=== PATIENT | male | born 1940 | race Caucasian/White ===

== ENCOUNTER 2020-05-03 07:58 | Inpatient (IN) | payer MEDICARE, OTHER ==
[2020-05-03] VITALS (17 sets, daily range): BP systolic 93–161; BP diastolic 53–94
[~2020-05-03] VITALS: Ht 182.5 cm; Wt 146.2 kg
[2020-05-03] MEDS ORDERED: NS IV 500 ML 500 ML IV SCH ×2 (08:10→08:15)
[2020-05-03] MEDS ORDERED: LOPERAMIDE 2 MG (IMODIUM) TABLET PO PRN (08:15)
[2020-05-03] MEDS ORDERED: ALPRAZolam 0.25 MG (XANAX) TAB PO PRN (08:15)
[2020-05-03] MEDS ORDERED: BISACODYL 10 MG SUPP (DULCOLAX) PR PRN (08:15)
[2020-05-03] MEDS ORDERED: ONDANSETRON 4 MG/2 ML (SDV) Z0FRAN IVP PRN (08:15)
[2020-05-03] MEDS ORDERED: ONDANSETRON 4 MG (ZOFRAN) ORAL DISSOLVE TAB PO PRN (08:15)
[2020-05-03] MEDS ORDERED: DOCUSATE SODIUM 100 MG (COLACE) CAP PO PRN (08:15)
[2020-05-03] MEDS ORDERED: CALCIUM CARBONATE 500 MG (TUMS) TAB.CHEW PO PRN (08:15)
[2020-05-03] MEDS ORDERED: FLEET ENEMA ADULT 1 EA BTL PR PRN (08:15)
[2020-05-03] MEDS ORDERED: diphenhydrAMINE 50 MG/ML INJ (BENADRYL) IVP PRN (08:15)
[2020-05-03] MEDS ORDERED: MELATONIN 3 MG TABLET PO PRN (08:15)
[2020-05-03] MEDS ORDERED: LACTULOSE SYRUP 10GM/15ML (ENULOSE) 30ML UDC PO PRN (08:15)
--- NOTE | 2020-05-03 08:26 | Progress Note ---
Progress Note SUBJECTIVE: Patientreturns in follow-up and is asymptomatic cardiac jade he has no chest discomfort of any type of sort. He has no PND or orthopnea. He has no syncope or presyncope and no pedal edema. He has no palpitations. He has knownprobable sleep apnea but refuses any CPAP treatment and refuses to have a sleep study done. Note that he is preop for laminectomy as he has had debilitating back pain lately limiting his ambulation. He has no dyspnea per se. PHX: see earlier records. Active /PHXproblems in part include: Patient Active Problem List l Diagnosis Code CAD (coronary artery disease) I25.10 S/P PTCA (percutaneous transluminal coronary angioplasty)/stent 2007 Z98.61 S/P appendectomy Z90.49 S/P surgical amputation of fingers -traumatic post acident with rolled glass crosscutter years ago right and left hands Z89.029 Gout M10.9 Sleep apnea-probable G47.30 CRF (chronic renal failure)mild N18.9 Hyperlipemia E78.5 HTN (hypertension) I10 Carpal tunnel syndrome on right G56.01 Cervical radiculopathy M54.12 Cervical spondylosis M47.812 Follow up Z09 Stable angina I20.8 Severe obesity (BMI 35.0-39.9) with comorbidity E66.01 Ulnar neuropathy of right upper extremity G56.21 Back pain M54.9 Pre-op evaluation Z01.818 Prior surgeries include EMG with nerve conduction as well as stents to hold nerves and placed in his neck or arm discomfort issues he is also had right foot surgery, appendectomy fingertip and 3 middle finger amputations remotely in 2009 he had PTCA of the RCA with stenting. Social history: non smoker at this stage of his life with no alcohol abuse and no illegal drug use--quit smoking [id number] after several pack years Family History--see family history section here in Epic and is negative for [place] or cardiovascular diseaseexcept for his father and a brother in their middle- age and older years. Review of Systems: Constitutional: negative for fevers, chills, sweats, anorexia, weight loss Musculoskeletal: negative for hot, swollen joints Eyes: negative for visual loss, diplopia, eye pain Ears, nose, throat: negative for hearing loss, tinnitus, sinus pain, sore throat Endocrine: negative for polyuria, polydipsia, thyroid disease Respiratory: negative for productive cough, wheezing, hemoptysis Cardiovascular:See subjective section above Gastrointestinal: negative for nausea, vomiting, diarrhea, melena, hematochezi a, hematemesis, abdominal pain Genitourinary: negative for dysuria, hematuria, frequency Hematologic:negative for anemia, easy bruisability, bleeding, lymphadenopathy Neurological: negative for unilateral motor or sensory loss, dementia Behavioral/Psych: negative for depression, anxiety Laboratory: BMP: Lab Results Component Value Date/Time SODIUM 142 02/19/2019 08:55 AM POTASSIUM 4.3 02/19/2019 08:55 AM CHLORIDE 106 02/19/2019 08:55 AM CO2 22 02/19/2019 08:55 AM BUN 21 02/19/2019 08:55 AM CREATININE 1.43 (H) 02/19/2019 08:55 AM CALCIUM 8.9 02/19/2019 08:55 AM Lipids: @[LASTLIPIDS@ CBC: Lab Results Component Value Date/Time WBC 7.9 02/19/2019 08:55 AM RBC 4.14 (L) 02/19/2019 08:55 AM w HEMOGLOBIN 12.1 (L) 02/19/2019 08:55 AM HEMATOCRIT 37.9 (L) 02/19/2019 08:55 AM PLATELETS 242 02/19/2019 08:55 AM For allergies/intolerances see the appropriate tabs here in EPIChe has no known drug allergies OBJECTIVE:BP 130/60 | Pulse 63 | Resp 20 | Ht 6' 1" (1.854 m) | Wt (!) 149.7 kg (330 lb) | SpO2 98% | BMI 43.54 kg/m Heappears well, in no apparent distress. Alert and oriented times three, pleasant and cooperative. Heent: AT/NC with pharynx, teeth and gums grossly normal. Neck:no significant JVD with carotids normal in upstroke and volume . No c arotid bruits Heart: S1 and S2 normal, no murmurs, clicks, gallops or rubs. Regular rate and rhythm. Lungs: Chest is clear; no wheezes or rales, No edema or JVD. Abdomen:Bowel sounds present, soft, non-tender. Extremities:No edema, pulses palpable. Skin: no rashes, no xanthomas, no xanthelasmas Neurological exam: Grossly normal. Moves all 4's well Encounter Medications Outpatient Encounter Medications as of 02/20/2020 Medication Sig Dispense Refill docusate sodium (COLACE) 100 mg capsule Take 1 Capsule (100 mg) by mouth 2 times daily. 30 Capsule 0 cyclobenzaprine (FLEXERIL) 10 mg tablet Take 1 Tablet (10 mg) by mouth 3 times daily as needed for Spasm. 15 Tablet 0 HYDROcodone-acetaminophen (NORCO) 5-325 mg tablet Take 1 Tablet by mouth every 8 hours as needed for Pain, Moderate. Max Daily Amount: 3 Tablets 12 Tablet 0 lisinopriL (PRINIVIL) 40 mg tablet TAKE 1 TABLET BY MOUTH DAILY 90 Tablet 3 metoprolol succinate (TOPROL XL) 50 mg Extended Release 24 hour tablet TAKE ONE-HALF TABLET BY MOUTH EVERY DAY 45 Tablet 3 atorvastatin (LIPITOR) 80 mg tablet TAKE 1 TABLET BY MOUTH DAILY LATE IN THE DAY. 90 Tablet 3 levothyroxine 50 mcg tablet Take 1 Tablet (50 mcg) by mouth daily site director. 90 Tablet 3 amLODIPine (NORVASC) 5 mg tablet Take 1 Tablet (5 mg) by mouth daily And may take one extra tab daily prn for systolic above 140. 120 Tablet 2 aspirin (BIANCA) 325 mg tablet Take 325 mg by mouth daily. NITROSTAT 0.4 mg Tablet, Sublingual PLACE 1 TABLET UNDER TONGUE EVERY 5 MINUTES NEEDED FOR CHEST PAIN. 25 Tablet 1 Sgeyt-6-XSG-EPA-Fish Oil 1,200 (144-216) mg Oral Cap Take 1 Tab by mouth daily. No facility-administered encounter medications on file as of 02/20/2020. Patient Active Problem List Diagnosis Code CAD (coronary artery disease) I25.10 S/P PTCA (percutaneous transluminal coronary angioplasty)/stent 2007 Z98.61 S/P appendectomy Z90.49 S/P surgical amputation of fingers -traumatic post acident with rolled glass crosscutter years ago right and left hands Z89.029 Gout M10.9 Sleep apnea-probable G47.30 CRF (chronic renal failure)mild N18.9 Hyperlipemia E78.5 HTN (hypertension) I10 Carpal tunnel syndrome on right G56.01 Cervical radiculopathy M54.12 Cervical spondylosis M47.812 Follow up Z09 Stable angina I20.8 Severe obesity (BMI 35.0-39.9) with comorbidity E66.01 Ulnar neuropathy of right upper extremity G56.21 Back pain M54.9 Pre-op evaluation Z01.818 ASSESSMENT/PLAN See encounter list above The current medical regimen is effective. He is hemodynamically stable and free of bedside evidence of CHF. Additionally, he has nothing to suggest any angina and his blood pressure is well controlled.He has been limited by low back pain I been asked to clear him for his upcoming laminectomy. Given his lack of cardiac symptoms there is no call for preop stress test. I will arrange a preop ECG today for screening purposes saw my nurse explained to have him get arranged. And otherwise clear for his upcoming laminectomy with usual surgical precautions. Otherwise his gentleman who has probable sleep apnea still refuses to have sleep study and refused to have CPAP. I have encouraged him to try to remain active especially post surgery hopefully build become more active and lose some weight which should help with his sleep apnea. Continue present medications. Addendum: He has not had any lab work in system since 2018 and has anything to eat yet today so I we will arrange screening labs today including a CBC, CMP, free T4, TSH and a fasting lipid panel. Thank you very much for letting me participate in this patient's care. See orders for plans and follow up ART SERRATO DO May 03, 2020 08:26
--- NOTE | 2020-05-03 08:41 | Progress Note ---
Progress Note My consult on 05/01/20: Tushar Joshi a 79 y.o.maleadmitted for Lumbar stenosis with neurogenic claudication. I was asked to consult for ARF with oliguria Patient seen at 1130am PCP: Meaghan Garcia, Dr. 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 Pt was made aware of my role in his care Physical exam stable, lungs CTAB Vitals rudy stable Pain is well controlled He has a lot of diarrhea two weeks before surgery He is now having significant problems with creatinine of 2.8 and hyperkalemia I have given him a dose of Kayexalate and increased fluids He does have a history of orthostasis and low BP at home He did receive a unit of blood during surgery, but is having minimal output I will go ahead and give him another 500 CC bolus an maintain normal Saline of 125 Lungs remain clear, but I will check an I-STAT BNP if creatinine has increased he needs to go to nephrology and transfer to higher level of care My note from 05/02: Chief Complaint-Weakness with hypotension and ARF HPI-Tushar Joshi a 79 y.o.maleis seen in f/u. Patient seen at 0830am. 05/02/20: I called and checked on him a couple of times last night and this morning Creatinine down to 2.6 Potassium is good Good urinary output of 1300 CCs in his catheter Post-op ileus is managed with clear liquid diet Will discontinue catheter today Will cancel transfer to [facility] for acute renal failure Talked to the daughter and recommended a nephrology follow-up regardless because baseline creatinine is 1.6 Pt had been very dehydrated due to two weeks of diarrhea before he came in and thus volume depletion and acute renal failure Physical exam stable, lungs CTAB Vitals are stable Pt has no further concerns I did update Dr. De La Cruz on the plan ART SERRATO DO May 03, 2020 08:41
[2020-05-03 12:04] LABS: ABG BASE EXCESS -4.6 MMOL/L (-2.5-2.5); ABG OXYGEN SATURATION 97 % (94-100); ABG PCO2 37 MMHG (35-45); ABG PH 7.35 (7.37-7.43); ABG PO2 91 MMHG (79-93); ABG TCO2 21.2 MMOL/L (21.0-31.0)
[2020-05-03 12:05] LABS: ALLENS TEST YES-POS; INSPIRED O2 2; PATIENT TEMP 36.8; VENTILATOR NO
[2020-05-03] MEDS ORDERED: FLU QUAD HIGH DOSE 240 MCG/0.7 ML 2020-21 (FLUZONE) IM ONE (12:15)
[2020-05-03] MEDS: NS IV 1000 ML 1,000 ML IV SCH (12:18)
[2020-05-03 12:20] LABS: BASOPHILS % (AUTO) 0 % (0-10); EOSINOPHILS # (AUTO) 0.1 10^3/uL (0.0-0.3); EOSINOPHILS % (AUTO) 1 % (0-10); HEMATOCRIT 24 % (40-54); HEMOGLOBIN 7.8 G/DL (13.3-17.7); LYMPHOCYTES # (AUTO) 1.3 X 10^3 (1.0-4.0); LYMPHOCYTES % (AUTO) 10 % (12-44); MEAN CORPUSCULAR HEMOGLOBIN 30 PG (25-34); MEAN CORPUSCULAR HGB CONC 33 G/DL (32-36); MEAN CORPUSCULAR VOLUME 91 FL (80-99); MEAN PLATELET VOLUME 11.1 FL (7.4-10.4); MONOCYTES # (AUTO) 0.9 X 10^3 (0.0-1.0); MONOCYTES % (AUTO) 7 % (0-12); NEUTROPHILS # (AUTO) 10.4 X 10^3 (1.8-7.8); NEUTROPHILS % (AUTO) 82 % (42-75); PLATELET COUNT 201 10^3/uL (130-400); WHITE BLOOD COUNT 12.7 10^3/uL (4.3-11.0)
--- NOTE | 2020-05-03 12:20 | Consultation-Cardiology ---
HPI-Cardiology Cardiology Consultation Date of Consultation 05/03/20 Date of Admission Time Seen by Provider: 12:17 Indication: anasarca HPI 79 years old gentleman with history of coronary artery disease, chronic kidney disease, underwent extensive back surgery. He was noted to have worsening peripheral edema. Denied any chest pain. No palpitation, Home Medications & Allergies Allergies: Coded Allergies: No Known Drug Allergies (Unverified , 05/03/20) Home Medication List Reviewed: Yes CMK-Vfrljv-Dhtcir Hx Patient Social History Marital Status: Employed/Student: retired Alcohol Use: Denies Use Recreational Drug Use: No Smoking Status: Former Smoker Recent Foreign Travel: No Recent Infectious Disease Expo: No Recent Hopitalizations: Yes (Laminectomy) Physical Abuse Screen: No Sexual Abuse: No Immunizations Up To Date Date of Pneumonia Vaccine: May 03, 2019 Past Medical History Discussed below Review of Systems-General Review of Systems Constitutional: see HPI, malaise EENTM: see HPI, no symptoms reported Respiratory: see HPI; No cough; dyspnea on exertion; No hemoptysis, No orthopnea, No phlegm, No short of breath, No stridor, No wheezing; other (snoring at night) Cardiovascular: see HPI; No chest pain; edema; No Hx of Intervention, No palpitations, No syncope, No vascular heart diseas, No other Gastrointestinal: see HPI, other (abdominal distention) Genitourinary: no symptoms reported, see HPI Musculoskeletal: no symptoms reported, see HPI Skin: no symptoms reported, see HPI Psychiatric/Neurological: No Symptoms Reported, See HPI Reviewed Test Results Reviewed Test Results Lab Laboratory Tests Test 05/03/20 11:55 05/03/20 12:00 Range/Units Blood Gas Puncture Site R RADIAL Blood Gas Patient Temperature 36.8 Arterial Blood pH 7.35 L 7.37-7.43 Arterial Blood Partial Pressure CO2 37 35-45 MMHG Arterial Blood Partial Pressure O2 91 79-93 MMHG Arterial Blood HCO3 20 L 23-27 MMOL/L Arterial Blood Total CO2 21.2 21.0-31.0 MMOL/L Arterial Blood Oxygen Saturation 97 94-100 % Arterial Blood Base Excess -4.6 L -2.5-2.5 MMOL/L Wisam Test YES-POS Blood Gas Ventilator Setting NO Blood Gas Inspired Oxygen 2 Physical Exam Physical Exam Vital Signs Vital Signs - First Documented 05/03/20 05/03/2020 11:15 13:25 15:01 Temp 37.0 Pulse 96 Resp 20 B/P (MAP) 106/53 (70) Pulse Ox 97 O2 Delivery Room Air O2 Flow Rate 2.00 FiO2 28 Capillary Refill : Height, Weight, BMI Height: '" Weight: lbs. oz. kg; 43.23 BMI Method: General Appearance: No Apparent Distress, WD/WN Eyes: Bilateral Eye Normal Inspection, Bilateral Eye PERRL, Bilateral Eye EOMI HEENT: PERRL/EOMI, TMs Normal, Normal ENT Inspection, Pharynx Normal, Moist Mucous Membranes Neck: Full Range of Motion, Normal Inspection, Non Tender, Supple, Carotid Br uit Respiratory: Chest Non Tender, Normal Breath Sounds, No Accessory Muscle Use, No Respiratory Distress Cardiovascular: Regular Rate, Rhythm, No Gallop, No JVD, No Murmur, Normal Peripheral Pulses Gastrointestinal: Normal Bowel Sounds, No Organomegaly, No Pulsatile Mass, Non Tender, Soft Back: Normal Inspection, No CVA Tenderness, No Vertebral Tenderness Extremity: Normal Capillary Refill, Normal Inspection, Normal Range of Motion, Non Tender, No Calf Tenderness, Other (peripheral edema) Neurologic/Psychiatric: Alert, Oriented x3, No Motor/Sensory Deficits, Normal Mood/Affect Skin: Normal Color, Warm/Dry Lymphatic: No Adenopathy A/P-Cardiology Admission Diagnosis Anasarca Type II OR Coronary artery disease Acute renal failure Assessment/Plan Anasarca, acute renal failure, starting diuretics and monitor fluid status and renal function Coronary artery disease, history of coronary stents in the past, mild elevation in troponin, Type II OR secondary to hypotension and anemia, conservative management and continue to monitor Hypotension, BP is better continue to monitor Anemia, post surgery, continue to monitor, management per medical service Acute on chronic renal insuf. continue to monitor Status post Lumbar surgery, continue to monitor High risk for sleep apnea, consider sleep study as an outpatient Clinical Quality Measures DVT/VTE Risk/Contraindication: Risk Factor Score Per Nursin RFS Level Per Nursing on Admit: 4+=Very High Contraindications-Pharm: Other *list below* Other: spine surgery increased risk for hematoma BEN TRONCOSO MD May 03, 2020 12:20
[2020-05-03 12:29] LABS: ALBUMIN 2.7 GM/DL (3.2-4.5); POTASSIUM 4.6 MMOL/L (3.6-5.0)
[2020-05-03 12:30] LABS: CALCIUM 7.5 MG/DL (8.5-10.1)
[2020-05-03 12:31] LABS: TOTAL PROTEIN 5.2 GM/DL (6.4-8.2)
[2020-05-03 12:32] LABS: INR 1.3 (0.8-1.4); PROTHROMBIN TIME PATIENT 16.2 SEC (12.2-14.7)
[2020-05-03 12:33] LABS: BILIRUBIN,TOTAL 0.7 MG/DL (0.1-1.0)
--- NOTE | 2020-05-03 12:34 | History & Physical ---
History of Present Illness HPI/Chief Complaint CC: Edema with hypotension and ARF on CRI HPI: This is a 79yoWM who I moved from [place] due to worsening edema with inc reased creatinine and hypotension since lumbar spine surgery completed by Dr De La Cruz. BM+ and urinary catheter is in place. Son at bedside. Updated Dr Cat. My consult on 05/01/20: Tushar Joshi a 79 y.o.maleadmitted for Lumbar stenosis with neurogenic claudication. I was asked to consult for ARF with oliguria Patient seen at 1130am PCP: Meaghan Garcia, Dr. 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 Pt was made aware of my role in his care Physical exam stable, lungs CTAB Vitals rudy stable Pain is well controlled He has a lot of diarrhea two weeks before surgery He is now having significant problems with creatinine of 2.8 and hyperkalemia I have given him a dose of Kayexalate and increased fluids He does have a history of orthostasis and low BP at home He did receive a unit of blood during surgery, but is having minimal output I will go ahead and give him another 500 CC bolus an maintain normal Saline of 125 Lungs remain clear, but I will check an I-STAT BNP if creatinine has increased he needs to go to nephrology and transfer to higher level of care My note from 05/02: Chief Complaint-Weakness with hypotension and ARF HPI-Tushar Joshi a 79 y.o.maleis seen in f/u. Patient seen at 0830am. 05/02/20: I called and checked on him a couple of times last night and this morning Creatinine down to 2.6 Potassium is good Good urinary output of 1300 CCs in his catheter Post-op ileus is managed with clear liquid diet Will discontinue catheter today Will cancel transfer to [facility] for acute renal failure Talked to the daughter and recommended a nephrology follow-up regardless because baseline creatinine is 1.6 Pt had been very dehydrated due to two weeks of diarrhea before he came in and thus volume depletion and acute renal failure Physical exam stable, lungs CTAB Vitals are stable Pt has no further concerns I did update Dr. De La Cruz on the plan Source: patient, family, RN/MD, old records Exam Limitations: no limitations Date Seen 05/03/20 Time Seen by a Provider: 12:15 Attending Physician Kristi Serrato DO PCP Referring Physician Date of Admission May 03, 2020 at 08:25 Home Medications & Allergies Home Medications Reviewed patient Home Medication Reconciliation performed by pharmacy medication reconciliations forklift technician and/or nursing. Patients Allergies have been reviewed. Allergies Allergies Coded Allergies No Known Drug Allergies (Unverified05/03/20) Past Pvohnce-Fbtqaf-Lkiaii Hx Past Med/Social Hx: Reviewed Nursing Past Med/Soc Hx, Reviewed and Corrections made Patient Social History Marrital Status: Employed/Student: retired Alcohol Use: Denies Use Recreational Drug Use: No Smoking Status: Former Smoker Former Smoker, Quit: May 03, 1965 Physical Abuse Screen: No Sexual Abuse: No Recent Foreign Travel: No Contact w/other who traveled: No Recent Hopitalizations: Yes (Laminectomy) Recent Infectious Disease Expo: No Immunizations Up To Date Pediatric: No Date of Pneumonia Vaccine: May 03, 2019 Seasonal Allergies Seasonal Allergies: No Past Medical History Surgeries: Orthopedic Respiratory: COPD, Sleep Apnea Currently Using CPAP: No Currently Using BIPAP: No Cardiac: Chronic Edema/Swelling, High Cholesterol, Hypertension Neurological: Neuropathy Genitourinary: Renal Failure Musculoskeletal: Amputee, Arthritis History of Blood Disorders: No Adverse Reaction to Blood Chatterjee: Yes Review of Systems Constitutional: see HPI Respiratory: dyspnea on exertion Cardiovascular: edema Musculoskeletal: back pain Physical Exam Physical Exam Vital Signs Vital Signs - First Documented 05/03/20 05/03/20 05/03/20 11:15 13:25 15:01 Temp 37.0 Pulse 96 Resp 20 B/P (MAP) 106/53 (70) Pulse Ox 97 O2 Delivery Room Air O2 Flow Rate 2.00 FiO2 28 Capillary Refill : Height, Weight, BMI Height: '" Weight: lbs. oz. kg; 43.23 BMI Method: General Appearance: No Apparent Distress, WD/WN, Chronically ill, Obese Eyes: Bilateral Eye Normal Inspection, Bilateral Eye PERRL, Bilateral Eye EOMI HEENT: PERRL/EOMI, Normal ENT Inspection, Pharynx Normal, Moist Mucous Membranes Neck: Full Range of Motion, Normal Inspection, Non Tender, Supple, Carotid Bruit Respiratory: Chest Non Tender, Normal Breath Sounds, No Accessory Muscle Use, No Respiratory Distress, Decreased Breath Sounds Cardiovascular: Regular Rate, Rhythm, No Gallop, No JVD, No Murmur, Normal Peripheral Pulses Gastrointestinal: Normal Bowel Sounds, No Organomegaly, No Pulsatile Mass, Non Tender, Soft Back: Normal Inspection, No CVA Tenderness, Decreased Range of Motion, Muscle Spasm, Vertebral Tenderness Extremity: Normal Capillary Refill, Normal Inspection, Normal Range of Motion, Non Tender, No Calf Tenderness, Pedal Edema, Other (peripheral edema) Neurologic/Psychiatric: Alert, Oriented x3, No Motor/Sensory Deficits, Normal Mood/Affect, asset protection lead II-XII Norm as Tested Skin: Normal Color, Warm/Dry Lymphatic: No Adenopathy Results Results/Procedures Labs Laboratory Tests 05/03/20 12:00 Patient resulted labs reviewed. Assessment/Plan Admission Diagnosis Assessment: Hypotension Anasarca ARF on CRI Anemia post op acute blood loss requiring transfusion OMERO non-compliant with treatment HTN HLP CAD Plan: ICU Dr Cat Transfuse O2 IVF Admission Status: Inpatient Order (span 2 midnights) Reason for Inpatient Admission: hypotension with ARF and anemia and edema Diagnosis/Problems Diagnosis/Problems (1) Anasarca (2) Renal failure (ARF), acute on chronic (3) Anemia (4) Transfusion of blood during current hospitalization (5) Hypotension Clinical Quality Measures DVT/VTE Risk/Contraindication: Risk Factor Score Per Nursin RFS Level Per Nursing on Admit: 4+=Very High Contraindications-Pharm: Other *list below* Other: spine surgery increased risk for hematoma KRITSI SERRATO DO May 03, 2020 12:34
[2020-05-03 12:35] LABS: CREATININE SERUM 2.98 MG/DL (0.60-1.30)
[2020-05-03 12:58] LABS: TSH (THYROID ANALYZER) 1.06 UIU/ML (0.35-4.94)
[2020-05-03] MEDS: SENNA W/DOCUSATE (SENOKOT S) TABLET PO SCH ×2 (13:11→20:39)
[2020-05-03] MEDS: ACETAMINOPHEN 500 MG TAB (TYLENOL) PO PRN ×2 (13:32→20:39)
--- NOTE | 2020-05-03 13:41 | Diagnostic Imaging Report ---
INDICATION: Dyspnea. TIME OF EXAM: 01:13 p.m. COMPARISON: No prior studies are available for comparison. FINDINGS: The heart size is normal. The pulmonary vascularity is unremarkable. The lungs are clear. No infiltrate, effusion or pneumothorax is detected. IMPRESSION: No acute cardiopulmonary process is detected. Dictated by: Dictated on workstation # [id number]
[2020-05-03] MEDS ORDERED: RT-ALBUTEROL/IPRATROPIUM 3 ML (DUONEB) VIAL INH PRN (15:15)
[2020-05-03 15:52] LABS: BILIRUBIN,URINE NEGATIVE (NEGATIVE); CLARITY,URINE CLEAR; COLOR,URINE YELLOW; GLUCOSE, URINE (UA) NEGATIVE (NEGATIVE); KETONES,URINE NEGATIVE (NEGATIVE); LEUKOCYTE ESTERASE ,URINE NEGATIVE (NEGATIVE); NITRITE,URINE NEGATIVE (NEGATIVE); PH,URINE 5.5 (5-9); PROTEIN,URINE 1+ (NEGATIVE)
[2020-05-03 15:59] LABS: BACTERIA,URINE TRACE /HPF
[2020-05-03 16:00] LABS: SQUAMOUS EPITHELIAL CELL,UR RARE /HPF
--- NOTE | 2020-05-03 17:39 | NUR ---
1300 DR TRONCOSO NOTIFIED OF PT'S TROPONIN LEVEL, ORDERS TO RECHECK IN 6 HOURS RECEIVED.
[2020-05-04] VITALS (14 sets, daily range): BP systolic 114–173; BP diastolic 58–88
[2020-05-04] MEDS: NS IV 1000 ML 1,000 ML IV SCH (00:55)
[2020-05-04 03:17] LABS: BASOPHILS % (AUTO) 0 % (0-10); EOSINOPHILS # (AUTO) 0.2 10^3/uL (0.0-0.3); EOSINOPHILS % (AUTO) 2 % (0-10); HEMATOCRIT 26 % (40-54); HEMOGLOBIN 8.5 G/DL (13.3-17.7); LYMPHOCYTES # (AUTO) 0.9 X 10^3 (1.0-4.0); LYMPHOCYTES % (AUTO) 10 % (12-44); MEAN CORPUSCULAR HEMOGLOBIN 29 PG (25-34); MEAN CORPUSCULAR HGB CONC 33 G/DL (32-36); MEAN CORPUSCULAR VOLUME 90 FL (80-99); MEAN PLATELET VOLUME 11.2 FL (7.4-10.4); MONOCYTES # (AUTO) 0.6 X 10^3 (0.0-1.0); MONOCYTES % (AUTO) 7 % (0-12); NEUTROPHILS # (AUTO) 6.9 X 10^3 (1.8-7.8); NEUTROPHILS % (AUTO) 80 % (42-75); PLATELET COUNT 196 10^3/uL (130-400); WHITE BLOOD COUNT 8.6 10^3/uL (4.3-11.0)
[2020-05-04 03:44] LABS: ALBUMIN 2.5 GM/DL (3.2-4.5)
[2020-05-04 03:45] LABS: POTASSIUM 4.3 MMOL/L (3.6-5.0)
[2020-05-04 03:46] LABS: CALCIUM 7.4 MG/DL (8.5-10.1)
[2020-05-04 03:47] LABS: TOTAL PROTEIN 4.8 GM/DL (6.4-8.2)
[2020-05-04 03:49] LABS: BILIRUBIN,TOTAL 0.6 MG/DL (0.1-1.0)
[2020-05-04 03:51] LABS: CREATININE SERUM 2.41 MG/DL (0.60-1.30)
--- NOTE | 2020-05-04 06:57 | Progress Note ---
Subjective Date Seen by a Provider: May 04, 2020 Time Seen by a Provider: 11:00 Subjective/Events-last exam Patient doing extremely well Moving to 4th floor No hypoxia noted Weaned off O2 Creatinine improved at 2.4 PT OT ordered now Hgb 8.5 after 1 unit of blood No hypotension noted now Lungs are clear Ileus resolved Catheter remains in place Review of Systems General: Fatigue, Malaise Pulmonary: Dyspnea, Cough Musculoskeletal: back pain Neurological: Weakness Focused Exam Lactate Level 05/03/20 12:00: Lactic Acid Level 0.79 Objective Exam Last Set of Vital Signs Vital Signs Date Time Temp Pulse Resp B/P (MAP) Pulse Ox O2 Delivery O2 Flow Rate FiO2 05/04/20 06:00 98 21 140/75 (96) 96 Nasal Cannula 2.00 05/04/20 04:38 37.8 05/03/20 15:01 28 Capillary Refill : I&O Intake and Output 05/04/20 00:00 Intake Total 745 ml Output Total 1550 ml Balance -805 ml Intake Oral 745 ml Output Urine Total 1550 ml Daily Weight Change No General: Alert, Oriented X3, Cooperative, No Acute Distress Lungs: Clear to Auscultation, Normal Air Movement Heart: Regular Rate, Normal S1, Normal S2, No Murmurs Neuro: Normal Speech, Other (weak in lower extremities from back surgery) Psych/Mental Status: Mental Status NL, Mood NL Results Lab Laboratory Tests 05/03/20 11:55: Blood Gas Puncture Site R RADIAL, Blood Gas Patient Temperature 36.8, Arterial Blood pH 7.35L, Arterial Blood Partial Pressure CO2 37, Arterial Blood Partial Pressure O2 91, Arterial Blood HCO3 20L, Arterial Blood Total CO2 21.2, Arterial Blood Oxygen Saturation 97, Arterial Blood Base Excess -4.6L, [place] Test YES- POS, Blood Gas Ventilator Setting NO, Blood Gas Inspired Oxygen 2 05/03/20 12:00: White Blood Count 12.7H, Red Blood Count 2.64L, Hemoglobin 7.8L, Hematocrit 24L, Mean Corpuscular Volume 91, Mean Corpuscular Hemoglobin 30, Mean Corpuscular Hemoglobin Concent 33, Red Cell Distribution Width 15.1H, Platelet Count 201, Mean Platelet Volume 11.1H, Neutrophils (%) (Auto) 82H, Lymphocytes (%) (Auto) 10L, Monocytes (%) (Auto) 7, Eosinophils (%) (Auto) 1, Basophils (%) (Auto) 0, Neutrophils # (Auto) 10.4H, Lymphocytes # (Auto) 1.3, Monocytes # (Auto) 0.9, Eosinophils # (Auto) 0.1, Basophils # (Auto) 0.0, Prothrombin Time 16.2H, INR Comment 1.3, Activated Partial Thromboplast Time 37H, Sodium Level 132L, Potassium Level 4.6, Chloride Level 105, Carbon Dioxide Level 18L, Anion Gap 9, Blood Urea Nitrogen 40H, Creatinine 2.98H, Estimat Glomerular Filtration Rate 20 , BUN/Creatinine Ratio 13, Glucose Level 100, Lactic Acid Level 0.79, Calcium Level 7.5L, Corrected Calcium 8.5, Total Bilirubin 0.7, Aspartate Amino Transf (AST/SGOT) 56H, Alanine Aminotransferase (ALT/SGPT) 9, Alkaline Phosphatase 60, Troponin I 0.125H, B-Type Natriuretic Peptide 43.7, Total Protein 5.2L, Albumin 2.7L, Procalcitonin 0.85H, TSH [place] Testing 1.06 05/03/20 15:47: Urine Color YELLOW, Urine Clarity CLEAR, Urine pH 5.5, Urine Specific [place] <=1.005, Urine Protein 1+H, Urine Glucose (UA) NEGATIVE, Urine Ketones NEGATIVE, Urine Nitrite NEGATIVE, Urine Bilirubin NEGATIVE, Urine Urobilinogen 0.2, Urine Leukocyte Esterase NEGATIVE, Urine RBC (Auto) 3+H, Urine RBC 2-5H, Urine WBC NONE, Urine Squamous Epithelial Cells RARE, Urine Crystals NONE, Urine Bacteria TRACE, Urine Casts NONE, Urine Mucus NEGATIVE, Urine Culture Indicated NO 05/03/20 18:27: Troponin I 0.109H 05/04/20 02:49: White Blood Count 8.6, Red Blood Count 2.90L, Hemoglobin 8.5L, Hematocrit 26L, Mean Corpuscular Volume 90, Mean Corpuscular Hemoglobin 29, Mean Corpuscular Hemoglobin Concent 33, Red Cell Distribution Width 15.5H, Platelet Count 196, Mean Platelet Volume 11.2H, Neutrophils (%) (Auto) 80H, Lymphocytes (%) (Auto) 10L, Monocytes (%) (Auto) 7, Eosinophils (%) (Auto) 2, Basophils (%) (Auto) 0, Neutrophils # (Auto) 6.9, Lymphocytes # (Auto) 0.9L, Monocytes # (Auto) 0.6, Eosinophils # (Auto) 0.2, Basophils # (Auto) 0.0, Sodium Level 134L, Potassium Level 4.3, Chloride Level 108H, Carbon Dioxide Level 18L, Anion Gap 8, Blood Urea Nitrogen 38H, Creatinine 2.41H, Estimat Glomerular Filtration Rate 26, BUN/Creatinine Ratio 16, Glucose Level 88, Calcium Level 7.4L, Corrected Calcium 8.6, Total Bilirubin 0.6, Aspartate Amino Transf (AST/SGOT) 60H, Alanine Aminotransferase (ALT/SGPT) 10, Alkaline Phosphatase 54, Total Protein 4.8L, Albumin 2.5L Assessment/Plan Assessment/Plan Assess & Plan/Chief Complaint Assessment: Hypotension- now resolved after gentle IVF and transfusion of 1 unit of blood 05/03/20 Anasarca improved ARF on CRI- improved creatinine Anemia post op acute blood loss requiring transfusion yesterday OMERO non-compliant with treatment HTN HLP CAD s/p ileus now resolved Plan: ICU moving to 4th floor Dr Cat appreciated Transfused yesterday O2 IVF gentle Advance diet Diagnosis/Problems Diagnosis/Problems (1) Anasarca (2) Renal failure (ARF), acute on chronic (3) Anemia (4) Transfusion of blood during current hospitalization (5) Hypotension Clinical Quality Measures DVT/VTE Risk/Contraindication: Risk Factor Score Per Nursin RFS Level Per Nursing on Admit: 4+=Very High Contraindications-Pharm: Other *list below* Other: spine surgery increased risk for hematoma ART SERRATO DO May 04, 2020 06:57
[2020-05-04] MEDS: SENNA W/DOCUSATE (SENOKOT S) TABLET PO SCH ×2 (07:24→21:35)
[2020-05-04] MEDS: ACETAMINOPHEN 500 MG TAB (TYLENOL) PO PRN (07:50)
[2020-05-04] MEDS ORDERED: TRIAMCINOLONE 0.1% CR (KENALOG) 15 GM TUBE TOP PRN (11:15)
--- NOTE | 2020-05-04 11:46 | Cardiology Progress Note ---
Subjective Date Seen by Provider: May 04, 2020 Time Seen by Provider: 11:45 Subjective/Events-last exam Patient is laying down in bed, feeling better today. No new complaint Review of Systems General: No Chills, No Night Sweats, No Fatigue, No Malaise, No Appetite, No Other HEENT: No Head Aches, No Visual Changes, No Eye Pain, No Ear Pain, No Dysphasia, No Sinus Congestion, No Post Nasal Drip, No Sore Throat, No Other Pulmonary: No Dyspnea, No Cough, No Pleuritic Chest Pain, No Other Cardiovascular: Edema; No: Chest Pain, Palpitations, Orthopnea, Paroxysmal Noc. Dyspnea, Lt Headedness, Other Focused Exam Lactate Level 05/03/20 12:00: Lactic Acid Level 0.79 Objective-Cardiology Exam Last Set of Vital Signs Vital Signs 05/03/20 05/04/20 05/04/20 05/04/20 05/04/20 15:01 09:00 11:00 11:06 11:19 Temp 37.1 Pulse 92 Resp 14 B/P (MAP) 140/75 (96) Pulse Ox 93 O2 Delivery Room Air O2 Flow Rate 2.00 FiO2 28 Capillary Refill : I&O Intake and Output 05/04/20 00:00 Intake Total 745 ml Output Total 1550 ml Balance -805 ml Intake Oral 745 ml Output Urine Total 1550 ml Daily Weight Change No General: Alert, Oriented X3, Cooperative HEENT: Atraumatic, PERRLA Neck: Supple, No JVD, No Thyromegaly Lungs: Clear to Auscultation, Normal Air Movement Heart: Regular Rate, Normal S1, Normal S2, No Murmurs Abdomen: Normal Bowel Sounds, Soft, No Tenderness, No Hepatosplenomegaly, No Masses Extremities: No Clubbing, No Cyanosis, No Edema, Normal Pulses, No Tenderness/Swelling Skin: No Rashes, No Breakdown, No Significant Lesion Neuro: Normal Speech, Normal Tone, Sensation Intact Psych/Mental Status: Mental Status NL, Mood NL Results Lab Laboratory Tests 05/03/20 12:00 05/04/20 02:49 A/P-Cardiology Admission Diagnosis Anasarca Type II LA Coronary artery disease Acute renal failure Assessment/Plan Fluid overload, acute on chronic renal failure, improving slowly. Continue to m onitor Coronary artery disease, history of coronary stents in the past, mild elevation in troponin, Type II LA secondary to hypotension and anemia, conservative management and continue to monitor Hypotension, BP is better continue to monitor Anemia, post surgery, continue to monitor, management per medical service Acute on chronic renal insuf. continue to monitor Status post Lumbar surgery, continue to monitor High risk for sleep apnea, consider sleep study as an outpatient Clinical Quality Measures DVT/VTE Risk/Contraindication: Risk Factor Score Per Nursin RFS Level Per Nursing on Admit: 4+=Very High Contraindications-Pharm: Other *list below* Other: spine surgery increased risk for hematoma BEN TRONCOSO MD May 04, 2020 11:46 am
[2020-05-04] MEDS: diphenhydrAMINE 2% 30 GM CR (ALLERGY CREAM) TOP PRN (13:02)
--- NOTE | 2020-05-04 13:30 | NUR ---
THIS NURSE CALLED REPORT TO OLIV[facility] MARMOLEJO ON FOURTH FLOOR. PT TAKEN DOWN TO FOURTH FLOOR VIA BED WITH BELONGINGS. PCT AT BEDSIDE.
--- NOTE | 2020-05-04 13:30 | NUR ---
This RN assumed patient care at this time. patient alert and orientated laying in bed at this time. dressing on back and side are C/D/I. verbalizes no additional needs at this time .
[2020-05-04] MEDS: ACETAMINOPHEN 325 MG TABLET PO PRN (17:47)
[2020-05-05] VITALS (7 sets, daily range): BP systolic 144–157; BP diastolic 71–81
[2020-05-05] MEDS: HYDROcodone/APAP 5 MG/325 MG (LORTAB) TAB PO PRN ×2 (00:10→09:05)
[2020-05-05 05:08] LABS: BASOPHILS % (AUTO) 0 % (0-10); EOSINOPHILS # (AUTO) 0.2 10^3/uL (0.0-0.3); EOSINOPHILS % (AUTO) 3 % (0-10); HEMATOCRIT 27 % (40-54); HEMOGLOBIN 8.5 G/DL (13.3-17.7); LYMPHOCYTES # (AUTO) 0.9 X 10^3 (1.0-4.0); LYMPHOCYTES % (AUTO) 13 % (12-44); MEAN CORPUSCULAR HEMOGLOBIN 29 PG (25-34); MEAN CORPUSCULAR HGB CONC 31 G/DL (32-36); MEAN CORPUSCULAR VOLUME 91 FL (80-99); MEAN PLATELET VOLUME 10.2 FL (7.4-10.4); MONOCYTES # (AUTO) 0.8 X 10^3 (0.0-1.0); MONOCYTES % (AUTO) 11 % (0-12); NEUTROPHILS % (AUTO) 73 % (42-75); PLATELET COUNT 206 10^3/uL (130-400); WHITE BLOOD COUNT 6.8 10^3/uL (4.3-11.0)
[2020-05-05 05:18] LABS: ALBUMIN 2.5 GM/DL (3.2-4.5); POTASSIUM 4.3 MMOL/L (3.6-5.0)
[2020-05-05 05:19] LABS: CALCIUM 7.6 MG/DL (8.5-10.1)
[2020-05-05 05:21] LABS: TOTAL PROTEIN 4.8 GM/DL (6.4-8.2)
[2020-05-05 05:22] LABS: BILIRUBIN,TOTAL 0.5 MG/DL (0.1-1.0)
[2020-05-05 05:24] LABS: CREATININE SERUM 1.67 MG/DL (0.60-1.30)
[2020-05-05] MEDS: NS IV 1000 ML 1,000 ML IV SCH (05:24)
--- NOTE | 2020-05-05 09:37 | Cardiology Progress Note ---
Subjective Date Seen by Provider: May 05, 2020 Time Seen by Provider: 09:33 Subjective/Events-last exam Patient is laying down in bed, feeling better, swelling is better. Reporting improvement Review of Systems General: No Chills, No Night Sweats, No Fatigue, No Malaise, No Appetite, No O ther HEENT: No Head Aches, No Visual Changes, No Eye Pain, No Ear Pain, No Dys phasia, No Sinus Congestion, No Post Nasal Drip, No Sore Throat, No Other Pulmonary: No Dyspnea, No Cough, No Pleuritic Chest Pain, No Other Cardiovascular: Edema; No: Chest Pain, Palpitations, Orthopnea, Paroxysmal Noc. Dyspnea, Lt Headedness, Other Focused Exam Lactate Level 05/03/20 12:00: Lactic Acid Level 0.79 Objective-Cardiology Exam Last Set of Vital Signs Vital Signs 05/03/20 05/04/20 05/05/20 05/05/20 15:01 11:00 04:04 07:16 Temp 36.8 Pulse 80 Resp 20 B/P (MAP) 155/77 (103) Pulse Ox 94 O2 Delivery Room Air O2 Flow Rate 2.00 FiO2 28 Capillary Refill : I&O Intake and Output 05/05/20 00:00 Intake Total 1940 ml Output Total 3100 ml Balance -1160 ml Intake Oral 1940 ml Output Urine Total 3100 ml # Bowel Movements 2 General: Alert, Oriented X3, Cooperative, No Acute Distress HEENT: Atraumatic, PERRLA Neck: Supple, No JVD, No Thyromegaly Lungs: Clear to Auscultation, Normal Air Movement Heart: Regular Rate, Normal S1, Normal S2, No Murmurs Abdomen: Normal Bowel Sounds, Soft, No Tenderness, No Hepatosplenomegaly, No Masses Extremities: No Clubbing, No Cyanosis, No Edema, Normal Pulses, No Tenderness/Swelling Skin: No Rashes, No Breakdown, No Significant Lesion Neuro: Normal Speech, Other (weak in lower extremities from back surgery) Psych/Mental Status: Mental Status NL, Mood NL Results Lab Laboratory Tests 05/05/20 04:23 A/P-Cardiology Admission Diagnosis Anasarca Type II RI Coronary artery disease Acute renal failure Assessment/Plan Peripheral edema, improving. Continue on diuretics and monitor Coronary artery disease, history of coronary stents in the past, mild elevation in troponin, Type II RI secondary to hypotension and anemia, conservative management and continue to monitor Status post hypotension, blood pressure is elevated at this time. I will start him on lisinopril 10 mg daily and evaluate tolerance and response Anemia, post surgery, continue to monitor, management per medical service Acute on chronic renal insuf, improving slowly. Continue to monitor Status post Lumbar surgery, continue to monitor High risk for sleep apnea, consider sleep study as an outpatient Clinical Quality Measures DVT/VTE Risk/Contraindication: Risk Factor Score Per Nursin RFS Level Per Nursing on Admit: 4+=Very High Contraindications-Pharm: Other *list below* Other: spine surgery increased risk for hematoma BEN TRONCOSO MD May 05, 2020 09:37
[2020-05-05] MEDS: SENNA W/DOCUSATE (SENOKOT S) TABLET PO SCH ×2 (10:17→21:14)
--- NOTE | 2020-05-05 10:19 | Progress Note ---
ANTOINET[employer]IELDS MED STUDENT 05/05/20 1019: Subjective Date Seen by a Provider: May 05, 2020 Time Seen by a Provider: 09:50 Subjective/Events-last exam * Patient alert/ awake in bed * No distress while eating breakfast * Moderate distress (pain) with movement * Pleasant to speak with * Requests to go home Review of Systems General: No Chills, No Night Sweats, No Fatigue, No Malaise, No Appetite, No Other HEENT: No Head Aches, No Visual Changes, No Eye Pain, No Ear Pain, No Dysphasia, No Sinus Congestion, No Post Nasal Drip, No Sore Throat, No Other Pulmonary: No Dyspnea, No Cough, No Pleuritic Chest Pain, No Other Cardiovascular: No: Chest Pain, Palpitations, Orthopnea, Paroxysmal Noc. Dyspnea, Edema, Lt Headedness, Other Gastrointestinal: No: Nausea, Vomiting, Abdominal Pain, Diarrhea, Constipation, Melena, Hematochezia, Other Genitourinary: No Dysuria, No Frequency, No Incontinence, No Hematuria, No Retention, No Other Musculoskeletal: back pain Neurological: No: Weakness, Numbness, Incoordination, Change in speech, Confusion, Seizures, Other Focused Exam Lactate Level 05/03/20 12:00: Lactic Acid Level 0.79 Objective Exam Last Set of Vital Signs Vital Signs Date Time Temp Pulse Resp B/P (MAP) Pulse Ox O2 Delivery O2 Flow Rate FiO2 05/05/20 07:16 Room Air 05/05/20 04:04 36.8 80 20 155/77 (103) 94 05/04/20 11:00 2.00 05/03/20 15:01 28 Capillary Refill : I&O Intake and Output 05/05/20 00:00 Intake Total 1940 ml Output Total 3100 ml Balance -1160 ml Intake Oral 1940 ml Output Urine Total 3100 ml # Bowel Movements 2 General: Alert, Cooperative, Moderate Distress (With movement) Lungs: Clear to Auscultation Heart: Regular Rate, Normal S1, Normal S2, No Murmurs Skin: Other (Erythematous rash spanning abdomen/ back) Psych/Mental Status: Mental Status NL, Mood NL Results Lab Laboratory Tests 05/05/20 04:23: White Blood Count 6.8, Red Blood Count 2.97L, Hemoglobin 8.5L, Hematocrit 27L, Mean Corpuscular Volume 91, Mean Corpuscular Hemoglobin 29, Mean Corpuscular Hemoglobin Concent 31L, Red Cell Distribution Width 15.4H, Platelet Count 206, Mean Platelet Volume 10.2, Neutrophils (%) (Auto) 73, Lymphocytes (%) (Auto) 13, Monocytes (%) (Auto) 11, Eosinophils (%) (Auto) 3, Basophils (%) (Auto) 0, Neutrophils # (Auto) 5.0, Lymphocytes # (Auto) 0.9L, Monocytes # (Auto) 0.8, Eosinophils # (Auto) 0.2, Basophils # (Auto) 0.0, Sodium Level 137, Potassium Level 4.3, Chloride Level 110H, Carbon Dioxide Level 19L, Anion Gap 8, Blood Urea Nitrogen 29H, Creatinine 1.67H, Estimat Glomerular Filtration Rate 40, BUN/Creatinine Ratio 17, Glucose Level 91, Calcium Level 7.6L, Corrected Calcium 8.8, Total Bilirubin 0.5, Aspartate Amino Transf (AST/SGOT) 40H, Alanine Aminotransferase (ALT/SGPT) 11, Alkaline Phosphatase 53, Total Protein 4.8L, Albumin 2.5L Microbiology 05/03/20 Blood Culture - Preliminary, Resulted No growth 05/03/20 MRSA Screen - Final, Complete MRSA not isolated Assessment/Plan Assessment/Plan Assess & Plan/Chief Complaint ASSESSMENT: * Anasarca * Post-op laminectomy * Acute on chronic renal failure * Limited mobility * Anemia * Hypotension * Type II GA * Rash PLAN: * PT consult * Ambulation * Maintain creatinine and potassium levels * Pain management * Monitor blood pressure Clinical Quality Measures DVT/VTE Risk/Contraindication: Risk Factor Score Per Nursin RFS Level Per Nursing on Admit: 4+=Very High Contraindications-Pharm: Other *list below* Other: spine surgery increased risk for hematoma KRISTI SERRATO DO 05/06/20 0513: Subjective Subjective/Events-last exam Pt doing a lot better Creatinine is now 1.67 now is baseline PT and OT is working with him Needs rehab Will DC catheter once urinary output is stable Bowels are moving Overall doing much better Assessment/Plan Assessment/Plan Assess & Plan/Chief Complaint IRF Monitor creatinine Supervisory-Addendum Brief Verification & Attestation Participated in pt care: history, MDM, physical Personally performed: exam, history, MDM, supervision of care Care discussed with: Medical Student Procedures: n/a Results interpretation: Verified all documentation Verification and Attestation of Medical Student E/M Service A medical student performed and documented this service in my presence. I reviewed and verified all information documented by the medical student and made modifications to such information, when appropriate. I personally performed the physical exam and medical decision making. Kristi Serrato, May 06, 2020,05:12 [employer] MED STUDENT May 05, 2020 10:19 KRISTI SERRATO DO May 06, 2020 05:13
[2020-05-05] MEDS: IRON SUCROSE 200 MG/10 ML (VENOFER) VIAL IV SCH (10:42)
[2020-05-05] MEDS: lisINopril 10 MG (PRINIVIL) TABLET PO SCH (10:42)
--- NOTE | 2020-05-05 10:50 | Physical Therapy Evaluation ---
PT Evaluation-General Medical Diagnosis Admission Date May 03, 2020 at 08:25 Medical Diagnosis: Anasarca/ARF Onset Date: May 03, 2020 Therapy Diagnosis Therapy Diagnosis: generalized weakness/debility Precautions Precautions/Isolations: Fall Prevention, Standard Precautions Referral Physician: Eduardo Reason for Referral: Evaluation/Treatment Medical History Pertinent Medical History: CAD, COPD, HTN, Neuropathy, Renal Insufficiency Current History Transfer from OSH secondary to worsening edema, elevated creatinine and hypotension from lumbar surgery. Reviewed History: Yes Social History Home: Single Level Current Living Status: Other Family Entry Into Home: Ramp Prior Prior Level of Function SCALE: Activities may be completed with or without assistive devices. 4-Ppssfdrqra-wswuspv completes the activity by him/herself with no assistance from a helper. 5-Set-up or Clean-up Assistance-helper sets up or cleans up; patient completes activity. Lee assists only prior to or following the activity. 4-Supervision or Touching Assistance-helper provides verbal cues and/or touching/steadying and/or contact guard assistance as patient completes activity. Assistance may be provided throughout the activity or intermittently. 3-Partial/Moderate Assistance-helper does LESS THAN HALF the effort. Lee lifts, holds or supports trunk or limbs, but provides less than half the effort. 2-Substantial/Maximal Assistance-helper does MORE THAN HALF the effort. Lee lifts or holds trunk or limbs and provides more than half the effort. 7-Gcezgugku-uxcrfr does ALL the effort. Patient does none of the effort to complete the activity. Or, the assistance of 2 or more helpers is required for the patient to complete the activity. If activity was not attempted, code reason: 7-Patient Refused. 9-Not Applicable-not attempted and the patient did not perform the activity bef ore the current illness, exacerbation or injury. 10-Not Attempted due to Environmental Limitations-(lack of equipment, weather r estraints, etc.). 88-Not Attempted due to Medical Conditions or Safety Concerns. Bed Mobility: 5 Transfers (B,C,W/C): 5 Gait: 5 Stairs: 9 Indoor Mobility (Ambulation): Independent Prior Devices Use: Walker PT Evaluation-Current Subjective Patient c/o 10/10 left LE pain with medication issued prior to PT. Family present. Pain Numeric Pain Scale: 10-Worst Possible Pain Location: Left Location Body Site: Thigh Pain Description: Sharp Objective Patient Orientation: Normal For Age Attachments: Penny Catheter ROM/Strength ROM Lower Extremities bilateral LE WFL with noted edema Strength Lower Extremities 3+/5 grossly bilateral LE Integumentary/Posture Integumentary total body edema Bowel Incontinence: No Bladder Incontinence: Penny Cath Posture slight trunk flexed posture in stand due to LBP Neuromuscular (Tone, Coordination, Reflexes) grossly intacdt Sensory Vision: Wears Glasses Hearing: Functional Sensation Right Lower Extremit: Impaired Sensation Left Lower Extremity: Impaired Transfers Roll Left to Right (QC): 1 Lying to Sitting/Side of Bed(Q: 1 Sit to Stand (QC): 2 Chair/Ool-zp-Anutl Xfer(QC): 2 Toilet Transfer (QC): 2 Gait Mode of Locomotion: Walk Anticipated Mode of Locomotion: Walk Walk 10 feet (QC): 4 Walk 50 ft with 2 Turns(QC): 88 Walk 150 ft (QC): 88 Distance: 15' x 2 Gait Assistive Device: FWW Comments/Gait Description functional gait sequence Balance Sitting Static: Normal Sitting Dynamic: Normal Standing Static: Fair Standing Dynamic: Fair Treatment Patient had difficulty with sit to stand transfers performing x 8 sets to FWW with inability to maintain standing due to uncontrolled pain. Patient was then able to ambulate to toilet for BM requiring assistance to cleanse. Family present during session. Assessment/Needs 79 y.o. male, will benefit from skilled PT to address functional strength and mobility to improve current LOF to safely return to home with family at maximum LOF. From a PT standpoint, patient is currently not safe or physically able to safely dismiss to home due to uncontrolled LBP with left LE radiating pain and inability to care for self. Rehab Potential: Fair PT Short Term Goals Short Term Goals Time Frame: May 16, 2020 Roll Left & Right: 3 Sit to lyin Lying to sitting on side of be: 3 Sit to stand: 3 Chair/xuq-he-lxqbm transfer: 3 Toilet transfer: 3 Walk 10 feet: 3 Walk 50 feet with two turns: 3 PT Instructional Technologist Goals Instructional Technologist Goals PT Group Home Goals Time Frame: May 24, 2020 Roll Left & Right (QC): 5 Sit to Lying (QC): 5 Lying-Sitting on Side/Bed(QC): 5 Sit to Stand (QC): 5 Chair/Tnl-mo-Pagjd Xfer(QC): 5 Toilet Transfer (QC): 5 Does the Patient Walk: Yes Walk 10 feet (QC): 5 Walk 50ft with 2 Turns (QC): 5 Walk 150 ft (QC): 5 PT Plan Problem List Problem List: Activity Tolerance, Functional Strength, Balance, Gait, Transfer, Bed Mobility Treatment/Plan Treatment Plan: Continue Plan of Care Treatment Plan: Bed Mobility, Education, Functional Activity [place], Functional Strength, Gait, Safety, Therapeutic Exercise, Transfers Treatment Duration: May 24, 2020 Frequency: 11 times per week Estimated Hrs Per Day: .5 hour per day Patient and/or Family Agrees t: Yes Discharge Recommendations Therapy Discharge Recommendati: Other, See Comments (ARU) Time/GCodes Time In: 900 Time Out: 946 Total Billed Treatment Time: 46 [facility] min OLIVIA SOAS PT May 05, 2020 10:50
--- NOTE | 2020-05-05 11:51 | Occupational Therapy Eval ---
OT Evaluation-General/PLF Medical Diagnosis Admission Date May 03, 2020 at 08:25 Medical Diagnosis: Anasarca/ARF Onset Date: May 03, 2020 Therapy Diagnosis Therapy Diagnosis: impaired ADLs/functional mobility Precautions Precautions/Isolations: Fall Prevention, Standard Precautions Comments back brace when up, back precautions. 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 Reviewed History: Yes Social History Home: Single Level Current Living Status: Children (son Isauro) Entry Into Home: Ramp ADL-Prior Level of Function SCALE: Activities may be completed with or without assistive devices. 5-Oukwthxcpd-hfqhhok completes the activity by him/herself with no assistance from a helper. 5-Set-up or Clean-up Assistance-helper sets up or cleans up; patient completes activity. [place] assists only prior to or following the activity. 4-Supervision or Touching Assistance-helper provides verbal cues and/or touching/steadying and/or contact guard assistance as patient completes activity. Assistance may be provided throughout the activity or intermittently. 3-Partial/Moderate Assistance-helper does LESS THAN HALF the effort. [place] lifts, holds or supports trunk or limbs, but provides less than half the effort. 2-Substantial/Maximal Assistance-helper does MORE THAN HALF the effort. [place] lifts or holds trunk or limbs and provides more than half the effort. 9-Aglnbeqrv-vxtkng does ALL the effort. Patient does none of the effort to complete the activity. Or, the assistance of 2 or more helpers is required for the patient to complete the activity. If activity was not attempted, code reason: 7-Patient Refused. 9-Not Applicable-not attempted and the patient did not perform the activity before the current illness, exacerbation or injury. 10-Not Attempted due to Environmental Limitations-(lack of equipment, weather restraints, etc.). 88-Not Attempted due to Medical Conditions or Safety Concerns. ADL PLOF Comments Pt reports being independent with bathing/dressing and functional mobility at PLOF, no AD/AE. Pt lives with his son who does most of the cooking and cleaning. Pt has a tub/shower, his son is in the process of making/obtaining a shower bench but pt does not have one at time of evaluation. Self Care: Needed Some Help Functional Cognition: Independent DME/Equipment: Tub/Shower OT Current Status Subjective Pt seated in recliner agreeable to OT Tx, son present. Pt did not verbalize pain rating during tx. Mental Status/Objective Patient Orientation: Person, Place, Time, Situation Attachments: Penny Catheter Current Glasses/Contacts: Yes Hand Dominance: Right Upper Extremity ROM WFL BUEs, pt able to touch back of head with hands. Upper Extremity Coordination decreased due to symptoms related to carpal tunnel BUEs. Upper Extremity Sensation pt reports tingling/numbness BUEs related to carpal tunnel Upper Extremity Strength 3+/5 MMT ADL-Treatment On/Off Footwear (QC): 1 (total assist donning/doffing gripper socks) Other Treatments Pt seated in recliner, agreeable to OT evaluation/tx. OT educated pt on purpose/benefits of OT, he verbalized understanding. Pt then provided information about PLOF and home set up, then participated in UE screen. Pt reports edema BLEs, OT educated pt on UE exercises in order to decrease UE swelling, pt demo'd understanding. OT educated pt about safety aspects in home, including benefits of shower bench vs shower chair, pt and son agree pt needs a shower bench and pt is in the process of obtaining/making a bench for pt to use. OT educated pt on OT POC while he is admitted to the hospital with focus on increasing independence and safety with ADLs/functional mobility, UE strengthening, and education on AE for lower body dressing, pt verbalized understanding. Post OT tx, pt seated in recliner, call light in reach and all needs met. Education OT Patient Education: Correct positioning, Energy conservation, Modified ADL techniques, Progress toward Goal/Update tx plan, Purpose of tx/functional activities, Rehab process, Safety issues Teaching Recipient: Patient Teaching Methods: Discussion Response to Teaching: Verbalize Understanding OT Armature Winder Repair Goals Armature Winder Repair Goals Time Frame: May 26, 2020 Eating (QC): 6 Oral Hygiene (QC): 6 Toileting Hygiene (QC): 6 Shower/Bathe Self (QC): 6 Upper Body Dressing (QC): 6 Lower Body Dressing (QC): 6 On/Off Footwear (QC): 6 1=Demonstrate adherence to instructed precautions during ADL tasks. 2=Patient will verbalize/demonstrate understanding of assistive devices/modifications for ADL. 3=Patient will improve strength/tolerance for activity to enable patient to perform ADL's. OT Education/Plan Problem List/Assessment Assessment: Decreased Activ Tolerance, Decreased UE Strength, Impaired Bed Mobility, Impaired Funct Balance, Impaired I ADL's, Impaired Self-Care Skills Pt would benefit from skilled OT in order to increase independence with ADLs and functional mobility, and to return to maximum LOF to safely return home with family. Discharge Recommendations Plan/Recommendations: Continue POC Therapy Discharge Recommendati: Other, See Comments (ARU) Treatment Plan/Plan of Care Patient would benefit from OT for education, treatment and training to promote independence in ADL's, mobility, safety and/or upper extremity function for ADL's. Plan of Care: ADL Retraining, Functional Mobility, UE Funct Exercise/Act Treatment Duration: May 26, 2020 Frequency: 5 times per week Estimated Hrs Per Day: .25 hour per day Rehab Potential: Fair Time/GCodes Start Time: 11:07 Stop Time: 11:24 Total Time Billed (hr/min): 17 Billed Treatment Time 1NABOR ADDISON OT May 05, 2020 11:51
[2020-05-05] MEDS ORDERED: FISH1CAP15 PO (11:59)
[2020-05-05] MEDS ORDERED: LISI40TA PO (11:59)
[2020-05-05] MEDS ORDERED: ATOR80TA76 PO (11:59)
[2020-05-05] MEDS ORDERED: NITR0.4T42 SL (11:59)
[2020-05-05] MEDS ORDERED: LEVO50TA6 PO (11:59)
[2020-05-05] MEDS ORDERED: METO50TA7 PO (11:59)
[2020-05-05] MEDS ORDERED: ASPI-808 PO (11:59)
--- NOTE | 2020-05-05 12:20 | NUR ---
SPOKE WITH THE PT (HAS HOME MEDS IN SUITCASE), WENT THRU THE EXT MED HISTORY AND [facility] TO COMPLETE THE MED REC ACCORDING TO THE PT HE TAKES LISINOPRIL 40MG PRN OXYCODONE 10MG IS SHOWING ON THE EXT MED HISTORY FILLED ON 05-03-2020 BUT WHEN I CALLED [facility] IT HAD NOT BEEN PICKED UP AND THEY HAD NOT FILLED/SOLD ANY PAIN MEDICATIONS TO HIM RECENTLY. FOR THIS REASON I DID NOT INCLUDE THIS ON THE MED REC OTC MEDS: FISH OIL ASPIRIN 325MG Addendum: 05/08/20 at 1159 by MIKE PAULSON pillowcase folder 04-25-2020 THE FOLLOWING MEDICATIONS WERE FILLED FOR 30 DAY SUPPLY: ATORVASTATIN LEVOTHYROXINE LISINOPRIL METOPROLOL
--- NOTE | 2020-05-05 14:27 | Physical Therapy Daily Note ---
PT Daily Note-Current Subjective Patient is in recliner and agrees to PT. Son present. Pain Numeric Pain Scale: 8 Location: Left Location Body Site: Thigh Mental Status Patient Orientation: Normal For Age Attachments: Penny Catheter Transfers SCALE: Activities may be completed with or without assistive devices. 5-Vfmaypggsm-hpwlidt completes the activity by him/herself with no assistance from a helper. 5-Set-up or Clean-up Assistance-helper sets up or cleans up; patient completes activity. [place] assists only prior to or following the activity. 4-Supervision or Touching Assistance-helper provides verbal cues and/or touching/steadying and/or contact guard assistance as patient completes activity. Assistance may be provided throughout the activity or intermittently. 3-Partial/Moderate Assistance-helper does LESS THAN HALF the effort. [place] lifts, holds or supports trunk or limbs, but provides less than half the effort. 2-Substantial/Maximal Assistance-helper does MORE THAN HALF the effort. [place] lifts or holds trunk or limbs and provides more than half the effort. 2-Juikcuxgc-autits does ALL the effort. Patient does none of the effort to complete the activity. Or, the assistance of 2 or more helpers is required for the patient to complete the activity. If activity was not attempted, code reason: 7-Patient Refused. 9-Not Applicable-not attempted and the patient did not perform the activity before the current illness, exacerbation or injury. 10-Not Attempted due to Environmental Limitations-(lack of equipment, weather restraints, etc.). 88-Not Attempted due to Medical Conditions or Safety Concerns. Sit to Stand (QC): 2 (with lift chair elevated) Gait Training Does the Patient Walk?: Yes Distance: 75' Walk 10 feet (QC): 4 Walk 50 ft with 2 Turns(QC): 4 Gait Assistive Device: FWW slow, steady, antalgic Exercises Seated Therapy Exercises: Ankle pumps, Long arc quads Seated Reps: 12 Assessment Patient remained up in recliner. Instructed patient and family on performing sit to stand to FWW every hour during day. PT Short Term Goals Short Term Goals Time Frame: May 16, 2020 Roll Left & Right: 3 Sit to lyin Lying to sitting on side of be: 3 Sit to stand: 3 Chair/xul-id-uyerk transfer: 3 Toilet transfer: 3 Walk 10 feet: 3 Walk 50 feet with two turns: 3 PT Doping Supervisor Goals Usp Goals PT Doping Supervisor Goals Time Frame: May 24, 2020 Roll Left & Right (QC): 5 Sit to Lying (QC): 5 Lying-Sitting on Side/Bed(QC): 5 Sit to Stand (QC): 5 Chair/Yqv-ir-Msqtn Xfer(QC): 5 Toilet Transfer (QC): 5 Does the Patient Walk: Yes Walk 10 feet (QC): 5 Walk 50ft with 2 Turns (QC): 5 Walk 150 ft (QC): 5 PT Plan Treatment/Plan Treatment Plan: Continue Plan of Care Treatment Plan: Bed Mobility, Education, Functional Activity [place], Functional Strength, Gait, Safety, Therapeutic Exercise, Transfers Treatment Duration: May 24, 2020 Frequency: 11 times per week Estimated Hrs Per Day: .5 hour per day Patient and/or Family Agrees t: Yes Time/GCodes Time In: 1335 Time Out: 1350 Total Billed Treatment Time: 15 Total Billed Treatment 1 visit FA 15 min OLIVIA SOSA PT May 05, 2020 14:27
--- NOTE | 2020-05-05 16:00 | NUR ---
IRF Evaluation Determination: Accepted Patient does have [employer] MCR; therefore, prior authorization will need to be obtained, prior to admission. Prior authorization process initiated. Due to this particular insurance having a known history of frequently denying requests, will meet with patient to discuss 'Fast Appeal' process. Additionally, will discuss the likelihood of 'Rtvh-pe-Ayhx' needing to be completed, with Dr. Clark. Thank you for this referral.
[2020-05-06] VITALS: BP 144/66
[2020-05-06 04:00] VITALS: BP 160/72
[2020-05-06] MEDS: HYDROcodone/APAP 5 MG/325 MG (LORTAB) TAB PO PRN ×4 (05:44→18:45)
[2020-05-06 06:52] LABS: BASOPHILS % (AUTO) 0 % (0-10); EOSINOPHILS # (AUTO) 0.3 10^3/uL (0.0-0.3); EOSINOPHILS % (AUTO) 4 % (0-10); HEMATOCRIT 27 % (40-54); HEMOGLOBIN 8.7 G/DL (13.3-17.7); LYMPHOCYTES # (AUTO) 0.8 X 10^3 (1.0-4.0); LYMPHOCYTES % (AUTO) 13 % (12-44); MEAN CORPUSCULAR HEMOGLOBIN 29 PG (25-34); MEAN CORPUSCULAR HGB CONC 32 G/DL (32-36); MEAN CORPUSCULAR VOLUME 91 FL (80-99); MEAN PLATELET VOLUME 9.9 FL (7.4-10.4); MONOCYTES # (AUTO) 0.8 X 10^3 (0.0-1.0); MONOCYTES % (AUTO) 13 % (0-12); NEUTROPHILS # (AUTO) 4.2 X 10^3 (1.8-7.8); NEUTROPHILS % (AUTO) 70 % (42-75); PLATELET COUNT 223 10^3/uL (130-400)
[2020-05-06 07:06] LABS: ALBUMIN 2.5 GM/DL (3.2-4.5)
[2020-05-06 07:07] LABS: POTASSIUM 4.4 MMOL/L (3.6-5.0)
[2020-05-06 07:08] LABS: CALCIUM 7.8 MG/DL (8.5-10.1)
[2020-05-06 07:11] LABS: BILIRUBIN,TOTAL 0.5 MG/DL (0.1-1.0)
[2020-05-06 07:13] LABS: CREATININE SERUM 1.31 MG/DL (0.60-1.30)
[2020-05-06 08:15] VITALS: BP 157/67
[2020-05-06] MEDS: SENNA W/DOCUSATE (SENOKOT S) TABLET PO SCH ×2 (08:49→20:09)
[2020-05-06] MEDS: lisINopril 10 MG (PRINIVIL) TABLET PO SCH (08:49)
--- NOTE | 2020-05-06 09:03 | Cardiology Progress Note ---
Subjective Date Seen by Provider: May 06, 2020 Time Seen by Provider: 09:02 Subjective/Events-last exam Patient is laying down in bed, still complaining of back pain. No chest pain Review of Systems General: No Chills, No Night Sweats, No Fatigue, No Malaise, No Appetite, No Other HEENT: No Head Aches, No Visual Changes, No Eye Pain, No Ear Pain, No Dysphasia, No Sinus Congestion, No Post Nasal Drip, No Sore Throat, No Other Pulmonary: No Dyspnea, No Cough, No Pleuritic Chest Pain, No Other Cardiovascular: No: Chest Pain, Palpitations, Orthopnea, Paroxysmal Noc. Dyspnea, Edema, Lt Headedness, Other Focused Exam Lactate Level 05/03/20 12:00: Lactic Acid Level 0.79 Objective-Cardiology Exam Last Set of Vital Signs Vital Signs 05/04/20 05/06/20 05/06/20 11:00 04:00 08:56 Temp 36.6 Pulse 72 Resp 18 B/P (MAP) 160/72 (101) Pulse Ox 98 O2 Delivery Room Air O2 Flow Rate 2.00 Capillary Refill : I&O Intake and Output 05/06/20 00:00 Intake Total 3180 ml Output Total 2800 ml Balance 380 ml Intake Oral 2130 ml IV Total 1050 ml Output Urine Total 2800 ml # Bowel Movements 1 General: Alert, Cooperative, Moderate Distress (With movement) HEENT: Atraumatic, PERRLA Neck: Supple, No JVD, No Thyromegaly Lungs: Clear to Auscultation Heart: Regular Rate, Normal S1, Normal S2, No Murmurs Abdomen: Normal Bowel Sounds, Soft, No Tenderness, No Hepatosplenomegaly, No Masses Extremities: No Clubbing, No Cyanosis, No Edema, Normal Pulses, No Tenderness/Swelling Skin: No Rashes, No Significant Lesion, Other (Erythematous rash spanning abdomen/ back) Neuro: Normal Speech, Sensation Intact Psych/Mental Status: Mental Status NL, Mood NL Results Lab Laboratory Tests 05/06/20 06:47 A/P-Cardiology Admission Diagnosis Anasarca Type II WI Coronary artery disease Acute renal failure Assessment/Plan Peripheral edema, improving. Continue on diuretics and monitor Coronary artery disease, history of coronary stents in the past, mild elevation in troponin, Type II WI secondary to hypotension and anemia, conservative management and continue to monitor Hypertension, poorly controlled, I will increase lisinopril to 20 mg daily. Continue to monitor closely Anemia, post surgery, continue to monitor, management per medical service Acute on chronic renal insuf, improving slowly. Continue to monitor Status post Lumbar surgery, continue to monitor High risk for sleep apnea, consider sleep study as an outpatient Clinical Quality Measures DVT/VTE Risk/Contraindication: Risk Factor Score Per Nursin RFS Level Per Nursing on Admit: 4+=Very High Contraindications-Pharm: Other *list below* Other: spine surgery increased risk for hematoma BEN TRONCOSO MD May 06, 2020 09:03
[2020-05-06] MEDS ORDERED: lisINopril 20 MG (PRINIVIL) TABLET PO SCH (09:15)
[2020-05-06] MEDS ORDERED: lisINopril 10 MG (PRINIVIL) TABLET PO NR (09:48)
--- NOTE | 2020-05-06 10:04 | Progress Note ---
[employer] MED STUDENT 05/06/20 1004: Subjective Date Seen by a Provider: May 06, 2020 Time Seen by a Provider: 09:15 Subjective/Events-last exam * Patient awake/ alert in bed * No apparent distress * Finished with breakfast * In a pleasant mood Review of Systems General: No Chills, No Night Sweats, No Fatigue, No Malaise, No Appetite, No Other HEENT: No Head Aches, No Visual Changes, No Eye Pain, No Ear Pain, No Dysphasia, No Sinus Congestion, No Post Nasal Drip, No Sore Throat, No Other Pulmonary: No Dyspnea, No Cough, No Pleuritic Chest Pain, No Other Cardiovascular: No: Chest Pain, Palpitations, Orthopnea, Paroxysmal Noc. Dyspnea, Edema, Lt Headedness, Other Gastrointestinal: No: Nausea, Vomiting, Abdominal Pain, Diarrhea, Constipation, Melena, Hematochezia, Other Genitourinary: No Dysuria, No Frequency, No Incontinence, No Hematuria, No Retention, No Other Musculoskeletal: back pain Neurological: No: Weakness, Numbness, Incoordination, Change in speech, Confusion, Seizures, Other Focused Exam Lactate Level 05/03/20 12:00: Lactic Acid Level 0.79 Objective Exam Last Set of Vital Signs Vital Signs Date Time Temp Pulse Resp B/P (MAP) Pulse Ox O2 Delivery O2 Flow Rate FiO2 05/06/20 08:56 Room Air 05/06/20 08:15 35.7 81 20 157/67 (97) 96 05/05/20 15:24 21 05/04/20 11:00 2.00 Capillary Refill : I&O Intake and Output 05/06/20 00:00 Intake Total 3180 ml Output Total 2800 ml Balance 380 ml Intake Oral 2130 ml IV Total 1050 ml Output Urine Total 2800 ml # Bowel Movements 1 General: Alert, Oriented X3, Cooperative, No Acute Distress Lungs: Clear to Auscultation Heart: Regular Rate, Normal S1, Normal S2 Neuro: Normal Speech Results Lab Laboratory Tests 05/05/20 12:59: Lab Scanned Report Transfusion Reaction Form 05/06/20 06:47: White Blood Count 6.0, Red Blood Count 3.01L, Hemoglobin 8.7L, Hematocrit 27L, Mean Corpuscular Volume 91, Mean Corpuscular Hemoglobin 29, Mean Corpuscular Hemoglobin Concent 32, Red Cell Distribution Width 14.7H, Platelet Count 223, Mean Platelet Volume 9.9, Neutrophils (%) (Auto) 70, Lymphocytes (%) (Auto) 13, Monocytes (%) (Auto) 13H, Eosinophils (%) (Auto) 4, Basophils (%) (Auto) 0, Neutrophils # (Auto) 4.2, Lymphocytes # (Auto) 0.8L, Monocytes # (Auto) 0.8, Eosinophils # (Auto) 0.3, Basophils # (Auto) 0.0, Sodium Level 135, Potassium Level 4.4, Chloride Level 108H, Carbon Dioxide Level 20L, Anion Gap 7, Blood Urea Nitrogen 22H, Creatinine 1.31H, Estimat Glomerular Filtration Rate 53, BUN/Creatinine Ratio 17, Glucose Level 103, Calcium Level 7.8L, Corrected Calcium 9.0, Total Bilirubin 0.5, Aspartate Amino Transf (AST/SGOT) 28, Alanine Aminotransferase (ALT/SGPT) 11, Alkaline Phosphatase 55, Total Protein 5.0L, Albumin 2.5L Microbiology 05/03/20 Blood Culture - Preliminary, Resulted No growth 05/03/20 MRSA Screen - Final, Complete MRSA not isolated Assessment/Plan Assessment/Plan Assess & Plan/Chief Complaint ASSESSMENT: * Anasarca * Post-op laminectomy * Acute on chronic renal failure * Limited mobility * Anemia * Hypotension * Type II HI * Rash PLAN: * Physical therapy * Ambulation * Maintain creatinine and potassium levels * Pain management * Monitor blood pressure Clinical Quality Measures DVT/VTE Risk/Contraindication: Risk Factor Score Per Nursin RFS Level Per Nursing on Admit: 4+=Very High Contraindications-Pharm: Other *list below* Other: spine surgery increased risk for hematoma KRISTI SERRATO DO 05/07/20 0521: Subjective Subjective/Events-last exam Pt doing very well Will discontinue catheter today Inpatient rehab submitted to insurance Bowels moved very well Eating and drinking well Pt dramatically improved Creatinine 1.4 Has a nephrology and urology appointment in four weeks per son at the bedside Checked meds and labs Review of Systems Musculoskeletal: back pain Assessment/Plan Assessment/Plan Assess & Plan/Chief Complaint Monitor creat IRF Supervisory-Addendum Brief Verification & Attestation Participated in pt care: history, MDM, physical Personally performed: exam, history, MDM, supervision of care Care discussed with: Medical Student Procedures: n/a Results interpretation: Verified all documentation Verification and Attestation of Medical Student E/M Service A medical student performed and documented this service in my presence. I revie wed and verified all information documented by the medical student and made modifications to such information, when appropriate. I personally performed the physical exam and medical decision making. Kristi Serrato, May 07, 2020,05:20 [employer] MED STUDENT May 06, 2020 10:04 KRISTI SERRATO DO May 07, 2020 05:21
--- NOTE | 2020-05-06 11:13 | Physical Therapy Daily Note ---
PT Daily Note-Current Subjective Patient is in bed and agrees to PT. Family present. Pain Numeric Pain Scale: 8 Location: Left Location Body Site: Hip Pain Description: Pressure Mental Status Patient Orientation: Normal For Age Attachments: Penny Catheter Transfers SCALE: Activities may be completed with or without assistive devices. 8-Glmsxzzrpp-rcmyeer completes the activity by him/herself with no assistance from a helper. 5-Set-up or Clean-up Assistance-helper sets up or cleans up; patient completes activity. [place] assists only prior to or following the activity. 4-Supervision or Touching Assistance-helper provides verbal cues and/or touching/steadying and/or contact guard assistance as patient completes activity. Assistance may be provided throughout the activity or intermittently. 3-Partial/Moderate Assistance-helper does LESS THAN HALF the effort. [place] lifts, holds or supports trunk or limbs, but provides less than half the effort. 2-Substantial/Maximal Assistance-helper does MORE THAN HALF the effort. [place] lifts or holds trunk or limbs and provides more than half the effort. 6-Tlowifudp-uruacw does ALL the effort. Patient does none of the effort to complete the activity. Or, the assistance of 2 or more helpers is required for the patient to complete the activity. If activity was not attempted, code reason: 7-Patient Refused. 9-Not Applicable-not attempted and the patient did not perform the activity before the current illness, exacerbation or injury. 10-Not Attempted due to Environmental Limitations-(lack of equipment, weather restraints, etc.). 88-Not Attempted due to Medical Conditions or Safety Concerns. Roll Left & Right (QC): 2 Lying to Sitting/Side of Bed(Q: 2 Sit to Stand (QC): 2 Chair/Nrg-gj-Iendt Xfer(QC): 3 sit to stand x 3 sets lift chair to FWW max assist Gait Training Does the Patient Walk?: Yes Distance: 125' Walk 10 feet (QC): 3 Walk 50 ft with 2 Turns(QC): 3 Gait Assistive Device: FWW trunk flexed posture with use of bilateral UE's to remain upright Exercises Seated Therapy Exercises: Ankle pumps, Long arc quads Seated Reps: 12 Standing: Sit to Stand (3 sets) Assessment Patient tolerates minimal activity due to uncontrolled patient with activity. Patient does have pain control at rest. PT will consult with RN and physician on pain control with activity. PT Short Term Goals Short Term Goals Time Frame: May 16, 2020 Roll Left & Right: 3 Sit to lyin Lying to sitting on side of be: 3 Sit to stand: 3 Chair/coz-sp-aygyf transfer: 3 Toilet transfer: 3 Walk 10 feet: 3 Walk 50 feet with two turns: 3 PT Director Quality Systems Goals [place] Goals PT Director Quality Systems Goals Time Frame: May 24, 2020 Roll Left & Right (QC): 5 Sit to Lying (QC): 5 Lying-Sitting on Side/Bed(QC): 5 Sit to Stand (QC): 5 Chair/Nlw-hz-Ztjgj Xfer(QC): 5 Toilet Transfer (QC): 5 Does the Patient Walk: Yes Walk 10 feet (QC): 5 Walk 50ft with 2 Turns (QC): 5 Walk 150 ft (QC): 5 PT Plan Treatment/Plan Treatment Plan: Continue Plan of Care Treatment Plan: Bed Mobility, Education, Functional Activity [place], Functional Strength, Gait, Safety, Therapeutic Exercise, Transfers Treatment Duration: May 24, 2020 Frequency: 11 times per week Estimated Hrs Per Day: .5 hour per day Patient and/or Family Agrees t: Yes Time/GCodes Time In: 934 Time Out: 958 Total Billed Treatment Time: 24 Total Billed Treatment 1 visit GT 14 min EX 10 min OLIVIA SOSA PT May 06, 2020 11:13
--- NOTE | 2020-05-06 13:56 | Occupational Ther Daily Note ---
OT Current Status-Daily Note Subjective Pt seated in recliner, family member present. Pt agreeable to OT evaluation at this time. He reports some pain during tx but does not rate. Mental Status/Objective Patient Orientation: Person, Place, Time, Situation ADL-Treatment Therapy Code Descriptions/Definitions Functional [place] Measure: 0=Not Assessed/NA 4=Minimal Assistance 1=Total Assistance 5=Supervision or Setup 2=Maximal Assistance 6=Modified [place] 3=Moderate Assistance 7=Complete IndependenceSCALE: Activities may be completed with or without assistive devices. 3-Yrxfqegpzs-ldgkwvt completes the activity by him/herself with no assistance from a helper. 5-Set-up or Clean-up Assistance-helper sets up or cleans up; patient completes activity. [place] assists only prior to or following the activity. 4-Supervision or Touching Assistance-helper provides verbal cues and/or touching/steadying and/or contact guard assistance as patient completes act ivity. Assistance may be provided throughout the activity or intermittently. 3-Partial/Moderate Assistance-helper does LESS THAN HALF the effort. [place] lifts, holds or supports trunk or limbs, but provides less than half the effort. 2-Substantial/Maximal Assistance-helper does MORE THAN HALF the effort. [place] lifts or holds trunk or limbs and provides more than half the effort. 3-Uvjahqsvp-ddnock does ALL the effort. Patient does none of the effort to complete the activity. Or, the assistance of 2 or more helpers is required for the patient to complete the activity. If activity was not attempted, code reason: 7-Patient Refused. 9-Not Applicable-not attempted and the patient did not perform the activity before the current illness, exacerbation or injury. 10-Not Attempted due to Environmental Limitations-(lack of equipment, weather restraints, etc.). 88-Not Attempted due to Medical Conditions or Safety Concerns. On/Off Footwear: 3 (Mod A doffing/donning socks using AE.) Other Treatment Pt seated in recliner. OT provided pt with moderate resistance red hot metal charger sponge, educating pt to compete hot metal charger squeezes and pinches BUE throughout the day. Pt verbalized and demo'd understanding, performing x10 squeezes BUEs. OT then educated pt on using a heel breaster and sock aide to don/doff socks. Pt able to doff socks using heel breaster with mod A (pt had difficulty hooking sock with heel breaster to push sock off). Pt then handed sock aide, he was able to place sock onto sock aide with increased time and min verbal cues. Pt required assistance with guiding sock aide to toes, pt then able to pull sock onto foot with slight assistance. Pt reports some pain with task but does not rate. Post OT tx, pt seated in recliner, call light in reach and all needs met. Education OT Patient Education: Correct positioning, Modified ADL techniques, Progress toward Goal/Update tx plan, Purpose of tx/functional activities, Use of adapted equipment Teaching Recipient: Patient Teaching Methods: Demonstration, Discussion Response to Teaching: Verbalize Understanding, Return Demonstration OT Snf Goals Snf Goals Time Frame: May 26, 2020 Eating (QC): 6 Oral Hygiene (QC): 6 Toileting Hygiene (QC): 6 Shower/Bathe Self (QC): 6 Upper Body Dressing (QC): 6 Lower Body Dressing (QC): 6 On/Off Footwear (QC): 6 1=Demonstrate adherence to instructed precautions during ADL tasks. 2=Patient will verbalize/demonstrate understanding of assistive devices/modifications for ADL. 3=Patient will improve strength/tolerance for activity to enable patient to perform ADL's. OT Education/Plan Problem List/Assessment Assessment: Decreased Activ Tolerance, Decreased UE Strength, Impaired Funct Balance, Impaired I ADL's, Impaired Self-Care Skills Pt would benefit from skilled OT in order to increase independence with ADLs and functional mobility, and to return to maximum LOF to safely return home with family. Discharge Recommendations Plan/Recommendations: Continue POC Treatment Plan/Plan of Care Patient would benefit from OT for education, treatment and training to promote independence in ADL's, mobility, safety and/or upper extremity function for ADL's. Plan of Care: ADL Retraining, Functional Mobility, UE Funct Exercise/Act Treatment Duration: May 26, 2020 Frequency: 5 times per week Estimated Hrs Per Day: .25 hour per day Rehab Potential: Fair Time/GCodes Start Time: 10:10 Stop Time: 10:27 Total Time Billed (hr/min): 17 Billed Treatment Time 1, ADL JANETTE PEREZ OT May 06, 2020 13:56
--- NOTE | 2020-05-06 14:03 | Physical Therapy Daily Note ---
PT Daily Note-Current Subjective Patient agrees to PT. Patient reports his pain has improved with pain medication. Pain Numeric Pain Scale: 5-Moderate Pain Location: Lower Location Body Site: Back Pain Description: Acute Mental Status Patient Orientation: Normal For Age Transfers SCALE: Activities may be completed with or without assistive devices. 7-Fnhznkpdwn-adjsiac completes the activity by him/herself with no assistance from a helper. 5-Set-up or Clean-up Assistance-helper sets up or cleans up; patient completes activity. [place] assists only prior to or following the activity. 4-Supervision or Touching Assistance-helper provides verbal cues and/or touc ariel/steadying and/or contact guard assistance as patient completes activity. Assistance may be provided throughout the activity or intermittently. 3-Partial/Moderate Assistance-helper does LESS THAN HALF the effort. [place] lifts, holds or supports trunk or limbs, but provides less than half the effort. 2-Substantial/Maximal Assistance-helper does MORE THAN HALF the effort. [place] lifts or holds trunk or limbs and provides more than half the effort. 7-Lrfxdafjh-vdiaag does ALL the effort. Patient does none of the effort to complete the activity. Or, the assistance of 2 or more helpers is required for the patient to complete the activity. If activity was not attempted, code reason: 7-Patient Refused. 9-Not Applicable-not attempted and the patient did not perform the activity before the current illness, exacerbation or injury. 10-Not Attempted due to Environmental Limitations-(lack of equipment, weather restraints, etc.). 88-Not Attempted due to Medical Conditions or Safety Concerns. Roll Left & Right (QC): 2 Sit to Lying (QC): 2 Sit to Stand (QC): 3 Chair/Oud-gy-Dpxub Xfer(QC): 3 Toilet Transfer (QC): 3 Gait Training Does the Patient Walk?: Yes Distance: 175' Walk 10 feet (QC): 3 Walk 50 ft with 2 Turns(QC): 3 Walk 150 ft (QC): 3 Gait Assistive Device: FWW improved gait sequence with noted trunk flexed posture due to pain and weakness Exercises Supine Ex: Ankle pumps, Quad Set, Heel Slides Supine Reps: 10 (in recliner with bilateral LE elevated) Seated Therapy Exercises: Ankle pumps, Long arc quads Seated Reps: 10 Assessment Patient improving slowly with treatment plan. Pain control has improved mobility. Continue with POC. PT Short Term Goals Short Term Goals Time Frame: May 16, 2020 Roll Left & Right: 3 Sit to lyin Lying to sitting on side of be: 3 Sit to stand: 3 Chair/pxc-vl-ymvax transfer: 3 Toilet transfer: 3 Walk 10 feet: 3 Walk 50 feet with two turns: 3 PT Software Maintenance Engineer Goals Fpc Goals PT Software Maintenance Engineer Goals Time Frame: May 24, 2020 Roll Left & Right (QC): 5 Sit to Lying (QC): 5 Lying-Sitting on Side/Bed(QC): 5 Sit to Stand (QC): 5 Chair/Mmx-oi-Glhuj Xfer(QC): 5 Toilet Transfer (QC): 5 Does the Patient Walk: Yes Walk 10 feet (QC): 5 Walk 50ft with 2 Turns (QC): 5 Walk 150 ft (QC): 5 PT Plan Treatment/Plan Treatment Plan: Continue Plan of Care Treatment Plan: Bed Mobility, Education, Functional Activity [place], Functional Strength, Gait, Safety, Therapeutic Exercise, Transfers Treatment Duration: May 24, 2020 Frequency: 11 times per week Estimated Hrs Per Day: .5 hour per day Patient and/or Family Agrees t: Yes Time/GCodes Time In: 1311 Time Out: 1343 Total Billed Treatment Time: 32 Total Billed Treatment 1 visit EX 13 min GT 19 min OLIVIA SOSA PT May 06, 2020 14:03
[2020-05-06 15:30] VITALS: BP 141/65
[2020-05-06] MEDS: diphenhydrAMINE 2% 30 GM CR (ALLERGY CREAM) TOP PRN (20:09)
[2020-05-06 23:03] VITALS: BP 129/71
[2020-05-07] MEDS: HYDROcodone/APAP 5 MG/325 MG (LORTAB) TAB PO PRN ×3 (00:04→07:58)
[2020-05-07] MEDS: diphenhydrAMINE 25 MG TAB (BENADRYL) PO PRN ×3 (03:48→13:32)
[2020-05-07] MEDS: diphenhydrAMINE 2% 30 GM CR (ALLERGY CREAM) TOP PRN ×3 (03:48→20:43)
[2020-05-07 05:35] LABS: BASOPHILS % (AUTO) 0 % (0-10); EOSINOPHILS # (AUTO) 0.3 10^3/uL (0.0-0.3); EOSINOPHILS % (AUTO) 4 % (0-10); HEMATOCRIT 28 % (40-54); HEMOGLOBIN 8.8 G/DL (13.3-17.7); LYMPHOCYTES # (AUTO) 0.9 X 10^3 (1.0-4.0); LYMPHOCYTES % (AUTO) 13 % (12-44); MEAN CORPUSCULAR HEMOGLOBIN 29 PG (25-34); MEAN CORPUSCULAR HGB CONC 32 G/DL (32-36); MEAN CORPUSCULAR VOLUME 91 FL (80-99); MEAN PLATELET VOLUME 9.8 FL (7.4-10.4); MONOCYTES # (AUTO) 0.8 X 10^3 (0.0-1.0); MONOCYTES % (AUTO) 11 % (0-12); NEUTROPHILS # (AUTO) 5.2 X 10^3 (1.8-7.8); NEUTROPHILS % (AUTO) 72 % (42-75); PLATELET COUNT 274 10^3/uL (130-400); WHITE BLOOD COUNT 7.2 10^3/uL (4.3-11.0)
[2020-05-07 06:09] LABS: ALBUMIN 2.7 GM/DL (3.2-4.5); POTASSIUM 4.2 MMOL/L (3.6-5.0)
[2020-05-07 06:10] LABS: CALCIUM 7.9 MG/DL (8.5-10.1)
[2020-05-07 06:12] LABS: TOTAL PROTEIN 5.2 GM/DL (6.4-8.2)
[2020-05-07 06:13] LABS: BILIRUBIN,TOTAL 0.5 MG/DL (0.1-1.0)
[2020-05-07 06:15] LABS: CREATININE SERUM 1.21 MG/DL (0.60-1.30)
[2020-05-07] MEDS: lisINopril 20 MG (PRINIVIL) TABLET PO SCH (07:58)
[2020-05-07] MEDS: IRON SUCROSE 200 MG/10 ML (VENOFER) VIAL IV SCH (07:58)
[2020-05-07] MEDS: SENNA W/DOCUSATE (SENOKOT S) TABLET PO SCH ×2 (08:10→20:34)
[2020-05-07 08:15] VITALS: BP 148/76
--- NOTE | 2020-05-07 10:43 | Cardiology Progress Note ---
Subjective Date Seen by Provider: May 07, 2020 Time Seen by Provider: 10:43 Subjective/Events-last exam Patient is laying down in bed, feeling better. No new complaint Review of Systems General: No Chills, No Night Sweats; Fatigue; No Malaise, No Appetite, No Other HEENT: No Head Aches, No Visual Changes, No Eye Pain, No Ear Pain, No Dysphasia, No Sinus Congestion, No Post Nasal Drip, No Sore Throat, No Other Pulmonary: No Dyspnea, No Cough, No Pleuritic Chest Pain, No Other Cardiovascular: Edema; No: Chest Pain, Palpitations, Orthopnea, Paroxysmal Noc. Dyspnea, Lt Headedness, Other Objective-Cardiology Exam Last Set of Vital Signs Vital Signs 05/04/20 05/06/20 05/07/20 11:00 23:03 04:02 Temp 36.8 Pulse 85 Resp 18 B/P (MAP) 129/71 (90) Pulse Ox 95 O2 Delivery Room Air O2 Flow Rate 2.00 Capillary Refill : Less Than 3 Seconds I&O Intake and Output 05/06/20 23:59 Intake Total 1480 ml Output Total 1875 ml Balance -395 ml Intake Oral 1480 ml Output Urine Total 1875 ml General: Alert, Oriented X3, Cooperative, No Acute Distress HEENT: Atraumatic, PERRLA Neck: Supple, No JVD, No Thyromegaly Lungs: Clear to Auscultation Heart: Regular Rate, Normal S1, Normal S2 Abdomen: Normal Bowel Sounds, Soft, No Tenderness, No Hepatosplenomegaly, No Masses Extremities: No Clubbing, No Cyanosis, No Edema, Normal Pulses, No Tenderness/Swelling Skin: No Rashes, No Significant Lesion, Other (Erythematous rash spanning abdomen/ back) Neuro: Normal Speech Psych/Mental Status: Mental Status NL, Mood NL Results Lab Laboratory Tests 05/07/20 05:04 A/P-Cardiology Admission Diagnosis Anasarca Type II IL Coronary artery disease Acute renal failure Assessment/Plan Peripheral edema, improving. Continue on diuretics and monitor Coronary artery disease, history of coronary stents in the past, mild elevation in troponin, Type II IL secondary to hypotension and anemia, conservative management and continue to monitor Hypertension, poorly controlled, I will increase lisinopril to 20 mg daily. Continue to monitor closely Anemia, post surgery, continue to monitor, management per medical service Acute on chronic renal insuf, improving slowly. Continue to monitor Status post Lumbar surgery, continue to monitor High risk for sleep apnea, consider sleep study as an outpatient Clinical Quality Measures DVT/VTE Risk/Contraindication: Risk Factor Score Per Nursin RFS Level Per Nursing on Admit: 4+=Very High Contraindications-Pharm: Other *list below* Other: spine surgery increased risk for hematoma BEN TRONCOSO MD May 07, 2020 10:43 am
[2020-05-07] MEDS ORDERED: methylPREDNISolone 40 MG/ML (Solu-MEDROL) VIAL IV NR (10:45)
--- NOTE | 2020-05-07 11:15 | Physical Therapy Daily Note ---
PT Daily Note-Current Subjective Agreeable to PT. Reports he has a rash that is bothering him. Nursing and physician aware. Pain Numeric Pain Scale: 7 Location: Left Location Body Site: Generalized (leg) Pain Description: Ache, Dull Comment: FLACC scale; painful in standing. Mental Status Patient Orientation: Person, Place, Time, Situation Lumbar support in place Transfers SCALE: Activities may be completed with or without assistive devices. 9-Tqbnkomomk-cqyuyyx completes the activity by him/herself with no assistance from a helper. 5-Set-up or Clean-up Assistance-helper sets up or cleans up; patient completes activity. [place] assists only prior to or following the activity. 4-Supervision or Touching Assistance-helper provides verbal cues and/or touching/steadying and/or contact guard assistance as patient completes activity. Assistance may be provided throughout the activity or intermittently. 3-Partial/Moderate Assistance-helper does LESS THAN HALF the effort. [place] lifts, holds or supports trunk or limbs, but provides less than half the effort. 2-Substantial/Maximal Assistance-helper does MORE THAN HALF the effort. [place] lifts or holds trunk or limbs and provides more than half the effort. 9-Qjwwflvci-wnwqen does ALL the effort. Patient does none of the effort to complete the activity. Or, the assistance of 2 or more helpers is required for the patient to complete the activity. If activity was not attempted, code reason: 7-Patient Refused. 9-Not Applicable-not attempted and the patient did not perform the activity before the current illness, exacerbation or injury. 10-Not Attempted due to Environmental Limitations-(lack of equipment, weather restraints, etc.). 88-Not Attempted due to Medical Conditions or Safety Concerns. Roll Left & Right (QC): 3 Lying to Sitting/Side of Bed(Q: 3 (min to CGA with cues for sequencing and tech nique with log roll.) Sit to Stand (QC): 3 (min to CGA to stand with skilled cues for hand placement and sequencing. ) Pt stood x 4 reps with FWW with bed elevated. Transferred bed to chair with FWW with CGA and cues for safety. Unsteady and shaky as he transferred. Painful left LE limits transfer. Treatments Pt performed AP, and seated hip flexion in sitting x 15 reps. Assessment Painful this date specifically in left LE with upright standing/mobility. Unable to safely tolerate gait this visit, but did transfer to the chair. PT Short Term Goals Short Term Goals Time Frame: May 16, 2020 Roll Left & Right: 3 Sit to lyin Lying to sitting on side of be: 3 Sit to stand: 3 Chair/dxy-uq-nygjn transfer: 3 Toilet transfer: 3 Walk 10 feet: 3 Walk 50 feet with two turns: 3 PT Snf Goals Teradata Architect Goals PT Teradata Architect Goals Time Frame: May 24, 2020 Roll Left & Right (QC): 5 Sit to Lying (QC): 5 Lying-Sitting on Side/Bed(QC): 5 Sit to Stand (QC): 5 Chair/Ajb-vz-Fqqze Xfer(QC): 5 Toilet Transfer (QC): 5 Does the Patient Walk: Yes Walk 10 feet (QC): 5 Walk 50ft with 2 Turns (QC): 5 Walk 150 ft (QC): 5 PT Plan Problem List Problem List: Activity Tolerance, Functional Strength, Safety, Balance, Gait, Transfer, Bed Mobility Treatment/Plan Treatment Plan: Continue Plan of Care Treatment Plan: Bed Mobility, Education, Functional Activity [place], Functional Strength, Gait, Safety, Therapeutic Exercise, Transfers Treatment Duration: May 24, 2020 Frequency: 11 times per week Estimated Hrs Per Day: .5 hour per day Patient and/or Family Agrees t: Yes Safety Risks/Education Patient Education: Safety Issues Teaching Recipient: Patient Teaching Methods: Discussion Response to Teaching: Reinforcement Needed Time/GCodes Time In: 1035 Time Out: 1103 Total Billed Treatment Time: 28 Total Billed Treatment visit FA 28 MARGUERITE PAULINO PT May 07, 2020 11:15
--- NOTE | 2020-05-07 11:57 | Progress Note ---
ANTOINETTE SHIELDS MED STUDENT 05/07/20 1157: Subjective Date Seen by a Provider: May 07, 2020 Time Seen by a Provider: 10:00 Subjective/Events-last exam * Patient is awake/ alert in bed * No apparent distress * Expresses some distress regarding right leg rash * Overall doing well Review of Systems General: No Chills, No Night Sweats, No Fatigue, No Malaise, No Appetite, No Other HEENT: No Head Aches, No Visual Changes, No Eye Pain, No Ear Pain, No Dysphasia, No Sinus Congestion, No Post Nasal Drip, No Sore Throat, No Other Pulmonary: No Dyspnea, No Cough, No Pleuritic Chest Pain, No Other Cardiovascular: No: Chest Pain, Palpitations, Orthopnea, Paroxysmal Noc. Dyspnea, Edema, Lt Headedness, Other Gastrointestinal: No: Nausea, Vomiting, Abdominal Pain, Diarrhea, Constipation, Melena, Hematochezia, Other Genitourinary: No Dysuria, No Frequency, No Incontinence, No Hematuria, No Retention, No Other Musculoskeletal: back pain; No: other, neck pain, shoulder pain, arm pain, hand pain, leg pain, foot pain Neurological: No: Weakness, Numbness, Incoordination, Change in speech, Confusion, Seizures, Other Skin: erythematous rash extending from abdomen/ back to right leg Objective Exam Last Set of Vital Signs Vital Signs Date Time Temp Pulse Resp B/P (MAP) Pulse Ox O2 Delivery O2 Flow Rate FiO2 05/07/20 04:02 36.8 85 18 95 Room Air 05/06/20 23:03 129/71 (90) 05/05/20 15:24 21 05/04/20 11:00 2.00 Capillary Refill : Less Than 3 Seconds I&O Intake and Output 05/07/20 00:00 Intake Total 1480 ml Output Total 1875 ml Balance -395 ml Intake Oral 1480 ml Output Urine Total 1875 ml General: Alert, Oriented X3, Cooperative Neck: No JVD Lungs: Clear to Auscultation, Normal Air Movement Heart: Regular Rate, Normal S1, Normal S2, No Murmurs Extremities: No Clubbing, No Cyanosis Skin: No Breakdown, No Significant Lesion, Other (Rash extending from abdomen/ back to right leg) Neuro: Normal Speech Psych/Mental Status: Mental Status NL, Mood NL Results Lab Laboratory Tests 05/07/20 05:04: White Blood Count 7.2, Red Blood Count 3.04L, Hemoglobin 8.8L, Hematocrit 28L, Mean Corpuscular Volume 91, Mean Corpuscular Hemoglobin 29, Mean Corpuscular Hemoglobin Concent 32, Red Cell Distribution Width 14.8H, Platelet Count 274, Mean Platelet Volume 9.8, Neutrophils (%) (Auto) 72, Lymphocytes (%) (Auto) 13, Monocytes (%) (Auto) 11, Eosinophils (%) (Auto) 4, Basophils (%) (Auto) 0, Neutrophils # (Auto) 5.2, Lymphocytes # (Auto) 0.9L, Monocytes # (Auto) 0.8, Eosinophils # (Auto) 0.3, Basophils # (Auto) 0.0, Sodium Level 135, Potassium Level 4.2, Chloride Level 106, Carbon Dioxide Level 21, Anion Gap 8, Blood Urea Nitrogen 21H, Creatinine 1.21, Estimat Glomerular Filtration Rate 58, BUN/Creatinine Ratio 17, Glucose Level 101, Calcium Level 7.9L, Corrected Calcium 8.9, Total Bilirubin 0.5, Aspartate Amino Transf (AST/SGOT) 27, Alanine Aminotransferase (ALT/SGPT) 14, Alkaline Phosphatase 64, Total Protein 5.2L, Albumin 2.7L Microbiology 05/03/20 Blood Culture - Preliminary, Resulted No growth 05/03/20 MRSA Screen - Final, Complete MRSA not isolated Assessment/Plan Assessment/Plan Assess & Plan/Chief Complaint ASSESSMENT: * Anasarca * Post-op laminectomy * Acute on chronic renal failure * Limited mobility * Anemia * Hypotension * Type II [place] * Rash PLAN: * Physical therapy * Ambulation * DC hydrocodone due to rash * Maintain creatinine and potassium levels * Pain management * Monitor blood pressure Clinical Quality Measures DVT/VTE Risk/Contraindication: Risk Factor Score Per Nursin RFS Level Per Nursing on Admit: 4+=Very High Contraindications-Pharm: Other *list below* Other: spine surgery increased risk for hematoma KRISTI SERRATO DO 05/08/20 0458: Subjective Subjective/Events-last exam Pt dramatically improved Rash seems to be affiliated with Hydrocodone Will give Solumedrol 80mg IV x1, stop the Hydrocodone and try Ultram and Tylenol Creatinine 1.2 Hgb 8.8 Awaiting rehab approval Review of Systems Musculoskeletal: back pain Assessment/Plan Assessment/Plan Assess & Plan/Chief Complaint IRF tomorrow? Rash management Supervisory-Addendum Brief Verification & Attestation Participated in pt care: history, MDM, physical Personally performed: exam, history, MDM, supervision of care Care discussed with: Medical Student Procedures: n/a Results interpretation: Verified all documentation Verification and Attestation of Medical Student E/M Service A medical student performed and documented this service in my presence. I reviewed and verified all information documented by the medical student and made modifications to such information, when appropriate. I personally performed the physical exam and medical decision making. Kristi Serrato, May 08, 2020,04:56 ANTOINETTE SHIELDS MED STUDENT May 07, 2020 11:57 KRISTI SERRATO DO May 08, 2020 04:58
--- NOTE | 2020-05-07 12:01 | Occupational Ther Daily Note ---
OT Current Status-Daily Note Subjective Pt seated in recliner, agreeable to OT tx. ADL-Treatment Therapy Code Descriptions/Definitions Functional [place] Measure: 0=Not Assessed/NA 4=Minimal Assistance 1=Total Assistance 5=Supervision or Setup 2=Maximal Assistance 6=Modified [place] 3=Moderate Assistance 7=Complete IndependenceSCALE: Activities may be completed with or without assistive devices. 2-Jygjasxfws-levpkkc completes the activity by him/herself with no assistance from a helper. 5-Set-up or Clean-up Assistance-helper sets up or cleans up; patient completes activity. [place] assists only prior to or following the activity. 4-Supervision or Touching Assistance-helper provides verbal cues and/or touching/steadying and/or contact guard assistance as patient completes activity. Assistance may be provided throughout the activity or intermittently. 3-Partial/Moderate Assistance-helper does LESS THAN HALF the effort. [place] lifts, holds or supports trunk or limbs, but provides less than half the effort. 2-Substantial/Maximal Assistance-helper does MORE THAN HALF the effort. [place] lifts or holds trunk or limbs and provides more than half the effort. 5-Fwfgkgwyt-eaxplw does ALL the effort. Patient does none of the effort to complete the activity. Or, the assistance of 2 or more helpers is required for the patient to complete the activity. If activity was not attempted, code reason: 7-Patient Refused. 9-Not Applicable-not attempted and the patient did not perform the activity before the current illness, exacerbation or injury. 10-Not Attempted due to Environmental Limitations-(lack of equipment, weather restraints, etc.). 88-Not Attempted due to Medical Conditions or Safety Concerns. On/Off Footwear: 4 (SBA, min verbal cues to use resin painter for doffing socks, pt able to don socks using sock aide with increased time without cues.) Other Treatment Pt seated in recliner post PT tx. Pt agreeable to OT tx at this time. Pt completed footwear using AE pt was educated on in susan session. Pt able to complete task with min verbal cues and increased time. Pt verbalized and demo'd understanding of task. Post OT Tx, pt seated in recliner, call light in reach and all needs met. Education OT Patient Education: Correct positioning, Energy conservation, Modified ADL techniques, Progress toward Goal/Update tx plan, Purpose of tx/functional activities, Safety issues, Use of adapted equipment Teaching Recipient: Patient Teaching Methods: Discussion Response to Teaching: Verbalize Understanding OT Engraver Seals Goals Senior Care Goals Time Frame: May 26, 2020 Eating (QC): 6 Oral Hygiene (QC): 6 Toileting Hygiene (QC): 6 Shower/Bathe Self (QC): 6 Upper Body Dressing (QC): 6 Lower Body Dressing (QC): 6 On/Off Footwear (QC): 6 1=Demonstrate adherence to instructed precautions during ADL tasks. 2=Patient will verbalize/demonstrate understanding of assistive devices/modifications for ADL. 3=Patient will improve strength/tolerance for activity to enable patient to perform ADL's. OT Education/Plan Problem List/Assessment Assessment: Decreased Activ Tolerance, Decreased UE Strength, Impaired I ADL's, Impaired Self-Care Skills Pt would benefit from skilled OT in order to increase independence with ADLs and functional mobility, and to return to maximum LOF to safely return home with family. Discharge Recommendations Plan/Recommendations: Continue POC Treatment Plan/Plan of Care Patient would benefit from OT for education, treatment and training to promote independence in ADL's, mobility, safety and/or upper extremity function for ADL's. Plan of Care: ADL Retraining, Functional Mobility, UE Funct Exercise/Act Treatment Duration: May 26, 2020 Frequency: 5 times per week Estimated Hrs Per Day: .25 hour per day Rehab Potential: Fair Time/GCodes Start Time: 11:04 Stop Time: 11:20 Total Time Billed (hr/min): 16 Billed Treatment Time 1, ADL JANETTE PEREZ OT May 07, 2020 12:01
[2020-05-07] MEDS: ACETAMINOPHEN 325 MG TABLET PO PRN ×2 (13:31→18:24)
[2020-05-07 15:39] VITALS: BP 156/125
--- NOTE | 2020-05-07 16:05 | Physical Therapy Daily Note ---
PT Daily Note-Current Subjective Pt sitting in recliner with son present upon arrival. Pt reports wanting to walk if capable. Pain Numeric Pain Scale: 9 Location: Lower Location Body Site: Back Pain Description: Sharp Mental Status Patient Orientation: Person, Place, Situation Attachments: Other-See Comments (Lumbar back brace) Transfers SCALE: Activities may be completed with or without assistive devices. 6-Tvnpqrfsug-[id number] completes the activity by him/herself with no assistance from a helper. 5-Set-up or Clean-up Assistance-helper sets up or cleans up; patient completes activity. [place] assists only prior to or following the activity. 4-Supervision or Touching Assistance-helper provides verbal cues and/or touching/steadying and/or contact guard assistance as patient completes activity. Assistance may be provided throughout the activity or intermittently. 3-Partial/Moderate Assistance-helper does LESS THAN HALF the effort. [place] lifts, holds or supports trunk or limbs, but provides less than half the effort. 2-Substantial/Maximal Assistance-helper does MORE THAN HALF the effort. [place] lifts or holds trunk or limbs and provides more than half the effort. 4-Dqigtdxra-sxgpco does ALL the effort. Patient does none of the effort to complete the activity. Or, the assistance of 2 or more helpers is required for the patient to complete the activity. If activity was not attempted, code reason: 7-Patient Refused. 9-Not Applicable-not attempted and the patient did not perform the activity before the current illness, exacerbation or injury. 10-Not Attempted due to Environmental Limitations-(lack of equipment, weather restraints, etc.). 88-Not Attempted due to Medical Conditions or Safety Concerns. Sit to Stand (QC): 2 Weight Bearing Full Weight Bearing Full Weight Bearing Treatments TF from recliner to standing at Max x2, reports pain so pt declines wanting to walk. TF from recliner to EOB, sit to stand x3 to adjust to refrain from sitting at EOB. PT assists lift B LE into bed as well as repositioning to comfort, all needs met, call light in hand. Assessment Current Status: Fair Progress Pt reports increased pain with movement. PT Short Term Goals Short Term Goals Time Frame: May 16, 2020 Roll Left & Right: 3 Sit to lyin Lying to sitting on side of be: 3 Sit to stand: 3 Chair/ctg-cb-hnkog transfer: 3 Toilet transfer: 3 Walk 10 feet: 3 Walk 50 feet with two turns: 3 PT Correction Goals Director Rehabilitation Program Goals PT Director Rehabilitation Program Goals Time Frame: May 24, 2020 Roll Left & Right (QC): 5 Sit to Lying (QC): 5 Lying-Sitting on Side/Bed(QC): 5 Sit to Stand (QC): 5 Chair/Uim-vz-Jdonq Xfer(QC): 5 Toilet Transfer (QC): 5 Car Transfer (QC): 5 Does the Patient Walk: Yes Walk 10 feet (QC): 5 Walk 50ft with 2 Turns (QC): 5 Walk 150 ft (QC): 5 Walking 10ft on Uneven Surface: 5 1 Step (curb) (QC): 5 4 Steps (QC): 5 12 Steps (QC): 5 Picking up an Object (QC): 5 Wheel 50 feet with 2 turns (QC: 5 Wheel 150 feet: 5 PT Plan Problem List Problem List: Activity Tolerance, Functional Strength, Safety, Balance, Gait, Transfer, Bed Mobility Treatment/Plan Treatment Plan: Continue Plan of Care Treatment Plan: Bed Mobility, Education, Functional Activity [place], Functional Strength, Gait, Safety, Therapeutic Exercise, Transfers Treatment Duration: May 24, 2020 Frequency: 11 times per week Estimated Hrs Per Day: .5 hour per day Patient and/or Family Agrees t: Yes Safety Risks/Education Patient Education: Transfer Techniques, Correct Positioning, Safety Issues Teaching Recipient: Patient, Family Teaching Methods: Discussion Response to Teaching: Verbalize Understanding Time/GCodes Time In: 1455 Time Out: 1520 Total Billed Treatment Time: 25 Total Billed Treatment 1, FA x2 (25m) SALLY SCHAFER PTA May 07, 2020 16:05
[2020-05-08 00:04] VITALS: BP 158/70
[2020-05-08] MEDS: diphenhydrAMINE 25 MG TAB (BENADRYL) PO PRN (03:30)
[2020-05-08 05:22] LABS: BASOPHILS % (AUTO) 0 % (0-10); EOSINOPHILS # (AUTO) 0.2 10^3/uL (0.0-0.3); EOSINOPHILS % (AUTO) 1 % (0-10); HEMATOCRIT 29 % (40-54); HEMOGLOBIN 9.3 G/DL (13.3-17.7); LYMPHOCYTES % (AUTO) 6 % (12-44); MEAN CORPUSCULAR HEMOGLOBIN 29 PG (25-34); MEAN CORPUSCULAR HGB CONC 32 G/DL (32-36); MEAN CORPUSCULAR VOLUME 90 FL (80-99); MEAN PLATELET VOLUME 9.5 FL (7.4-10.4); MONOCYTES % (AUTO) 6 % (0-12); NEUTROPHILS # (AUTO) 13.3 X 10^3 (1.8-7.8); NEUTROPHILS % (AUTO) 86 % (42-75); PLATELET COUNT 334 10^3/uL (130-400); WHITE BLOOD COUNT 15.5 10^3/uL (4.3-11.0)
[2020-05-08 05:54] LABS: LYMPHOCYTES % (MANUAL) 4 %; MONOCYTES % (MANUAL) 5 %; NEUTROPHILS % (MANUAL) 90 %
[2020-05-08 05:55] LABS: EOSINOPHILS % (MANUAL) 1 %; RBC MORPH NORMAL
[2020-05-08 05:57] LABS: ALBUMIN 2.7 GM/DL (3.2-4.5); BILIRUBIN,TOTAL 0.4 MG/DL (0.1-1.0); CALCIUM 8.1 MG/DL (8.5-10.1); CREATININE SERUM 1.21 MG/DL (0.60-1.30); TOTAL PROTEIN 5.2 GM/DL (6.4-8.2)
--- NOTE | 2020-05-08 06:09 | NUR ---
[address] Clark that patients white blood cell count increased from 7.2 to 15.5. No new orders at this time.
[2020-05-08 08:00] VITALS: BP 157/77
[2020-05-08] MEDS: lisINopril 20 MG (PRINIVIL) TABLET PO SCH (08:07)
[2020-05-08] MEDS: SENNA W/DOCUSATE (SENOKOT S) TABLET PO SCH (08:07)
--- NOTE | 2020-05-08 08:37 | Cardiology Progress Note ---
Subjective Date Seen by Provider: May 08, 2020 Time Seen by Provider: 08:36 Subjective/Events-last exam Patient is laying down in bed, had skin rash. Swelling is better Review of Systems General: No Chills, No Night Sweats, No Fatigue, No Malaise, No Appetite, No Other HEENT: No Head Aches, No Visual Changes, No Eye Pain, No Ear Pain, No Dysphasia, No Sinus Congestion, No Post Nasal Drip, No Sore Throat, No Other Pulmonary: No Dyspnea, No Cough, No Pleuritic Chest Pain, No Other Cardiovascular: No: Chest Pain, Palpitations, Orthopnea, Paroxysmal Noc. Dyspnea, Edema, Lt Headedness, Other Objective-Cardiology Exam Last Set of Vital Signs Vital Signs 05/04/20 05/08/20 11:00 08:00 Temp 36.1 Pulse 75 Resp 16 B/P (MAP) 157/77 (103) Pulse Ox 96 O2 Delivery Room Air O2 Flow Rate 2.00 Capillary Refill : Less Than 3 Seconds I&O Intake and Output 05/07/20 23:59 Intake Total 900 ml Output Total 1850 ml Balance -950 ml Intake Oral 900 ml Output Urine Total 1850 ml # Voids 1 General: Alert, Oriented X3, Cooperative HEENT: Atraumatic, PERRLA Neck: No JVD Lungs: Clear to Auscultation, Normal Air Movement Heart: Regular Rate, Normal S1, Normal S2, No Murmurs Abdomen: Normal Bowel Sounds, Soft, No Tenderness, No Hepatosplenomegaly, No Masses Extremities: No Clubbing, No Cyanosis Skin: No Significant Lesion, Other (Rash extending from abdomen/ back to right leg) Neuro: Normal Speech Psych/Mental Status: Mental Status NL, Mood NL Results Lab Laboratory Tests 05/08/20 05:10 A/P-Cardiology Admission Diagnosis Anasarca Type II WA Coronary artery disease Acute renal failure Assessment/Plan Peripheral edema, improving. Continue on diuretics and monitor Allergic reaction to medication, skin rash. Improving slowly. Coronary artery disease, history of coronary stents in the past, mild elevation in troponin, Type II WA secondary to hypotension and anemia, conservative management and continue to monitor Hypertension, lisinopril was increased to 20 mg daily, continue to monitor Anemia, post surgery, continue to monitor, management per medical service Acute on chronic renal insuf, improving slowly. Continue to monitor Status post Lumbar surgery, continue to monitor High risk for sleep apnea, consider sleep study as an outpatient Clinical Quality Measures DVT/VTE Risk/Contraindication: Risk Factor Score Per Nursin RFS Level Per Nursing on Admit: 4+=Very High Contraindications-Pharm: Other *list below* Other: spine surgery increased risk for hematoma BEN TRONCOSO MD May 08, 2020 08:37
--- NOTE | 2020-05-08 09:49 | Progress Note ---
[employer] MED STUDENT 05/08/20 0949: Progress Note Hospital Course 05/03 * Patient admitted to [facility] following post-op laminectomy and acute on chronic renal failure. Acute renal failure exacerbated by prior 2 weeks of diarrhea leading to volume depletion. Patient also has a hx of orthostasis which is also exacerbated via volume depletion. Patient received one unit of blood during surgery, but maintained minimal output post surgery. Patient was provided 500 cc bolus leading to improved urinary output at 1300 cc via catheter. Creatinine levels were decreasing from 2.8 (pre-admittance) to 2.6. Pre-admittance hyperkalemia was also improving. Cardiology (Dr. Cat) was consulted and started diuretics plus monitoring of active problem list. 05/04 * Creatinine continuing to improve now at 2.4. Patient was provided 1 unit of blood transfusion. Hgb then improved to 8.5 following transfusion. Patient c/o fatigue, dyspnea, back pain, and weakness. Cardiology continues diuretics due to fluid overload and concludes Type II SC secondary to hypotension/ anemia following mild elevation in troponins. 05/05 * Creatinine levels are now at patient baseline of 1.67. Patient c/o moderate back pain with movement and a pruritic, erythematous rash spanning abdomen and back. Evaluated by PT/ OT and PT started. Transthoracic echocardiogram conclusion indicates normal left ventricular size and wall thickness with estimated EF of 65-70%. Pulmonary artery systolic pressure of 40-45 mmHg. Cardiology notes improvement of peripheral edema as well as post hypotension HTN. Lisinopril of 10 mg daily added and continuation of diuretics. 05/06 * Creatinine continuing to improve at 1.31. OT started. Patient c/o mild back pain and now left leg pain with movement but is improving. Cardiology notes poorly controlled HTN and increases lisinopril dosage to 20 mg daily with continued diuretics. 05/07 * Creatinine continuing to improve at 1.21. Patient c/o continued mild back pain and rash spreading to right leg, suspected to be due to hydrocodone sensitivity. Hydrocodone discontinued for ultram and tylenol. 05/08 * Creatinine stable at 1.21. Hgb slowly increasing from 8.5 at admission to 9.3. Hct also slowly increasing from 26 at admission to 29. WBC count increased, as expected, from 7.2 to 15.5 due to solumedrol administration. Patient c/o improved back pain and less pruritic rash. Patient discharged to in-patient rehabilitation under Dr. Wright care. KRISTI SERRATO DO 05/09/20 0528: Supervisory-Addendum Brief Verification & Attestation Participated in pt care: history, MDM, physical Personally performed: exam, history, MDM, supervision of care Care discussed with: Medical Student Procedures: n/a Results interpretation: Verified all documentation Verification and Attestation of Medical Student E/M Service A medical student performed and documented this service in my presence. I reviewed and verified all information documented by the medical student and made modifications to such information, when appropriate. I personally performed the physical exam and medical decision making. Kristi Serrato, May 09, 2020,05:28 [employer] MED STUDENT May 08, 2020 09:49 KRISTI SERRATO DO May 09, 2020 05:28
--- NOTE | 2020-05-08 10:12 | Discharge Summary ---
Diagnosis/Chief Complaint Date of Admission May 03, 2020 at 08:25 Date of Discharge Discharge Date: May 08, 2020 Discharge Diagnosis ASSESSMENT: * Anasarca * Post-op laminectomy * Acute on chronic renal failure * Limited mobility * Anemia * Hypotension * Type II NM * Rash PLAN: * Physical therapy * Ambulation * DC hydrocodone due to rash * Maintain creatinine and potassium levels * Pain management * Monitor blood pressure Discharge Summary Discharge Physical Examination Allergies: Coded Allergies: hydrocodone (Unverified Allergy, Unknown, 05/08/20) PATIENT WITH HIVES, PRESUMPTIVE HYDROCODONE Vitals & I&Os Vital Signs Date Time Temp Pulse Resp B/P (MAP) Pulse Ox O2 Delivery O2 Flow Rate FiO2 05/08/20 10:22 36.1 75 16 157/77 96 Room Air 2.00 05/05/20 15:24 21 General Appearance: Alert, Oriented X3, Cooperative Respiratory: Clear to Auscultation Cardiovascular: Regular Rate Neuro: Normal Speech, Strength at 5/5 X4 Ext Psych/Mental Status: Mental Status NL Hospital Course Was the Problem List Reviewed?: Yes Brief course following transfer to [facility] from [place] due to hypotension anemia and ARF with oliguria and clinical volume overload. Patient was sent to ICU and given 1 unit of blood along with gentle IVF and Cardiology consultation. Creatinine decreased rapidly and hypotension resolved. Anasarca resolved and héctor hanson was moved to floor. PT OT consulted. Labs remained stable. Rash noted and assumed to be from Hydrocodone so that was stopped and steroid started with Benadryl. Patient had normal bowel function return and overall was able to move to IRF after approved from insurance. Labs (last 24 hrs) Laboratory Tests 05/03/20 08:25: Lab Scanned Report Referred Lab Report 05/03/20 11:55: Blood Gas Puncture Site R RADIAL, Blood Gas Patient Temperature 36.8, Arterial Blood pH 7.35L, Arterial Blood Partial Pressure CO2 37, Arterial Blood Partial Pressure O2 91, Arterial Blood HCO3 20L, Arterial Blood Total CO2 21.2, Arterial Blood Oxygen Saturation 97, Arterial Blood Base Excess -4.6L, Wisam Test YES- POS, Blood Gas Ventilator Setting NO, Blood Gas Inspired Oxygen 2 05/03/20 12:00: White Blood Count 12.7H, Red Blood Count 2.64L, Hemoglobin 7.8L, Hematocrit 24L, Mean Corpuscular Volume 91, Mean Corpuscular Hemoglobin 30, Mean Corpuscular Hemoglobin Concent 33, Red Cell Distribution Width 15.1H, Platelet Count 201, Mean Platelet Volume 11.1H, Neutrophils (%) (Auto) 82H, Lymphocytes (%) (Auto) 10L, Monocytes (%) (Auto) 7, Eosinophils (%) (Auto) 1, Basophils (%) (Auto) 0, Neutrophils # (Auto) 10.4H, Lymphocytes # (Auto) 1.3, Monocytes # (Auto) 0.9, Eosinophils # (Auto) 0.1, Basophils # (Auto) 0.0, Prothrombin Time 16.2H, INR Comment 1.3, Activated Partial Thromboplast Time 37H, Sodium Level 132L, Potassium Level 4.6, Chloride Level 105, Carbon Dioxide Level 18L, Anion Gap 9, Blood Urea Nitrogen 40H, Creatinine 2.98H, Estimat Glomerular Filtration Rate 20, BUN/Creatinine Ratio 13, Glucose Level 100, Lactic Acid Level 0.79, Calcium Level 7.5L, Corrected Calcium 8.5, Iron Level 13L, Total Bilirubin 0.7, Aspartate Amino Transf (AST/SGOT) 56H, Alanine Aminotransferase (ALT/SGPT) 9, Alkaline Phosphatase 60, Troponin I 0.125H, B-Type Natriuretic Peptide 43.7, Total Protein 5.2L, Albumin 2.7L, Procalcitonin 0.85H, TSH [place] Testing 1.06 05/03/20 15:47: Urine Color YELLOW, Urine Clarity CLEAR, Urine pH 5.5, Urine Specific [place] <=1.005, Urine Protein 1+H, Urine Glucose (UA) NEGATIVE, Urine Ketones NEGATIVE, Urine Nitrite NEGATIVE, Urine Bilirubin NEGATIVE, Urine Urobilinogen 0.2, Urine Leukocyte Esterase NEGATIVE, Urine RBC (Auto) 3+H, Urine RBC 2-5H, Urine WBC NONE, Urine Squamous Epithelial Cells RARE, Urine Crystals NONE, Urine Bacteria TRACE, Urine Casts NONE, Urine Mucus NEGATIVE, Urine Culture Indicated NO 05/03/20 18:27: Troponin I 0.109H 05/04/20 02:49: White Blood Count 8.6, Red Blood Count 2.90L, Hemoglobin 8.5L, Hematocrit 26L, Mean Corpuscular Volume 90, Mean Corpuscular Hemoglobin 29, Mean Corpuscular Hemoglobin Concent 33, Red Cell Distribution Width 15.5H, Platelet Count 196, Mean Platelet Volume 11.2H, Neutrophils (%) (Auto) 80H, Lymphocytes (%) (Auto) 10L, Monocytes (%) (Auto) 7, Eosinophils (%) (Auto) 2, Basophils (%) (Auto) 0, Neutrophils # (Auto) 6.9, Lymphocytes # (Auto) 0.9L, Monocytes # (Auto) 0.6, Eosinophils # (Auto) 0.2, Basophils # (Auto) 0.0, Sodium Level 134L, Potassium Level 4.3, Chloride Level 108H, Carbon Dioxide Level 18L, Anion Gap 8, Blood Urea Nitrogen 38H, Creatinine 2.41H, Estimat Glomerular Filtration Rate 26, BUN/Creatinine Ratio 16, Glucose Level 88, Calcium Level 7.4L, Corrected Calcium 8.6, Total Bilirubin 0.6, Aspartate Amino Transf (AST/SGOT) 60H, Alanine Aminotransferase (ALT/SGPT) 10, Alkaline Phosphatase 54, Total Protein 4.8L, Albumin 2.5L 05/05/20 04:23: White Blood Count 6.8, Red Blood Count 2.97L, Hemoglobin 8.5L, Hematocrit 27L, Mean Corpuscular Volume 91, Mean Corpuscular Hemoglobin 29, Mean Corpuscular Hemoglobin Concent 31L, Red Cell Distribution Width 15.4H, Platelet Count 206, Mean Platelet Volume 10.2, Neutrophils (%) (Auto) 73, Lymphocytes (%) (Auto) 13, Monocytes (%) (Auto) 11, Eosinophils (%) (Auto) 3, Basophils (%) (Auto) 0, Neutrophils # (Auto) 5.0, Lymphocytes # (Auto) 0.9L, Monocytes # (Auto) 0.8, Eosinophils # (Auto) 0.2, Basophils # (Auto) 0.0, Sodium Level 137, Potassium Level 4.3, Chloride Level 110H, Carbon Dioxide Level 19L, Anion Gap 8, Blood Urea Nitrogen 29H, Creatinine 1.67H, Estimat Glomerular Filtration Rate 40, BUN/Creatinine Ratio 17, Glucose Level 91, Calcium Level 7.6L, Corrected Calcium 8.8, Total Bilirubin 0.5, Aspartate Amino Transf (AST/SGOT) 40H, Alanine Aminotransferase (ALT/SGPT) 11, Alkaline Phosphatase 53, Total Protein 4.8L, Albumin 2.5L 05/05/20 12:59: Lab Scanned Report Transfusion Reaction Form 05/06/20 06:47: White Blood Count 6.0, Red Blood Count 3.01L, Hemoglobin 8.7L, Hematocrit 27L, Mean Corpuscular Volume 91, Mean Corpuscular Hemoglobin 29, Mean Corpuscular Hemoglobin Concent 32, Red Cell Distribution Width 14.7H, Platelet Count 223, Mean Platelet Volume 9.9, Neutrophils (%) (Auto) 70, Lymphocytes (%) (Auto) 13, Monocytes (%) (Auto) 13H, Eosinophils (%) (Auto) 4, Basophils (%) (Auto) 0, Neutrophils # (Auto) 4.2, Lymphocytes # (Auto) 0.8L, Monocytes # (Auto) 0.8, Eo sinophils # (Auto) 0.3, Basophils # (Auto) 0.0, Sodium Level 135, Potassium Level 4.4, Chloride Level 108H, Carbon Dioxide Level 20L, Anion Gap 7, Blood Urea Nitrogen 22H, Creatinine 1.31H, Estimat Glomerular Filtration Rate 53, BUN/Creatinine Ratio 17, Glucose Level 103, Calcium Level 7.8L, Corrected Calcium 9.0, Total Bilirubin 0.5, Aspartate Amino Transf (AST/SGOT) 28, Alanine Aminotransferase (ALT/SGPT) 11, Alkaline Phosphatase 55, Total Protein 5.0L, Albumin 2.5L 05/07/20 05:04: White Blood Count 7.2, Red Blood Count 3.04L, Hemoglobin 8.8L, Hematocrit 28L, Mean Corpuscular Volume 91, Mean Corpuscular Hemoglobin 29, Mean Corpuscular Hemoglobin Concent 32, Red Cell Distribution Width 14.8H, Platelet Count 274, Mean Platelet Volume 9.8, Neutrophils (%) (Auto) 72, Lymphocytes (%) (Auto) 13, Monocytes (%) (Auto) 11, Eosinophils (%) (Auto) 4, Basophils (%) (Auto) 0, Neutrophils # (Auto) 5.2, Lymphocytes # (Auto) 0.9L, Monocytes # (Auto) 0.8, Eosinophils # (Auto) 0.3, Basophils # (Auto) 0.0, Sodium Level 135, Potassium Level 4.2, Chloride Level 106, Carbon Dioxide Level 21, Anion Gap 8, Blood Urea Nitrogen 21H, Creatinine 1.21, Estimat Glomerular Filtration Rate 58, BUN/Creatinine Ratio 17, Glucose Level 101, Calcium Level 7.9L, Corrected Calcium 8.9, Total Bilirubin 0.5, Aspartate Amino Transf (AST/SGOT) 27, Alanine Aminotransferase (ALT/SGPT) 14, Alkaline Phosphatase 64, Total Protein 5.2L, Albumin 2.7L 05/08/20 05:10: White Blood Count 15.5H, Red Blood Count 3.20L, Hemoglobin 9.3L, Hematocrit 29L, Mean Corpuscular Volume 90, Mean Corpuscular Hemoglobin 29, Mean Corpuscular Hemoglobin Concent 32, Red Cell Distribution Width 14.4, Platelet Count 334, Mean Platelet Volume 9.5, Neutrophils (%) (Auto) 86H, Lymphocytes (%) (Auto) 6L, Monocytes (%) (Auto) 6, Eosinophils (%) (Auto) 1, Basophils (%) (Auto) 0, Neutrophils # (Auto) 13.3H, Lymphocytes # (Auto) 1.0, Monocytes # (Auto) 1.0, Eosinophils # (Auto) 0.2, Basophils # (Auto) 0.0, Sodium Level 134L, Potassium Level 5.0, Chloride Level 105, Carbon Dioxide Level 20L, Anion Gap 9, Blood Urea Nitrogen 22H, Creatinine 1.21, Estimat Glomerular Filtration Rate 58, BUN/Creatinine Ratio 18, Glucose Level 108H, Calcium Level 8.1L, Corrected Calcium 9.1, Total Bilirubin 0.4, Aspartate Amino Transf (AST/SGOT) 23, Alanine Aminotransferase (ALT/SGPT) 15, Alkaline Phosphatase 70, Total Protein 5.2L, Albumin 2.7L, Neutrophils % (Manual) 90, Lymphocytes % (Manual) 4, Monocytes % (Manual) 5, Eosinophils % (Manual) 1, Blood Morphology Comment NORMAL Microbiology 05/03/20 Blood Culture - Final, Complete No growth 05/03/20 MRSA Screen - Final, Complete MRSA not isolated Pending Labs Microbiology Date/Time Source Procedure Growth Status 05/03/20 12:05 Peripheral Lt Hand Blood Culture - Final No growth Complete 05/03/20 12:00 Peripheral Lt Ac Blood Culture - Final No growth Complete 05/03/20 11:40 Nasal MRSA Screen - Final MRSA not isolated Complete Laboratory Tests 05/03/20 08:25: Lab Scanned Report Referred Lab Report 05/03/20 11:55: Blood Gas Puncture Site R RADIAL, Blood Gas Patient Temperature 36.8, Arterial Blood pH 7.35, Arterial Blood Partial Pressure CO2 37, Arterial Blood Partial Pressure O2 91, Arterial Blood HCO3 20, Arterial Blood Total CO2 21.2, Arterial Blood Oxygen Saturation 97, Arterial Blood Base Excess -4.6, Wisam Test YES-POS, Blood Gas Ventilator Setting NO, Blood Gas Inspired Oxygen 2 05/03/20 12:00: White Blood Count 12.7, Red Blood Count 2.64, Hemoglobin 7.8, Hematocrit 24, Mean Corpuscular Volume 91, Mean Corpuscular Hemoglobin 30, Mean Corpuscular Hemoglobin Concent 33, Red Cell Distribution Width 15.1, Platelet Count 201, Mean Platelet Volume 11.1, Neutrophils (%) (Auto) 82, Lymphocytes (%) (Auto) 10, Monocytes (%) (Auto) 7, Eosinophils (%) (Auto) 1, Basophils (%) (Auto) 0, Neutrophils # (Auto) 10.4, Lymphocytes # (Auto) 1.3, Monocytes # (Auto) 0.9, Eosinophils # (Auto) 0.1, Basophils # (Auto) 0.0, Prothrombin Time 16.2, INR Comment 1.3, Activated Partial Thromboplast Time 37, Sodium Level 132, Potassium Level 4.6, Chloride Level 105, Carbon Dioxide Level 18, Anion Gap 9, Blood Urea Nitrogen 40, Creatinine 2.98, Estimat Glomerular Filtration Rate 20, BUN/Creatinine Ratio 13, Glucose Level 100, Lactic Acid Level 0.79, Calcium Level 7.5, Corrected Calcium 8.5, Iron Level 13, Total Bilirubin 0.7, Aspartate Amino Transf (AST/SGOT) 56, Alanine Aminotransferase (ALT/SGPT) 9, Alkaline Phosphatase 60, Troponin I 0.125, B-Type Natriuretic Peptide 43.7, Total Protein 5.2, Albumin 2.7, Procalcitonin 0.85, TSH [place] Testing 1.06 05/03/20 15:47: Urine Color YELLOW, Urine Clarity CLEAR, Urine pH 5.5, Urine Specific [place] <=1.005, Urine Protein 1+, Urine Glucose (UA) NEGATIVE, Urine Ketones NEGATIVE, Urine Nitrite NEGATIVE, Urine Bilirubin NEGATIVE, Urine Urobilinogen 0.2, Urine Leukocyte Esterase NEGATIVE, Urine RBC (Auto) 3+, Urine RBC 2-5, Urine WBC NONE, Urine Squamous Epithelial Cells RARE, Urine Crystals NONE, Urine Bacteria TRACE, Urine Casts NONE, Urine Mucus NEGATIVE, Urine Culture Indicated NO 05/03/20 18:27: Troponin I 0.109 05/04/20 02:49: White Blood Count 8.6, Red Blood Count 2.90, Hemoglobin 8.5, Hematocrit 26, Mean Corpuscular Volume 90, Mean Corpuscular Hemoglobin 29, Mean Corpuscular Hemoglobin Concent 33, Red Cell Distribution Width 15.5, Platelet Count 196, Mean Platelet Volume 11.2, Neutrophils (%) (Auto) 80, Lymphocytes (%) (Auto) 10, Monocytes (%) (Auto) 7, Eosinophils (%) (Auto) 2, Basophils (%) (Auto) 0, Neutrophils # (Auto) 6.9, Lymphocytes # (Auto) 0.9, Monocytes # (Auto) 0.6, Eosinophils # (Auto) 0.2, Basophils # (Auto) 0.0, Sodium Level 134, Potassium Level 4.3, Chloride Level 108, Carbon Dioxide Level 18, Anion Gap 8, Blood Urea Nitrogen 38, Creatinine 2.41, Estimat Glomerular Filtration Rate 26, BUN/Creatinine Ratio 16, Glucose Level 88, Calcium Level 7.4, Corrected Calcium 8.6, Total Bilirubin 0.6, Aspartate Amino Transf (AST/SGOT) 60, Alanine Aminotransferase (ALT/SGPT) 10, Alkaline Phosphatase 54, Total Protein 4.8, Albumin 2.5 05/05/20 04:23: White Blood Count 6.8, Red Blood Count 2.97, Hemoglobin 8.5, Hematocrit 27, Mean Corpuscular Volume 91, Mean Corpuscular Hemoglobin 29, Mean Corpuscular Hemoglo bin Concent 31, Red Cell Distribution Width 15.4, Platelet Count 206, Mean Platelet Volume 10.2, Neutrophils (%) (Auto) 73, Lymphocytes (%) (Auto) 13, Monocytes (%) (Auto) 11, Eosinophils (%) (Auto) 3, Basophils (%) (Auto) 0, Neutrophils # (Auto) 5.0, Lymphocytes # (Auto) 0.9, Monocytes # (Auto) 0.8, Eosinophils # (Auto) 0.2, Basophils # (Auto) 0.0, Sodium Level 137, Potassium Level 4.3, Chloride Level 110, Carbon Dioxide Level 19, Anion Gap 8, Blood Urea Nitrogen 29, Creatinine 1.67, Estimat Glomerular Filtration Rate 40, BUN/Creatinine Ratio 17, Glucose Level 91, Calcium Level 7.6, Corrected Calcium 8.8, Total Bilirubin 0.5, Aspartate Amino Transf (AST/SGOT) 40, Alanine Aminotransferase (ALT/SGPT) 11, Alkaline Phosphatase 53, Total Protein 4.8, Albumin 2.5 05/05/20 12:59: Lab Scanned Report Transfusion Reaction Form 05/06/20 06:47: White Blood Count 6.0, Red Blood Count 3.01, Hemoglobin 8.7, Hematocrit 27, Mean Corpuscular Volume 91, Mean Corpuscular Hemoglobin 29, Mean Corpuscular Hemoglobin Concent 32, Red Cell Distribution Width 14.7, Platelet Count 223, Mean Platelet Volume 9.9, Neutrophils (%) (Auto) 70, Lymphocytes (%) (Auto) 13, Monocytes (%) (Auto) 13, Eosinophils (%) (Auto) 4, Basophils (%) (Auto) 0, Neutrophils # (Auto) 4.2, Lymphocytes # (Auto) 0.8, Monocytes # (Auto) 0.8, Eosinophils # (Auto) 0.3, Basophils # (Auto) 0.0, Sodium Level 135, Potassium Level 4.4, Chloride Level 108, Carbon Dioxide Level 20, Anion Gap 7, Blood Urea Nitrogen 22, Creatinine 1.31, Estimat Glomerular Filtration Rate 53, BUN/Creatinine Ratio 17, Glucose Level 103, Calcium Level 7.8, Corrected Calcium 9.0, Total Bilirubin 0.5, Aspartate Amino Transf (AST/SGOT) 28, Alanine Aminotransferase (ALT/SGPT) 11, Alkaline Phosphatase 55, Total Protein 5.0, Albumin 2.5 05/07/20 05:04: White Blood Count 7.2, Red Blood Count 3.04, Hemoglobin 8.8, Hematocrit 28, Mean Corpuscular Volume 91, Mean Corpuscular Hemoglobin 29, Mean Corpuscular Hemoglobin Concent 32, Red Cell Distribution Width 14.8, Platelet Count 274, Mean Platelet Volume 9.8, Neutrophils (%) (Auto) 72, Lymphocytes (%) (Auto) 13, Monocytes (%) (Auto) 11, Eosinophils (%) (Auto) 4, Basophils (%) (Auto) 0, Neutrophils # (Auto) 5.2, Lymphocytes # (Auto) 0.9, Monocytes # (Auto) 0.8, Eosinophils # (Auto) 0.3, Basophils # (Auto) 0.0, Sodium Level 135, Potassium Level 4.2, Chloride Level 106, Carbon Dioxide Level 21, Anion Gap 8, Blood Urea Nitrogen 21, Creatinine 1.21, Estimat Glomerular Filtration Rate 58, BUN/Creatinine Ratio 17, Glucose Level 101, Calcium Level 7.9, Corrected Calcium 8.9, Total Bilirubin 0.5, Aspartate Amino Transf (AST/SGOT) 27, Alanine Aminotransferase (ALT/SGPT) 14, Alkaline Phosphatase 64, Total Protein 5.2, Albumin 2.7 05/08/20 05:10: White Blood Count 15.5, Red Blood Count 3.20, Hemoglobin 9.3, Hematocrit 29, Mean Corpuscular Volume 90, Mean Corpuscular Hemoglobin 29, Mean Corpuscular Hemoglobin Concent 32, Red Cell Distribution Width 14.4, Platelet Count 334, Mean Platelet Volume 9.5, Neutrophils (%) (Auto) 86, Lymphocytes (%) (Auto) 6, Monocytes (%) (Auto) 6, Eosinophils (%) (Auto) 1, Basophils (%) (Auto) 0, Neutrophils # (Auto) 13.3, Lymphocytes # (Auto) 1.0, Monocytes # (Auto) 1.0, Eosinophils # (Auto) 0.2, Basophils # (Auto) 0.0, Sodium Level 134, Potassium Level 5.0, Chloride Level 105, Carbon Dioxide Level 20, Anion Gap 9, Blood Urea Nitrogen 22, Creatinine 1.21, Estimat Glomerular Filtration Rate 58, BUN/Creatinine Ratio 18, Glucose Level 108, Calcium Level 8.1, Corrected Calcium 9.1, Total Bilirubin 0.4, Aspartate Amino Transf (AST/SGOT) 23, Alanine Aminotransferase (ALT/SGPT) 15, Alkaline Phosphatase 70, Total Protein 5.2, Albumin 2.7, Neutrophils % (Manual) 90, Lymphocytes % (Manual) 4, Monocytes % (Manual) 5, Eosinophils % (Manual) 1, Blood Morphology Comment NORMAL Discharge Home Medications: Active Scripts Active Reported Aspirin 325 Mg Tablet 325 Mg PO DAILY Fish Oil 1,200 mg Fish Oil (Fish Oil/Dha/Epa) 1 Each Capsule 1 Each PO DAILY Nitroglycerin 0.4 Mg Tab.subl 0.4 Mg SL UD PRN Atorvastatin Calcium 80 Mg Tablet 80 Mg PO HS Metoprolol Succinate 50 Mg Tab.er.24h 25 Mg PO DAILY TAKES OF A 50MG TAB Levothyroxine Sodium 50 Mcg Tablet 50 Mcg PO DAILY Lisinopril 40 Mg Tablet 40 Mg PO DAILY PRN Instructions to patient/family Please see electronic discharge instructions given to patient. Diagnosis/Problems Diagnosis/Problems (1) Anasarca (2) Renal failure (ARF), acute on chronic (3) Anemia (4) Transfusion of blood during current hospitalization (5) Hypotension Clinical Quality Measures DVT/VTE Risk/Contraindication: Risk Factor Score Per Nursin RFS Level Per Nursing on Admit: 4+=Very High Contraindications-Pharm: Other *list below* Other: spine surgery increased risk for hematoma ART SERRATO DO May 08, 2020 10:12
[2020-05-08 10:22] VITALS: BP 157/77
--- NOTE | 2020-05-08 10:34 | NUR ---
REPORT CALLED TO [facility], THERAPISTS AT BEDSIDE NOW TRANSFERRING PT.
== END 2020-05-08 10:30 | DRG 682 ==
LOC: ICU 08:25 → 4TH 05-04 13:30
PROVIDERS: ADMIT Internal Medicine; ATTEND Internal Medicine
DX: N17.9 Acute kidney failure, unspecified (principal); I21.A1 Myocardial infarction type 2; D62 Acute posthemorrhagic anemia; K91.89 Other postprocedural complications and disorders of digestive system; K56.7 Ileus, unspecified; Z68.41 Body mass index [BMI] 40.0-44.9, adult; I95.81 Postprocedural hypotension; E86.0 Dehydration; R60.1 Generalized edema; I12.9 Hypertensive chronic kidney disease with stage 1 through stage 4 chronic kidney disease, or unspecified chronic kidney disease; N18.9 Chronic kidney disease, unspecified; I25.118 Atherosclerotic heart disease of native coronary artery with other forms of angina pectoris; L27.0 Generalized skin eruption due to drugs and medicaments taken internally; T40.2X5A Adverse effect of other opioids, initial encounter; E78.00 Pure hypercholesterolemia, unspecified; E78.5 Hyperlipidemia, unspecified; G47.33 Obstructive sleep apnea (adult) (pediatric); E66.01 Morbid (severe) obesity due to excess calories; M19.91 Primary osteoarthritis, unspecified site; M10.9 Gout, unspecified; G56.21 Lesion of ulnar nerve, right upper limb; Z95.5 Presence of coronary angioplasty implant and graft; Z91.19 Patient's noncompliance with other medical treatment and regimen; Z87.891 Personal history of nicotine dependence; Z89.021 Acquired absence of right finger(s); Z89.022 Acquired absence of left finger(s)
CPT/HCPCS: 36415; 71045; 80053; 81000; 82805; 83540; 83605; 83880; 84145; 84443; 84484; 85007; 85025; 85027; 85610; 85730; 86850; 86900; 86901; 86920; 87040; 87081; 93306; 94664; 94760

== ENCOUNTER 2020-05-08 08:32 | Inpatient (IN) | payer MEDICARE ==
[~2020-05-08] VITALS: Ht 185.5 cm; Wt 129.3 kg
[~2020-05-08 08:32] MED LIST: ASPI-808 PO; ATOR80TA76 PO; FISH1CAP15 PO; LEVO50TA6 PO; LISI40TA PO; METO50TA7 PO; NITR0.4T42 SL
[2020-05-08] MEDS ORDERED: LOPERAMIDE 2 MG (IMODIUM) TABLET PO PRN ×2 (10:15→12:15)
[2020-05-08] MEDS ORDERED: LACTULOSE SYRUP 10GM/15ML (ENULOSE) 30ML UDC PO PRN ×2 (10:15→12:15)
[2020-05-08] MEDS ORDERED: guaiFENesin/CODEINE (ROBITUSSIN AC) 10ML UDC PO PRN (10:15)
[2020-05-08] MEDS ORDERED: ONDANSETRON 4 MG (ZOFRAN) ORAL DISSOLVE TAB PO PRN ×2 (10:15→12:15)
[2020-05-08] MEDS ORDERED: diphenhydrAMINE 25 MG TAB (BENADRYL) PO PRN (10:15)
[2020-05-08] MEDS ORDERED: DOCUSATE SODIUM 100 MG (COLACE) CAP PO PRN ×2 (10:15→12:15)
[2020-05-08] MEDS ORDERED: MELATONIN 3 MG TABLET PO PRN ×2 (10:15→12:15)
[2020-05-08] MEDS ORDERED: FLEET ENEMA ADULT 1 EA BTL PR PRN ×2 (10:15→12:15)
[2020-05-08] MEDS ORDERED: CALCIUM CARBONATE 500 MG (TUMS) TAB.CHEW PO PRN ×2 (10:15→12:15)
[2020-05-08] MEDS ORDERED: ALPRAZolam 0.25 MG (XANAX) TAB PO PRN (10:15)
[2020-05-08] MEDS ORDERED: BISACODYL 10 MG SUPP (DULCOLAX) PR PRN ×2 (10:15→12:15)
--- NOTE | 2020-05-08 11:42 | Occupational Therapy Eval ---
OT Evaluation-General/PLF Medical Diagnosis Admission Date May 08, 2020 at 10:30 Medical Diagnosis: edema, hypotension, and acute renal failure after laminectomy Onset Date: Apr 30, 2020 Therapy Diagnosis Therapy Diagnosis: Weakness, decreased ADL skills Precautions Safety Interventions: None Comments Spinal precautions, brace on when out of bed Weight Bear Status Weight Bearing Restriction: Weight Bearing/Tolerated Referral Physician: Dr. Clark Referral Reason: Activity Tolerance, Self Care, Evaluation/Treatment, Strengthening/ROM Medical History Pertinent Medical History: Arthritis, CAD, COPD, HTN, Neuropathy, Renal Insufficiency Additional Medical History High cholesterol Current History Pt transferred from [place] due to increased edema and hypotension due to ARF following laminectomy to address lumbar stenosis with neurogenic claudication. Reviewed History: Yes Social History Home: Single Level Current Living Status: Children Entry Into Home: Ramp ADL-Prior Level of Function SCALE: Activities may be completed with or without assistive devices. 9-Nlccyhicgu-blhrbln completes the activity by him/herself with no assistance from a helper. 5-Set-up or Clean-up Assistance-helper sets up or cleans up; patient completes activity. [place] assists only prior to or following the activity. 4-Supervision or Touching Assistance-helper provides verbal cues and/or touching/steadying and/or contact guard assistance as patient completes activity. Assistance may be provided throughout the activity or intermittently. 3-Partial/Moderate Assistance-helper does LESS THAN HALF the effort. [place] lifts, holds or supports trunk or limbs, but provides less than half the effort. 2-Substantial/Maximal Assistance-helper does MORE THAN HALF the effort. [place] lifts or holds trunk or limbs and provides more than half the effort. 2-Bfduxacrn-mdvtne does ALL the effort. Patient does none of the effort to complete the activity. Or, the assistance of 2 or more helpers is required for the patient to complete the activity. If activity was not attempted, code reason: 7-Patient Refused. 9-Not Applicable-not attempted and the patient did not perform the activity before the current illness, exacerbation or injury. 10-Not Attempted due to Environmental Limitations-(lack of equipment, weather restraints, etc.). 88-Not Attempted due to Medical Conditions or Safety Concerns. ADL PLOF Comments Pt reported that he was independent with ADLs and functional mobility prior to hospitalization. He reported that he did not use any equipment to facilitate ADLs or functional mobility. Pt lives with his son who completes the cooking and cleaning in the house. Self Care: Independent Functional Cognition: Independent DME/Equipment: Bath Bench, Tub/Shower DME/Equipment Comments Pt. also has walker. Occupation: retired for [address] from [address] Self: Yes OT Current Status Subjective Pt in bed with son in room when therapy entered. He reported that he was having some pain in back, but did not rate. Pt stated that he has had pain medication recently. He was agreeable to transfer to rehab and evaluation. Mental Status/Objective Patient Orientation: Person, Place, Time, Situation Attachments: IV Current Glasses/Contacts: Yes Hearing Aids: No Dentures/Partials: No Upper Extremity ROM WFL in BUE at shoulder and elbow Upper Extremity Sensation Pt reported no issues with sensation Upper Extremity Strength WFL ADL-Treatment Eating (QC): 6 (Per pt report) Oral Hygiene (QC): 5 (Per pt report) Shower/Bathe Self (QC): 3 (Mod assist) Upper Body Dressing (QC): 4 Lower Body Dressing (QC): 2 (Underwear) On/Off Footwear (QC): 1 Toileting Hygiene (QC): 7 Pt. seen in two treatment sessions. Co-treat with PT at first session due to the need of two skilled therapists for fatigue and mobility issues. PT focused on mobility and transfers, while OT facilitated ADL skills, and BUE strength. Pt transferred supine to sit with max A and VC to log roll. Pt attempted to bring foot up to knee to don socks but was unable to due to pain. He stood from EOB with walker and max assist x2. Pt took a few side steps to transfer to w/c with assist x2. He was transferred to ARU and introduced to the floor and unit expectations. Pt verbalized understanding and agreed with treatment plan. He transferred supine in bed with max A. Vitals were taken. Pt transferred supine to six with max assist. Once seated EOB, pt attempted to stand and walk twice but reported that he was having a lot of pain in his L leg. OT educated pt on pursed lip breathing techniques. Pt stood with max A and ambulated with walker and max A (see PT note for details). He reported that he was tired and in pain. Pt returned to room and was seated in reclining chair. He required VC to position for comfort. All needs met. At second session, pt. spongebathed up in chair. Nursing assessed rash, (all over body), and pain. Pt. given pain meds, stated that he was hurting in lower back, but does not state pain level. Pt. issued LH sponge. Pt. back in reclining chair after session. All needs met. Education OT Patient Education: Correct positioning, Energy conservation, Modified ADL techniques, Progress toward Goal/Update tx plan, Purpose of tx/functional activities, Reviewed precautions, Rehab process, Safety issues, Transfer techniques Teaching Recipient: Patient, Family Teaching Methods: Demonstration, Discussion Response to Teaching: Verbalize Understanding, Return Demonstration OT Short Term Goals Short Term Goals Time Frame: May 15, 2020 Eatin Oral hygiene: 5 Toileting hygiene: 3 Shower/bathe self: 3 Upper body dressin Lower body dressin Putting on/taking off footwear: 3 OT Hardware Developer Goals [facility] Goals Time Frame: May 22, 2020 Eating (QC): 6 Oral Hygiene (QC): 6 Toileting Hygiene (QC): 6 Shower/Bathe Self (QC): 6 (Using AE) Upper Body Dressing (QC): 6 Lower Body Dressing (QC): 6 (Using AE) On/Off Footwear (QC): 6 (Using AE) Additional Goals: 1-Demonstrate ADL Tasks, 2-Verbalize Understanding, 3- ImproveStrength/[place] 1=Demonstrate adherence to instructed precautions during ADL tasks. 2=Patient will verbalize/demonstrate understanding of assistive devices/modifications for ADL. 3=Patient will improve strength/tolerance for activity to enable patient to perform ADL's. OT Education/Plan Problem List/Assessment Assessment: Decreased Activ Tolerance, Dependent Transfers, Impaired Bed Mobility, Impaired Funct Balance, Impaired I ADL's, Impaired Self-Care Skills Discharge Recommendations Plan/Recommendations: Continue POC Therapy Discharge Recommendati: Home & Family, Post Acute OT Equpiment Recommendations-D/C: Hip Kit Treatment Plan/Plan of Care Treatment,Training & Education: Yes Patient would benefit from OT for education, treatment and training to promote independence in ADL's, mobility, safety and/or upper extremity function for A DL's. Plan of Care: ADL Retraining, Functional Mobility, UE Funct Exercise/Act Treatment Duration: May 22, 2020 Frequency: At least 5 of 7 days/Wk (IRF) Estimated Hrs Per Day: 1.5 hours per day Agreement: Yes Rehab Potential: Good Time/GCodes Start Time: 10:30 Stop Time: 13:25 Total Time Billed (hr/min): 90 Billed Treatment Time 8141-6606 PT eval, no charge [id number] 1, EVH [id number] FA x 45minutes (co-treatment with PT. Please see above note for designated roles.) [id number] 1, ADL x 35minutes. OT only ISHA AGUILAR OT May 08, 2020 11:42
--- NOTE | 2020-05-08 11:51 | Physical Therapy Evaluation ---
PT Evaluation-General Medical Diagnosis Admission Date May 08, 2020 at 10:30 Medical Diagnosis: anasarca; post lumbar surgery Onset Date: May 08, 2020 Therapy Diagnosis Therapy Diagnosis: weakness; abn gait Precautions Precautions/Isolations: Standard Precautions Back brace on when up Referral Physician: Eduardo Reason for Referral: Evaluation/Treatment Medical History Pertinent Medical History: CAD, COPD, HTN, Neuropathy, Renal Insufficiency Additional Medical History Post lumbar surgery with laminectomy 04/30/2020. Current History Admitted to acute care hospital from [address] in [place] with worsening edema and hypotension with ARF and CRI. Pt transferred from acute to ARU for continued skilled therapy services. Reviewed History: Yes Social History Home: Single Level Current Living Status: Other Family (son lives with him) Entry Into Home: Stairs With Railing PT Steps Into Home: 1 Prior Prior Level of Function SCALE: Activities may be completed with or without assistive devices. 1-Amkzhlhyqq-hnyhujk completes the activity by him/herself with no assistance from a helper. 5-Set-up or Clean-up Assistance-helper sets up or cleans up; patient completes activity. [place] assists only prior to or following the activity. 4-Supervision or Touching Assistance-helper provides verbal cues and/or touching/steadying and/or contact guard assistance as patient completes activity. Assistance may be provided throughout the activity or intermittently. 3-Partial/Moderate Assistance-helper does LESS THAN HALF the effort. [place] lifts, holds or supports trunk or limbs, but provides less than half the effort. 2-Substantial/Maximal Assistance-helper does MORE THAN HALF the effort. [place] lifts or holds trunk or limbs and provides more than half the effort. 0-Rjfdzzsuf-mbjvuz does ALL the effort. Patient does none of the effort to complete the activity. Or, the assistance of 2 or more helpers is required for the patient to complete the activity. If activity was not attempted, code reason: 7-Patient Refused. 9-Not Applicable-not attempted and the patient did not perform the activity before the current illness, exacerbation or injury. 10-Not Attempted due to Environmental Limitations-(lack of equipment, weather restraints, etc.). 88-Not Attempted due to Medical Conditions or Safety Concerns. Bed Mobility: 6 Transfers (B,C,W/C): 6 Gait: 6 Indoor Mobility (Ambulation): Independent Stairs: Independent Pt was a community ambulator and still drives; he has had increasing symptoms since spring 2019 so has had a recent decline in mobility as he was awaiting surgery. PT Evaluation-Current Subjective Pt reports significant left LE radicular symptoms which impair WB. He is agreeable to PT and wants to return home as soon as he can. Son present throughout treatment. Pain Numeric Pain Scale: 8 Location: Left (leg/radicular in description) Pain Description: Ache, Dull Comment: reports he feels like his leg is "falling asleep" Pt/Family Goals Home with son. Objective Patient Orientation: Person, Place, Time, Situation ROM/Strength ROM Lower Extremities WFL Strength Lower Extremities B LE strength is grossly 4-/5 Integumentary/Posture Integumentary Pt has a rash throughout his body. Refer to nursing notes for full assessment. Bowel Incontinence: No Bladder Incontinence: No Posture Rounded shoulders and forward head; forward flexed at hips in gait with difficulty with full extension. Neuromuscular (Tone, Coordination, Reflexes) intact Sensory Vision: Wears Glasses Hearing: Functional Sensation Right Lower Extremit: Intact Sensation Left Lower Extremity: Impaired (radicular symptoms noted. ) Transfers Roll Left to Right (QC): 2 Sit to Lying (QC): 2 Lying to Sitting/Side of Bed(Q: 2 Sit to Stand (QC): 3 (min assist with skilled cues for hand placement and sequencing. ) Chair/Fpu-cs-[place] Xfer(QC): 3 (min assist with FWW with cues for task segmentation) Toilet Transfer (QC): 3 Car Transfer (QC): 88 (painful and unsafe to attempt this visit. ) Pt requires heavy cues for log roll technique and mod assist with bed mobility with HOB elevated. Gait Does the Patient Walk?: Yes Mode of Locomotion: Walk Anticipated Mode of Locomotion: Walk Walk 10 feet (QC): 3 Walk 50 ft with 2 Turns(QC): 3 Walk 150 ft (QC): 3 Walking 10ft/uneven surface-QC: 3 Distance: 150 ft x 2 Gait Assistive Device: FWW Comments/Gait Description Min assist with gait for safety Wheelchair Training Does the Pt Use a Wheelchair?: No Wheel 50 ft with 2 turns (QC): 9 Wheel 150 ft (QC): 9 Stairs 1 Step (curb) (QC): 3 (min assist for balance and safety.) 4 Steps (QC): 88 (unsafe. ) 12 Steps (QC): 88 Unsafe to attempt more than 1 step due to pain and weakness; fall risk noted. Balance Sitting Static: Normal Sitting Dynamic: Normal Standing Static: Fair Standing Dynamic: Fair Picking up an Object (QC): 88 (back precautions limit) Treatment Co treat with OT; need for skill of 2 clinicians due to complexity of his movement patterns, difficulty with movement and need for assist with cueing, sequencing, task initiation, use of UE and LE, balance maintenance, core control and safety. Pt performed bed mobility transisitions, sat EOB with work on trunk control and sit to stand transfers. Assessment/Needs Post lumbar surgery with significantly impaired strength and balance in upright posture, limited activity tolerance, pain in left LE; all of which render much difficulty and need for assist with bed mobility ,transfers and gait. He will benefit from skilled therapy services to address mobility and functional activity tolerance to allow him to return home as before. Rehab Potential: Good PT Short Term Goals Short Term Goals Time Frame: May 22, 2020 Roll Left & Right: 4 Sit to lyin Lying to sitting on side of be: 4 Sit to stand: 4 Walk 150 feet: 4 PT Harness Puller Goals [facility] Goals PT Harness Puller Goals Time Frame: Jun 05, 2020 Roll Left & Right (QC): 6 Sit to Lying (QC): 6 Lying-Sitting on Side/Bed(QC): 6 Sit to Stand (QC): 6 Chair/Xnr-qh-Zwlta Xfer(QC): 6 Toilet Transfer (QC): 6 Car Transfer (QC): 5 Does the Patient Walk: Yes Walk 10 feet (QC): 6 Walk 50ft with 2 Turns (QC): 6 Walk 150 ft (QC): 6 Walking 10ft on Uneven Surface: 6 1 Step (curb) (QC): 5 4 Steps (QC): 5 12 Steps (QC): 9 Picking up an Object (QC): 88 (back precautions prohibit) Does the Pt use WC or Scooter?: No Wheel 50 feet with 2 turns (QC: 9 Wheel 150 feet: 9 PT Plan Problem List Problem List: Activity Tolerance, Functional Strength, Safety, Balance, Gait, Transfer, Bed Mobility Treatment/Plan Treatment Plan: Continue Plan of Care Treatment Plan: Bed Mobility, Education, Functional Activity [place], Functional Strength, Group Therapy, Gait, Safety, Therapeutic Exercise, Transfers Treatment Duration: Jun 05, 2020 Frequency: At least 5 of 7 days/Wk (IRF) Estimated Hrs Per Day: 1.5 hours per day Patient and/or Family Agrees t: Yes Safety Risks/Education Patient Education: Transfer Techniques, Safety Issues Teaching Recipient: Patient, Family Teaching Methods: Discussion Response to Teaching: Reinforcement Needed Discharge Recommendations Therapy Discharge Recommendati: Post Acute PT Time/GCodes Time In: 1030 Time Out: 1135 (OT eval 1040-1050co treat 8701-8184 (45 min)) Total Billed Treatment Time: 55 Total Billed Treatment visit EVM 10 FA 30 GT 15 MARGUERITE PAULINO PT May 08, 2020 11:51
--- NOTE | 2020-05-08 12:10 | PM&R Post Admission Assessment ---
PM&R HP Date of Visit: May 08, 2020 Time of Visit: 12:00 History of Present Illness CC: Debility from lumbar stenosis surgery with complications HPI: This is a 79yoWM clinic patient of [facility] Dr Gallegos who presents to IRF after insurance approved him from 4th floor after he had been transferred to higher level of care from [place] after a complex lumbar spine surgery. He had experienced volume overload with hypotension and ARF with oliguria. Patient ultimately stabilized while in ICU after gentle IVF and transfusion of 1 unit of blood and Cardiology consultation. Patient had been transferred to 4th floor receiving PT and OT and found to be in need of structu red PT and OT in order to return home to live independently. Rash has been a complication so Hydrocodone and Venofer have both been held and patient was given another dose of steroid injection today and it seems to be helping but it has spread. Labs remain stable. BM+. Past Huqnxdh-Tksmki-Icgahw Hx Past Med/Social Hx: Reviewed Nursing Past Med/Soc Hx, Reviewed and Corrections made Patient Social History Marrital Status: single Employed/Student: retired Alcohol Use: Denies Use Smoking Status: Former Smoker Former Smoker, Quit: May 03, 1965 Recent Hopitalizations: Yes (Laminectomy) Immunizations Up To Date Pediatric: No Date of Pneumonia Vaccine: May 03, 2019 Seasonal Allergies Seasonal Allergies: No Past Medical History Surgeries: Orthopedic Respiratory: COPD, Sleep Apnea Currently Using CPAP: No Currently Using BIPAP: No Cardiac: Chronic Edema/Swelling, High Cholesterol, Hypertension Neurological: Neuropathy Genitourinary: Renal Failure Musculoskeletal: Amputee, Arthritis, Chronic Back Pain History of Blood Disorders: No Adverse Reaction to Blood Chatterjee: Yes Prior Level of Function Bed Mobility: 6 Transfers: 6 Gait: 6 Indoor Mobility (Ambulation): Independent Stairs: Independent Self Care: Needed Some Help Functional Cognition: Independent Occupation: retired for [address] Self: Yes Current Level of Fuctioning Roll Left to Right: 2 Sit to Lyin Lying to Sitting/Side of Bed: 2 Sit to Stand: 3 (min assist with skilled cues for hand placement and s equencing. ) Chair/Muu-rx-Cijpk Xfer: 3 (min assist with FWW with cues for task segmentation) Car Transfer: 88 (painful and unsafe to attempt this visit. ) Does the Patient Walk: Yes Mode of Locomotion: Walk Anticipated Mode of Locomotion: Walk Walk 10 feet: 3 Walk 50 ft with 2 Turns: 3 Walk 150 ft: 3 Walking 10ft on uneven surface: 3 Gait Assistive Device: FWW Eatin (Per pt report) Oral Hygiene: 5 (Per pt report) PM&R Allergy/Meds/Data Review Allergies Coded Allergies: hydrocodone (Unverified Allergy, Unknown, 05/08/20) PATIENT WITH HIVES, PRESUMPTIVE HYDROCODONE Home Medications Scheduled Aspirin (Aspirin), 325 MG PO DAILY, (Reported) Atorvastatin Calcium (Atorvastatin Calcium), 80 MG PO HS, (Reported) Fish Oil/Dha/Epa (Fish Oil 1,200 mg Fish Oil), 1 EACH PO DAILY, (Reported) Levothyroxine Sodium (Levothyroxine Sodium), 50 MCG PO DAILY, (Reported) Metoprolol Succinate (Metoprolol Succinate), 25 MG PO DAILY, (Reported) Scheduled PRN Lisinopril (Lisinopril), 40 MG PO DAILY PRN for BLOOD PRESSURE, (Reported) Nitroglycerin (Nitroglycerin), 0.4 MG SL UD PRN for CHEST PAIN (ANGINA), (Reported) Current Medications Current Medications Reviewed Review of Systems Constitutional: see HPI, malaise, weakness EENTM: no symptoms reported Respiratory: no symptoms reported Cardiovascular: edema Gastrointestinal: no symptoms reported Genitourinary: no symptoms reported Musculoskeletal: back pain Skin: see HPI, rash Psychiatric/Neurological: No Symptoms Reported All Other Systems Reviewed Negative Unless Noted: Yes Physical Exam Physical Exam Vital Signs Capillary Refill : Height, Weight, BMI Height: '" Weight: lbs. oz. kg; 43.23 BMI Method: General Appearance: No Apparent Distress, WD/WN, Chronically ill, Obese Eyes: Bilateral Eye Normal Inspection, Bilateral Eye PERRL HEENT: PERRL/EOMI, Normal ENT Inspection, Pharynx Normal Neck: Full Range of Motion, Normal Inspection, Non Tender, Supple, Carotid Bruit Respiratory: Chest Non Tender, Lungs Clear, Normal Breath Sounds, No Accessory Muscle Use, No Respiratory Distress Cardiovascular: Regular Rate, Rhythm, No Gallop, No JVD, No Murmur, Normal Peripheral Pulses Gastrointestinal: Normal Bowel Sounds, No Organomegaly, No Pulsatile Mass, Non Tender, Soft Back: Normal Inspection, No CVA Tenderness, No Vertebral Tenderness Extremity: Normal Capillary Refill, Normal Inspection, Normal Range of Motion, Non Tender, No Calf Tenderness, Pedal Edema Neurologic/Psychiatric: Alert, Oriented x3, No Motor/Sensory Deficits, Normal Mood/Affect, associate editor II-XII Norm as Tested, Abnormal Gait, Motor Weakness (g eneralized weakness 4/5 lower extremities) Skin: Normal Color, Warm/Dry, Rash (macular rash torso and legs) Lymphatic: No Adenopathy PM&R Medical Assessment & Plan REHAB/MEDICAL ASSESSMENT AND PLAN: REHAB IMPAIRMENT GROUP: Lumbar stenosis ETIOLOGIC DIAGNOSIS: Lumbar stenosis The comorbidities that impact the patients function and/or functional outcome by: complex edema, propensity for hypotension, anemia requiring transfusion, rash REHAB PLAN: The patient is being admitted to our comprehensive inpatient rehabilitation facility and can tolerate the intensity of service consisting of at least: 180 minutes of therapy a day, 5 out of 7 days a week Rehab treatment will consist of: PT OT will focus on energy conservation and help prevent falls along with the use of assistive devices in order to return home The patient/family has a good understanding of our discharge process and will benefit from an interdisciplinary inpatient rehabilitation program. The patient has potential to make improvement and is in need of at least two of the following multidisciplinary therapies including but not limited to physical, occupational, speech, and prosthetics and orthotics. Additionally the patient will need services from respiratory, nutritional services, wound care, psychology, etc. (Customize this to each patient). Given the patients complex condition and risk of further medical complications, rehabilitation services cannot be safely or effectively provided at a lower level of care such as a usp facility. BARRIERS TO DISCHARGE: Severe deficit of mobility due to back pain ESTIMATED LOS: 10 days DISPOSITION: Home RELEVANT CHANGES SINCE PREADMISSION SCREENING: I have compared the patients medical and functional status at the time of the preadmission screening and there are: no changes PROGNOSIS: Good REHABILITATION GOALS: 1. PT OT will focus on energy conservation and help prevent falls along with the use of assistive devices in order to return home All the above goals were reviewed with the patient and he/she is in agreement. By signing this document, I acknowledge that I have personally performed a full physical examination on this patient within 24 hours of admission to this inpatient rehabilitation facility and have determined the patient to be able to tolerate the above course of treatment at an intensive level for a reasonable period of time. I will be completing a detailed individualized Plan of Care for this patient by day #4 of the patients stay based upon the Preadmission Screen, the Post-Admission Evaluation, and the therapy evaluations. Admission Dx/Comorbidities: (1) OMERO (obstructive sleep apnea) ICD Codes: G47.33 - Obstructive sleep apnea (adult) (pediatric) (2) Allergic drug rash ICD Codes: L27.0 - Generalized skin eruption due to drugs and medicaments taken internally (3) Lumbar radiculopathy ICD Codes: M54.16 - Radiculopathy, lumbar region (4) Renal failure (ARF), acute on chronic ICD Codes: N17.9 - Acute kidney failure, unspecified; N18.9 - Chronic kidney disease, unspecified (5) Transfusion of blood during current hospitalization (6) Hypotension ICD Codes: I95.9 - Hypotension, unspecified (7) Anemia ICD Codes: D64.9 - Anemia, unspecified (8) Anasarca ICD Codes: R60.1 - Generalized edema Assessment/Plan Assessment and Plan Assess & Plan/Chief Complaint Assessment: Severe debility from lumbar stenosis surgery Anasarca Severe anemia post op requiring transfusion HTN HLP OMERO non-compliant with CPAP ARF Plan: IRF protocol Rash management O2 monitoring Pain control ART SERRATO DO May 08, 2020 12:10
[2020-05-08] MEDS ORDERED: diphenhydrAMINE 50 MG/ML INJ (BENADRYL) IVP PRN (12:15)
[2020-05-08] MEDS ORDERED: ACETAMINOPHEN 500 MG TAB (TYLENOL) PO PRN (12:15)
[2020-05-08] MEDS ORDERED: TRIAMCINOLONE 0.1% CR (KENALOG) 15 GM TUBE TOP PRN (12:15)
[2020-05-08] MEDS ORDERED: ONDANSETRON 4 MG/2 ML (SDV) Z0FRAN IVP PRN (12:15)
[2020-05-08] MEDS ORDERED: ACETAMINOPHEN 325 MG TABLET PO PRN (12:15)
[2020-05-08] MEDS ORDERED: RT-ALBUTEROL/IPRATROPIUM 3 ML (DUONEB) VIAL INH PRN (12:15)
[2020-05-08] MEDS ORDERED: methylPREDNISolone 40 MG/ML (Solu-MEDROL) VIAL IV NR (12:15)
--- NOTE | 2020-05-08 14:37 | Physical Therapy Daily Note ---
PT Daily Note-Current Subjective Reports his left leg is aching and hurting. Reports his left foot feels like it is falling asleep. Reports he is unable to attempt ambulation due to severe pain Pain Numeric Pain Scale: 10-Worst Possible Pain Location: Left (leg) Pain Description: Ache (/asleep), Dull Mental Status Patient Orientation: Person, Place, Time, Situation Transfers SCALE: Activities may be completed with or without assistive devices. 2-Ckknfikcor-ltjmktg completes the activity by him/herself with no assistance from a helper. 5-Set-up or Clean-up Assistance-helper sets up or cleans up; patient completes activity. [place] assists only prior to or following the activity. 4-Supervision or Touching Assistance-helper provides verbal cues and/or touching/steadying and/or contact guard assistance as patient completes activity. Assistance may be provided throughout the activity or intermittently. 3-Partial/Moderate Assistance-helper does LESS THAN HALF the effort. [place] lifts, holds or supports trunk or limbs, but provides less than half the effort. 2-Substantial/Maximal Assistance-helper does MORE THAN HALF the effort. [place] lifts or holds trunk or limbs and provides more than half the effort. 1-Rairmbtyv-hkpqes does ALL the effort. Patient does none of the effort to complete the activity. Or, the assistance of 2 or more helpers is required for the patient to complete the activity. If activity was not attempted, code reason: 7-Patient Refused. 9-Not Applicable-not attempted and the patient did not perform the activity before the current illness, exacerbation or injury. 10-Not Attempted due to Environmental Limitations-(lack of equipment, weather restraints, etc.). 88-Not Attempted due to Medical Conditions or Safety Concerns. Exercises Supine Ex: Quad Set, Glut sets Seated Therapy Exercises: Ankle pumps, Long arc quads, Hip flexion, Kicking activity, Hamstring Curls, Hip abd/add Seated Reps: 15 Treatments LE strengthening exercises to promote functional mobility; Sit to stand x 2 with FWW with min assist with skilled cues for sequencing and technique also using the lift recliner to provide assist. Back support on throughout treatment session. Assessment Limited by left leg pain. Dr. Clark and DR. De La Cruz aware and are following up. Pt in chair post treatment with needs met. PT Short Term Goals Short Term Goals Time Frame: May 22, 2020 Roll Left & Right: 4 Sit to lyin Lying to sitting on side of be: 4 Sit to stand: 4 Walk 150 feet: 4 PT Vocational Counselor Goals Vocational Counselor Goals PT Correction Goals Time Frame: Jun 05, 2020 Roll Left & Right (QC): 6 Sit to Lying (QC): 6 Lying-Sitting on Side/Bed(QC): 6 Sit to Stand (QC): 6 Chair/Cfr-tg-Qiqdo Xfer(QC): 6 Toilet Transfer (QC): 6 Car Transfer (QC): 5 Does the Patient Walk: Yes Walk 10 feet (QC): 6 Walk 50ft with 2 Turns (QC): 6 Walk 150 ft (QC): 6 Walking 10ft on Uneven Surface: 6 1 Step (curb) (QC): 5 4 Steps (QC): 5 12 Steps (QC): 9 Picking up an Object (QC): 88 (back precautions prohibit) Does the Pt use WC or Scooter?: No Wheel 50 feet with 2 turns (QC: 9 Wheel 150 feet: 9 PT Plan Problem List Problem List: Activity Tolerance, Functional Strength, Safety, Balance, Gait, Transfer, Bed Mobility Treatment/Plan Treatment Plan: Continue Plan of Care Treatment Plan: Bed Mobility, Education, Functional Activity [place], Functional Strength, Group Therapy, Gait, Safety, Therapeutic Exercise, Transfers Treatment Duration: Jun 05, 2020 Frequency: At least 5 of 7 days/Wk (IRF) Estimated Hrs Per Day: 1.5 hours per day Patient and/or Family Agrees t: Yes Safety Risks/Education Patient Education: Safety Issues Teaching Recipient: Patient Teaching Methods: Discussion Response to Teaching: Reinforcement Needed Time/GCodes Time In: 1335 Time Out: 1400 Total Billed Treatment Time: 25 Total Billed Treatment visit FA 10 EX 15 MARGUERITE PAULINO PT May 08, 2020 14:36
--- NOTE | 2020-05-08 14:39 | Diagnostic Imaging Report ---
PROCEDURE: CT lumbar spine without contrast. TECHNIQUE: Multiple contiguous axial images were obtained through the lumbar spine without the use of intravenous contrast. Sagittal and coronal reformations were then performed. Auto Exposure Controls were utilized during the CT exam to meet ALARA standards for radiation dose reduction. INDICATION: Hip pain and back pain. COMPARISON: No prior studies are available for comparison. FINDINGS: There is mild left convexity lumbar scoliotic curvature. There is normal lordotic curvature. Extensive spinal surgery is noted. There are postop changes of posterior instrumented fusion with vertical stabilization rods and pedicle screws transfixing the L2 through L5 levels. There has been decompression laminectomy at these levels as well. Hardware appears to be intact without fracture or loosening. Hardware does create large amount of artifact and compromises the study. The vertebral body heights are maintained. No acute bony abnormality is detected. Intervertebral body devices at L2-L3, L3-L4, and L4-L5 levels are noted. There is significant degenerative disc disease at L5-S1 with complete loss of the disc space as well as marginal osteophyte formation. IMPRESSION: Posterior instrumented fusion and decompression laminectomy at L2 through L5. No definite complicating features are detected. Dictated by: Dictated on workstation # [id number]
[2020-05-08] MEDS: diphenhydrAMINE 25 MG TAB (BENADRYL) PO PRN (15:15)
--- NOTE | 2020-05-08 16:16 | ST Cognitive Linguistic Eval ---
Speech Evaluation-General Medical Diagnosis anasarca; post lumbar surgery Onset Date: May 08, 2020 Therapy Diagnosis Therapy Diagnosis: Cognitive-communication Referral Referring Physician: Dr. Clark Medical History Pertinent Medical History: Arthritis, CAD, COPD, HTN, Neuropathy, Renal Insufficiency Reviewed History: Yes Social History Current Living Status: Other Family (son lives with him) Speech PLF-Current Status Prior Level of Function Patient lives home with his son where he is independent with most of his daily needs. Subjective Patient was pleasant and cooperative with the cognitive assessment. Language Eval: Auditory Comprehends Simple Yes/No Ques: Functional Indent/Objects Multiple [place]: Functional Ident/Pics in Multiple [place]: Functional Follows 1-Step Commands: Functional Follows Complex Directions: Functional Follows General Conversations: Functional Language Eval: Verbal Language Completes Spontaneous Greeting: Functional Produces Auto, Serial Info: Functional Imitates Simple Words/Phrases: Functional Word Finding: Functional Requests Basic Needs: Functional States Basic Personal Info: Functional Expresses Complex Ideas: Functional Objective Cognitive Domain Attention: WNL Memory: WNL Problem Solving: Functional Executive Functions: WNL Visuospatial Skills: WNL Composite Severity Rating: WNL Clock Drawing Severity Rating: WNL Objective Formal/Standardized Tests [facility] Status ([facility]) Results 28/30, within normal range of function Oral Motor/Speech Production Within Normal Limits Impression Patient is a pleasant 79 y/o man who was admitted to the ARU s/p spinal surgery. Patient was given the SLUMS at bedside with a score of 28/30 obtained. Patient does not require further ST services at this time. Speech Patient Assess Expression of Ideas/Wants: Expression (4) Understanding Verbal Content: Understands (4) Brief Interview-Mental Status: Yes Repetition of Three Words: Three (3) Temporal Orientation: Year: Correct (3) Temporal Orientation: Month: Accurate within 5 days(2) Temporal Orientation: Day: Correct (1) Recall : Wear to say "Sock": Yes, no cue required (2) Recall : Color: Yes, no cue required (2) Recall : Bed: Yes,after cueing (1) Memory/Recall Ability: Current season, That he or she is in a hsp/hsp unit Speech-Plan Patient/Family Goals Patient/Family Goals: Patient plans on returning to his home with his son for support. Treatment Plan Speech Therapy Treatment Plan: Discontinue ST Treatment Duration: May 08, 2020 Frequency: 1 time per week Estimated Hrs Per Day: .25 hour per day Rehab Potential: Good Barriers to Learning: None identified Pt/Family Agrees to Plan: Yes Safety Risks/Education Teaching Recipient: Patient Teaching Methods: Discussion Response to Teaching: Verbalize Understanding Education Topics Provided: Safety within his room Time Speech Therapy Time In: 15:45 Speech Therapy Time Out: 16:00 Total Billed Time: 15 Billed Treatment Time 1, LILLIAMNDMADIHA Daugherty May 08, 2020 16:16
[2020-05-08 16:39] VITALS: BP 130/74
[2020-05-08] MEDS: ENOXAPARIN 40 MG/0.4 ML (LOVENOX) SYR SC SCH (17:03)
[2020-05-08] MEDS: DOCUSATE SODIUM 100 MG (COLACE) CAP PO SCH (20:05)
[2020-05-08] MEDS: polyethylene glycoL POWDER 17 GM (MIRALAX) PACK PO SCH (20:05)
[2020-05-08] MEDS: SENNA W/DOCUSATE (SENOKOT S) TABLET PO SCH (20:06)
[2020-05-08] MEDS ORDERED: SENNA W/DOCUSATE (SENOKOT S) TABLET PO SCH (21:00)
--- NOTE | 2020-05-08 21:40 | NUR ---
KISHOR KEMP admitted to room 223-1, with an admitting diagnosis of LUMBAR STENOSIS POST OP LAMENECTOMY , on 05/08/20 from [facility] , accompanied by SABAS.KISHOR KEMP introduced to surroundings, call light, bed controls, phone, TV, temperature control, lights, meal times, smoking policy, visitor policy, side rail policy, bathrooms and showers. Patient Rights given to patient in the handbook.KISHOR KEMP verbalizes understanding that [facility] is not responsible for the loss or damage to any personal effects or valuables that are kept in the patients posession during their hospitalization. The following Patient Care Plans were discussed with the PATIENT: Discharge Planning, IMPARIED MOBILITY,ALTERED COMFORT, and SELF CARE DEFICIT. KISHOR KEMP verbalizes understanding of Interdisciplinary Patient Education. Patient and/or family were informed about the Rapid Response Team and its purpose. Patient received Patient Rights Booklet, which includes Privacy Act Statement and Data Collection Information Summary.
[2020-05-09] MEDS: ALPRAZolam 0.25 MG (XANAX) TAB PO PRN (00:57)
[2020-05-09] MEDS: ENOXAPARIN 40 MG/0.4 ML (LOVENOX) SYR SC SCH ×2 (05:36→17:18)
[2020-05-09 06:27] LABS: BASOPHILS % (AUTO) 0 % (0-10); EOSINOPHILS # (AUTO) 0.4 10^3/uL (0.0-0.3); EOSINOPHILS % (AUTO) 2 % (0-10); HEMATOCRIT 29 % (40-54); HEMOGLOBIN 9.4 G/DL (13.3-17.7); LYMPHOCYTES # (AUTO) 1.4 X 10^3 (1.0-4.0); LYMPHOCYTES % (AUTO) 7 % (12-44); MEAN CORPUSCULAR HEMOGLOBIN 29 PG (25-34); MEAN CORPUSCULAR HGB CONC 32 G/DL (32-36); MEAN CORPUSCULAR VOLUME 90 FL (80-99); MEAN PLATELET VOLUME 9.5 FL (7.4-10.4); MONOCYTES # (AUTO) 1.2 X 10^3 (0.0-1.0); MONOCYTES % (AUTO) 6 % (0-12); NEUTROPHILS # (AUTO) 16.6 X 10^3 (1.8-7.8); NEUTROPHILS % (AUTO) 85 % (42-75); PLATELET COUNT 378 10^3/uL (130-400); WHITE BLOOD COUNT 19.7 10^3/uL (4.3-11.0)
[2020-05-09 06:31] LABS: ALBUMIN 2.8 GM/DL (3.2-4.5)
[2020-05-09 06:33] LABS: CALCIUM 8.1 MG/DL (8.5-10.1)
[2020-05-09 06:34] LABS: TOTAL PROTEIN 5.1 GM/DL (6.4-8.2)
[2020-05-09 06:35] LABS: BILIRUBIN,TOTAL 0.4 MG/DL (0.1-1.0)
[2020-05-09 06:37] LABS: CREATININE SERUM 1.32 MG/DL (0.60-1.30)
[2020-05-09] MEDS: diphenhydrAMINE 25 MG TAB (BENADRYL) PO PRN ×2 (06:55→19:47)
[2020-05-09] MEDS: NS IV 1000 ML 1,000 ML IV SCH ×2 (07:56→22:55)
[2020-05-09 08:00] VITALS: BP 104/52
[2020-05-09] MEDS: lisINopril 20 MG (PRINIVIL) TABLET PO SCH (09:21)
[2020-05-09] MEDS: SENNA W/DOCUSATE (SENOKOT S) TABLET PO SCH ×2 (09:21→19:42)
[2020-05-09] MEDS: DOCUSATE SODIUM 100 MG (COLACE) CAP PO SCH ×2 (09:22→19:42)
[2020-05-09] MEDS: polyethylene glycoL POWDER 17 GM (MIRALAX) PACK PO SCH ×2 (09:22→19:42)
--- NOTE | 2020-05-09 09:30 | PM&R Progress Note ---
Subjective HPI/CC On Admission Date Seen by Provider: May 09, 2020 Time Seen by Provider: 09:30 Subjective/Events-last exam Patient doing well Rash improved finally. Started IVF gently due to Benadryl dehydrating him and he appeared a bit volume depleted Large stool today No pain except back and legs Slept good last night Checked meds and labs Conferred with RN Reviewed therapy notes Review of Systems Musculoskeletal: back pain, leg pain rash Focused Exam Lactate Level 05/09/20 11:10: Lactic Acid Level 3.15*H 05/09/20 13:19: Lactic Acid Level 1.88 Objective Exam Vital Signs Vital Signs Date Time Temp Pulse Resp B/P (MAP) Pulse Ox O2 Delivery O2 Flow Rate FiO2 05/10/20 05:07 36.4 68 20 137/63 (87) 96 Room Air Capillary Refill : Less Than 3 SecondsGreater Than 3 Seconds General Appearance: No Apparent Distress, WD/WN, Chronically ill, Obese HEENT: PERRL/EOMI, Normal ENT Inspection, Pharynx Normal Neck: Full Range of Motion, Normal Inspection, Non Tender, Supple, Carotid Bruit Respiratory: Chest Non Tender, Lungs Clear, Normal Breath Sounds, No Accessory Muscle Use, No Respiratory Distress Cardiovascular: Regular Rate, Rhythm, No Gallop, No JVD, No Murmur, Normal Peripheral Pulses Gastrointestinal: Normal Bowel Sounds, No Organomegaly, No Pulsatile Mass, Non Tender, Soft Back: Normal Inspection, No CVA Tenderness, No Vertebral Tenderness Extremity: Normal Capillary Refill, Normal Inspection, Normal Range of Motion, Non Tender, No Calf Tenderness, Pedal Edema Neurologic/Psychiatric: Alert, Oriented x3, No Motor/Sensory Deficits, Normal Mood/Affect, belt puncher II-XII Norm as Tested, Abnormal Gait, Motor Weakness (generalized weakness 4/5 lower extremities) Skin: Normal Color, Warm/Dry, Rash (macular rash torso and legs) Lymphatic: No Adenopathy Results/Procedures Lab Patient resulted labs reviewed. FIM Transfers Therapy Code Descriptions/Definitions Functional [place] Measure: 0=Not Assessed/NA 4=Minimal Assistance 1=Total Assistance 5=Supervision or Setup 2=Maximal Assistance 6=Modified [place] 3=Moderate Assistance 7=Complete IndependenceSCALE: Activities may be completed with or without assistive devices. 7-Xjpwwlhunc-zjcfsbw completes the activity by him/herself with no assistance from a helper. 5-Set-up or Clean-up Assistance-helper sets up or cleans up; patient completes activity. [place] assists only prior to or following the activity. 4-Supervision or Touching Assistance-helper provides verbal cues and/or touching/steadying and/or contact guard assistance as patient completes activity. Assistance may be provided throughout the activity or intermittently. 3-Partial/Moderate Assistance-helper does LESS THAN HALF the effort. [place]ts lifts, holds or supports trunk or limbs, but provides less than half the effort. 2-Substantial/Maximal Assistance-helper does MORE THAN HALF the effort. [place]ts lifts or holds trunk or limbs and provides more than half the effort. 1-Ypsyiwktj-xuavyu does ALL the effort. Patient does none of the effort to complete the activity. Or, the assistance of 2 or more helpers is required for the patient to complete the activity. If activity was not attempted, code reason: 7-Patient Refused. 9-Not Applicable-not attempted and the patient did not perform the activity before the current illness, exacerbation or injury. 10-Not Attempted due to Environmental Limitations-(lack of equipment, weather restraints, etc.). 88-Not Attempted due to Medical Conditions or Safety Concerns. Roll Left to Right (QC): 2 Sit to Lying (QC): 2 Sit to Stand (QC): 3 (min assist with skilled cues for hand placement and sequencing. ) Chair/Qla-qh-Tisrp Xfer(QC): 3 (min assist with FWW with cues for task segmentation) Car Transfer (QC): 88 (painful and unsafe to attempt this visit. ) Gait Training Does the Patient Walk?: Yes Walk 10 feet (QC): 3 Walk 50 ft with 2 Turns(QC): 3 Walk 150 ft (QC): 3 Walking 10ft/uneven surface-QC: 3 Gait Assistive Device: FWW Wheelchair Training Does the Pt Use a Wheelchair?: No Wheel 50 ft with 2 turns (QC): 9 Wheel 150 ft (QC): 9 Stair Training 1 Step (curb) (QC): 3 (min assist for balance and safety.) 4 Steps (QC): 88 (unsafe. ) 12 Steps (QC): 88 Balance Picking up an Object (QC): 88 (back precautions limit) ADL-Treatment Eating (QC): 6 (Per pt report) Oral Hygiene (QC): 5 (Per pt report) Shower/Bathe Self (QC): 3 (Mod assist) Upper Body Dressing (QC): 4 Lower Body Dressing (QC): 2 (Underwear) On/Off Footwear (QC): 1 Toileting Hygiene (QC): 7 Assessment/Plan Assessment and Plan Assess & Plan/Chief Complaint Assessment: Severe debility from lumbar stenosis surgery Anasarca Severe anemia post op requiring transfusion HTN HLP OMERO non-compliant with CPAP ARF Plan: IRF protocol Rash management O2 monitoring Pain control 05/09/20: IVF Monitor closely Rash improved (1) OMERO (obstructive sleep apnea) (2) Allergic drug rash (3) Lumbar radiculopathy (4) Renal failure (ARF), acute on chronic (5) Transfusion of blood during current hospitalization (6) Hypotension (7) Anemia (8) ART Carter DO May 09, 2020 09:30
--- NOTE | 2020-05-09 09:30 | Individualized Plan of Care ---
Individualized Plan of Care Rehab Nursing IPOC Order Admission Date May 08, 2020 at 10:30 Current Orders Orders Admission Order(Inpt,Obs,Sdc) (05/08/20 10:10) Vital Signs: Per Unit Policy ( 08,16,00 (05/08/20 10:10) Ivan Poole 09,21 (05/08/20 10:10) Sequential Compression Device Q4H (05/08/20 10:10) Training And Development Professional-Inpt Rehab Con (05/08/20 10:10) Rehab Nursing Orders-Ipoc (05/08/20 10:10) Physical Therapy Rehab Orders (05/08/20 10:10) Occupational Therapy Rehab Ord (05/08/20 10:10) Speech Therapy Rehab Orders (05/08/20 10:10) Intake & Output 06,14,22 (05/08/20 10:10) Precautions (Aru) (05/08/20 10:10) Weekly Weight WEEK (05/08/20 10:10) Rehab-Intensity Of Therapy (05/08/20 10:10) Initiate Admission Nursing Pro .admission (05/08/20 10:10) Alprazolam Tablet (Xanax Tablet) (05/08/20 10:15) Calcium Carbonate Chew Tablet (Antacid C (05/08/20 10:15) Diphenhydramine Tablet (Benadryl Tablet) (05/08/20 10:15) Docusate Sodium Capsule (Colace Capsule) (05/08/20 21:00) Docusate Sodium Capsule (Colace Capsule) (05/08/20 10:15) Bisacodyl Suppository (Dulcolax Supposit (05/08/20 10:15) Lactulose Oral Solution (Enulose Oral So (05/08/20 10:15) Na Phos/Na Biphos Enema (Fleet Enema Conrado (05/08/20 10:15) Guaifenesin/Codeine Syrup (Robitussin Ac (05/08/20 10:15) Loperamide Tablet (Imodium Tablet) (05/08/20 10:15) Enoxaparin Injection (Lovenox Injection) (05/08/20 15:20) Melatonin Tablet (Melatonin Tablet) (05/08/20 10:15) Polyethylene Glycol Powder Pkt (Miralax (05/08/20 21:00) Ondansetron Oral Dissolve Tab (Zofran (05/08/20 10:15) Senna S Tablet (Senokot S Tablet) (05/08/20 21:00) Initiate Admission Nursing Pro .admission (05/08/20 10:10) Code/Resuscitation (05/08/20 12:06) Incentive Spirometry (Nursing) Q2H (05/08/20 12:06) Ivan Hose (05/08/20 12:06) Vital Signs: Special (Order) (05/08/20 12:06) Weight Bearing As Tolerated (05/08/20 12:06) Heart Healthy (05/08/20 Lunch) Alprazolam Tablet (Xanax Tablet) (05/08/20 12:15) Acetaminophen Tablet (Tylenol Tablet) (05/08/20 12:15) Diphenhydramine Injection (Benadryl Inje (05/08/20 12:15) Bisacodyl Suppository (Dulcolax Supposit (05/08/20 12:15) Calcium Carbonate Chew Tablet (Antacid C (05/08/20 12:15) Docusate Sodium Capsule (Colace Capsule) (05/08/20 12:15) Lactulose Oral Solution (Enulose Oral So (05/08/20 12:15) Loperamide Tablet (Imodium Tablet) (05/08/20 12:15) Melatonin Tablet (Melatonin Tablet) (05/08/20 12:15) Na Phos/Na Biphos Enema (Fleet Enema Conrado (05/08/20 12:15) Ondansetron Injection (Zofran Injectio (05/08/20 12:15) Ondansetron Oral Dissolve Tab (Zofran (05/08/20 12:15) Senna S Tablet (Senokot S Tablet) (05/08/20 21:00) Triamcinolone 0.1% Cream 15 Gm (Kenalog (05/08/20 12:15) Acetaminophen Tablet/Caplet (Tylenol T (05/08/20 12:15) Diphenhydramine 2% Cream (Benadryl 2% Cr (05/08/20 12:15) Diphenhydramine Tablet (Benadryl Tablet) (05/08/20 12:15) Lisinopril Tablet (Zestril Tablet) (05/09/20 09:00) Tramadol Tablet (Ultram Tablet) (05/08/20 12:15) Consult Cardiology (05/08/20 12:06) Incentive Spirometry Initial (05/08/20 12:06) Incentive Spirometry (Nursing) Q2H (05/08/20 12:06) Methylprednisolone Sod Succ (Solu-Medrol (05/08/20 12:15) Ct Lumbar Spine Wo (05/08/20 12:53) Patient Visit (05/08/20 ) Pt Eval Moderate Complexity (05/08/20 ) Functional Activities, Ea 15 (05/08/20 ) Gait Training, Ea 15 Min (05/08/20 ) Patient Visit (05/08/20 ) Functional Activities, Ea 15 (05/08/20 ) Exercise Therap, Ea 15 Min (05/08/20 ) Mat Initiate Protocol (05/08/20 16:11) Patient Visit (05/08/20 ) Speech Sound Lang Comp (05/08/20 ) Cbc With Automated Diff (05/09/20 05:25) Comprehensive Metabolic Panel (05/09/20 05:25) Procalcitonin (Pct) (05/09/20 07:07) Lactic Acid Analyzer (05/09/20 07:07) Urinalysis (05/09/20 09:45) Ns Iv 1000 Ml (Sodium Chloride 0.9%) (05/09/20 07:30) Enoxaparin Injection (Lovenox Injection) (05/09/20 18:00) Patient Visit (05/09/20 ) Gait Training, Ea 15 Min (05/09/20 ) Exercise Therap, Ea 15 Min (05/09/20 ) Functional Activities, Ea 15 (05/09/20 ) Patient Visit (05/09/20 ) Cbc With Automated Diff (05/10/20 06:22) Comprehensive Metabolic Panel (05/10/20 06:22) Lactic Acid Analyzer (05/10/20 06:24) Rehab Nursing Orders: Ongoing Assess. of Cognitive Status, Ongoing Assess. of Function Status, Bladder Management, Bladder Scan, Bladder Training, Bowel Management, Bowel Training, Disease Management & Educaiton, DVT Prophylaxis, Fall Prevention, Fluid/Electrolyte/Nutrition Mgmt, Infection Prevention, Medication Management & Education, Management of Risks & Complications, Management of Skin Intergrity, Nutrition Management, Pain Management, Patient/Family Support, Safety Management Intensity of Therapy to be met Patient to be seen: Min.3h per day/5 of 7d PT IPOC Problem List: Activity Tolerance, Functional Strength, Safety, Balance, Gait, Transfer, Bed Mobility Treatment Plan: Continue Plan of Care Bed Mobility, Education, Functional Activity [place], Functional Strength, Group Therapy, Gait, Safety, Therapeutic Exercise, Transfers Treatment Duration: Jun 05, 2020 Frequency: At least 5 of 7 days/Wk (IRF) Estimated Hrs Per Day: 1.5 hours per day OT IPOC Problems: Decreased Activ Tolerance, Dependent Transfers, Impaired Bed Mobility, Impaired Funct Balance, Impaired I ADL's, Impaired Self-Care Skills OT Treatment, Training and Edu: Yes Plan of Care: ADL Retraining, Functional Mobility, UE Funct Exercise/Act Treatment Duration: May 22, 2020 Frequency: At least 5 of 7 days/Wk (IRF) Estimated Hrs Per Day: 1.[address] IPOC Speech Therapy Treatment Plan: Discontinue ST Treatment Duration: May 08, 2020 Frequency: 1 time per week Estimated Hrs Per Day: .25 hour per day Training And Development Professional/Case Mgmt Training And Development Professional/Case Managemen: Discharge Planning Dietitian/Pan Devulcanizer Helper Dietitian/Pan Devulcanizer Helper to monitor nutritional status and make changes and/or recommendations as needed and work with speech pathology on dietary upgrades as the occur. Physician IPOC Medical Issues being managed closely and that require the 24 hour availability of a physician: Recent ARF and hypotension with oliguria and now rash with elevated lactic acid from volume depletion will need close monitoring for decompensation Medical Issues: Bowel/Bladder Function, DVT Prophylaxis, Falls Precautions, Fluid/Electrolyte/Nutrition Balance, Infection Protection, Pain Management Brief Synthesis of Preadmission Screen, Post-Admission Evaluation, and Therapy Evaluations: PT OT will focus on regaining function and ambulatory skills in order to return home to live independently and perform own ADL/s and prevent falls. Medical Prognosis: Good Anticipated Length of Stay: 7 days ART SERRATO DO May 09, 2020 09:30
--- NOTE | 2020-05-09 10:00 | NUR ---
IV FLUIDS STARTED AT 70 CC/HR. UA OBTAINED. STATES RASH NOT BOTHERING HIM AT THIS TIME AND "NOT BRIGHT IT WAS". SON AT BEDSIDE. MELANIE WRAPS APPLIED TO SWOLLEN LEGS.
[2020-05-09 10:03] LABS: BILIRUBIN,URINE NEGATIVE (NEGATIVE); CLARITY,URINE CLEAR; COLOR,URINE YELLOW; GLUCOSE, URINE (UA) NEGATIVE (NEGATIVE); KETONES,URINE NEGATIVE (NEGATIVE); LEUKOCYTE ESTERASE ,URINE NEGATIVE (NEGATIVE); NITRITE,URINE NEGATIVE (NEGATIVE); PROTEIN,URINE NEGATIVE (NEGATIVE)
[2020-05-09 10:10] LABS: BACTERIA,URINE TRACE /HPF
[2020-05-09 10:11] LABS: URINE OTHER LG SPERM /HPF
--- NOTE | 2020-05-09 10:26 | Cardiology Progress Note ---
Subjective Date Seen by Provider: May 09, 2020 Time Seen by Provider: 10:24 Subjective/Events-last exam Patient is laying down in bed, no new complaint Review of Systems General: No Chills, No Night Sweats, No Fatigue, No Malaise, No Appetite, No Other HEENT: No Head Aches, No Visual Changes, No Eye Pain, No Ear Pain, No Dysphasia, No Sinus Congestion, No Post Nasal Drip, No Sore Throat, No Other Pulmonary: No Dyspnea, No Cough, No Pleuritic Chest Pain, No Other Cardiovascular: No: Chest Pain, Palpitations, Orthopnea, Paroxysmal Noc. Dyspnea, Edema, Lt Headedness, Other Objective-Cardiology Exam Last Set of Vital Signs Vital Signs 05/08/20 05/08/20 16:39 20:00 Temp 37.4 Pulse 72 Resp 16 B/P (MAP) 130/74 (92) Pulse Ox 92 O2 Delivery Room Air Capillary Refill : Less Than 3 SecondsGreater Than 3 Seconds I&O Intake and Output 05/08/20 23:59 Intake Total 1000 ml Balance 1000 ml Intake Oral 1000 ml # Voids 6 Daily Weight Change No General: Alert, Oriented X3, Cooperative HEENT: Atraumatic, PERRLA Neck: Supple, No JVD, No Thyromegaly Lungs: Clear to Auscultation, Normal Air Movement Heart: Regular Rate, Normal S1, Normal S2, No Murmurs Abdomen: Normal Bowel Sounds, Soft, No Tenderness, No Hepatosplenomegaly, No Masses Extremities: No Clubbing, No Cyanosis, No Edema, Normal Pulses, No T enderness/Swelling Skin: No Rashes, No Breakdown, No Significant Lesion Neuro: Normal Gait, Normal Speech, Strength at 5/5 X4 Ext, Normal Tone, Sensation Intact Psych/Mental Status: Mental Status NL, Mood NL Results Lab Laboratory Tests 05/09/20 06:14 A/P-Cardiology Assessment/Plan Peripheral edema, improving. Continue on diuretics and monitor Allergic reaction to medication, skin rash. Improving slowly. Coronary artery disease, history of coronary stents in the past, mild elevation in troponin, Type II [place] secondary to hypotension and anemia, conservative management and continue to monitor Hypertension, continue to monitor blood pressure Anemia, post surgery, continue to monitor, management per medical service Acute on chronic renal insuf, improving slowly. Continue to monitor Status post Lumbar surgery, continue to monitor High risk for sleep apnea, consider sleep study as an outpatient Clinical Quality Measures DVT/VTE Risk/Contraindication: Risk Factor Score Per Nursin RFS Level Per Nursing on Admit: 4+=Very High BEN TRONCOSO MD May 09, 2020 10:26 am
--- NOTE | 2020-05-09 10:59 | Physical Therapy Daily Note ---
PT Daily Note-Current Subjective Pt presents supine in bed. Pt agrees to PT. Pt reports rash on body. Reports no pain at rest. Appearance After PT tx patient is assisted to supine in bed. Pt has access to tray, call button, all needs have been met and son is present in room. Mental Status Patient Orientation: Person, Place, Time, Eyes Open, Situation Attachments: IV back brace Transfers SCALE: Activities may be completed with or without assistive devices. 8-Hsfyqvqlcu-lobxkxg completes the activity by him/herself with no assistance from a helper. 5-Set-up or Clean-up Assistance-helper sets up or cleans up; patient completes activity. [place] assists only prior to or following the activity. 4-Supervision or Touching Assistance-helper provides verbal cues and/or touching/steadying and/or contact guard assistance as patient completes activity. Assistance may be provided throughout the activity or intermittently. 3-Partial/Moderate Assistance-helper does LESS THAN HALF the effort. [place] lifts, holds or supports trunk or limbs, but provides less than half the effort. 2-Substantial/Maximal Assistance-helper does MORE THAN HALF the effort. [place] lifts or holds trunk or limbs and provides more than half the effort. 1-Hdjixawge-ovhfbq does ALL the effort. Patient does none of the effort to complete the activity. Or, the assistance of 2 or more helpers is required for the patient to complete the activity. If activity was not attempted, code reason: 7-Patient Refused. 9-Not Applicable-not attempted and the patient did not perform the activity before the current illness, exacerbation or injury. 10-Not Attempted due to Environmental Limitations-(lack of equipment, weather restraints, etc.). 88-Not Attempted due to Medical Conditions or Safety Concerns. Roll Left & Right (QC): 3 Sit to Lying (QC): 3 Lying to Sitting/Side of Bed(Q: 3 Sit to Stand (QC): 3 Chair/Mez-yg-Btpeg Xfer(QC): 3 Pt cued with instructions to log roll for sit<->lying. Gait Training Does the Patient Walk?: Yes Distance: 125' Walk 10 feet (QC): 4 Walk 50 ft with 2 Turns(QC): 4 Walk 150 ft (QC): 4 Gait Assistive Device: FWW Pt cue to stay inside walker with ambulation and not pushing in front; pt moves quick and impulsively once up and moving. Wheelchair Training Does the Pt Use a Wheelchair?: Yes Wheel 50 ft with 2 turns (QC): 4 Wheel 150 ft (QC): 4 Type of Wheelchair: Manual 120' Exercises Seated Therapy Exercises: Ankle pumps (HR/TR), Long arc quads Seated Reps: 10 Neuromuscular standing in parallel bars for balance activity, reaching and taking off/on clothes pins with one arm and support with the other 2 for a few minutes each time Treatments Seated and standing balance; gait training Assessment Current Status: Fair Progress Co-treat with OT due to patients limitations is strength, endurance, balance, mobility and transfers, the need to coordinate UE and LE during activity. Pt demonstrates improvement in transfers. Pt able to weight shift in seated position to reach both directions. PT Short Term Goals Short Term Goals Time Frame: May 22, 2020 Roll Left & Right: 4 Sit to lyin Lying to sitting on side of be: 4 Sit to stand: 4 Walk 150 feet: 4 PT Group Home Goals A/C Technician Goals PT Group Home Goals Time Frame: Jun 05, 2020 Roll Left & Right (QC): 6 Sit to Lying (QC): 6 Lying-Sitting on Side/Bed(QC): 6 Sit to Stand (QC): 6 Chair/Iwj-al-Nvvqo Xfer(QC): 6 Toilet Transfer (QC): 6 Car Transfer (QC): 5 Does the Patient Walk: Yes Walk 10 feet (QC): 6 Walk 50ft with 2 Turns (QC): 6 Walk 150 ft (QC): 6 Walking 10ft on Uneven Surface: 6 1 Step (curb) (QC): 5 4 Steps (QC): 5 12 Steps (QC): 9 Picking up an Object (QC): 88 (back precautions prohibit) Does the Pt use WC or Scooter?: No Wheel 50 feet with 2 turns (QC: 9 Wheel 150 feet: 9 PT Plan Problem List Problem List: Activity Tolerance, Functional Strength, Safety, Balance, Gait, Transfer, Bed Mobility, ROM Treatment/Plan Treatment Plan: Continue Plan of Care Treatment Plan: Bed Mobility, Education, Functional Activity [place], Functional Strength, Group Therapy, Gait, Safety, Therapeutic Exercise, Transfers Treatment Duration: Jun 05, 2020 Frequency: At least 5 of 7 days/Wk (IRF) Estimated Hrs Per Day: 1.5 hours per day Patient and/or Family Agrees t: Yes Safety Risks/Education Patient Education: Gait Training, Transfer Techniques, Reviewed Precautions, Correct Positioning, W/C Management, Safety Issues Teaching Recipient: Patient Teaching Methods: Demonstration, Discussion Response to Teaching: Reinforcement Needed Time/GCodes Time In: 1000 Time Out: 1100 Total Billed Treatment Time: 60 Total Billed Treatment 1 visit GT 10' FA 35 EX 15' co-treated for 60'. PT performed bed mobility and transfer training, ambulation, WC mobility, standing during balance activity, OT performed dressing, balance activity, UE positioning and safety during activity. MAEVE DOWNS PT May 09, 2020 10:58
--- NOTE | 2020-05-09 11:08 | Occupational Ther Daily Note ---
OT Current Status-Daily Note Subjective Pt laying in bed when therapy began. Pt agreed to therapy. No c/o pain reported. Mental Status/Objective Patient Orientation: Person, Place, Time, Situation ADL-Treatment Co-treat with PT ([id number]) 2 skilled clinicians required due to decrease in pt's LE/UE strength, transfers, bed mobility, pain and mobility. PT focusing bed mobility, transfers, and gait. While OT focuses on UE strengthening, functional transfers and mobility. Due to rash all over pts body, PHAM applied lotion to help decrease inflammation. Pt supine to EOB. Max A for thread B LE through pants. Pt then sit-stand from EOB to FWW with CGA, while PHAM hiked pants over hips. Pt then transferred to w/c. Check PT notes for score of transfers. Therapy Code Descriptions/Definitions Functional [place] Measure: 0=Not Assessed/NA 4=Minimal Assistance 1=Total Assistance 5=Supervision or Setup 2=Maximal Assistance 6=Modified [place] 3=Moderate Assistance 7=Complete IndependenceSCALE: Activities may be completed with or without assistive devices. 2-Vyqyozvqap-zkdujty completes the activity by him/herself with no assistance from a helper. 5-Set-up or Clean-up Assistance-helper sets up or cleans up; patient completes activity. [place] assists only prior to or following the activity. 4-Supervision or Touching Assistance-helper provides verbal cues and/or touching/steadying and/or contact guard assistance as patient completes activity. Assistance may be provided throughout the activity or intermittently. 3-Partial/Moderate Assistance-helper does LESS THAN HALF the effort. [place] lifts, holds or supports trunk or limbs, but provides less than half the effort. 2-Substantial/Maximal Assistance-helper does MORE THAN HALF the effort. [place] lifts or holds trunk or limbs and provides more than half the effort. 5-Puqohlmcq-plaoac does ALL the effort. Patient does none of the effort to complete the activity. Or, the assistance of 2 or more helpers is required for the patient to complete the activity. If activity was not attempted, code reason: 7-Patient Refused. 9-Not Applicable-not attempted and the patient did not perform the activity before the current illness, exacerbation or injury. 10-Not Attempted due to Environmental Limitations-(lack of equipment, weather restraints, etc.). 88-Not Attempted due to Medical Conditions or Safety Concerns. Other Treatment Pt wheeled to gym and transferred to EOM. Pt then completed B UE sitting balance task by grasping cone from PHAM and handing them to PT for strengthening UE for daily task. Pt then sit-stand from w/c to FWW and ambulated to parallel bars. Pt then completed standing balance task by pinching clothes pin off pole while standing in parallel for functional dynamic balance when completing ADLs. Pt was able to pinch/grasp black clothes pin (most resistive). Pt then ambulated back to room. Pt transferred to EOB. Completed B LE seated exercises. Transferred from EOB to supine. After therapy, pt laying in bed. Call light/phone in reach. All needs met. Son in room. OT Short Term Goals Short Term Goals Time Frame: May 15, 2020 Eatin Oral hygiene: 5 Toileting hygiene: 3 Shower/bathe self: 3 Upper body dressin Lower body dressin Putting on/taking off footwear: 3 OT Route Service Manager Goals Route Service Manager Goals Time Frame: May 22, 2020 Eating (QC): 6 Oral Hygiene (QC): 6 Toileting Hygiene (QC): 6 Shower/Bathe Self (QC): 6 (Using AE) Upper Body Dressing (QC): 6 Lower Body Dressing (QC): 6 (Using AE) On/Off Footwear (QC): 6 (Using AE) Additional Goals: 1-Demonstrate ADL Tasks, 2-Verbalize Understanding, 3- ImproveStrength/[place] 1=Demonstrate adherence to instructed precautions during ADL tasks. 2=Patient will verbalize/demonstrate understanding of assistive devices/modifications for ADL. 3=Patient will improve strength/tolerance for activity to enable patient to perform ADL's. OT Education/Plan Problem List/Assessment Assessment: Decreased Activ Tolerance, Decreased Safety Aware, Decreased UE Strength, Impaired Bed Mobility, Impaired Cognition, Impaired Coordination, Impaired Funct Balance, Impaired I ADL's, Impaired Self-Care Skills Discharge Recommendations Plan/Recommendations: Continue POC Treatment Plan/Plan of Care Patient would benefit from OT for education, treatment and training to promote independence in ADL's, mobility, safety and/or upper extremity function for ADL's. Plan of Care: ADL Retraining, Functional Mobility, UE Funct Exercise/Act Treatment Duration: May 22, 2020 Frequency: At least 5 of 7 days/Wk (IRF) Estimated Hrs Per Day: 1.5 hours per day Agreement: Yes Rehab Potential: Good Time/GCodes Start Time: 10:00 Stop Time: 11:00 Total Time Billed (hr/min): 60 Billed Treatment Time 1 visit-ADL 2 (30 min) EX 2 (30 min) MARGUERITE UREÑA May 09, 2020 11:08
--- NOTE | 2020-05-09 14:31 | NUR ---
"RD ASSESSMENT PMHx: COPD; hypercholesterolemia; HTN; renal failure; PT INTERACTION: Pt was awake and pleasant during nutrition assessment. Pt states current appetite is good. Note avg PO intake 83% x3meal, per chart review. Pt states following a regular diet at home, and has difficulty swallowing at times, d/t previous surgery on neck, per pt. Pt states no recent issues with nausea, vomiting, or constipation. Pt states recent issues with diarrhea, and that his last BM was 05/09. Note pt currently on bowel regimen of colace BID; senna BID; and miralax BID, per chart review. Pt states recent wt gain, attributing it to fluid buildup. Note unable to determine recent wt hx, per chart review. ABNORMAL NUTRITION-RELATED LAB VALUES LOW: Na 134; Ca 8.1; Pro 5.1; alb 2.8 HIGH: BUN 27; cr 1.32; AST 37 Est. kcal needs: 2125 kcal | 15 kcal/kg Est. Pro needs: 113 g Pro | 0.8 g Pro/kg PES STATEMENT: Given current PO intake and appetite, no nutrition diagnosis at this time (NO-1.1) INTERVENTION: Continue with current diet order of Heart Healthy diet. Will continue to follow and reassess as pt needs, intake, and status change. Octaviano Robins, MS, RD, LD"
--- NOTE | 2020-05-09 14:34 | Therapy Group Daily Note ---
Therapy Daily Group Note Patient Education Topic Exercises, Other List Below (transfer skills, bed mobility, ARU description) Exercises LE Seated Exercise, UE Exercise Session Ratio (pt:therapist): 4:1 Goal of Session: Education on ARU Expectations, UE/LE Strengthing, Safety with Transfers Goal Met for this Session: Yes Pt Benefit of Group: Contributions to Others, F/U Use of Strategies @Home, Increased Functional Safety, Increased Functional Strength, Improved Cognition, Recognition of Peers, Socialization Other/Notes Pt transported via w/c to OT/PT group in [facility] area. Group consisted of introductions (name, place living, best advice given), socialization, seated UE/LE exercises, educational topics of ARU description/bed mobility and transfers. Pt introduced self appropriately and actively listened to peers. Pt acknowledged understanding of educational topics by contributing to group discussions and given personal strategies. Pt held peer to peer conversations and was able to give positive affirmations about self and peers. After group, pt lying in bed with call light/phone in reach. All needs met in room. Start Time: 13:00 Stop Time: 14:15 Total Billed Treatment Time: 75 Total Billed Treatment 1-GRP MARGUERITE UREÑA May 09, 2020 14:34
--- NOTE | 2020-05-09 15:45 | NUR ---
CM/SS ADMISSION Patient was admitted to ARU 05/08/20 for lumbar stenosis, neurogenic claudication and post surgical complications. He experienced severe anemia requiring transfusion post op. Additional diagnoses include HTN, HLP, OMERO non-compliant with CPAP, ARF. Patient's son Isauro Roberts resides with him, moving here from [place] to do so. Patient plans to return home when discharged and describes doing so much better now, he is more optimistic. PCP: Dr. Lana Davila MD, [facility], [address] [place] [id number]. PH: [phone] [facility] INSURANCE: [employer] Medicare DME: Patient has a new-to-him lift chair. He is in need of a FWW and shower assistive seat to be determined by therapy team. BARRIERS TO DISCHARGE PLANNING: No blatant barriers noted. Patient's son resides with him and a daughter is in close proximity. Insurance appears adequate and anticipated AD's are reasonably accessible. Patient understood the purpose and process of the weekly patient care conference and that his first review would be Thursday, May 14, 2020. Addendum: 05/09/20 at 1555 by SIRENA ANDERSEN CONTACTS: Isauro Roberts, Son [address] [facility] [address] Joceline Hurtado, Daughter Amelia, [place] [phone] Patient has another daughter who is a parcel post truck driver and is not readily available.
[2020-05-09 16:00] VITALS: BP 120/57
[2020-05-10] MEDS: ALPRAZolam 0.25 MG (XANAX) TAB PO PRN (00:54)
[2020-05-10 05:07] VITALS: BP 137/63
[2020-05-10] MEDS: ENOXAPARIN 40 MG/0.4 ML (LOVENOX) SYR SC SCH ×2 (05:52→18:20)
[2020-05-10 07:21] LABS: BASOPHILS % (AUTO) 0 % (0-10); EOSINOPHILS # (AUTO) 0.9 10^3/uL (0.0-0.3); EOSINOPHILS % (AUTO) 6 % (0-10); HEMATOCRIT 33 % (40-54); HEMOGLOBIN 10.4 G/DL (13.3-17.7); LYMPHOCYTES # (AUTO) 1.7 X 10^3 (1.0-4.0); LYMPHOCYTES % (AUTO) 12 % (12-44); MEAN CORPUSCULAR HEMOGLOBIN 29 PG (25-34); MEAN CORPUSCULAR HGB CONC 31 G/DL (32-36); MEAN CORPUSCULAR VOLUME 92 FL (80-99); MEAN PLATELET VOLUME 9.5 FL (7.4-10.4); MONOCYTES # (AUTO) 0.8 X 10^3 (0.0-1.0); MONOCYTES % (AUTO) 6 % (0-12); NEUTROPHILS # (AUTO) 10.6 X 10^3 (1.8-7.8); NEUTROPHILS % (AUTO) 76 % (42-75); PLATELET COUNT 471 10^3/uL (130-400); WHITE BLOOD COUNT 14.1 10^3/uL (4.3-11.0)
[2020-05-10 07:29] LABS: POTASSIUM 4.7 MMOL/L (3.6-5.0)
[2020-05-10 07:32] LABS: TOTAL PROTEIN 5.4 GM/DL (6.4-8.2)
[2020-05-10 07:34] LABS: BILIRUBIN,TOTAL 0.5 MG/DL (0.1-1.0)
[2020-05-10 07:35] LABS: CREATININE SERUM 1.38 MG/DL (0.60-1.30)
[2020-05-10] MEDS: lisINopril 20 MG (PRINIVIL) TABLET PO SCH (08:58)
[2020-05-10] MEDS: diphenhydrAMINE 25 MG TAB (BENADRYL) PO PRN ×2 (08:58→20:43)
[2020-05-10] MEDS: SENNA W/DOCUSATE (SENOKOT S) TABLET PO SCH ×2 (09:00→20:04)
[2020-05-10] MEDS: polyethylene glycoL POWDER 17 GM (MIRALAX) PACK PO SCH ×2 (09:00→20:04)
[2020-05-10] MEDS: DOCUSATE SODIUM 100 MG (COLACE) CAP PO SCH ×2 (09:00→20:03)
--- NOTE | 2020-05-10 10:25 | Cardiology Progress Note ---
Subjective Date Seen by Provider: May 10, 2020 Time Seen by Provider: 10:24 Subjective/Events-last exam Patient is sitting comfortably in a recliner. No new complaint. No chest pain or shortness of breath. Review of Systems General: No Chills, No Night Sweats; Fatigue; No Malaise, No Appetite, No Other HEENT: No Head Aches, No Visual Changes, No Eye Pain, No Ear Pain, No Dysphasia, No Sinus Congestion, No Post Nasal Drip, No Sore Throat, No Other Pulmonary: No Dyspnea, No Cough, No Pleuritic Chest Pain, No Other Cardiovascular: No: Chest Pain, Palpitations, Orthopnea, Paroxysmal Noc. Dyspnea, Edema, Lt Headedness, Other Focused Exam Lactate Level 05/09/20 11:10: Lactic Acid Level 3.15*H 05/09/20 13:19: Lactic Acid Level 1.88 05/10/20 06:54: Lactic Acid Level 1.07 Lactic Acid Level Laboratory Tests Test 05/10/20 06:54 Lactic Acid Level 1.07 MMOL/L (0.50-2.00) Objective-Cardiology Exam Last Set of Vital Signs Vital Signs 05/10/20 05:07 Temp 36.4 Pulse 68 Resp 20 B/P (MAP) 137/63 (87) Pulse Ox 96 O2 Delivery Room Air Capillary Refill : Less Than 3 SecondsLess Than 3 Seconds I&O Intake and Output 05/10/20 00:00 Intake Total 2225 ml Output Total 1575 ml Balance 650 ml Intake Oral 1225 ml IV Total 1000 ml Output Urine Total 1575 ml # Voids 2 # Bowel Movements 3 General: Alert, Oriented X3, Cooperative HEENT: Atraumatic, PERRLA Neck: Supple, No JVD, No Thyromegaly Lungs: Clear to Auscultation, Normal Air Movement Heart: Regular Rate, Normal S1, Normal S2, No Murmurs Abdomen: Normal Bowel Sounds, Soft, No Tenderness, No Hepatosplenomegaly, No Masses Extremities: No Clubbing, No Cyanosis, No Edema, Normal Pulses, No Tenderness/Swelling Skin: No Rashes, No Breakdown, No Significant Lesion Neuro: Normal Gait, Normal Speech, Strength at 5/5 X4 Ext, Normal Tone, Sensation Intact Psych/Mental Status: Mental Status NL, Mood NL Results Lab Laboratory Tests 05/10/20 06:54 A/P-Cardiology Assessment/Plan Peripheral edema, improving. Continue on diuretics and monitor Allergic reaction to medication, skin rash. Improving slowly. Coronary artery disease, history of coronary stents in the past, mild elevation in troponin, Type II [place] secondary to hypotension and anemia, conservative management and continue to monitor Hypertension, continue to monitor blood pressure Anemia, post surgery, continue to monitor, management per medical service Acute on chronic renal insuf, improving slowly. Continue to monitor Status post Lumbar surgery, continue to monitor High risk for sleep apnea, consider sleep study as an outpatient Clinical Quality Measures DVT/VTE Risk/Contraindication: Risk Factor Score Per Nursin RFS Level Per Nursing on Admit: 4+=Very High BEN TRONCOSO MD May 10, 2020 10:25 am
--- NOTE | 2020-05-10 12:02 | Physical Therapy Daily Note ---
PT Daily Note-Current Subjective Pt sitting in recliner upon arrival. Pt asks to use BR as part of tx. Pain Numeric Pain Scale: 3 Location Body Site: Back Pain Description: Ache Mental Status Patient Orientation: Person, Place, Time, Situation Attachments: Other-See Comments (Lumbar back brace) Transfers SCALE: Activities may be completed with or without assistive devices. 9-Akfooxslev-bddxkcs completes the activity by him/herself with no assistance from a helper. 5-Set-up or Clean-up Assistance-helper sets up or cleans up; patient completes activity. [place] assists only prior to or following the activity. 4-Supervision or Touching Assistance-helper provides verbal cues and/or touching/steadying and/or contact guard assistance as patient completes activity. Assistance may be provided throughout the activity or intermittently. 3-Partial/Moderate Assistance-helper does LESS THAN HALF the effort. [place] lif ts, holds or supports trunk or limbs, but provides less than half the effort. 2-Substantial/Maximal Assistance-helper does MORE THAN HALF the effort. [place] lifts or holds trunk or limbs and provides more than half the effort. 9-Xqeqhidla-kwtcst does ALL the effort. Patient does none of the effort to complete the activity. Or, the assistance of 2 or more helpers is required for the patient to complete the activity. If activity was not attempted, code reason: 7-Patient Refused. 9-Not Applicable-not attempted and the patient did not perform the activity before the current illness, exacerbation or injury. 10-Not Attempted due to Environmental Limitations-(lack of equipment, weather restraints, etc.). 88-Not Attempted due to Medical Conditions or Safety Concerns. Sit to Stand (QC): 4 Pt transfers using Lift Chair raised to stand. Weight Bearing Full Weight Bearing Full Weight Bearing Gait Training Does the Patient Walk?: Yes Distance: 15' Walk 10 feet (QC): 4 Gait Persons Needed: 1 Gait Assistive Device: FWW Treatments TF to standing using Lift Chair, amb. to BR to toilet. Pt reports it could take a little while so LOOPER FIXER advised pull call light when finished, All needs met. Assessment Current Status: Fair Progress Pt needs chair raised to stand. Pt reports recently getting a Lift Chair at [facility]. PT Short Term Goals Short Term Goals Time Frame: May 22, 2020 Roll Left & Right: 4 Sit to lyin Lying to sitting on side of be: 4 Sit to stand: 4 Walk 150 feet: 4 PT Assisted Goals Assisted Goals PT Sports Photographer Goals Time Frame: Jun 05, 2020 Roll Left & Right (QC): 6 Sit to Lying (QC): 6 Lying-Sitting on Side/Bed(QC): 6 Sit to Stand (QC): 6 Chair/Eum-fs-Nrdsr Xfer(QC): 6 Toilet Transfer (QC): 6 Car Transfer (QC): 5 Does the Patient Walk: Yes Walk 10 feet (QC): 6 Walk 50ft with 2 Turns (QC): 6 Walk 150 ft (QC): 6 Walking 10ft on Uneven Surface: 6 1 Step (curb) (QC): 5 4 Steps (QC): 5 12 Steps (QC): 9 Picking up an Object (QC): 88 (back precautions prohibit) Does the Pt use WC or Scooter?: No Wheel 50 feet with 2 turns (QC: 9 Wheel 150 feet: 9 PT Plan Problem List Problem List: Activity Tolerance, Functional Strength, Transfer Treatment/Plan Treatment Plan: Continue Plan of Care Treatment Plan: Bed Mobility, Education, Functional Activity [place], Functional Strength, Group Therapy, Gait, Safety, Therapeutic Exercise, Transfers Treatment Duration: Jun 05, 2020 Frequency: At least 5 of 7 days/Wk (IRF) Estimated Hrs Per Day: 1.5 hours per day Patient and/or Family Agrees t: Yes Safety Risks/Education Patient Education: Transfer Techniques, Correct Positioning, Safety Issues Teaching Recipient: Patient Teaching Methods: Discussion Response to Teaching: Verbalize Understanding Time/GCodes Time In: 910 Time Out: 925 Total Billed Treatment Time: 15 Total Billed Treatment 1, NICK (15m) SALLY SCHAFER PTA May 10, 2020 12:02
--- NOTE | 2020-05-10 12:04 | PM&R Progress Note ---
Subjective HPI/CC On Admission Date Seen by Provider: May 10, 2020 Time Seen by Provider: 12:15 Subjective/Events-last exam 05/10/20: Creatinine improved and stable at 1.38 IVF DC today Rash much improved Pain controlled Participating well Patient doing well Rash improved finally. Started IVF gently due to Benadryl dehydrating him and he appeared a bit volume depleted Large stool today No pain except back and legs Slept good last night Checked meds and labs Conferred with RN Reviewed therapy notes Review of Systems Musculoskeletal: back pain rash Focused Exam Lactate Level 05/09/20 11:10: Lactic Acid Level 3.15*H 05/09/20 13:19: Lactic Acid Level 1.88 05/10/20 06:54: Lactic Acid Level 1.07 Objective Exam Vital Signs Vital Signs Date Time Temp Pulse Resp B/P (MAP) Pulse Ox O2 Delivery O2 Flow Rate FiO2 05/10/20 18:00 36.0 78 18 137/63 (87) 97 Room Air Capillary Refill : Less Than 3 SecondsLess Than 3 Seconds General Appearance: No Apparent Distress, WD/WN, Chronically ill, Obese HEENT: PERRL/EOMI, Normal ENT Inspection, Pharynx Normal Neck: Full Range of Motion, Normal Inspection, Non Tender, Supple, Carotid Bruit Respiratory: Chest Non Tender, Lungs Clear, Normal Breath Sounds, No Accessory Muscle Use, No Respiratory Distress Cardiovascular: Regular Rate, Rhythm, No Gallop, No JVD, No Murmur, Normal Peripheral Pulses Gastrointestinal: Normal Bowel Sounds, No Organomegaly, No Pulsatile Mass, Non Tender, Soft Back: Normal Inspection, No CVA Tenderness, No Vertebral Tenderness Extremity: Normal Capillary Refill, Normal Inspection, Normal Range of Motion, Non Tender, No Calf Tenderness, Pedal Edema Neurologic/Psychiatric: Alert, Oriented x3, No Motor/Sensory Deficits, Normal Mood/Affect, 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 FIM Transfers Therapy Code Descriptions/Definitions Functional [place] Measure: 0=Not Assessed/NA 4=Minimal Assistance 1=Total Assistance 5=Supervision or Setup 2=Maximal Assistance 6=Modified [place] 3=Moderate Assistance 7=Complete IndependenceSCALE: Activities may be completed with or without assistive devices. 2-Awbmfjdmnb-lyfmdwy completes the activity by him/herself with no assistance from a helper. 5-Set-up or Clean-up Assistance-helper sets up or cleans up; patient completes activity. [place] assists only prior to or following the activity. 4-Supervision or Touching Assistance-helper provides verbal cues and/or touching/steadying and/or contact guard assistance as patient completes activity. Assistance may be provided throughout the activity or intermittently. 3-Partial/Moderate Assistance-helper does LESS THAN HALF the effort. [place] lifts, holds or supports trunk or limbs, but provides less than half the effort. 2-Substantial/Maximal Assistance-helper does MORE THAN HALF the effort. [place] lifts or holds trunk or limbs and provides more than half the effort. 2-Hpgioexis-zeebrr does ALL the effort. Patient does none of the effort to complete the activity. Or, the assistance of 2 or more helpers is required for the patient to complete the activity. If activity was not attempted, code reason: 7-Patient Refused. 9-Not Applicable-not attempted and the patient did not perform the activity before the current illness, exacerbation or injury. 10-Not Attempted due to Environmental Limitations-(lack of equipment, weather restraints, etc.). 88-Not Attempted due to Medical Conditions or Safety Concerns. Roll Left to Right (QC): 3 Sit to Lying (QC): 3 Sit to Stand (QC): 3 Chair/Nhm-fh-Pfmsj Xfer(QC): 3 Car Transfer (QC): 88 (painful and unsafe to attempt this visit. ) Gait Training Does the Patient Walk?: Yes Distance: 125' Walk 10 feet (QC): 4 Walk 50 ft with 2 Turns(QC): 4 Walk 150 ft (QC): 4 Walking 10ft/uneven surface-QC: 3 Gait Assistive Device: FWW Wheelchair Training Does the Pt Use a Wheelchair?: Yes Wheel 50 ft with 2 turns (QC): 4 Wheel 150 ft (QC): 4 Type of Wheelchair: Manual Stair Training 1 Step (curb) (QC): 3 (min assist for balance and safety.) 4 Steps (QC): 88 (unsafe. ) 12 Steps (QC): 88 Balance Picking up an Object (QC): 88 (back precautions limit) ADL-Treatment Eating (QC): 6 (Per pt report) Oral Hygiene (QC): 5 (Per pt report) Shower/Bathe Self (QC): 3 (Mod assist) Upper Body Dressing (QC): 4 Lower Body Dressing (QC): 2 (Underwear) On/Off Footwear (QC): 1 Toileting Hygiene (QC): 7 Assessment/Plan Assessment and Plan Assess & Plan/Chief Complaint Assessment: Severe debility from lumbar stenosis surgery Anasarca Severe anemia post op requiring transfusion HTN HLP OMERO non-compliant with CPAP ARF Plan: IRF protocol Rash management O2 monitoring Pain control 05/09/20: IVF Monitor closely Rash improved 05/09/20: HLIVF Elevated lactic acid yesterday was from dehydration no signs of infection Elevated wbc is from steroid effect and no infection noted (1) OMERO (obstructive sleep apnea) (2) Allergic drug rash (3) Lumbar radiculopathy (4) Renal failure (ARF), acute on chronic (5) Transfusion of blood during current hospitalization (6) Hypotension (7) Anemia (8) ART Carter DO May 10, 2020 12:04
[2020-05-10 18:00] VITALS: BP 137/63
[2020-05-11] MEDS: ENOXAPARIN 40 MG/0.4 ML (LOVENOX) SYR SC SCH ×2 (05:14→18:01)
[2020-05-11 05:45] VITALS: BP 149/68
[2020-05-11] MEDS: diphenhydrAMINE 2% 30 GM CR (ALLERGY CREAM) TOP PRN ×2 (08:50→16:58)
[2020-05-11] MEDS: lisINopril 20 MG (PRINIVIL) TABLET PO SCH (08:51)
[2020-05-11] MEDS: diphenhydrAMINE 25 MG TAB (BENADRYL) PO PRN ×2 (08:51→20:55)
[2020-05-11] MEDS: SENNA W/DOCUSATE (SENOKOT S) TABLET PO SCH ×2 (09:00→19:47)
[2020-05-11] MEDS: polyethylene glycoL POWDER 17 GM (MIRALAX) PACK PO SCH ×2 (09:00→19:47)
[2020-05-11] MEDS: DOCUSATE SODIUM 100 MG (COLACE) CAP PO SCH ×2 (09:00→19:47)
--- NOTE | 2020-05-11 11:34 | Cardiology Progress Note ---
Subjective Date Seen by Provider: May 11, 2020 Time Seen by Provider: 11:33 Subjective/Events-last exam Patient is in bed, rash is improving, swelling is improving. No chest pain Review of Systems General: No Chills, No Night Sweats, No Fatigue, No Malaise, No Appetite, No Other HEENT: No Head Aches, No Visual Changes, No Eye Pain, No Ear Pain, No Dysphasia, No Sinus Congestion, No Post Nasal Drip, No Sore Throat, No Other Pulmonary: No Dyspnea, No Cough, No Pleuritic Chest Pain, No Other Cardiovascular: No: Chest Pain, Palpitations, Orthopnea, Paroxysmal Noc. Dyspnea, Edema, Lt Headedness, Other Focused Exam Lactate Level 05/09/20 11:10: Lactic Acid Level 3.15*H 05/09/20 13:19: Lactic Acid Level 1.88 05/10/20 06:54: Lactic Acid Level 1.07 Objective-Cardiology Exam Last Set of Vital Signs Vital Signs 05/11/20 05/11/20 05:45 09:00 Temp 36.8 Pulse 80 Resp 18 B/P (MAP) 149/68 (95) Pulse Ox 97 O2 Delivery Room Air Capillary Refill : Less Than 3 SecondsLess Than 3 Seconds I&O Intake and Output 05/11/20 00:00 Intake Total 2660 ml Output Total 2225 ml Balance 435 ml Intake Oral 1820 ml IV Total 840 ml Output Urine Total 2225 ml # Voids 4 # Bowel Movements 1 General: Alert, Oriented X3, Cooperative HEENT: Atraumatic, PERRLA Neck: Supple, No JVD, No Thyromegaly Lungs: Clear to Auscultation, Normal Air Movement Heart: Regular Rate, Normal S1, Normal S2, No Murmurs Abdomen: Normal Bowel Sounds, Soft, No Tenderness, No Hepatosplenomegaly, No Masses Extremities: No Clubbing, No Cyanosis, No Edema, Normal Pulses, No Tenderness/Swelling Skin: No Rashes, No Breakdown, No Significant Lesion Neuro: Normal Gait, Normal Speech, Strength at 5/5 X4 Ext, Normal Tone, Sensation Intact Psych/Mental Status: Mental Status NL, Mood NL A/P-Cardiology Admission Diagnosis Coronary artery disease Hypertension Anemia Assessment/Plan Peripheral edema, improving. Continue on diuretics and monitor Allergic reaction to medication, skin rash. Improving slowly. Coronary artery disease, history of coronary stents in the past, mild elevation in troponin, Type II VA secondary to hypotension and anemia, conservative management and continue to monitor Hypertension, continue to monitor blood pressure Anemia, post surgery, continue to monitor, management per medical service Acute on chronic renal insuf, improving slowly. Continue to monitor Status post Lumbar surgery, continue to monitor High risk for sleep apnea, consider sleep study as an outpatient Clinical Quality Measures DVT/VTE Risk/Contraindication: Risk Factor Score Per Nursin RFS Level Per Nursing on Admit: 4+=Very High BEN TRONCOSO MD May 11, 2020 11:34 am
--- NOTE | 2020-05-11 12:02 | PM&R Progress Note ---
Subjective HPI/CC On Admission Date Seen by Provider: May 11, 2020 Time Seen by Provider: 12:15 Subjective/Events-last exam 05/11/20: Patient doing well Soreness remains but improved leg pain and spasms. Rash is resolving Hydrocodone placed as allergy 05/10/20: Creatinine improved and stable at 1.38 IVF DC today Rash much improved Pain controlled Participating well Patient doing well Rash improved finally. Started IVF gently due to Benadryl dehydrating him and he appeared a bit volume depleted Large stool today No pain except back and legs Slept good last night Checked meds and labs Conferred with RN Reviewed therapy notes Review of Systems General: Fatigue, Malaise Musculoskeletal: back pain rash Focused Exam Lactate Level 05/09/20 11:10: Lactic Acid Level 3.15*H 05/09/20 13:19: Lactic Acid Level 1.88 05/10/20 06:54: Lactic Acid Level 1.07 Objective Exam Vital Signs Vital Signs Date Time Temp Pulse Resp B/P (MAP) Pulse Ox O2 Delivery O2 Flow Rate FiO2 05/11/20 09:00 Room Air 05/11/20 05:45 36.8 80 18 149/68 (95) 97 Capillary Refill : Less Than 3 SecondsLess Than 3 Seconds General Appearance: No Apparent Distress, WD/WN, Chronically ill, Obese HEENT: PERRL/EOMI, Normal ENT Inspection, Pharynx Normal Neck: Full Range of Motion, Normal Inspection, Non Tender, Supple, Carotid Bruit Respiratory: Chest Non Tender, Lungs Clear, Normal Breath Sounds, No Accessory Muscle Use, No Respiratory Distress Cardiovascular: Regular Rate, Rhythm, No Gallop, No JVD, No Murmur, Normal Peripheral Pulses Gastrointestinal: Normal Bowel Sounds, No Organomegaly, No Pulsatile Mass, Non Tender, Soft Back: Normal Inspection, No CVA Tenderness, No Vertebral Tenderness Extremity: Normal Capillary Refill, Normal Inspection, Normal Range of Motion, Non Tender, No Calf Tenderness, Pedal Edema Neurologic/Psychiatric: Alert, Oriented x3, No Motor/Sensory Deficits, Normal Mood/Affect, supervisor rose grading II-XII Norm as Tested, Abnormal Gait, Motor Weakness (generali zed weakness 4/5 lower extremities) Skin: Normal Color, Warm/Dry, Rash (macular rash torso and legs) Lymphatic: No Adenopathy Results/Procedures Lab Patient resulted labs reviewed. FIM Transfers Therapy Code Descriptions/Definitions Functional [place] Measure: 0=Not Assessed/NA 4=Minimal Assistance 1=Total Assistance 5=Supervision or Setup 2=Maximal Assistance 6=Modified [place] 3=Moderate Assistance 7=Complete IndependenceSCALE: Activities may be completed with or without assistive devices. 1-Ahwcnndlov-rsxytjv completes the activity by him/herself with no assistance from a helper. 5-Set-up or Clean-up Assistance-helper sets up or cleans up; patient completes activity. [place] assists only prior to or following the activity. 4-Supervision or Touching Assistance-helper provides verbal cues and/or touching/steadying and/or contact guard assistance as patient completes activity. Assistance may be provided throughout the activity or intermittently. 3-Partial/Moderate Assistance-helper does LESS THAN HALF the effort. [place] lifts, holds or supports trunk or limbs, but provides less than half the effort. 2-Substantial/Maximal Assistance-helper does MORE THAN HALF the effort. [place] lifts or holds trunk or limbs and provides more than half the effort. 8-Hmmevctze-qurvde does ALL the effort. Patient does none of the effort to complete the activity. Or, the assistance of 2 or more helpers is required for the patient to complete the activity. If activity was not attempted, code reason: 7-Patient Refused. 9-Not Applicable-not attempted and the patient did not perform the activity before the current illness, exacerbation or injury. 10-Not Attempted due to Environmental Limitations-(lack of equipment, weather restraints, etc.). 88-Not Attempted due to Medical Conditions or Safety Concerns. Roll Left to Right (QC): 3 Sit to Lying (QC): 3 Sit to Stand (QC): 4 Chair/Ldn-lw-Rdclf Xfer(QC): 3 Car Transfer (QC): 88 (painful and unsafe to attempt this visit. ) Gait Training Does the Patient Walk?: Yes Distance: 15' Walk 10 feet (QC): 4 Walk 50 ft with 2 Turns(QC): 4 Walk 150 ft (QC): 4 Walking 10ft/uneven surface-QC: 3 Gait Persons Needed: 1 Gait Assistive Device: FWW Wheelchair Training Does the Pt Use a Wheelchair?: Yes Wheel 50 ft with 2 turns (QC): 4 Wheel 150 ft (QC): 4 Type of Wheelchair: Manual Stair Training 1 Step (curb) (QC): 3 (min assist for balance and safety.) 4 Steps (QC): 88 (unsafe. ) 12 Steps (QC): 88 Balance Picking up an Object (QC): 88 (back precautions limit) ADL-Treatment Eating (QC): 6 (Per pt report) Oral Hygiene (QC): 5 (Per pt report) Shower/Bathe Self (QC): 3 (Mod assist) Upper Body Dressing (QC): 4 Lower Body Dressing (QC): 2 (Underwear) On/Off Footwear (QC): 1 Toileting Hygiene (QC): 7 Assessment/Plan Assessment and Plan Assess & Plan/Chief Complaint Assessment: Severe debility from lumbar stenosis surgery Anasarca Severe anemia post op requiring transfusion HTN HLP OMERO non-compliant with CPAP ARF Plan: IRF protocol Rash management O2 monitoring Pain control 05/09/20: IVF Monitor closely Rash improved 05/10/20: HLIVF Elevated lactic acid yesterday was from dehydration no signs of infection Elevated wbc is from steroid effect and no infection noted 05/11/20: Rash resolved Check labs in am Improved (1) OMERO (obstructive sleep apnea) (2) Allergic drug rash (3) Lumbar radiculopathy (4) Renal failure (ARF), acute on chronic (5) Transfusion of blood during current hospitalization (6) Hypotension (7) Anemia (8) ART Carter DO May 11, 2020 12:02
[2020-05-11 17:37] VITALS: BP 141/64
--- NOTE | 2020-05-12 05:24 | PM&R Progress Note ---
Subjective HPI/CC On Admission Date Seen by Provider: May 12, 2020 Time Seen by Provider: 10:00 Subjective/Events-last exam 05/12/20: Creatinine 1.38 Bowels are moving Overall doing very well Pain is controlled 05/11/20: Patient doing well Soreness remains but improved leg pain and spasms. Rash is resolving Hydrocodone placed as allergy 05/10/20: Creatinine improved and stable at 1.38 IVF DC today Rash much improved Pain controlled Participating well Patient doing well Rash improved finally. Started IVF gently due to Benadryl dehydrating him and he appeared a bit volume depleted Large stool today No pain except back and legs Slept good last night Checked meds and labs Conferred with RN Reviewed therapy notes Review of Systems General: Fatigue, Malaise Neurological: Weakness rash Focused Exam Lactate Level 05/10/20 06:54: Lactic Acid Level 1.07 Objective Exam Vital Signs Vital Signs Date Time Temp Pulse Resp B/P (MAP) Pulse Ox O2 Delivery O2 Flow Rate FiO2 05/12/20 20:40 Room Air 05/12/20 16:00 37.0 77 16 149/67 (94) 97 Capillary Refill : Less Than 3 SecondsLess Than 3 Seconds General Appearance: No Apparent Distress, WD/WN, Chronically ill, Obese HEENT: PERRL/EOMI, Normal ENT Inspection, Pharynx Normal Neck: Full Range of Motion, Normal Inspection, Non Tender, Supple, Carotid Bruit Respiratory: Chest Non Tender, Lungs Clear, Normal Breath Sounds, No Accessory Muscle Use, No Respiratory Distress Cardiovascular: Regular Rate, Rhythm, No Gallop, No JVD, No Murmur, Normal Peripheral Pulses Gastrointestinal: Normal Bowel Sounds, No Organomegaly, No Pulsatile Mass, Non Tender, Soft Back: Normal Inspection, No CVA Tenderness, No Vertebral Tenderness Extremity: Normal Capillary Refill, Normal Inspection, Normal Range of Motion, Non Tender, No Calf Tenderness, Pedal Edema Neurologic/Psychiatric: Alert, Oriented x3, No Motor/Sensory Deficits, Normal Mood/Affect, 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 FIM Transfers Therapy Code Descriptions/Definitions Functional [place] Measure: 0=Not Assessed/NA 4=Minimal Assistance 1=Total Assistance 5=Supervision or Setup 2=Maximal Assistance 6=Modified [place] 3=Moderate Assistance 7=Complete IndependenceSCALE: Activities may be completed with or without assistive devices. 3-Rgkhehjnlf-puaejae completes the activity by him/herself with no assistance from a helper. 5-Set-up or Clean-up Assistance-helper sets up or cleans up; patient completes activity. [place] assists only prior to or following the activity. 4-Supervision or Touching Assistance-helper provides verbal cues and/or touching/steadying and/or contact guard assistance as patient completes activity. Assistance may be provided throughout the activity or intermittently. 3-Partial/Moderate Assistance-helper does LESS THAN HALF the effort. [place] lifts, holds or supports trunk or limbs, but provides less than half the effort. 2-Substantial/Maximal Assistance-helper does MORE THAN HALF the effort. [place] lifts or holds trunk or limbs and provides more than half the effort. 5-Eiubmvzox-gaypnq does ALL the effort. Patient does none of the effort to complete the activity. Or, the assistance of 2 or more helpers is required for the patient to complete the activity. If activity was not attempted, code reason: 7-Patient Refused. 9-Not Applicable-not attempted and the patient did not perform the activity before the current illness, exacerbation or injury. 10-Not Attempted due to Environmental Limitations-(lack of equipment, weather restraints, etc.). 88-Not Attempted due to Medical Conditions or Safety Concerns. Roll Left to Right (QC): 3 Sit to Lying (QC): 3 Sit to Stand (QC): 4 Chair/Ywk-qf-Nuuzl Xfer(QC): 3 Car Transfer (QC): 88 (painful and unsafe to attempt this visit. ) Gait Training Does the Patient Walk?: Yes Distance: 15' Walk 10 feet (QC): 4 Walk 50 ft with 2 Turns(QC): 4 Walk 150 ft (QC): 4 Walking 10ft/uneven surface-QC: 3 Gait Persons Needed: 1 Gait Assistive Device: FWW Wheelchair Training Does the Pt Use a Wheelchair?: Yes Wheel 50 ft with 2 turns (QC): 4 Wheel 150 ft (QC): 4 Type of Wheelchair: Manual Stair Training 1 Step (curb) (QC): 3 (min assist for balance and safety.) 4 Steps (QC): 88 (unsafe. ) 12 Steps (QC): 88 Balance Picking up an Object (QC): 88 (back precautions limit) ADL-Treatment Eating (QC): 6 (Per pt report) Oral Hygiene (QC): 5 (Per pt report) Shower/Bathe Self (QC): 3 (Mod assist) Upper Body Dressing (QC): 4 Lower Body Dressing (QC): 2 (Underwear) On/Off Footwear (QC): 1 Toileting Hygiene (QC): 7 Assessment/Plan Assessment and Plan Assess & Plan/Chief Complaint Assessment: Severe debility from lumbar stenosis surgery Anasarca Severe anemia post op requiring transfusion HTN HLP OMERO non-compliant with CPAP ARF Plan: IRF protocol Rash management O2 monitoring Pain control 05/09/20: IVF Monitor closely Rash improved 05/10/20: HLIVF Elevated lactic acid yesterday was from dehydration no signs of infection Elevated wbc is from steroid effect and no infection noted 05/11/20: Rash resolved Check labs in am Improved 05/12/20: Continue aggressive therapy Monitor kidney function Bowels are moving well (1) OMERO (obstructive sleep apnea) (2) Allergic drug rash (3) Lumbar radiculopathy (4) Renal failure (ARF), acute on chronic (5) Transfusion of blood during current hospitalization (6) Hypotension (7) Anemia (8) ART Carter DO May 12, 2020 05:24
[2020-05-12] MEDS: ENOXAPARIN 40 MG/0.4 ML (LOVENOX) SYR SC SCH ×2 (05:32→18:56)
[2020-05-12 05:38] LABS: BASOPHILS # (AUTO) 0.1 10^3/uL (0.0-0.1); BASOPHILS % (AUTO) 1 % (0-10); EOSINOPHILS # (AUTO) 0.5 10^3/uL (0.0-0.3); EOSINOPHILS % (AUTO) 4 % (0-10); HEMATOCRIT 30 % (40-54); HEMOGLOBIN 9.5 G/DL (13.3-17.7); LYMPHOCYTES # (AUTO) 1.5 X 10^3 (1.0-4.0); LYMPHOCYTES % (AUTO) 14 % (12-44); MEAN CORPUSCULAR HEMOGLOBIN 29 PG (25-34); MEAN CORPUSCULAR HGB CONC 31 G/DL (32-36); MEAN CORPUSCULAR VOLUME 92 FL (80-99); MEAN PLATELET VOLUME 9.1 FL (7.4-10.4); MONOCYTES # (AUTO) 0.9 X 10^3 (0.0-1.0); MONOCYTES % (AUTO) 8 % (0-12); NEUTROPHILS # (AUTO) 8.1 X 10^3 (1.8-7.8); NEUTROPHILS % (AUTO) 73 % (42-75); PLATELET COUNT 439 10^3/uL (130-400)
[2020-05-12 06:03] LABS: ALBUMIN 2.8 GM/DL (3.2-4.5); POTASSIUM 4.7 MMOL/L (3.6-5.0)
[2020-05-12 06:04] LABS: CALCIUM 7.9 MG/DL (8.5-10.1)
[2020-05-12 06:05] LABS: TOTAL PROTEIN 5.1 GM/DL (6.4-8.2)
[2020-05-12 06:07] LABS: BILIRUBIN,TOTAL 0.4 MG/DL (0.1-1.0)
[2020-05-12 06:09] LABS: CREATININE SERUM 1.37 MG/DL (0.60-1.30)
[2020-05-12 06:34] VITALS: BP 158/67
[2020-05-12] MEDS: polyethylene glycoL POWDER 17 GM (MIRALAX) PACK PO SCH ×2 (09:32→20:37)
[2020-05-12] MEDS: SENNA W/DOCUSATE (SENOKOT S) TABLET PO SCH ×2 (09:33→20:38)
[2020-05-12] MEDS: DOCUSATE SODIUM 100 MG (COLACE) CAP PO SCH ×2 (09:34→20:38)
[2020-05-12] MEDS: lisINopril 20 MG (PRINIVIL) TABLET PO SCH (09:34)
--- NOTE | 2020-05-12 10:56 | Occupational Ther Daily Note ---
OT Current Status-Daily Note Subjective Pt laying in bed when therapy began. Pt stated he needed to use the restroom. No c/o pain reported. Mental Status/Objective Patient Orientation: Person, Place, Time, Situation ADL-Treatment Co-treat with PT ([id number]) 2 skilled clinicians required due to decrease in pt's LE/UE strength, transfers, pain, dynamic standing balance and gait. PT focusing on transfers, LE strengthening and gait. While OT focuses on UE strengthening, functional transfers and dynamic standing balance. Pt agreed to sponge bath. Pt supine to EOB with SBA. Pt still requires assist to don/doff back brace. Pt sit-stand from raised EOB to FWW with CGA. Pt then ambulated to bathroom using FWW with CGA. Transferred to toilet with CGA. Pt stated he thought needed to,but didn't have a BM. Pt then sit-stand from toilet, hiked briefs over hips with CGA. Pt ambulated back to bed with CGA using FWW. Pt doffed upper body dressing independently. After set up of materials required, pt completed sponge bath while seated at EOB. Pt was able to cleanse upper arms, chest, abdomen, and upper legs. Pt required long handled sponge to cleanse lower legs. Pt then sit-stand from raised EOB to FWW to doff brief and cleanse elyssa area and buttocks. Pt requested assist to cleanse buttocks. (check PT notes for transfers)After set up, pt able to don shirt. After set up, pt able to don B feet into briefs and pants using dressing stick. Pt then sit-stand from raised EOB to FWW and hiked briefs/pants over hips. After set up, pt able to don socks using sock aid. Pt then sit-stand from raised EOB to FWW and ambulated to sink and completed oral hygiene while standing. Pt fatigue and requested to sit in w/c for resting break. Pt sit-stand from w/c to FWW and ambulated to gym. Therapy Code Descriptions/Definitions Functional [place] Measure: 0=Not Assessed/NA 4=Minimal Assistance 1=Total Assistance 5=Supervision or Setup 2=Maximal Assistance 6=Modified [place] 3=Moderate Assistance 7=Complete IndependenceSCALE: Activities may be completed with or without assistive devices. 8-Hpkyflbtmk-lgiiszs completes the activity by him/herself with no assistance from a helper. 5-Set-up or Clean-up Assistance-helper sets up or cleans up; patient completes activity. [place] assists only prior to or following the activity. 4-Supervision or Touching Assistance-helper provides verbal cues and/or touching/steadying and/or contact guard assistance as patient completes activity. Assistance may be provided throughout the activity or intermittently. 3-Partial/Moderate Assistance-helper does LESS THAN HALF the effort. [place] lifts, holds or supports trunk or limbs, but provides less than half the effort. 2-Substantial/Maximal Assistance-helper does MORE THAN HALF the effort. [place] lifts or holds trunk or limbs and provides more than half the effort. 2-Onpwkixpk-czghhk does ALL the effort. Patient does none of the effort to complete the activity. Or, the assistance of 2 or more helpers is required for the patient to complete the activity. If activity was not attempted, code reason: 7-Patient Refused. 9-Not Applicable-not attempted and the patient did not perform the activity before the current illness, exacerbation or injury. 10-Not Attempted due to Environmental Limitations-(lack of equipment, weather restraints, etc.). 88-Not Attempted due to Medical Conditions or Safety Concerns. Bathing Location: L Arm, R Arm, L Upper Leg, R Upper Leg, L Lower Leg (incl uding foot), R Lower Leg (including foot), Chest, Abdomen, Perineal Area Shower/Bathe Self (QC): 3 Upper Body Dressing (QC): 5 Lower Body Dressing (QC): 5 On/Off Footwear: 5 Toileting Hygiene (QC): 4 Toilet Transfer (QC): 4 Other Treatment Once in gym, pt transferred to EOM. Pt completed 1 set x10 reps of 2 UE arm exercises using 3 pound dumbbell while standing using FWW for strengthening B UE for daily task and functional dynamic standing balance. Pt required skilled instruction and resting breaks to complete exercises. Pt then ambulated back to room. Transferred to EOB-supine with assist to bring LE up to bed. After therapy, pt laying in bed. Call light/phone in reach. All needs met. Education OT Patient Education: Exercise program Teaching Recipient: Patient Teaching Methods: Demonstration, Discussion Response to Teaching: Verbalize Understanding, Return Demonstration OT Short Term Goals Short Term Goals Time Frame: May 15, 2020 Eatin Oral hygiene: 5 Toileting hygiene: 3 Shower/bathe self: 3 Upper body dressin Lower body dressin Putting on/taking off footwear: 3 OT Machine Cell Tuber Goals Halfway Goals Time Frame: May 22, 2020 Eating (QC): 6 Oral Hygiene (QC): 6 Toileting Hygiene (QC): 6 Shower/Bathe Self (QC): 6 (Using AE) Upper Body Dressing (QC): 6 Lower Body Dressing (QC): 6 (Using AE) On/Off Footwear (QC): 6 (Using AE) Additional Goals: 1-Demonstrate ADL Tasks, 2-Verbalize Understanding, 3- ImproveStrength/[place] 1=Demonstrate adherence to instructed precautions during ADL tasks. 2=Patient will verbalize/demonstrate understanding of assistive devices/modifications for ADL. 3=Patient will improve strength/tolerance for activity to enable patient to perform ADL's. OT Education/Plan Problem List/Assessment Assessment: Decreased Activ Tolerance, Impaired Funct Balance, Impaired I ADL's, Impaired Self-Care Skills Discharge Recommendations Plan/Recommendations: Continue POC Treatment Plan/Plan of Care Patient would benefit from OT for education, treatment and training to promote independence in ADL's, mobility, safety and/or upper extremity function for ADL's. Plan of Care: ADL Retraining, Functional Mobility, UE Funct Exercise/Act Treatment Duration: May 22, 2020 Frequency: At least 5 of 7 days/Wk (IRF) Estimated Hrs Per Day: 1.5 hours per day Agreement: Yes Rehab Potential: Good Time/GCodes Start Time: 10:00 Stop Time: 11:00 Total Time Billed (hr/min): 60 Billed Treatment Time 1 visit- ADL 3 ( 45 mins) EX 1 (15 mins) Co-treat with PT: [id number]( 60 mins) MARGUERITE UREÑA May 12, 2020 10:56
--- NOTE | 2020-05-12 10:57 | Physical Therapy Daily Note ---
PT Daily Note-Current Subjective Pt present seated on toilet as OT has already begun treatment. Pt agrees to PT. Pt reports 2/10 pain in back with activity. Appearance Pt assisted to supine in bed where he has access to tray, call button, and all needs have been met. Mental Status Patient Orientation: Person, Place, Time, Eyes Open, Situation back brace Transfers SCALE: Activities may be completed with or without assistive devices. 4-Kiipdgwzay-xvknsci completes the activity by him/herself with no assistance from a helper. 5-Set-up or Clean-up Assistance-helper sets up or cleans up; patient completes activity. [place] assists only prior to or following the activity. 4-Supervision or Touching Assistance-helper provides verbal cues and/or touching/steadying and/or contact guard assistance as patient completes activity. Assistance may be provided throughout the activity or intermittently. 3-Partial/Moderate Assistance-helper does LESS THAN HALF the effort. [place] lifts, holds or supports trunk or limbs, but provides less than half the effort. 2-Substantial/Maximal Assistance-helper does MORE THAN HALF the effort. [place] lifts or holds trunk or limbs and provides more than half the effort. 3-Nbqlnsett-dujgjt does ALL the effort. Patient does none of the effort to complete the activity. Or, the assistance of 2 or more helpers is required for the patient to complete the activity. If activity was not attempted, code reason: 7-Patient Refused. 9-Not Applicable-not attempted and the patient did not perform the activity before the current illness, exacerbation or injury. 10-Not Attempted due to Environmental Limitations-(lack of equipment, weather restraints, etc.). 88-Not Attempted due to Medical Conditions or Safety Concerns. Sit to Lying (QC): 3 Sit to Stand (QC): 4 Weight Bearing Full Weight Bearing Full Weight Bearing Gait Training Does the Patient Walk?: Yes Distance: 100' x2 Walk 10 feet (QC): 4 Walk 50 ft with 2 Turns(QC): 4 Gait Assistive Device: FWW Pt ambulates with fwd trunk lean even when cued to stand straight Treatments UE exercises testing standing balance. PT performed standing and encouraged proper posture and positioning during standing OT UE activity x8 times Assessment Current Status: Fair Progress Co-treated with OT due to patients impaired mobility, standing balance, and ability to coordinated UE and LE. Pt is able to ambulate 100' without rest break but struggle to piano sounding board matcher single spot for more than 1 min without needed a seated rest. PT Short Term Goals Short Term Goals Time Frame: May 22, 2020 Roll Left & Right: 4 Sit to lyin Lying to sitting on side of be: 4 Sit to stand: 4 Walk 150 feet: 4 PT Salvager Goals Skilled Nursing Goals PT Salvager Goals Time Frame: Jun 05, 2020 Roll Left & Right (QC): 6 Sit to Lying (QC): 6 Lying-Sitting on Side/Bed(QC): 6 Sit to Stand (QC): 6 Chair/Wnc-po-Dlmsn Xfer(QC): 6 Toilet Transfer (QC): 6 Car Transfer (QC): 5 Does the Patient Walk: Yes Walk 10 feet (QC): 6 Walk 50ft with 2 Turns (QC): 6 Walk 150 ft (QC): 6 Walking 10ft on Uneven Surface: 6 1 Step (curb) (QC): 5 4 Steps (QC): 5 12 Steps (QC): 9 Picking up an Object (QC): 88 (back precautions prohibit) Does the Pt use WC or Scooter?: No Wheel 50 feet with 2 turns (QC: 9 Wheel 150 feet: 9 PT Plan Problem List Problem List: Activity Tolerance, Functional Strength, Safety, Balance, Gait, Transfer, Bed Mobility, ROM Treatment/Plan Treatment Plan: Continue Plan of Care Treatment Plan: Bed Mobility, Education, Functional Activity [place], Functional Strength, Group Therapy, Gait, Safety, Therapeutic Exercise, Transfers Treatment Duration: Jun 05, 2020 Frequency: At least 5 of 7 days/Wk (IRF) Estimated Hrs Per Day: 1.5 hours per day Patient and/or Family Agrees t: Yes Safety Risks/Education Patient Education: Gait Training, Transfer Techniques, Reviewed Precautions, Correct Positioning, Reviewed Don/Doff Brace, Safety Issues Teaching Recipient: Patient Teaching Methods: Demonstration, Discussion Response to Teaching: Reinforcement Needed Time/GCodes Time In: 1000 Time Out: 1100 Total Billed Treatment Time: 60 Total Billed Treatment 1 visit GT 20' FA 30' EX 10' co-treated with OT for 60' KATHLEENEKPELONMAEVE PT May 12, 2020 10:56
--- NOTE | 2020-05-12 14:18 | Occupational Ther Daily Note ---
OT Current Status-Daily Note Subjective Pt laying in bed when OT entered. Pt agreed to therapy. No c/o pain reported. Mental Status/Objective Patient Orientation: Person, Place, Time, Situation Attachments: IV ADL-Treatment Therapy Code Descriptions/Definitions Functional [place] Measure: 0=Not Assessed/NA 4=Minimal Assistance 1=Total Assistance 5=Supervision or Setup 2=Maximal Assistance 6=Modified [place] 3=Moderate Assistance 7=Complete IndependenceSCALE: Activities may be completed with or without assistive devices. 3-Kfcwtbojxp-xfgldhe completes the activity by him/herself with no assistance from a helper. 5-Set-up or Clean-up Assistance-helper sets up or cleans up; patient completes activity. [place] assists only prior to or following the activity. 4-Supervision or Touching Assistance-helper provides verbal cues and/or touching/steadying and/or contact guard assistance as patient completes activity. Assistance may be provided throughout the activity or intermittently. 3-Partial/Moderate Assistance-helper does LESS THAN HALF the effort. [place] lifts, holds or supports trunk or limbs, but provides less than half the effort. 2-Substantial/Maximal Assistance-helper does MORE THAN HALF the effort. [place] lifts or holds trunk or limbs and provides more than half the effort. 6-Vuehtxtob-hatjqa does ALL the effort. Patient does none of the effort to complete the activity. Or, the assistance of 2 or more helpers is required for the patient to complete the activity. If activity was not attempted, code reason: 7-Patient Refused. 9-Not Applicable-not attempted and the patient did not perform the activity before the current illness, exacerbation or injury. 10-Not Attempted due to Environmental Limitations-(lack of equipment, weather restraints, etc.). 88-Not Attempted due to Medical Conditions or Safety Concerns. Other Treatment Pt completed 2 sets x10 reps of 5 B UE red theraband exercises to strengthen B UE for functional daily task. Pt required skilled instruction and handout to be able to complete exercises. After 1st set, pt requested rest break due to fatigue. After therapy, pt laying in bed. Call light/phone in reach. All needs met. Education OT Patient Education: Exercise program Teaching Recipient: Patient Teaching Methods: Demonstration, Handout, Discussion Response to Teaching: Verbalize Understanding, Return Demonstration OT Short Term Goals Short Term Goals Time Frame: May 15, 2020 Eatin Oral hygiene: 5 Toileting hygiene: 3 Shower/bathe self: 3 Upper body dressin Lower body dressin Putting on/taking off footwear: 3 OT Fdc Goals Fdc Goals Time Frame: May 22, 2020 Eating (QC): 6 Oral Hygiene (QC): 6 Toileting Hygiene (QC): 6 Shower/Bathe Self (QC): 6 (Using AE) Upper Body Dressing (QC): 6 Lower Body Dressing (QC): 6 (Using AE) On/Off Footwear (QC): 6 (Using AE) Additional Goals: 1-Demonstrate ADL Tasks, 2-Verbalize Understanding, 3- ImproveStrength/[place] 1=Demonstrate adherence to instructed precautions during ADL tasks. 2=Patient will verbalize/demonstrate understanding of assistive de vices/modifications for ADL. 3=Patient will improve strength/tolerance for activity to enable patient to perform ADL's. OT Education/Plan Problem List/Assessment Assessment: Decreased Activ Tolerance, Decreased UE Strength, Impaired Funct Balance, Impaired I ADL's, Impaired Self-Care Skills Discharge Recommendations Plan/Recommendations: Continue POC Treatment Plan/Plan of Care Patient would benefit from OT for education, treatment and training to promote independence in ADL's, mobility, safety and/or upper extremity function for AD L's. Plan of Care: ADL Retraining, Functional Mobility, UE Funct Exercise/Act Treatment Duration: May 22, 2020 Frequency: At least 5 of 7 days/Wk (IRF) Estimated Hrs Per Day: 1.5 hours per day Agreement: Yes Rehab Potential: Good Time/GCodes Start Time: 13:00 Stop Time: 13:30 Total Time Billed (hr/min): 30 Billed Treatment Time 1 visit-EX 2 (30 mins) MARGUERITE UREÑA May 12, 2020 14:18
--- NOTE | 2020-05-12 14:31 | Physical Therapy Daily Note ---
PT Daily Note-Current Subjective Pt presents supine in bed. Pt agrees to PT. Pt reports no current pain, but soreness in L buttock. Appearance At conclusion of PT tx patient returns to supine in bed where he has access to tray, call button, and all needs have been met. Mental Status Patient Orientation: Person, Place, Time, Eyes Open, Situation Back brace Transfers SCALE: Activities may be completed with or without assistive devices. 2-Ztlfbysauy-imkvxhq completes the activity by him/herself with no assistance f rom a helper. 5-Set-up or Clean-up Assistance-helper sets up or cleans up; patient completes activity. [place] assists only prior to or following the activity. 4-Supervision or Touching Assistance-helper provides verbal cues and/or touching/steadying and/or contact guard assistance as patient completes activity. Assistance may be provided throughout the activity or intermittently. 3-Partial/Moderate Assistance-helper does LESS THAN HALF the effort. [place] lifts, holds or supports trunk or limbs, but provides less than half the effort. 2-Substantial/Maximal Assistance-helper does MORE THAN HALF the effort. [place] lifts or holds trunk or limbs and provides more than half the effort. 5-Ukuejbapc-xqsnzy does ALL the effort. Patient does none of the effort to complete the activity. Or, the assistance of 2 or more helpers is required for the patient to complete the activity. If activity was not attempted, code reason: 7-Patient Refused. 9-Not Applicable-not attempted and the patient did not perform the activity before the current illness, exacerbation or injury. 10-Not Attempted due to Environmental Limitations-(lack of equipment, weather restraints, etc.). 88-Not Attempted due to Medical Conditions or Safety Concerns. Sit to Lying (QC): 4 Lying to Sitting/Side of Bed(Q: 4 Sit to Stand (QC): 4 Weight Bearing Full Weight Bearing Full Weight Bearing Gait Training Does the Patient Walk?: Yes Distance: 100' x2 Walk 10 feet (QC): 4 Walk 50 ft with 2 Turns(QC): 4 Gait Assistive Device: FWW slow but steady ambulation, slumped posture Exercises NuStep Minutes: 13 NuStep Workload: 4 Treatments bed mobility and transfers, ambulation, functional strengthening Assessment Current Status: Good Progress, Fair Progress Pt has decreased the time it takes him to get up out of bed. Pt enjoyed using the nustep machine. PT Short Term Goals Short Term Goals Time Frame: May 22, 2020 Roll Left & Right: 4 Sit to lyin Lying to sitting on side of be: 4 Sit to stand: 4 Walk 150 feet: 4 PT Cloth Worker Goals [facility] Goals PT Cloth Worker Goals Time Frame: Jun 05, 2020 Roll Left & Right (QC): 6 Sit to Lying (QC): 6 Lying-Sitting on Side/Bed(QC): 6 Sit to Stand (QC): 6 Chair/Iaz-dj-Frlza Xfer(QC): 6 Toilet Transfer (QC): 6 Car Transfer (QC): 5 Does the Patient Walk: Yes Walk 10 feet (QC): 6 Walk 50ft with 2 Turns (QC): 6 Walk 150 ft (QC): 6 Walking 10ft on Uneven Surface: 6 1 Step (curb) (QC): 5 4 Steps (QC): 5 12 Steps (QC): 9 Picking up an Object (QC): 88 (back precautions prohibit) Does the Pt use WC or Scooter?: No Wheel 50 feet with 2 turns (QC: 9 Wheel 150 feet: 9 PT Plan Problem List Problem List: Activity Tolerance, Functional Strength, Safety, Balance, Gait, Transfer, Bed Mobility, ROM Treatment/Plan Treatment Plan: Continue Plan of Care Treatment Plan: Bed Mobility, Education, Functional Activity [place], Functional Strength, Group Therapy, Gait, Safety, Therapeutic Exercise, Transfers Treatment Duration: Jun 05, 2020 Frequency: At least 5 of 7 days/Wk (IRF) Estimated Hrs Per Day: 1.5 hours per day Patient and/or Family Agrees t: Yes Safety Risks/Education Patient Education: Gait Training, Transfer Techniques, Reviewed Precautions, Correct Positioning, Reviewed Don/Doff Brace, Safety Issues Teaching Recipient: Patient Teaching Methods: Demonstration, Discussion Response to Teaching: Reinforcement Needed Time/GCodes Time In: 1400 Time Out: 1430 Total Billed Treatment Time: 30 Total Billed Treatment 1 visit GT 17' EX 13' MAEVE DOWNS PT May 12, 2020 14:30
--- NOTE | 2020-05-12 15:39 | Physical Therapy Daily Note ---
PT Daily Note-Current Subjective Pt presents sitting upright in recliner. Pt agrees to PT. Pt reports 4/10 pain in R hip. Appearance At conclusion of PT tx patient is sitting upright in recliner with access to tray, call button, and all needs met. Mental Status Patient Orientation: Person, Place, Time, Eyes Open Attachments: Oxygen Transfers SCALE: Activities may be completed with or without assistive devices. 1-Ktakejhzig-bbzhgzy completes the activity by him/herself with no assistance from a helper. 5-Set-up or Clean-up Assistance-helper sets up or cleans up; patient completes activity. [place] assists only prior to or following the activity. 4-Supervision or Touching Assistance-helper provides verbal cues and/or touching/steadying and/or contact guard assistance as patient completes activity. Assistance may be provided throughout the activity or intermittently. 3-Partial/Moderate Assistance-helper does LESS THAN HALF the effort. [place] lifts, holds or supports trunk or limbs, but provides less than half the effort. 2-Substantial/Maximal Assistance-helper does MORE THAN HALF the effort. [place] lifts or holds trunk or limbs and provides more than half the effort. 6-Ogkniyome-ugjfyp does ALL the effort. Patient does none of the effort to complete the activity. Or, the assistance of 2 or more helpers is required for the patient to complete the activity. If activity was not attempted, code reason: 7-Patient Refused. 9-Not Applicable-not attempted and the patient did not perform the activity before the current illness, exacerbation or injury. 10-Not Attempted due to Environmental Limitations-(lack of equipment, weather restraints, etc.). 88-Not Attempted due to Medical Conditions or Safety Concerns. Sit to Stand (QC): 4 Weight Bearing Full Weight Bearing Full Weight Bearing Gait Training Does the Patient Walk?: Yes Distance: 150' x2 Walk 10 feet (QC): 4 Walk 50 ft with 2 Turns(QC): 4 Walk 150 ft (QC): 4 Gait Assistive Device: FWW Antalgic gait; pt reports bearing about 20% weight on RLE instead of 50% Exercises Seated Therapy Exercises: Ankle pumps, Hip flexion Seated Reps: 15 Treatments Gait training Assessment Current Status: Fair Progress Pt able to ambulate 150' without need for seated rest. PT Short Term Goals Short Term Goals Time Frame: May 22, 2020 Roll Left & Right: 4 Sit to lyin Lying to sitting on side of be: 4 Sit to stand: 4 Walk 150 feet: 4 PT Manager Utilization Management Goals [facility] Goals PT [facility] Goals Time Frame: Jun 05, 2020 Roll Left & Right (QC): 6 Sit to Lying (QC): 6 Lying-Sitting on Side/Bed(QC): 6 Sit to Stand (QC): 6 Chair/Hvm-sk-Kmhnr Xfer(QC): 6 Toilet Transfer (QC): 6 Car Transfer (QC): 5 Does the Patient Walk: Yes Walk 10 feet (QC): 6 Walk 50ft with 2 Turns (QC): 6 Walk 150 ft (QC): 6 Walking 10ft on Uneven Surface: 6 1 Step (curb) (QC): 5 4 Steps (QC): 5 12 Steps (QC): 9 Picking up an Object (QC): 88 (back precautions prohibit) Does the Pt use WC or Scooter?: No Wheel 50 feet with 2 turns (QC: 9 Wheel 150 feet: 9 PT Plan Problem List Problem List: Activity Tolerance, Functional Strength, Safety, Balance, Gait, Transfer, Bed Mobility, ROM Treatment/Plan Treatment Plan: Continue Plan of Care Treatment Plan: Bed Mobility, Education, Functional Activity [place], Functional Strength, Group Therapy, Gait, Safety, Therapeutic Exercise, Transfers Treatment Duration: Jun 05, 2020 Frequency: At least 5 of 7 days/Wk (IRF) Estimated Hrs Per Day: 1.5 hours per day Patient and/or Family Agrees t: Yes Safety Risks/Education Patient Education: Gait Training, Transfer Techniques Teaching Recipient: Patient Teaching Methods: Demonstration, Discussion Response to Teaching: Reinforcement Needed Time/GCodes Time In: 1500 Time Out: 1530 Total Billed Treatment Time: 30 Total Billed Treatment 1 visit GT 20' EX 10' MAEVE DOWNS PT May 12, 2020 15:38
[2020-05-12 16:00] VITALS: BP 149/67
--- NOTE | 2020-05-12 17:29 | Cardiology Progress Note ---
Cardiology SOAP Progress Note Subjective: No significant cardiac complaints. Objective: I&O/Vital Signs 05/13/20 05/13/20 05:46 09:00 Temp 36.8 Pulse 83 Resp 16 B/P (MAP) 158/70 (99) Pulse Ox 96 96 O2 Delivery Room Air Room Air 05/13/20 00:00 Intake Total 1840 ml Output Total 800 ml Balance 1040 ml Constitutional: AAO x 3 Respiratory: chest is bilaterally symmetric, lungs clear to auscultation Cardiovascular: regular rate-rhythm, S1 and S2 Gastrointestional: soft, audible bowel sounds Extremities: pedal edema Neurologic/Psychiatric: no motor/sensory deficits, alert, normal mood/affect, oriented x 3 Skin: normal color Results/Procedures: Labs A/P: Assessment/Dx: Coronary artery disease Hypertension Anemia Plan: Peripheral edema, improving. Continue on diuretics and monitor Allergic reaction to medication, skin rash. Improving slowly. 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 Continue to monitor Status post Lumbar surgery, continue to monitor High risk for sleep apnea, consider sleep study as an outpatient Thank you for your consultation. Please call me if you have any questions. Jaswant Childs MD, FACP, FACC, FSCAI, FHRS, CCDS Interventional Cardiology Cardiac Electrophysiology Vascular Medicine and Endovascular Interventions Focused Exam Lactate Level Pooja CHILDS MD May 12, 2020 17:29
[2020-05-13] MEDS: ENOXAPARIN 40 MG/0.4 ML (LOVENOX) SYR SC SCH ×2 (05:16→17:36)
[2020-05-13 05:46] VITALS: BP 158/70
[2020-05-13] MEDS: DOCUSATE SODIUM 100 MG (COLACE) CAP PO SCH ×2 (08:12→20:29)
[2020-05-13] MEDS: SENNA W/DOCUSATE (SENOKOT S) TABLET PO SCH ×2 (08:12→20:29)
[2020-05-13] MEDS: polyethylene glycoL POWDER 17 GM (MIRALAX) PACK PO SCH ×2 (08:12→20:29)
[2020-05-13] MEDS: lisINopril 20 MG (PRINIVIL) TABLET PO SCH (08:12)
--- NOTE | 2020-05-13 08:43 | PM&R Progress Note ---
Subjective HPI/CC On Admission Date Seen by Provider: May 13, 2020 Time Seen by Provider: 10:00 Subjective/Events-last exam 05/13/20: Pt doing very well No significant issues Walking around well No edema Breathing well 05/12/20: Creatinine 1.38 Bowels are moving Overall doing very well Pain is controlled 05/11/20: Patient doing well Soreness remains but improved leg pain and spasms. Rash is resolving Hydrocodone placed as allergy 05/10/20: Creatinine improved and stable at 1.38 IVF DC today Rash much improved Pain controlled Participating well Patient doing well Rash improved finally. Started IVF gently due to Benadryl dehydrating him and he appeared a bit volume depleted Large stool today No pain except back and legs Slept good last night Checked meds and labs Conferred with RN Reviewed therapy notes Review of Systems General: Fatigue, Malaise Neurological: Weakness rash Objective Exam Vital Signs Vital Signs Date Time Temp Pulse Resp B/P (MAP) Pulse Ox O2 Delivery O2 Flow Rate FiO2 05/13/20 16:12 37.0 85 16 140/63 (88) 94 Room Air Capillary Refill : Less Than 3 SecondsGreater Than 3 Seconds General Appearance: No Apparent Distress, WD/WN, Chronically ill, Obese HEENT: PERRL/EOMI, Normal ENT Inspection, Pharynx Normal Neck: Full Range of Motion, Normal Inspection, Non Tender, Supple, Carotid Bruit Respiratory: Chest Non Tender, Lungs Clear, Normal Breath Sounds, No Accessory Muscle Use, No Respiratory Distress Cardiovascular: Regular Rate, Rhythm, No Gallop, No JVD, No Murmur, Normal Peripheral Pulses Gastrointestinal: Normal Bowel Sounds, No Organomegaly, No Pulsatile Mass, Non Tender, Soft Back: Normal Inspection, No CVA Tenderness, No Vertebral Tenderness Extremity: Normal Capillary Refill, Normal Inspection, Normal Range of Motion, Non Tender, No Calf Tenderness, Pedal Edema Neurologic/Psychiatric: Alert, Oriented x3, No Motor/Sensory Deficits, Normal Mood/Affect, neonatal nurse practitioner II-XII Norm as Tested, Abnormal Gait, Motor Weakness (generalized weakness 4/5 lower extremities) Skin: Normal Color, Warm/Dry, Rash (macular rash torso and legs) Lymphatic: No Adenopathy Results/Procedures Lab Patient resulted labs reviewed. FIM Transfers Therapy Code Descriptions/Definitions Functional [place] Measure: 0=Not Assessed/NA 4=Minimal Assistance 1=Total Assistance 5=Supervision or Setup 2=Maximal Assistance 6=Modified [place] 3=Moderate Assistance 7=Complete IndependenceSCALE: Activities may be completed with or without assistive devices. 1-Butesqcztr-fewqkhg completes the activity by him/herself with no assistance from a helper. 5-Set-up or Clean-up Assistance-helper sets up or cleans up; patient completes activity. [place] assists only prior to or following the activity. 4-Supervision or Touching Assistance-helper provides verbal cues and/or touching/steadying and/or contact guard assistance as patient completes activity. Assistance may be provided throughout the activity or intermittently. 3-Partial/Moderate Assistance-helper does LESS THAN HALF the effort. [place] lifts, holds or supports trunk or limbs, but provides less than half the effort. 2-Substantial/Maximal Assistance-helper does MORE THAN HALF the effort. [place] lifts or holds trunk or limbs and provides more than half the effort. 8-Rdvbeenal-awtsdf does ALL the effort. Patient does none of the effort to com plete the activity. Or, the assistance of 2 or more helpers is required for the patient to complete the activity. If activity was not attempted, code reason: 7-Patient Refused. 9-Not Applicable-not attempted and the patient did not perform the activity before the current illness, exacerbation or injury. 10-Not Attempted due to Environmental Limitations-(lack of equipment, weather restraints, etc.). 88-Not Attempted due to Medical Conditions or Safety Concerns. Roll Left to Right (QC): 3 Sit to Lying (QC): 4 Sit to Stand (QC): 4 Chair/Ves-jc-Kijmt Xfer(QC): 3 Car Transfer (QC): 88 (painful and unsafe to attempt this visit. ) Gait Training Does the Patient Walk?: Yes Distance: 150' x2 Walk 10 feet (QC): 4 Walk 50 ft with 2 Turns(QC): 4 Walk 150 ft (QC): 4 Walking 10ft/uneven surface-QC: 3 Gait Persons Needed: 1 Gait Assistive Device: FWW Wheelchair Training Does the Pt Use a Wheelchair?: Yes Wheel 50 ft with 2 turns (QC): 4 Wheel 150 ft (QC): 4 Type of Wheelchair: Manual Stair Training 1 Step (curb) (QC): 3 (min assist for balance and safety.) 4 Steps (QC): 88 (unsafe. ) 12 Steps (QC): 88 Balance Picking up an Object (QC): 88 (back precautions limit) ADL-Treatment Eating (QC): 6 (Per pt report) Oral Hygiene (QC): 5 (Per pt report) Bathing Location: L Arm, R Arm, L Upper Leg, R Upper Leg, L Lower Leg (includ ing foot), R Lower Leg (including foot), Chest, Abdomen, Perineal Area Shower/Bathe Self (QC): 3 Upper Body Dressing (QC): 5 Lower Body Dressing (QC): 5 On/Off Footwear (QC): 5 Toileting Hygiene (QC): 4 Toilet Transfer (QC): 4 Assessment/Plan Assessment and Plan Assess & Plan/Chief Complaint Assessment: Severe debility from lumbar stenosis surgery Anasarca Severe anemia post op requiring transfusion HTN HLP OMERO non-compliant with CPAP ARF Plan: IRF protocol Rash management O2 monitoring Pain control 05/09/20: IVF Monitor closely Rash improved 05/10/20: HLIVF Elevated lactic acid yesterday was from dehydration no signs of infection Elevated wbc is from steroid effect and no infection noted 05/11/20: Rash resolved Check labs in am Improved 05/12/20: Continue aggressive therapy Monitor kidney function Bowels are moving well 05/13/20: Discharge plan soon Monitor creatinine (1) OMERO (obstructive sleep apnea) (2) Allergic drug rash (3) Lumbar radiculopathy (4) Renal failure (ARF), acute on chronic (5) Transfusion of blood during current hospitalization (6) Hypotension (7) Anemia (8) ART Carter DO May 13, 2020 08:43
--- NOTE | 2020-05-13 08:54 | Physical Therapy Daily Note ---
PT Daily Note-Current Subjective Pt presents supine in bed. Pt agrees to PT. Pt reports no pain. Appearance At conclusion of PT session patient returns to supine in bed where he has access to tray, call button, and all needs have been met. Mental Status Patient Orientation: Person, Place, Time, Eyes Open, Situation Back Brace Transfers SCALE: Activities may be completed with or without assistive devices. 8-Pfumwqjjnm-mztmpje completes the activity by him/herself with no assistance from a helper. 5-Set-up or Clean-up Assistance-helper sets up or cleans up; patient completes activity. [place] assists only prior to or following the activity. 4-Supervision or Touching Assistance-helper provides verbal cues and/or touching/steadying and/or contact guard assistance as patient completes activity. Assistance may be provided throughout the activity or intermittently. 3-Partial/Moderate Assistance-helper does LESS THAN HALF the effort. [place] lifts, holds or supports trunk or limbs, but provides less than half the effort. 2-Substantial/Maximal Assistance-helper does MORE THAN HALF the effort. [place] lifts or holds trunk or limbs and provides more than half the effort. 5-Ftuizbjrf-zzbliy does ALL the effort. Patient does none of the effort to complete the activity. Or, the assistance of 2 or more helpers is required for the patient to complete the activity. If activity was not attempted, code reason: 7-Patient Refused. 9-Not Applicable-not attempted and the patient did not perform the activity before the current illness, exacerbation or injury. 10-Not Attempted due to Environmental Limitations-(lack of equipment, weather restraints, etc.). 88-Not Attempted due to Medical Conditions or Safety Concerns. Sit to Lying (QC): 6 Lying to Sitting/Side of Bed(Q: 6 Sit to Stand (QC): 4 Weight Bearing Full Weight Bearing Full Weight Bearing Gait Training Does the Patient Walk?: Yes Distance: 100' x2 Walk 10 feet (QC): 4 Walk 50 ft with 2 Turns(QC): 4 Gait Assistive Device: FWW slow but steady, slumped posture Exercises Standin way Ex=Flex, Abd, Ext, Marching Standing Reps: 30 NuStep Minutes: 15 NuStep Workload: 4 Treatments LE strengthening Assessment Current Status: Good Progress Pt is no longer experiencing "sleeping" feeling in LLE with prolonged standing. Pt able to complete exercises in standing without report of increased symptoms. PT Short Term Goals Short Term Goals Time Frame: May 22, 2020 Roll Left & Right: 4 Sit to lyin Lying to sitting on side of be: 4 Sit to stand: 4 Walk 150 feet: 4 PT Fdc Goals Arc Trimmer Goals PT Arc Trimmer Goals Time Frame: Jun 05, 2020 Roll Left & Right (QC): 6 Sit to Lying (QC): 6 Lying-Sitting on Side/Bed(QC): 6 Sit to Stand (QC): 6 Chair/Zdm-sj-Ejzac Xfer(QC): 6 Toilet Transfer (QC): 6 Car Transfer (QC): 5 Does the Patient Walk: Yes Walk 10 feet (QC): 6 Walk 50ft with 2 Turns (QC): 6 Walk 150 ft (QC): 6 Walking 10ft on Uneven Surface: 6 1 Step (curb) (QC): 5 4 Steps (QC): 5 12 Steps (QC): 9 Picking up an Object (QC): 88 (back precautions prohibit) Does the Pt use WC or Scooter?: No Wheel 50 feet with 2 turns (QC: 9 Wheel 150 feet: 9 PT Plan Problem List Problem List: Activity Tolerance, Functional Strength, Safety, Balance, Gait, Transfer, Bed Mobility, ROM Treatment/Plan Treatment Plan: Continue Plan of Care Treatment Plan: Bed Mobility, Education, Functional Activity [place], Functional Strength, Group Therapy, Gait, Safety, Therapeutic Exercise, Transfers Treatment Duration: Jun 05, 2020 Frequency: At least 5 of 7 days/Wk (IRF) Estimated Hrs Per Day: 1.5 hours per day Patient and/or Family Agrees t: Yes Safety Risks/Education Patient Education: Gait Training, Transfer Techniques, Correct Positioning, Reviewed Don/Doff Brace, Safety Issues Teaching Recipient: Patient Teaching Methods: Demonstration, Discussion Response to Teaching: Reinforcement Needed Time/GCodes Time In: 0800 Time Out: 0900 Total Billed Treatment Time: 60 Total Billed Treatment 1 visit EX 40' FA 20' MAEVE DOWNS PT May 13, 2020 08:54
--- NOTE | 2020-05-13 09:59 | Occupational Ther Daily Note ---
OT Current Status-Daily Note Subjective Pt alert laying in bed when OT entered. Pt agreed to therapy. No c/o pain reported. Mental Status/Objective Patient Orientation: Person, Place, Time, Situation ADL-Treatment Pt agreed to taking shower. Pt supine to EOB, independently. Pt still needs assist to don/doff back brace. Pt then sit-stand from EOB to FWW with CGA. Pt then ambulated to shower bench in bathroom using FWW with CGA. Pt then doffed shirt. PHAM assisted with wrapping wound on back. Pt sit-stand from shower bench using FWW. Pt used dressing stick to thread B feet out of briefs and pants. Pt required shower bench, hand held shower head, grab rails, long handled sponge to complete shower. Pt was able to cleanse upper arms, upper/lower legs, chest, abdomen, elyssa area. Pt requested assist with cleansing buttocks. After shower pt SPT from shower bench to w/c with CGA. Pt required set up by gathering clothing. Pt then reached for shirt on walker and donned independently. Pt reached for briefs and threaded B feet independently using dressing stick. Pt then sit-stand from w/c to FWW and hiked briefs over hips with CGA . Pt able to reach for socks and don independently using sock aid. Pt sit-stand from w/c to FWW with CGA and ambulated to bed. Pt transferred to EOB with CGA. Pt EOB to supine, indep endently. After therapy, pt laying in bed. Call light/phone in reach. All needs met. Therapy Code Descriptions/Definitions Functional [place] Measure: 0=Not Assessed/NA 4=Minimal Assistance 1=Total Assistance 5=Supervision or Setup 2=Maximal Assistance 6=Modified [place] 3=Moderate Assistance 7=Complete IndependenceSCALE: Activities may be completed with or without assistive devices. 5-Vjrostdaeo-jhnjmyl completes the activity by him/herself with no assistance from a helper. 5-Set-up or Clean-up Assistance-helper sets up or cleans up; patient completes activity. [place] assists only prior to or following the activity. 4-Supervision or Touching Assistance-helper provides verbal cues and/or touching/steadying and/or contact guard assistance as patient completes activity. Assistance may be provided throughout the activity or intermittently. 3-Partial/Moderate Assistance-helper does LESS THAN HALF the effort. [place] lifts, holds or supports trunk or limbs, but provides less than half the effort. 2-Substantial/Maximal Assistance-helper does MORE THAN HALF the effort. [place] lifts or holds trunk or limbs and provides more than half the effort. 5-Yiyzcyyxz-agwgtb does ALL the effort. Patient does none of the effort to complete the activity. Or, the assistance of 2 or more helpers is required for the patient to complete the activity. If activity was not attempted, code reason: 7-Patient Refused. 9-Not Applicable-not attempted and the patient did not perform the activity before the current illness, exacerbation or injury. 10-Not Attempted due to Environmental Limitations-(lack of equipment, weather restraints, etc.). 88-Not Attempted due to Medical Conditions or Safety Concerns. Bathing Location: L Arm, R Arm, L Upper Leg, R Upper Leg, L Lower Leg ( including foot), R Lower Leg (including foot), Chest, Abdomen, Perineal Area Shower/Bathe Self (QC): 3 Upper Body Dressing (QC): 5 Lower Body Dressing (QC): 5 On/Off Footwear: 5 OT Short Term Goals Short Term Goals Time Frame: May 15, 2020 Eatin Oral hygiene: 5 Toileting hygiene: 3 Shower/bathe self: 3 Upper body dressin Lower body dressin Putting on/taking off footwear: 3 OT Custodial Goals Custodial Goals Time Frame: May 22, 2020 Eating (QC): 6 Oral Hygiene (QC): 6 Toileting Hygiene (QC): 6 Shower/Bathe Self (QC): 6 (Using AE) Upper Body Dressing (QC): 6 Lower Body Dressing (QC): 6 (Using AE) On/Off Footwear (QC): 6 (Using AE) Additional Goals: 1-Demonstrate ADL Tasks, 2-Verbalize Understanding, 3- ImproveStrength/[place] 1=Demonstrate adherence to instructed precautions during ADL tasks. 2=Patient will verbalize/demonstrate understanding of assistive devices/modifications for ADL. 3=Patient will improve strength/tolerance for activity to enable patient to perform ADL's. OT Education/Plan Problem List/Assessment Assessment: Decreased Activ Tolerance, Impaired Funct Balance, Impaired I ADL's, Impaired Self-Care Skills Discharge Recommendations Plan/Recommendations: Continue POC Treatment Plan/Plan of Care Patient would benefit from OT for education, treatment and training to promote independence in ADL's, mobility, safety and/or upper extremity function for ADL's. Plan of Care: ADL Retraining, Functional Mobility, UE Funct Exercise/Act Treatment Duration: May 22, 2020 Frequency: At least 5 of 7 days/Wk (IRF) Estimated Hrs Per Day: 1.5 hours per day Agreement: Yes Rehab Potential: Good Time/GCodes Start Time: 09:00 Stop Time: 10:00 Total Time Billed (hr/min): 60 Billed Treatment Time 1 visit- ADL 4 (60 mins) MARGUERITE UREÑA May 13, 2020 09:59
--- NOTE | 2020-05-13 12:00 | Physical Therapy Daily Note ---
PT Daily Note-Current Subjective Pt presents supine in bed. Pt agrees to PT. Pt does not complain of pain. Appearance At the conclusion of PT treatment patient returns to bed where he has access to tray, call button, and all needs have been met. Mental Status Patient Orientation: Person, Place, Time, Eyes Open, Situation, Normal For Age Transfers SCALE: Activities may be completed with or without assistive devices. 6-Ebpfiungps-gdqorbm completes the activity by him/herself with no assistance from a helper. 5-Set-up or Clean-up Assistance-helper sets up or cleans up; patient completes activity. [place] assists only prior to or following the activity. 4-Supervision or Touching Assistance-helper provides verbal cues and/or touching/steadying and/or contact guard assistance as patient completes activity. Assistance may be provided throughout the activity or intermittently. 3-Partial/Moderate Assistance-helper does LESS THAN HALF the effort. [place] lifts, holds or supports trunk or limbs, but provides less than half the effort. 2-Substantial/Maximal Assistance-helper does MORE THAN HALF the effort. [place] lifts or holds trunk or limbs and provides more than half the effort. 3-Dzhbyhpja-cfesmx does ALL the effort. Patient does none of the effort to complete the activity. Or, the assistance of 2 or more helpers is required for the patient to complete the activity. If activity was not attempted, code reason: 7-Patient Refused. 9-Not Applicable-not attempted and the patient did not perform the activity befo re the current illness, exacerbation or injury. 10-Not Attempted due to Environmental Limitations-(lack of equipment, weather re straints, etc.). 88-Not Attempted due to Medical Conditions or Safety Concerns. Sit to Lying (QC): 4 (Pt verbally cue to log roll) Lying to Sitting/Side of Bed(Q: 6 Sit to Stand (QC): 4 Car Transfer (QC): 4 Weight Bearing Full Weight Bearing Full Weight Bearing Gait Training Does the Patient Walk?: Yes Distance: 600' Walk 10 feet (QC): 4 Walk 50 ft with 2 Turns(QC): 4 Walk 150 ft (QC): 4 Gait Assistive Device: FWW Forward trunk lean; CGA, needed assist to hold up pants Exercises Standing: Side steps (B 6'x2) Treatments Gait Training Assessment Current Status: Good Progress Pt has improved his ability and endurance with gait. PT Short Term Goals Short Term Goals Time Frame: May 22, 2020 Roll Left & Right: 4 Sit to lyin Lying to sitting on side of be: 4 Sit to stand: 4 Walk 150 feet: 4 PT Detention Goals [facility] [employer] [facility] Goals PT Detention Goals Time Frame: Jun 05, 2020 Roll Left & Right (QC): 6 Sit to Lying (QC): 6 Lying-Sitting on Side/Bed(QC): 6 Sit to Stand (QC): 6 Chair/Rjx-fb-Ajckc Xfer(QC): 6 Toilet Transfer (QC): 6 Car Transfer (QC): 5 Does the Patient Walk: Yes Walk 10 feet (QC): 6 Walk 50ft with 2 Turns (QC): 6 Walk 150 ft (QC): 6 Walking 10ft on Uneven Surface: 6 1 Step (curb) (QC): 5 4 Steps (QC): 5 12 Steps (QC): 9 Picking up an Object (QC): 88 (back precautions prohibit) Does the Pt use WC or Scooter?: No Wheel 50 feet with 2 turns (QC: 9 Wheel 150 feet: 9 PT Plan Problem List Problem List: Activity Tolerance, Functional Strength, Safety, Balance, Gait, Transfer, Bed Mobility, ROM Treatment/Plan Treatment Plan: Continue Plan of Care Treatment Plan: Bed Mobility, Education, Functional Activity [place], Functional Strength, Group Therapy, Gait, Safety, Therapeutic Exercise, Transfers Treatment Duration: Jun 05, 2020 Frequency: At least 5 of 7 days/Wk (IRF) Estimated Hrs Per Day: 1.5 hours per day Patient and/or Family Agrees t: Yes Safety Risks/Education Patient Education: Gait Training, Transfer Techniques, Reviewed Don/Doff Brace, Safety Issues Teaching Recipient: Patient Teaching Methods: Demonstration, Discussion Response to Teaching: Reinforcement Needed Time/GCodes Time In: 1130 Time Out: 1200 Total Billed Treatment Time: 30 Total Billed Treatment 1 visit GT 30' MAEVE DOWNS PT May 13, 2020 12:00
--- NOTE | 2020-05-13 13:57 | Occupational Ther Daily Note ---
OT Current Status-Daily Note Subjective Pt alert, laying in bed when OT entered. Pt agreed to therapy. No c/o pain reported. Mental Status/Objective Patient Orientation: Person, Place, Time, Situation ADL-Treatment Pt supine to EOB independently. Pt still requires assist to don back brace. Pt s it-stand from raised EOB to FWW with CGA. Pt then ambulated to sink in bathroom using FWW with CGA. Pt completed oral hygiene while standing at sink with CGA. Pt ambulates back to bed using FWW, CGA. Pt transferred to EOB with CGA. EOB to supine, independently. Therapy Code Descriptions/Definitions Functional [place] Measure: 0=Not Assessed/NA 4=Minimal Assistance 1=Total Assistance 5=Supervision or Setup 2=Maximal Assistance 6=Modified [place] 3=Moderate Assistance 7=Complete IndependenceSCALE: Activities may be completed with or without assistive devices. 0-Rafoabcfhn-ewrshcl completes the activity by him/herself with no assistance from a helper. 5-Set-up or Clean-up Assistance-helper sets up or cleans up; patient completes activity. [place] assists only prior to or following the activity. 4-Supervision or Touching Assistance-helper provides verbal cues and/or touching/steadying and/or contact guard assistance as patient completes activity. Assistance may be provided throughout the activity or intermittently. 3-Partial/Moderate Assistance-helper does LESS THAN HALF the effort. [place] lifts, holds or supports trunk or limbs, but provides less than half the effort. 2-Substantial/Maximal Assistance-helper does MORE THAN HALF the effort. [place] lifts or holds trunk or limbs and provides more than half the effort. 2-Urxtobdoh-nbolun does ALL the effort. Patient does none of the effort to complete the activity. Or, the assistance of 2 or more helpers is required for the patient to complete the activity. If activity was not attempted, code reason: 7-Patient Refused. 9-Not Applicable-not attempted and the patient did not perform the activity before the current illness, exacerbation or injury. 10-Not Attempted due to Environmental Limitations-(lack of equipment, weather restraints, etc.). 88-Not Attempted due to Medical Conditions or Safety Concerns. Oral Hygiene (QC): 4 Other Treatment Pt then completes 1 set x10 reps of red B UE theraband exercises to strengthen UE for functional task. Pt required skill instruction for exercises, pt able to return demonstration. After therapy, pt laying in bed. Call light/phone in reach. All needs met. Education OT Patient Education: Exercise program Teaching Recipient: Patient Teaching Methods: Demonstration Response to Teaching: Return Demonstration OT Short Term Goals Short Term Goals Time Frame: May 15, 2020 Eatin Oral hygiene: 5 Toileting hygiene: 3 Shower/bathe self: 3 Upper body dressin Lower body dressin Putting on/taking off footwear: 3 OT University Controller Goals [facility] Goals Time Frame: May 22, 2020 Eating (QC): 6 Oral Hygiene (QC): 6 Toileting Hygiene (QC): 6 Shower/Bathe Self (QC): 6 (Using AE) Upper Body Dressing (QC): 6 Lower Body Dressing (QC): 6 (Using AE) On/Off Footwear (QC): 6 (Using AE) Additional Goals: 1-Demonstrate ADL Tasks, 2-Verbalize Understanding, 3- ImproveStrength/[place] 1=Demonstrate adherence to instructed precautions during ADL tasks. 2=Patient will verbalize/demonstrate understanding of assistive d evices/modifications for ADL. 3=Patient will improve strength/tolerance for activity to enable patient to perform ADL's. OT Education/Plan Problem List/Assessment Assessment: Decreased Activ Tolerance, Impaired Funct Balance, Impaired I ADL's, Impaired Self-Care Skills Discharge Recommendations Plan/Recommendations: Continue POC Treatment Plan/Plan of Care Patient would benefit from OT for education, treatment and training to promote independence in ADL's, mobility, safety and/or upper extremity function for ADL's. Plan of Care: ADL Retraining, Functional Mobility, UE Funct Exercise/Act Treatment Duration: May 22, 2020 Frequency: At least 5 of 7 days/Wk (IRF) Estimated Hrs Per Day: 1.5 hours per day Agreement: Yes Rehab Potential: Good Time/GCodes Start Time: 13:00 Stop Time: 13:30 Total Time Billed (hr/min): 30 Billed Treatment Time 1 visit-ADL 1 (20 mins) EX 1(10 mins) MARGUERITE UREÑA May 13, 2020 13:57
--- NOTE | 2020-05-13 15:30 | Cardiology Progress Note ---
Cardiology SOAP Progress Note Subjective: No cardiac complaints. Objective: I&O/Vital Signs 05/13/20 05/13/20 05:46 09:00 Temp 36.8 Pulse 83 Resp 16 B/P (MAP) 158/70 (99) Pulse Ox 96 96 O2 Delivery Room Air Room Air 05/13/20 00:00 Intake Total 1840 ml Output Total 800 ml Balance 1040 ml Constitutional: AAO x 3 Respiratory: chest is bilaterally symmetric, lungs clear to auscultation Cardiovascular: regular rate-rhythm, S1 and S2 Gastrointestional: soft, audible bowel sounds Extremities: pedal edema Neurologic/Psychiatric: no motor/sensory deficits, alert, normal mood/affect, oriented x 3 Skin: normal color A/P: Assessment/Dx: Coronary artery disease Hypertension Anemia Plan: Peripheral edema, improving. Continue on diuretics and monitor Allergic reaction to medication, skin rash. Improving slowly. Coronary artery disease, history of coronary stents in the past, mild elevation in troponin, Type II SD secondary to hypotension and anemia, conservative management and continue to monitor Hypertension, continue to monitor blood pressure Anemia, post surgery, continue to monitor, management per medical service Acute on chronic renal insuf, improving slowly. Continue to monitor Status post Lumbar surgery, continue to monitor High risk for sleep apnea, consider sleep study as an outpatient Thank you for your consultation. Please call me if you have any questions. Jaswant Childs MD, FACP, FACC, FSCAI, FHRS, CCDS Interventional Cardiology Cardiac Electrophysiology Vascular Medicine and Endovascular Interventions Pooja CHILDS MD May 13, 2020 15:30
[2020-05-13 16:12] VITALS: BP 140/63
[2020-05-13] MEDS: diphenhydrAMINE 2% 30 GM CR (ALLERGY CREAM) TOP PRN (20:29)
[2020-05-14 05:18] VITALS: BP 154/65
[2020-05-14] MEDS: ENOXAPARIN 40 MG/0.4 ML (LOVENOX) SYR SC SCH ×2 (05:38→17:47)
[2020-05-14 08:00] VITALS: BP 115/55
--- NOTE | 2020-05-14 08:00 | NUR ---
STATES BETTER MOBILITY. HAS LIFT CHAIR AT HOME, BUT NEEDS A BIGGER WALKER. SON WILL BE STAYING WITH HIM ON DC. RASH GREATLY IMPROVED, AND STATES ONLY CHEST AND ARM PITS ARE ITCHING NOW.
[2020-05-14] MEDS: lisINopril 20 MG (PRINIVIL) TABLET PO SCH (08:16)
[2020-05-14] MEDS: SENNA W/DOCUSATE (SENOKOT S) TABLET PO SCH ×2 (08:17→19:49)
[2020-05-14] MEDS: DOCUSATE SODIUM 100 MG (COLACE) CAP PO SCH ×2 (08:17→19:48)
[2020-05-14] MEDS: polyethylene glycoL POWDER 17 GM (MIRALAX) PACK PO SCH ×2 (08:17→19:49)
--- NOTE | 2020-05-14 09:09 | PM&R Progress Note ---
Subjective HPI/CC On Admission Date Seen by Provider: May 14, 2020 Time Seen by Provider: 09:00 Subjective/Events-last exam 05/14/20: Pt doing pretty well Rash is gone Left hip pain continues but improved Ambulating pretty well DC is planned soon 05/13/20: Pt doing very well No significant issues Walking around well No edema Breathing well 05/12/20: Creatinine 1.38 Bowels are moving Overall doing very well Pain is controlled 05/11/20: Patient doing well Soreness remains but improved leg pain and spasms. Rash is resolving Hydrocodone placed as allergy 05/10/20: Creatinine improved and stable at 1.38 IVF DC today Rash much improved Pain controlled Participating well Patient doing well Rash improved finally. Started IVF gently due to Benadryl dehydrating him and he appeared a bit volume depleted Large stool today No pain except back and legs Slept good last night Checked meds and labs Conferred with RN Reviewed therapy notes Review of Systems General: Fatigue, Malaise Neurological: Weakness rash Objective Exam Vital Signs Vital Signs Date Time Temp Pulse Resp B/P (MAP) Pulse Ox O2 Delivery O2 Flow Rate FiO2 05/14/20 20:00 Room Air 05/14/20 17:26 37.2 83 18 129/62 (84) 97 Capillary Refill : NONEGreater Than 3 Seconds General Appearance: No Apparent Distress, WD/WN, Chronically ill, Obese HEENT: PERRL/EOMI, Normal ENT Inspection, Pharynx Normal Neck: Full Range of Motion, Normal Inspection, Non Tender, Supple, Carotid Bruit Respiratory: Chest Non Tender, Lungs Clear, Normal Breath Sounds, No Accessory Muscle Use, No Respiratory Distress Cardiovascular: Regular Rate, Rhythm, No Gallop, No JVD, No Murmur, Normal Peripheral Pulses Gastrointestinal: Normal Bowel Sounds, No Organomegaly, No Pulsatile Mass, Non Tender, Soft Back: Normal Inspection, No CVA Tenderness, No Vertebral Tenderness Extremity: Normal Capillary Refill, Normal Inspection, Normal Range of Motion, Non Tender, No Calf Tenderness, Pedal Edema Neurologic/Psychiatric: Alert, Oriented x3, No Motor/Sensory Deficits, Normal Mood/Affect, maritime guard II-XII Norm as Tested, Abnormal Gait, Motor Weakness (generalized weakness 4/5 lower extremities) Skin: Normal Color, Warm/Dry, Rash (macular rash torso and legs) Lymphatic: No Adenopathy Results/Procedures Lab Patient resulted labs reviewed. FIM Transfers Therapy Code Descriptions/Definitions Functional [place] Measure: 0=Not Assessed/NA 4=Minimal Assistance 1=Total Assistance 5=Supervision or Setup 2=Maximal Assistance 6=Modified [place] 3=Moderate Assistance 7=Complete IndependenceSCALE: Activities may be completed with or without assistive devices. 2-Hdkgcwsrjp-yijuizf completes the activity by him/herself with no assistance from a helper. 5-Set-up or Clean-up Assistance-helper sets up or cleans up; patient completes activity. [place] assists only prior to or following the activity. 4-Supervision or Touching Assistance-helper provides verbal cues and/or touching/steadying and/or contact guard assistance as patient completes activity. Assistance may be provided throughout the activity or intermittently. 3-Partial/Moderate Assistance-helper does LESS THAN HALF the effort. [place] lifts, holds or supports trunk or limbs, but provides less than half the effort. 2-Substantial/Maximal Assistance-helper does MORE THAN HALF the effort. [place] lifts or holds trunk or limbs and provides more than half the effort. 7-Arhpeguag-zvpehg does ALL the effort. Patient does none of the effort to complete the activity. Or, the assistance of 2 or more helpers is required for the patient to complete the activity. If activity was not attempted, code reason: 7-Patient Refused. 9-Not Applicable-not attempted and the patient did not perform the activity before the current illness, exacerbation or injury. 10-Not Attempted due to Environmental Limitations-(lack of equipment, weather restraints, etc.). 88-Not Attempted due to Medical Conditions or Safety Concerns. Roll Left to Right (QC): 3 Sit to Lying (QC): 4 (Pt verbally cue to log roll) Sit to Stand (QC): 4 Chair/Wsm-ni-Gbjga Xfer(QC): 3 Car Transfer (QC): 4 Gait Training Does the Patient Walk?: Yes Distance: 600' Walk 10 feet (QC): 4 Walk 50 ft with 2 Turns(QC): 4 Walk 150 ft (QC): 4 Walking 10ft/uneven surface-QC: 3 Gait Persons Needed: 1 Gait Assistive Device: FWW Wheelchair Training Wheel 50 ft with 2 turns (QC): 4 Wheel 150 ft (QC): 4 Stair Training 1 Step (curb) (QC): 3 (min assist for balance and safety.) 4 Steps (QC): 88 (unsafe. ) 12 Steps (QC): 88 Balance Picking up an Object (QC): 88 (back precautions limit) ADL-Treatment Eating (QC): 6 (Per pt report) Oral Hygiene (QC): 4 Bathing Location: L Arm, R Arm, L Upper Leg, R Upper Leg, L Lower Leg (including foot), R Lower Leg (including foot), Chest, Abdomen, Perineal Area Shower/Bathe Self (QC): 3 Upper Body Dressing (QC): 5 Lower Body Dressing (QC): 5 On/Off Footwear (QC): 5 Toileting Hygiene (QC): 4 Toilet Transfer (QC): 4 Assessment/Plan Assessment and Plan Assess & Plan/Chief Complaint Assessment: Severe debility from lumbar stenosis surgery Anasarca Severe anemia post op requiring transfusion HTN HLP OMERO non-compliant with CPAP ARF Plan: IRF protocol Rash management O2 monitoring Pain control 05/09/20: IVF Monitor closely Rash improved 05/10/20: HLIVF Elevated lactic acid yesterday was from dehydration no signs of infection Elevated wbc is from steroid effect and no infection noted 05/11/20: Rash resolved Check labs in am Improved 05/12/20: Continue aggressive therapy Monitor kidney function Bowels are moving well 05/13/20: Discharge plan soon Monitor creatinine 05/14/20: Discuss next step in discharge planning Continue aggressive rehab (1) OMERO (obstructive sleep apnea) (2) Allergic drug rash (3) Lumbar radiculopathy (4) Renal failure (ARF), acute on chronic (5) Transfusion of blood during current hospitalization (6) Hypotension (7) Anemia (8) ART Carter DO May 14, 2020 09:09
--- NOTE | 2020-05-14 09:21 | Physical Therapy Daily Note ---
PT Daily Note-Current Subjective Pt. agrees to Rx. States he feels she has had great success with this surgery and has only soreness he rates at 1/10 in his left low back. Pt. shares he has a ramp at home, no steps Pain Numeric Pain Scale: 1 Location: Left Location Body Site: Back (low) Pain Description: Ache Mental Status Patient Orientation: Normal For Age Attachments: Other-See Comments ([place] back brace) Transfers SCALE: Activities may be completed with or without assistive devices. 8-Bjdqjomyye-qlheghq completes the activity by him/herself with no assistance from a helper. 5-Set-up or Clean-up Assistance-helper sets up or cleans up; patient completes activity. [place] assists only prior to or following the activity. 4-Supervision or Touching Assistance-helper provides verbal cues and/or touching/steadying and/or contact guard assistance as patient completes activity. Assistance may be provided throughout the activity or intermittently. 3-Partial/Moderate Assistance-helper does LESS THAN HALF the effort. [place] lifts, holds or supports trunk or limbs, but provides less than half the effort. 2-Substantial/Maximal Assistance-helper does MORE THAN HALF the effort. [place] lifts or holds trunk or limbs and provides more than half the effort. 8-Byonhhfyy-arerjo does ALL the effort. Patient does none of the effort to complete the activity. Or, the assistance of 2 or more helpers is required for the patient to complete the activity. If activity was not attempted, code reason: 7-Patient Refused. 9-Not Applicable-not attempted and the patient did not perform the activity before the current illness, exacerbation or injury. 10-Not Attempted due to Environmental Limitations-(lack of equipment, weather restraints, etc.). 88-Not Attempted due to Medical Conditions or Safety Concerns. Roll Left & Right (QC): 6 Sit to Lying (QC): 6 Lying to Sitting/Side of Bed(Q: 6 Sit to Stand (QC): 6 Chair/Avy-gd-Lzjya Xfer(QC): 6 good log roll technique, Weight Bearing Full Weight Bearing Full Weight Bearing Gait Training Does the Patient Walk?: Yes Walk 10 feet (QC): 5 Walk 50 ft with 2 Turns(QC): 5 Walk 150 ft (QC): 5 Gait Persons Needed: 1 Gait Assistive Device: FWW up down ramp 75 ft SBA, about unit and in room, instructed to be aware of cross overs with turns, pt. heavy wt bearing on FWW, some flexion at trunk, pt. corrected somewhat Wheelchair Training Does the Pt Use a Wheelchair?: Yes Wheel 50 ft with 2 turns (QC): 5 Wheel 150 ft (QC): 5 Type of Wheelchair: Manual instructions in braking, needs assist for leg rest on left Exercises Supine Ex: Ankle pumps, Quad Set, Rolling, Glut sets, Heel Slides, Short Arc Quads, Scooting, Hip abd/add Supine Reps: 15 Seated Therapy Exercises: Ankle pumps, Sit to stand, Long arc quads, Hip flexion Seated Reps: 12 Treatments donned and doffed brace x 3 with instruction for alignment in back as well as anchoring velcro so its easy to find for placement, gait on ramp and even surfaces, log roll sup to sit and LE exercises. Assessment Current Status: Good Progress PT Short Term Goals Short Term Goals Time Frame: May 22, 2020 Roll Left & Right: 4 Sit to lyin Lying to sitting on side of be: 4 Sit to stand: 4 Walk 150 feet: 4 PT C S S Representative Goals C S S Representative Goals PT Detention Goals Time Frame: Jun 05, 2020 Roll Left & Right (QC): 6 Sit to Lying (QC): 6 Lying-Sitting on Side/Bed(QC): 6 Sit to Stand (QC): 6 Chair/Eqh-bu-Aoymt Xfer(QC): 6 Toilet Transfer (QC): 6 Car Transfer (QC): 5 Does the Patient Walk: Yes Walk 10 feet (QC): 6 Walk 50ft with 2 Turns (QC): 6 Walk 150 ft (QC): 6 Walking 10ft on Uneven Surface: 6 1 Step (curb) (QC): 5 4 Steps (QC): 5 12 Steps (QC): 9 Picking up an Object (QC): 88 (back precautions prohibit) Does the Pt use WC or Scooter?: No Wheel 50 feet with 2 turns (QC: 9 Wheel 150 feet: 9 PT Plan Treatment/Plan Treatment Plan: Continue Plan of Care Treatment Plan: Bed Mobility, Education, Functional Activity [place], Functional Strength, Group Therapy, Gait, Safety, Therapeutic Exercise, Transfers Treatment Duration: Jun 05, 2020 Frequency: At least 5 of 7 days/Wk (IRF) Estimated Hrs Per Day: 1.5 hours per day Patient and/or Family Agrees t: Yes Safety Risks/Education Patient Education: Gait Training, Transfer Techniques, Correct Positioning, W/C Management, Disease Process, Safety Issues Teaching Recipient: Patient Teaching Methods: Demonstration, Discussion Response to Teaching: Verbalize Understanding, Return Demonstration, Reinforcement Needed Time/GCodes Time In: 815 Time Out: 920 Total Billed Treatment Time: 65 Total Billed Treatment 1,GT30m,FA20m,EX15m JOSE ANTONIO REHMAN SHIRT FINISHER May 14, 2020 09:21
--- NOTE | 2020-05-14 10:40 | Occupational Ther Daily Note ---
OT Current Status-Daily Note Subjective Pt alert, laying in bed when OT entered. No c/o pain reported. Pt agreed to therapy. Mental Status/Objective Patient Orientation: Person, Place, Time, Situation ADL-Treatment Pt EOB-supine, independently. PHAM assisted with donning back brace. Pt transfer red EOB to FWW with CGA. Pt ambulated to sink for oral hygiene. Physician came in for rounds, pt sat on w/c to be able to communicate with physician. Pt then wheeled to sink and completed oral hygiene independently while sitting in w/c. Pt then request to shave salmon. Sit-stand from w/c to FWW with CGA and begins to ambulate to gym using FWW with CGA. Therapy Code Descriptions/Definitions Functional [place] Measure: 0=Not Assessed/NA 4=Minimal Assistance 1=Total Assistance 5=Supervision or Setup 2=Maximal Assistance 6=Modified [place] 3=Moderate Assistance 7=Complete IndependenceSCALE: Activities may be completed with or without assistive devices. 8-Cwyhxatdtx-jxylntj completes the activity by him/herself with no assistance from a helper. 5-Set-up or Clean-up Assistance-helper sets up or cleans up; patient completes activity. [place] assists only prior to or following the activity. 4-Supervision or Touching Assistance-helper provides verbal cues and/or touching/steadying and/or contact guard assistance as patient completes activity. Assistance may be provided throughout the activity or intermittently. 3-Partial/Moderate Assistance-helper does LESS THAN HALF the effort. [place] lifts, holds or supports trunk or limbs, but provides less than half the effort. 2-Substantial/Maximal Assistance-helper does MORE THAN HALF the effort. [place] lifts or holds trunk or limbs and provides more than half the effort. 2-Wjghfbigk-ryuqtc does ALL the effort. Patient does none of the effort to complete the activity. Or, the assistance of 2 or more helpers is required for the patient to complete the activity. If activity was not attempted, code reason: 7-Patient Refused. 9-Not Applicable-not attempted and the patient did not perform the activity before the current illness, exacerbation or injury. 10-Not Attempted due to Environmental Limitations-(lack of equipment, weather restraints, etc.). 88-Not Attempted due to Medical Conditions or Safety Concerns. Other Treatment Once in gym, pt participated in R UE task while standing with 1 pound weight around each wrist for functional dynamic standing balance. Pt was able to complete 1 set before stating pain. PHAM stopped the activity. Pt then completes 15 mins B UE strengthening task on 25 resistive arm bike for func tional and safe ADL completion. Pt required multiple resting breaks due to fatigue. Pt then ambulates back to room using FWW with CGA. Transfers to EOB with CGA. Pt able to doff back brace independently. After therapy, pt laying in bed. Call light/phone in reach. All needs met. OT Short Term Goals Short Term Goals Time Frame: May 15, 2020 Eatin Oral hygiene: 5 Toileting hygiene: 3 Shower/bathe self: 3 Upper body dressin Lower body dressin Putting on/taking off footwear: 3 OT Half-Way Goals Half-Way Goals Time Frame: May 22, 2020 Eating (QC): 6 Oral Hygiene (QC): 6 Toileting Hygiene (QC): 6 Shower/Bathe Self (QC): 6 (Using AE) Upper Body Dressing (QC): 6 Lower Body Dressing (QC): 6 (Using AE) On/Off Footwear (QC): 6 (Using AE) Additional Goals: 1-Demonstrate ADL Tasks, 2-Verbalize Understanding, 3- ImproveStrength/[place] 1=Demonstrate adherence to instructed precautions during ADL tasks. 2=Patient will verbalize/demonstrate understanding of assistive devices/mo difications for ADL. 3=Patient will improve strength/tolerance for activity to enable patient to perform ADL's. OT Education/Plan Problem List/Assessment Assessment: Decreased UE Strength, Impaired Funct Balance, Impaired I ADL's Discharge Recommendations Plan/Recommendations: Continue POC Treatment Plan/Plan of Care Patient would benefit from OT for education, treatment and training to promote independence in ADL's, mobility, safety and/or upper extremity function for ADL's. Plan of Care: ADL Retraining, Functional Mobility, UE Funct Exercise/Act Treatment Duration: May 22, 2020 Frequency: At least 5 of 7 days/Wk (IRF) Estimated Hrs Per Day: 1.5 hours per day Agreement: Yes Rehab Potential: Good Time/GCodes Start Time: 09:30 Stop Time: 10:30 Total Time Billed (hr/min): 60 Billed Treatment Time 1 visit-ADL 2 (30 min) EX 2 (30 min) MARGUERITE UREÑA May 14, 2020 10:40
--- NOTE | 2020-05-14 14:29 | Therapy Group Daily Note ---
Therapy Daily Group Note Patient Education Topic Home Safety, Exercises Exercises LE Seated Exercise, UE Exercise Session Ratio (pt:therapist): 4:1 Goal of Session: Education on ARU Expectations, Home Safety Strategies, UE/LE Strengthing Goal Met for this Session: Yes Pt Benefit of Group: Contributions to Others, F/U Use of Strategies @Home, Increased Functional Safety, Increased Functional Strength, Recognition of Peers, Socialization Other/Notes Pt ambulated using FWW for OT/PT group. Group consisted of LE/UE seated exercises, ARU description/expectations, and home safety. Pt participated in introduction(name, where you are from, and random question), actively listened to peers.Engaged in seated LE/UE exercises. Pt acknowledged understanding of educational topics by giving own examples. Pt ambulated back to room. After group, pt laying in bed. Call light/phone in reach. All needs met. Start Time: 12:50 Stop Time: 14:15 Total Billed Treatment Time: 85 Total Billed Treatment 1, GRP MARGUERITE UREÑA May 14, 2020 14:29
--- NOTE | 2020-05-14 15:00 | NUR ---
TENTATIVE DC DATE ON . DR. GARNER HAS LIMITED F/U APPOINTMENT DAYS AND APPT. SCHEDULED FOR AT 4:15 PM. BACK INCISION [place] WILL BE REMOVED AT THAT TIME.
--- NOTE | 2020-05-14 17:15 | Cardiology Progress Note ---
Cardiology SOAP Progress Note Subjective: No cardiac complaints. Objective: I&O/Vital Signs 05/14/20 05/14/20 05:18 09:00 Temp 37.4 Pulse 77 Resp 18 B/P (MAP) 154/65 (94) Pulse Ox 93 O2 Delivery Room Air Room Air 05/14/20 00:00 Intake Total 1000 ml Output Total 925 ml Balance 75 ml Constitutional: AAO x 3 Respiratory: chest is bilaterally symmetric, lungs clear to auscultation Cardiovascular: regular rate-rhythm, S1 and S2 Gastrointestional: soft, audible bowel sounds Extremities: pedal edema Neurologic/Psychiatric: no motor/sensory deficits, alert, normal mood/affect, oriented x 3 Skin: normal color A/P: Assessment/Dx: Coronary artery disease Hypertension Anemia Plan: Peripheral edema, improving. Continue on diuretics and monitor Allergic reaction to medication, skin rash. Improving slowly. Coronary artery disease, history of coronary stents in the past, mild elevation in troponin, Type II [place] secondary to hypotension and anemia, conservative management and continue to monitor Hypertension, continue to monitor blood pressure Anemia, post surgery, continue to monitor, management per medical service Acute on chronic renal insuf, improving slowly. Continue to monitor Status post Lumbar surgery, continue to monitor High risk for sleep apnea, consider sleep study as an outpatient Thank you for your consultation. Please call me if you have any questions. Jaswant Childs MD, FACP, FACC, FSCAI, FHRS, CCDS Interventional Cardiology Cardiac Electrophysiology Vascular Medicine and Endovascular Interventions Pooja CHILDS MD May 14, 2020 17:15
[2020-05-14 17:26] VITALS: BP 129/62
[2020-05-14] MEDS: diphenhydrAMINE 25 MG TAB (BENADRYL) PO PRN (20:03)
--- NOTE | 2020-05-15 05:28 | PM&R Progress Note ---
Subjective HPI/CC On Admission Date Seen by Provider: May 15, 2020 Time Seen by Provider: 10:00 Subjective/Events-last exam 05/15/20: Pt doing very well today Discharge is planned for Tuesday Edema is much improved Bowels are moving very well 05/14/20: Pt doing pretty well Rash is gone Left hip pain continues but improved Ambulating pretty well DC is planned soon 05/13/20: Pt doing very well No significant issues Walking around well No edema Breathing well 05/12/20: Creatinine 1.38 Bowels are moving Overall doing very well Pain is controlled 05/11/20: Patient doing well Soreness remains but improved leg pain and spasms. Rash is resolving Hydrocodone placed as allergy 05/10/20: Creatinine improved and stable at 1.38 IVF DC today Rash much improved Pain controlled Participating well Patient doing well Rash improved finally. Started IVF gently due to Benadryl dehydrating him and he appeared a bit volume depleted Large stool today No pain except back and legs Slept good last night Checked meds and labs Conferred with RN Reviewed therapy notes Review of Systems General: Fatigue, Malaise Musculoskeletal: back pain rash Objective Exam Vital Signs Vital Signs Date Time Temp Pulse Resp B/P (MAP) Pulse Ox O2 Delivery O2 Flow Rate FiO2 05/16/20 05:04 36.8 85 18 132/68 (89) 94 Room Air Capillary Refill : NONELess Than 3 Seconds General Appearance: No Apparent Distress, WD/WN, Chronically ill, Obese HEENT: PERRL/EOMI, Normal ENT Inspection, Pharynx Normal Neck: Full Range of Motion, Normal Inspection, Non Tender, Supple, Carotid Bruit Respiratory: Chest Non Tender, Lungs Clear, Normal Breath Sounds, No Accessory Muscle Use, No Respiratory Distress Cardiovascular: Regular Rate, Rhythm, No Gallop, No JVD, No Murmur, Normal Peripheral Pulses Gastrointestinal: Normal Bowel Sounds, No Organomegaly, No Pulsatile Mass, Non Tender, Soft Back: Normal Inspection, No CVA Tenderness, No Vertebral Tenderness Extremity: Normal Capillary Refill, Normal Inspection, Normal Range of Motion, Non Tender, No Calf Tenderness, Pedal Edema Neurologic/Psychiatric: Alert, Oriented x3, No Motor/Sensory Deficits, Normal Mood/Affect, ict systems test 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 FIM Transfers Therapy Code Descriptions/Definitions Functional [place] Measure: 0=Not Assessed/NA 4=Minimal Assistance 1=Total Assistance 5=Supervision or Setup 2=Maximal Assistance 6=Modified [place] 3=Moderate Assistance 7=Complete IndependenceSCALE: Activities may be completed with or without assistive devices. 4-Joggvrfnqc-nfepess completes the activity by him/herself with no assistance from a helper. 5-Set-up or Clean-up Assistance-helper sets up or cleans up; patient completes activity. [place] assists only prior to or following the activity. 4-Supervision or Touching Assistance-helper provides verbal cues and/or touching/steadying and/or contact guard assistance as patient completes activity. Assistance may be provided throughout the activity or intermittently. 3-Partial/Moderate Assistance-helper does LESS THAN HALF the effort. [place] lifts, holds or supports trunk or limbs, but provides less than half the effort. 2-Substantial/Maximal Assistance-helper does MORE THAN HALF the effort. [place] lifts or holds trunk or limbs and provides more than half the effort. 3-Gylhhhoqk-hzzmnx does ALL the effort. Patient does none of the effort to complete the activity. Or, the assistance of 2 or more helpers is required for the patient to complete the activity. If activity was not attempted, code reason: 7-Patient Refused. 9-Not Applicable-not attempted and the patient did not perform the activity before the current illness, exacerbation or injury. 10-Not Attempted due to Environmental Limitations-(lack of equipment, weather restraints, etc.). 88-Not Attempted due to Medical Conditions or Safety Concerns. Roll Left to Right (QC): 6 Sit to Lying (QC): 6 Sit to Stand (QC): 6 Chair/Def-ln-Ejbsk Xfer(QC): 6 Car Transfer (QC): 4 Gait Training Does the Patient Walk?: Yes Distance: 600' Walk 10 feet (QC): 5 Walk 50 ft with 2 Turns(QC): 5 Walk 150 ft (QC): 5 Walking 10ft/uneven surface-QC: 3 Gait Persons Needed: 1 Gait Assistive Device: FWW Wheelchair Training Does the Pt Use a Wheelchair?: Yes Wheel 50 ft with 2 turns (QC): 5 Wheel 150 ft (QC): 5 Type of Wheelchair: Manual Stair Training 1 Step (curb) (QC): 3 (min assist for balance and safety.) 4 Steps (QC): 88 (unsafe. ) 12 Steps (QC): 88 Balance Picking up an Object (QC): 88 (back precautions limit) ADL-Treatment Eating (QC): 6 (Per pt report) Oral Hygiene (QC): 4 Bathing Location: L Arm, R Arm, L Upper Leg, R Upper Leg, L Lower Leg (including foot), R Lower Leg (including foot), Chest, Abdomen, Perineal Area Shower/Bathe Self (QC): 3 Upper Body Dressing (QC): 5 Lower Body Dressing (QC): 5 On/Off Footwear (QC): 5 Toileting Hygiene (QC): 4 Toilet Transfer (QC): 4 Assessment/Plan Assessment and Plan Assess & Plan/Chief Complaint Assessment: Severe debility from lumbar stenosis surgery Anasarca Severe anemia post op requiring transfusion HTN HLP OMERO non-compliant with CPAP ARF Plan: IRF protocol Rash management O2 monitoring Pain control 05/09/20: IVF Monitor closely Rash improved 05/10/20: HLIVF Elevated lactic acid yesterday was from dehydration no signs of infection Elevated wbc is from steroid effect and no infection noted 05/11/20: Rash resolved Check labs in am Improved 05/12/20: Continue aggressive therapy Monitor kidney function Bowels are moving well 05/13/20: Discharge plan soon Monitor creatinine 05/14/20: Discuss next step in discharge planning Continue aggressive rehab 05/15/20: Continue rehab Doing extremely well BM+ (1) OMERO (obstructive sleep apnea) (2) Allergic drug rash (3) Lumbar radiculopathy (4) Renal failure (ARF), acute on chronic (5) Transfusion of blood during current hospitalization (6) Hypotension (7) Anemia (8) ART Carter DO May 15, 2020 05:28
[2020-05-15 05:56] VITALS: BP 153/68
[2020-05-15] MEDS: ENOXAPARIN 40 MG/0.4 ML (LOVENOX) SYR SC SCH ×2 (06:22→17:55)
[2020-05-15] MEDS: SENNA W/DOCUSATE (SENOKOT S) TABLET PO SCH ×3 (08:09→21:33)
[2020-05-15] MEDS: lisINopril 20 MG (PRINIVIL) TABLET PO SCH (08:09)
[2020-05-15] MEDS: DOCUSATE SODIUM 100 MG (COLACE) CAP PO SCH ×2 (09:28→20:27)
[2020-05-15] MEDS: polyethylene glycoL POWDER 17 GM (MIRALAX) PACK PO SCH ×2 (09:28→21:33)
--- NOTE | 2020-05-15 10:06 | Physical Therapy Daily Note ---
PT Daily Note-Current Subjective Pt sitting in recliner upon arrival. Pt agrees to PT. Pain Numeric Pain Scale: 3 Location Body Site: Back Pain Description: Ache Mental Status Attachments: Other-See Comments (Lumbar back brace) Transfers SCALE: Activities may be completed with or without assistive devices. 6-Xywzlbkziq-gujbkev completes the activity by him/herself with no assistance from a helper. 5-Set-up or Clean-up Assistance-helper sets up or cleans up; patient completes activity. [place] assists only prior to or following the activity. 4-Supervision or Touching Assistance-helper provides verbal cues and/or touching/steadying and/or contact guard assistance as patient completes activity. Assistance may be provided throughout the activity or intermittently. 3-Partial/Moderate Assistance-helper does LESS THAN HALF the effort. [place] lifts, holds or supports trunk or limbs, but provides less than half the effort. 2-Substantial/Maximal Assistance-helper does MORE THAN HALF the effort. [place] lifts or holds trunk or limbs and provides more than half the effort. 3-Gblvgbtwk-lryxwk does ALL the effort. Patient does none of the effort to complete the activity. Or, the assistance of 2 or more helpers is required for the patient to complete the activity. If activity was not attempted, code reason: 7-Patient Refused. 9-Not Applicable-not attempted and the patient did not perform the activity before the current illness, exacerbation or injury. 10-Not Attempted due to Environmental Limitations-(lack of equipment, weather restraints, etc.). 88-Not Attempted due to Medical Conditions or Safety Concerns. Sit to Lying (QC): 5 Sit to Stand (QC): 5 Weight Bearing Full Weight Bearing Full Weight Bearing Gait Training Does the Patient Walk?: Yes Distance: 150', 450' Walk 10 feet (QC): 5 Walk 50 ft with 2 Turns(QC): 5 Walk 150 ft (QC): 5 Gait Persons Needed: 1 Gait Assistive Device: FWW Stair Training Stair Training: Handrails/: 2 handrails #of Steps: 4 1 Step (curb) (QC): 5 4 Steps (QC): 4 Stairs: Pattern: Step to Exercises NuStep Minutes: 15 NuStep Workload: 4 Treatments TF to standing then uses BR before amb. in hallway. Pt uses NuStep for 15m at WL 4 and completes Seated Ex then amb. extended distance in hallway. Pt returns to room to rest in bed with all needs met, call light in hand. Assessment Current Status: Good Progress Pt alice. tx well. PT Short Term Goals Short Term Goals Time Frame: May 22, 2020 Roll Left & Right: 4 Sit to lyin Lying to sitting on side of be: 4 Sit to stand: 4 Walk 150 feet: 4 PT Retirement Goals Game Breeding Farm Manager Goals PT Game Breeding Farm Manager Goals Time Frame: Jun 05, 2020 Roll Left & Right (QC): 6 Sit to Lying (QC): 6 Lying-Sitting on Side/Bed(QC): 6 Sit to Stand (QC): 6 Chair/Obl-ac-Nregj Xfer(QC): 6 Toilet Transfer (QC): 6 Car Transfer (QC): 5 Does the Patient Walk: Yes Walk 10 feet (QC): 6 Walk 50ft with 2 Turns (QC): 6 Walk 150 ft (QC): 6 Walking 10ft on Uneven Surface: 6 1 Step (curb) (QC): 5 4 Steps (QC): 5 12 Steps (QC): 9 Picking up an Object (QC): 88 (back precautions prohibit) Does the Pt use WC or Scooter?: No Wheel 50 feet with 2 turns (QC: 9 Wheel 150 feet: 9 PT Plan Problem List Problem List: Activity Tolerance Treatment/Plan Treatment Plan: Continue Plan of Care Treatment Plan: Bed Mobility, Education, Functional Activity [place], Functional Strength, Group Therapy, Gait, Safety, Therapeutic Exercise, Transfers Treatment Duration: Jun 05, 2020 Frequency: At least 5 of 7 days/Wk (IRF) Estimated Hrs Per Day: 1.5 hours per day Patient and/or Family Agrees t: Yes Safety Risks/Education Patient Education: Gait Training, Transfer Techniques, Correct Positioning, Reviewed Don/Doff Brace, Disease Process Teaching Recipient: Patient Teaching Methods: Discussion Response to Teaching: Verbalize Understanding Time/GCodes Time In: 800 Time Out: 900 Total Billed Treatment Time: 60 Total Billed Treatment 1, GT x2 (30m), EX (20m) & FA (10m) SALLY SCHAFER SUPERIOR COURT JUSTICE May 15, 2020 10:06
--- NOTE | 2020-05-15 11:20 | Occupational Ther Daily Note ---
OT Current Status-Daily Note Subjective Pt alert, laying in bed when OT entered. Pt agreed to therapy. No c/o pain reported. Mental Status/Objective Patient Orientation: Person, Place, Time, Situation ADL-Treatment Pt agreed to taking shower. Pt supine-EOB, independently. Pt sit-stand from rais ed EOB to FWW with SBA. Pt ambulated to shower bench using FWW with SBA. Once at shower bench, pt doffed upper body dressing by self. Pt doffed lower body dressing while standing with supervision. Used dressing stick to thread B feet out of lower body dressing and socks. Pt required shower bench, hand held shower, grabbars, long handled sponge to complete shower. PT was able to cleanse B UE, chest, abdomen, upper/lower legs, and elyssa area. Pt was able to reach and cleanse buttocks, but requested assist to cleanse buttocks thoroughly. After shower, pt SPT from shower bench to w/c, SBA. After set up, pt donned shirt by self.Pt required dressing stick to thread B feet into lower body dressing. While standing, pt hiked lower body dressing over hips, SBA. Pt then wheeled to sink and completed oral hygiene sitting, independently. Pt wheeled to bed, SPT from w/c to EOB, SBA. EOB-supine, independently. PHAM assisted donning rasheed wraps due to edema. After therapy, pt laying in bed. Call light/phone in reach. All needs met. Therapy Code Descriptions/Definitions Functional [place] Measure: 0=Not Assessed/NA 4=Minimal Assistance 1=Total Assistance 5=Supervision or Setup 2=Maximal Assistance 6=Modified [place] 3=Moderate Assistance 7=Complete IndependenceSCALE: Activities may be completed with or without assistive devices. 5-Ainlvvhfyo-vacmazm completes the activity by him/herself with no assistance from a helper. 5-Set-up or Clean-up Assistance-helper sets up or cleans up; patient completes activity. [place] assists only prior to or following the activity. 4-Supervision or Touching Assistance-helper provides verbal cues and/or touching/steadying and/or contact guard assistance as patient completes activity. Assistance may be provided throughout the activity or intermittently. 3-Partial/Moderate Assistance-helper does LESS THAN HALF the effort. [place] lifts, holds or supports trunk or limbs, but provides less than half the effort. 2-Substantial/Maximal Assistance-helper does MORE THAN HALF the effort. [place] lifts or holds trunk or limbs and provides more than half the effort. 5-Qyhdeshok-bxhmrq does ALL the effort. Patient does none of the effort to complete the activity. Or, the assistance of 2 or more helpers is required for the patient to complete the activity. If activity was not attempted, code reason: 7-Patient Refused. 9-Not Applicable-not attempted and the patient did not perform the activity b efore the current illness, exacerbation or injury. 10-Not Attempted due to Environmental Limitations-(lack of equipment, weather restraints, etc.). 88-Not Attempted due to Medical Conditions or Safety Concerns. Oral Hygiene (QC): 6 Bathing Location: L Arm, R Arm, L Upper Leg, R Upper Leg, L Lower Leg (including foot), R Lower Leg (including foot), Chest, Abdomen, Perineal Area Shower/Bathe Self (QC): 3 Upper Body Dressing (QC): 5 Lower Body Dressing (QC): 4 On/Off Footwear: 5 OT Short Term Goals Short Term Goals Time Frame: May 15, 2020 Eatin Oral hygiene: 5 Toileting hygiene: 3 Shower/bathe self: 3 Upper body dressin Lower body dressin Putting on/taking off footwear: 3 OT Pump Erector Goals Retirement Goals Time Frame: May 22, 2020 Eating (QC): 6 Oral Hygiene (QC): 6 Toileting Hygiene (QC): 6 Shower/Bathe Self (QC): 6 (Using AE) Upper Body Dressing (QC): 6 Lower Body Dressing (QC): 6 (Using AE) On/Off Footwear (QC): 6 (Using AE) Additional Goals: 1-Demonstrate ADL Tasks, 2-Verbalize Understanding, 3- ImproveStrength/[place] 1=Demonstrate adherence to instructed precautions during ADL tasks. 2=Patient will verbalize/demonstrate understanding of assistive devices/modifications for ADL. 3=Patient will improve strength/tolerance for activity to enable patient to perform ADL's. OT Education/Plan Problem List/Assessment Assessment: Impaired Funct Balance, Impaired I ADL's, Impaired Self-Care Skills Discharge Recommendations Plan/Recommendations: Continue POC Treatment Plan/Plan of Care Patient would benefit from OT for education, treatment and training to promote independence in ADL's, mobility, safety and/or upper extremity function for ADL's. Plan of Care: ADL Retraining, Functional Mobility, UE Funct Exercise/Act Treatment Duration: May 22, 2020 Frequency: At least 5 of 7 days/Wk (IRF) Estimated Hrs Per Day: 1.5 hours per day Agreement: Yes Rehab Potential: Good Time/GCodes Start Time: 10:00 Stop Time: 11:00 Total Time Billed (hr/min): 60 Billed Treatment Time 1 visit-ADL 4 (60 mins) MARGUERITE UREÑA May 15, 2020 11:20
--- NOTE | 2020-05-15 13:43 | NUR ---
CM/SS PATIENT CARE CONFERENCE Reviewed Summary with patient and he is in agreement to a target discharge of 05/20/30. DME: Patient will need an appropriate FWW to his size, he was using one that belonged to his and it is too small. Other recommended items are sock aid, vp software engineering, and tub transfer bench. Patient verbalized concern for out of pocket cost since these are not insurance covered items. HHC: Patient is in agreement to receive RN, PT and OT and understands this will need to be coordinated with an agency licensed in [place]. Will research Medicare Compare for agencies in service area and pursue first available among patient's choices. Tear Down Man will contact patient's son who resides with him to update of discharge and also proposed non-covered assistive devices. Attempted call, no answer, will followup.
--- NOTE | 2020-05-15 13:55 | Physical Therapy Daily Note ---
PT Daily Note-Current Subjective Pt standing with Aide upon arrival. Pt reports needing to use BR and agrees to PT. Mental Status Patient Orientation: Person, Place, Time, Situation Transfers SCALE: Activities may be completed with or without assistive devices. 0-Kcmgppcadv-fjhikib completes the activity by him/herself with no assistance from a helper. 5-Set-up or Clean-up Assistance-helper sets up or cleans up; patient completes activity. [place] assists only prior to or following the activity. 4-Supervision or Touching Assistance-helper provides verbal cues and/or touching/steadying and/or contact guard assistance as patient completes activity. Assistance may be provided throughout the activity or intermittently. 3-Partial/Moderate Assistance-helper does LESS THAN HALF the effort. [place] lifts, holds or supports trunk or limbs, but provides less than half the effort. 2-Substantial/Maximal Assistance-helper does MORE THAN HALF the effort. [place] lifts or holds trunk or limbs and provides more than half the effort. 8-Ouzxtwevz-dbisiv does ALL the effort. Patient does none of the effort to complete the activity. Or, the assistance of 2 or more helpers is required for the patient to complete the activity. If activity was not attempted, code reason: 7-Patient Refused. 9-Not Applicable-not attempted and the patient did not perform the activity before the current illness, exacerbation or injury. 10-Not Attempted due to Environmental Limitations-(lack of equipment, weather restraints, etc.). 88-Not Attempted due to Medical Conditions or Safety Concerns. Sit to Stand (QC): 5 Toilet Transfer (QC): 5 Weight Bearing Full Weight Bearing Full Weight Bearing Gait Training Does the Patient Walk?: Yes Distance: 150' x2 Walk 10 feet (QC): 5 Walk 50 ft with 2 Turns(QC): 5 Walk 150 ft (QC): 5 Gait Persons Needed: 1 Gait Assistive Device: FWW Wheelchair Training Does the Pt Use a Wheelchair?: No Exercises Seated Therapy Exercises: Ankle pumps, Long arc quads, Hip flexion, Kicking activity, Hip abd/add, Glut set Seated Reps: 15 Treatments TF to standing and uses BR before amb. in hallway. Pt completes Seated EX before amb. in hallway. Pt returns to Therapy Gym await OT tx. Assessment Current Status: Good Progress Pt takes occasional RB as needed for fatigue. PT Short Term Goals Short Term Goals Time Frame: May 22, 2020 Roll Left & Right: 4 Sit to lyin Lying to sitting on side of be: 4 Sit to stand: 4 Walk 150 feet: 4 PT Hooker Operator Goals Usp Goals PT Usp Goals Time Frame: Jun 05, 2020 Roll Left & Right (QC): 6 Sit to Lying (QC): 6 Lying-Sitting on Side/Bed(QC): 6 Sit to Stand (QC): 6 Chair/Pty-no-Prtgl Xfer(QC): 6 Toilet Transfer (QC): 6 Car Transfer (QC): 5 Does the Patient Walk: Yes Walk 10 feet (QC): 6 Walk 50ft with 2 Turns (QC): 6 Walk 150 ft (QC): 6 Walking 10ft on Uneven Surface: 6 1 Step (curb) (QC): 5 4 Steps (QC): 5 12 Steps (QC): 9 Picking up an Object (QC): 88 (back precautions prohibit) Does the Pt use WC or Scooter?: No Wheel 50 feet with 2 turns (QC: 9 Wheel 150 feet: 9 PT Plan Problem List Problem List: Activity Tolerance Treatment/Plan Treatment Plan: Continue Plan of Care Treatment Plan: Bed Mobility, Education, Functional Activity [place], Functional Strength, Group Therapy, Gait, Safety, Therapeutic Exercise, Transfers Treatment Duration: Jun 05, 2020 Frequency: At least 5 of 7 days/Wk (IRF) Estimated Hrs Per Day: 1.5 hours per day Patient and/or Family Agrees t: Yes Safety Risks/Education Patient Education: Gait Training, Transfer Techniques, Correct Positioning, Safety Issues Teaching Recipient: Patient Teaching Methods: Discussion Response to Teaching: Verbalize Understanding Time/GCodes Time In: 1300 Time Out: 1330 Total Billed Treatment Time: 30 Total Billed Treatment 1, GT (15m) & EX (15m) SALLY SCHAFER RESOLUTION EXPERT May 15, 2020 13:55
--- NOTE | 2020-05-15 14:23 | Occupational Ther Daily Note ---
OT Current Status-Daily Note Subjective Pt in gym, when OT began therapy. Pt agreed to therapy. No c/o pain reported. Mental Status/Objective Patient Orientation: Person, Place, Time, Situation ADL-Treatment Therapy Code Descriptions/Definitions Functional [place] Measure: 0=Not Assessed/NA 4=Minimal Assistance 1=Total Assistance 5=Supervision or Setup 2=Maximal Assistance 6=Modified [place] 3=Moderate Assistance 7=Complete IndependenceSCALE: Activities may be completed with or without assistive devices. 4-Ylrocgttht-bpeceam completes the activity by him/herself with no assistance from a helper. 5-Set-up or Clean-up Assistance-helper sets up or cleans up; patient completes activity. [place] assists only prior to or following the activity. 4-Supervision or Touching Assistance-helper provides verbal cues and/or touching/steadying and/or contact guard assistance as patient completes activity. Assistance may be provided throughout the activity or intermittently. 3-Partial/Moderate Assistance-helper does LESS THAN HALF the effort. [place] lifts, holds or supports trunk or limbs, but provides less than half the effort. 2-Substantial/Maximal Assistance-helper does MORE THAN HALF the effort. [place] lifts or holds trunk or limbs and provides more than half the effort. 7-Yjgsnbzls-scgcvh does ALL the effort. Patient does none of the effort to complete the activity. Or, the assistance of 2 or more helpers is required for the patient to complete the activity. If activity was not attempted, code reason: 7-Patient Refused. 9-Not Applicable-not attempted and the patient did not perform the activity before the current illness, exacerbation or injury. 10-Not Attempted due to Environmental Limitations-(lack of equipment, weather restraints, etc.). 88-Not Attempted due to Medical Conditions or Safety Concerns. Other Treatment Pt completed 1 sets x10 reps of B wrist supination/pronation exercise wheel with Velcro as resistive and 1 pound weight attached to each wrist for functional ADLs and IADLs. Pt required skilled instruction of task, pt able to return demonstration. Pt then completed 10 mins of B UE strengthening on arm bike at 25 resistive for strengthening UE for daily task. Pt requested resting break due to fatigue. Pt then ambulated back to room using FWW with SBA. Pt transferred to EOB with SBA. EOB-supine, independently. After therapy, pt laying in bed. Call light/phone in reach. All needs met. Education OT Patient Education: Exercise program Teaching Recipient: Patient Teaching Methods: Discussion Response to Teaching: Verbalize Understanding, Return Demonstration OT Short Term Goals Short Term Goals Time Frame: May 15, 2020 Eatin Oral hygiene: 5 Toileting hygiene: 3 Shower/bathe self: 3 Upper body dressin Lower body dressin Putting on/taking off footwear: 3 OT Skilled Nursing Goals Torch Straightener Goals Time Frame: May 22, 2020 Eating (QC): 6 Oral Hygiene (QC): 6 Toileting Hygiene (QC): 6 Shower/Bathe Self (QC): 6 (Using AE) Upper Body Dressing (QC): 6 Lower Body Dressing (QC): 6 (Using AE) On/Off Footwear (QC): 6 (Using AE) Additional Goals: 1-Demonstrate ADL Tasks, 2-Verbalize Understanding, 3- ImproveStrength/[place] 1=Demonstrate adherence to instructed precautions during ADL tasks. 2=Patient will verbalize/demonstrate understanding of assistive devices/modifications for ADL. 3=Patient will improve strength/tolerance for activity to enable patient to perform ADL's. OT Education/Plan Problem List/Assessment Assessment: Decreased UE Strength, Impaired Funct Balance, Impaired I ADL's, Impaired Self-Care Skills Discharge Recommendations Plan/Recommendations: Continue POC Treatment Plan/Plan of Care Patient would benefit from OT for education, treatment and training to promote independence in ADL's, mobility, safety and/or upper extremity function for ADL's. Plan of Care: ADL Retraining, Functional Mobility, UE Funct Exercise/Act Treatment Duration: May 22, 2020 Frequency: At least 5 of 7 days/Wk (IRF) Estimated Hrs Per Day: 1.5 hours per day Agreement: Yes Rehab Potential: Good Time/GCodes Start Time: 13:30 Stop Time: 14:00 Total Time Billed (hr/min): 30 Billed Treatment Time 1 visit, EX 2 (30 mins) MARGUERITE UREÑA May 15, 2020 14:23
--- NOTE | 2020-05-15 15:40 | Cardiology Progress Note ---
Cardiology SOAP Progress Note Subjective: No cardiac complaints. Objective: I&O/Vital Signs 05/15/20 05/15/20 05:56 09:00 Temp 36.6 Pulse 93 Resp 14 B/P (MAP) 153/68 (96) Pulse Ox 96 O2 Delivery Room Air Room Air 05/15/20 00:00 Intake Total 980 ml Output Total 400 ml Balance 580 ml Constitutional: AAO x 3 Respiratory: chest is bilaterally symmetric, lungs clear to auscultation Cardiovascular: regular rate-rhythm, S1 and S2 Gastrointestional: soft, audible bowel sounds Extremities: pedal edema Neurologic/Psychiatric: no motor/sensory deficits, alert, normal mood/affect, oriented x 3 Skin: normal color A/P: Assessment/Dx: Coronary artery disease Hypertension Anemia Plan: Peripheral edema, improving. Continue on diuretics and monitor Allergic reaction to medication, skin rash. Improving slowly. Coronary artery disease, history of coronary stents in the past, mild elevation in troponin, Type II LA secondary to hypotension and anemia, conservative management and continue to monitor Hypertension, continue to monitor blood pressure Anemia, post surgery, continue to monitor, management per medical service Acute on chronic renal insuf, improving slowly. Continue to monitor Status post Lumbar surgery, continue to monitor High risk for sleep apnea, consider sleep study as an outpatient Thank you for your consultation. Please call me if you have any questions. Jaswant Childs MD, FACP, FACC, FSCAI, FHRS, CCDS Interventional Cardiology Cardiac Electrophysiology Vascular Medicine and Endovascular Interventions Pooja CHILDS MD May 15, 2020 15:40
[2020-05-15 17:16] VITALS: BP 134/60
[2020-05-15] MEDS: diphenhydrAMINE 25 MG TAB (BENADRYL) PO PRN (20:26)
[2020-05-16 05:04] VITALS: BP 132/68
[2020-05-16] MEDS: ENOXAPARIN 40 MG/0.4 ML (LOVENOX) SYR SC SCH ×2 (06:12→18:03)
--- NOTE | 2020-05-16 08:57 | Physical Therapy Daily Note ---
PT Daily Note-Current Subjective Pt. up in recliner, agrees to Rx. States he has some pain in left hip/sciatic area at 4/10 Pain Numeric Pain Scale: 4 Location: Left Location Body Site: Hip Pain Description: Ache Mental Status Patient Orientation: Normal For Age Attachments: Other-See Comments (jamshid gamez) Transfers SCALE: Activities may be completed with or without assistive devices. 9-Eeiwnfwkus-lrximet completes the activity by him/herself with no assistance from a helper. 5-Set-up or Clean-up Assistance-helper sets up or cleans up; patient completes activity. [place] assists only prior to or following the activity. 4-Supervision or Touching Assistance-helper provides verbal cues and/or touching/steadying and/or contact guard assistance as patient completes activity. Assistance may be provided throughout the activity or intermittently. 3-Partial/Moderate Assistance-helper does LESS THAN HALF the effort. [place] lifts, holds or supports trunk or limbs, but provides less than half the effort. 2-Substantial/Maximal Assistance-helper does MORE THAN HALF the effort. [place] lifts or holds trunk or limbs and provides more than half the effort. 1-Ygwtlonhe-uyufyc does ALL the effort. Patient does none of the effort to complete the activity. Or, the assistance of 2 or more helpers is required for the patient to complete the activity. If activity was not attempted, code reason: 7-Patient Refused. 9-Not Applicable-not attempted and the patient did not perform the activity before the current illness, exacerbation or injury. 10-Not Attempted due to Environmental Limitations-(lack of equipment, weather restraints, etc.). 88-Not Attempted due to Medical Conditions or Safety Concerns. Roll Left & Right (QC): 6 Sit to Lying (QC): 6 Lying to Sitting/Side of Bed(Q: 6 Sit to Stand (QC): 6 Chair/Nol-bt-Iftty Xfer(QC): 6 good log roll technique consistently Weight Bearing Full Weight Bearing Full Weight Bearing Gait Training Does the Patient Walk?: Yes Walk 10 feet (QC): 6 Walk 50 ft with 2 Turns(QC): 6 Walk 150 ft (QC): 6 Gait Persons Needed: 1 Gait Assistive Device: FWW continues with heavy wt bearing on FWW and slight flexion at trunk . no LOB, instructed to maintain wider EUGENIA jemma at turns as pt crosses over at times Exercises Supine Ex: Ankle pumps, Quad Set, Rolling, Glut sets, Heel Slides, Short Arc Quads, Scooting, Hip abd/add Supine Reps: 20 Seated Therapy Exercises: Ankle pumps, Sit to stand, Long arc quads, Hip abd/add Seated Reps: 12 NuStep Minutes: 10 NuStep Workload: 5 Treatments nustep for general warm up, back relaxation and then leg presses on nustep x 12, pt. and nursing asked to have pt. walk in to bathroom for urination( with or without urinal for measuring )etc vs using urinal at bed Assessment Current Status: Good Progress PT Short Term Goals Short Term Goals Time Frame: May 22, 2020 Roll Left & Right: 4 Sit to lyin Lying to sitting on side of be: 4 Sit to stand: 4 Walk 150 feet: 4 PT Human Resources Manager Goals [facility] Goals PT Human Resources Manager Goals Time Frame: Jun 05, 2020 Roll Left & Right (QC): 6 Sit to Lying (QC): 6 Lying-Sitting on Side/Bed(QC): 6 Sit to Stand (QC): 6 Chair/Jgi-pr-Zbbuv Xfer(QC): 6 Toilet Transfer (QC): 6 Car Transfer (QC): 5 Does the Patient Walk: Yes Walk 10 feet (QC): 6 Walk 50ft with 2 Turns (QC): 6 Walk 150 ft (QC): 6 Walking 10ft on Uneven Surface: 6 1 Step (curb) (QC): 5 4 Steps (QC): 5 12 Steps (QC): 9 Picking up an Object (QC): 88 (back precautions prohibit) Does the Pt use WC or Scooter?: No Wheel 50 feet with 2 turns (QC: 9 Wheel 150 feet: 9 PT Plan Treatment/Plan Treatment Plan: Continue Plan of Care Treatment Plan: Bed Mobility, Education, Functional Activity [place], Functional Strength, Group Therapy, Gait, Safety, Therapeutic Exercise, Transfers Treatment Duration: Jun 05, 2020 Frequency: At least 5 of 7 days/Wk (IRF) Estimated Hrs Per Day: 1.5 hours per day Patient and/or Family Agrees t: Yes Safety Risks/Education Patient Education: Gait Training, Transfer Techniques, Correct Positioning, Disease Process, Safety Issues Teaching Recipient: Patient Teaching Methods: Demonstration, Discussion Response to Teaching: Verbalize Understanding, Return Demonstration, Reinforcement Needed Time/GCodes Time In: 800 Time Out: 900 Total Billed Treatment Time: 60 Total Billed Treatment 1,EX35m,FA10m,GT15m JOSE ANTOINO REHMAN CAVALRY OFFICER May 16, 2020 08:57
[2020-05-16] MEDS: polyethylene glycoL POWDER 17 GM (MIRALAX) PACK PO SCH ×2 (09:00→16:09)
[2020-05-16] MEDS: DOCUSATE SODIUM 100 MG (COLACE) CAP PO SCH ×2 (09:33→20:50)
[2020-05-16] MEDS: SENNA W/DOCUSATE (SENOKOT S) TABLET PO SCH ×2 (09:33→20:51)
[2020-05-16] MEDS: lisINopril 20 MG (PRINIVIL) TABLET PO SCH (09:33)
--- NOTE | 2020-05-16 09:56 | PM&R Progress Note ---
Subjective HPI/CC On Admission Date Seen by Provider: May 16, 2020 Time Seen by Provider: 10:00 Subjective/Events-last exam 05/16/20: Home meds will be restarted. Feels better since no home meds though NO BM for 2 days so will take all laxatives DC Tuesday05/15/20: Pt doing very well today Discharge is planned for Tuesday Edema is much improved Bowels are moving very well 05/14/20: Pt doing pretty well Rash is gone Left hip pain continues but improved Ambulating pretty well DC is planned soon 05/13/20: Pt doing very well No significant issues Walking around well No edema Breathing well 05/12/20: Creatinine 1.38 Bowels are moving Overall doing very well Pain is controlled 05/11/20: Patient doing well Soreness remains but improved leg pain and spasms. Rash is resolving Hydrocodone placed as allergy 05/10/20: Creatinine improved and stable at 1.38 IVF DC today Rash much improved Pain controlled Participating well Patient doing well Rash improved finally. Started IVF gently due to Benadryl dehydrating him and he appeared a bit volume depleted Large stool today No pain except back and legs Slept good last night Checked meds and labs Conferred with RN Reviewed therapy notes Review of Systems Gastrointestinal: Constipation Musculoskeletal: back pain rash Objective Exam Vital Signs Vital Signs Date Time Temp Pulse Resp B/P (MAP) Pulse Ox O2 Delivery O2 Flow Rate FiO2 05/17/20 05:13 37.1 87 18 134/63 (86) 97 Room Air Capillary Refill : NONELess Than 3 Seconds General Appearance: No Apparent Distress, WD/WN, Chronically ill, Obese HEENT: PERRL/EOMI, Normal ENT Inspection, Pharynx Normal Neck: Full Range of Motion, Normal Inspection, Non Tender, Supple, Carotid Bruit Respiratory: Chest Non Tender, Lungs Clear, Normal Breath Sounds, No Accessory Muscle Use, No Respiratory Distress Cardiovascular: Regular Rate, Rhythm, No Gallop, No JVD, No Murmur, Normal Peripheral Pulses Gastrointestinal: Normal Bowel Sounds, No Organomegaly, No Pulsatile Mass, Non Tender, Soft Back: Normal Inspection, No CVA Tenderness, No Vertebral Tenderness Extremity: Normal Capillary Refill, Normal Inspection, Normal Range of Motion, Non Tender, No Calf Tenderness, Pedal Edema Neurologic/Psychiatric: Alert, Oriented x3, No Motor/Sensory Deficits, Normal Mood/Affect, family medicine chair II-XII Norm as Tested, Abnormal Gait, Motor Weakness (generalized weakness 4/5 lower extremities) Skin: Normal Color, Warm/Dry, Rash (macular rash torso and legs) Lymphatic: No Adenopathy Results/Procedures Lab Patient resulted labs reviewed. FIM Transfers Therapy Code Descriptions/Definitions Functional [place] Measure: 0=Not Assessed/NA 4=Minimal Assistance 1=Total Assistance 5=Supervision or Setup 2=Maximal Assistance 6=Modified [place] 3=Moderate Assistance 7=Complete IndependenceSCALE: Activities may be completed with or without assistive devices. 4-Cybrsomtqr-tdbstff completes the activity by him/herself with no assistance from a helper. 5-Set-up or Clean-up Assistance-helper sets up or cleans up; patient completes activity. [place] assists only prior to or following the activity. 4-Supervision or Touching Assistance-helper provides verbal cues and/or touching/steadying and/or contact guard assistance as patient completes activity. Assistance may be provided throughout the activity or intermittently. 3-Partial/Moderate Assistance-helper does LESS THAN HALF the effort. [place] lifts, holds or supports trunk or limbs, but provides less than half the effort. 2-Substantial/Maximal Assistance-helper does MORE THAN HALF the effort. [place] lifts or holds trunk or limbs and provides more than half the effort. 2-Nefjwjocb-mbrkwp does ALL the effort. Patient does none of the effort to complete the activity. Or, the assistance of 2 or more helpers is required for the patient to complete the activity. If activity was not attempted, code reason: 7-Patient Refused. 9-Not Applicable-not attempted and the patient did not perform the activity before the current illness, exacerbation or injury. 10-Not Attempted due to Environmental Limitations-(lack of equipment, weather restraints, etc.). 88-Not Attempted due to Medical Conditions or Safety Concerns. Roll Left to Right (QC): 6 Sit to Lying (QC): 6 Sit to Stand (QC): 6 Chair/Bad-jv-Lwaza Xfer(QC): 6 Car Transfer (QC): 4 Gait Training Does the Patient Walk?: Yes Distance: 150' x2 Walk 10 feet (QC): 6 Walk 50 ft with 2 Turns(QC): 6 Walk 150 ft (QC): 6 Walking 10ft/uneven surface-QC: 3 Gait Persons Needed: 1 Gait Assistive Device: FWW Wheelchair Training Does the Pt Use a Wheelchair?: No Wheel 50 ft with 2 turns (QC): 5 Wheel 150 ft (QC): 5 Type of Wheelchair: Manual Stair Training Stair Training: Handrails/: 2 handrails #of Steps: 4 1 Step (curb) (QC): 5 4 Steps (QC): 4 12 Steps (QC): 88 Stairs: Pattern: Step to Balance Picking up an Object (QC): 88 (back precautions limit) ADL-Treatment Eating (QC): 6 (Per pt report) Oral Hygiene (QC): 6 Bathing Location: L Arm, R Arm, L Upper Leg, R Upper Leg, L Lower Leg (including foot), R Lower Leg (including foot), Chest, Abdomen, Perineal Area Shower/Bathe Self (QC): 3 Upper Body Dressing (QC): 5 Lower Body Dressing (QC): 4 On/Off Footwear (QC): 5 Toileting Hygiene (QC): 4 Toilet Transfer (QC): 4 Assessment/Plan Assessment and Plan Assess & Plan/Chief Complaint Assessment: Severe debility from lumbar stenosis surgery Anasarca Severe anemia post op requiring transfusion HTN HLP OMERO non-compliant with CPAP ARF Plan: IRF protocol Rash management O2 monitoring Pain control 05/09/20: IVF Monitor closely Rash improved 05/10/20: HLIVF Elevated lactic acid yesterday was from dehydration no signs of infection Elevated wbc is from steroid effect and no infection noted 05/11/20: Rash resolved Check labs in am Improved 05/12/20: Continue aggressive therapy Monitor kidney function Bowels are moving well 05/13/20: Discharge plan soon Monitor creatinine 05/14/20: Discuss next step in discharge planning Continue aggressive rehab 05/15/20: Continue rehab Doing extremely well BM+ 05/16/20: Laxatives Home meds DC Tuesday (1) OMERO (obstructive sleep apnea) (2) Allergic drug rash (3) Lumbar radiculopathy (4) Renal failure (ARF), acute on chronic (5) Transfusion of blood during current hospitalization (6) Hypotension (7) Anemia (8) ART Carter DO May 16, 2020 09:56
--- NOTE | 2020-05-16 11:50 | Occupational Ther Daily Note ---
OT Current Status-Daily Note Subjective Pt alert, laying in bed when OT entered. Pt agreed to therapy. No c/o pain reported. Mental Status/Objective Patient Orientation: Person, Place, Time, Situation ADL-Treatment Pt supine to EOB, independently. Pt was able to don/doff back brace by self afte r handing it to pt. Transferred from EOB to FWW with SBA and ambulated using FWW to sink in bathroom, SBA. Pt then sat at w/c and completed oral hygiene independently while sitting. Pt then requested to shave salmon. After set up of materials required, pt was able to complete independently while sitting in w/c. Once back in room pt was educated on energy conservation techniques once he is discharged home. Pt was able to acknowledge understanding of educational topics by sharing his own thoughts and ideas. Pt then stated he needed to use the restroom. Pt ambulated to bathroom using with SBA and transferred to toilet, SBA. Completed toilet hygiene with SBA and ambulated back to bed using FWW, SBA. Transferred to EOB, SBA. EOB-supine independently. After therapy, pt laying in bed. Call light/phone in reach, all needs met. Therapy Code Descriptions/Definitions Functional [place] Measure: 0=Not Assessed/NA 4=Minimal Assistance 1=Total Assistance 5=Supervision or Setup 2=Maximal Assistance 6=Modified [place] 3=Moderate Assistance 7=Complete IndependenceSCALE: Activities may be completed with or without assistive devices. 4-Kkxevyootr-dycetwt completes the activity by him/herself with no assistance from a helper. 5-Set-up or Clean-up Assistance-helper sets up or cleans up; patient completes activity. [place] assists only prior to or following the activity. 4-Supervision or Touching Assistance-helper provides verbal cues and/or touching/steadying and/or contact guard assistance as patient completes activity. Assistance may be provided throughout the activity or intermittently. 3-Partial/Moderate Assistance-helper does LESS THAN HALF the effort. [place] lifts, holds or supports trunk or limbs, but provides less than half the effort. 2-Substantial/Maximal Assistance-helper does MORE THAN HALF the effort. [place] lifts or holds trunk or limbs and provides more than half the effort. 3-Kllpwedqg-qkrfvq does ALL the effort. Patient does none of the effort to complete the activity. Or, the assistance of 2 or more helpers is required for the patient to complete the activity. If activity was not attempted, code reason: 7-Patient Refused. 9-Not Applicable-not attempted and the patient did not perform the activity before the current illness, exacerbation or injury. 10-Not Attempted due to Environmental Limitations-(lack of equipment, weather restraints, etc.). 88-Not Attempted due to Medical Conditions or Safety Concerns. Oral Hygiene (QC): 6 Other Treatment Pt ambulated from room to elevators with SBA to strengthen UE for functional and safe mobility . Pt requested resting break while in elevator. Sit-stand from w/c to FWW, SBA and ambulated to cafeteria of [facility]. Pt then transferred to w/c and wheeled himself to outside area for functional w/c mobility. Pt had to propel himself through doorways and sloping surfaces. Pt ambulated back to room using FWW with SBA. Once back in room, pt completed 1 set x10 reps of red theraband exercises to strengthen UE for daily task. Education OT Patient Education: Energy conservation, Exercise program, Modified ADL techniques Teaching Recipient: Patient Teaching Methods: Demonstration, Handout, Discussion OT Short Term Goals Short Term Goals Time Frame: May 15, 2020 Eatin Oral hygiene: 5 Toileting hygiene: 3 Shower/bathe self: 3 Upper body dressin Lower body dressin Putting on/taking off footwear: 3 OT Experimental Flight Test Mechanic Goals M[facility] Goals Time Frame: May 22, 2020 Eating (QC): 6 Oral Hygiene (QC): 6 Toileting Hygiene (QC): 6 Shower/Bathe Self (QC): 6 (Using AE) Upper Body Dressing (QC): 6 Lower Body Dressing (QC): 6 (Using AE) On/Off Footwear (QC): 6 (Using AE) Additional Goals: 1-Demonstrate ADL Tasks, 2-Verbalize Understanding, 3- ImproveStrength/[place] 1=Demonstrate adherence to instructed precautions during ADL tasks. 2=Patient will verbalize/demonstrate understanding of assistive devices/modifications for ADL. 3=Patient will improve strength/tolerance for activity to enable patient to perform ADL's. OT Education/Plan Problem List/Assessment Assessment: Decreased Activ Tolerance, Decreased UE Strength, Impaired Funct Balance, Impaired I ADL's, Impaired Self-Care Skills Discharge Recommendations Plan/Recommendations: Continue POC Treatment Plan/Plan of Care Patient would benefit from OT for education, treatment and training to promote independence in ADL's, mobility, safety and/or upper extremity function for ADL's. Plan of Care: ADL Retraining, Functional Mobility, UE Funct Exercise/Act Treatment Duration: May 22, 2020 Frequency: At least 5 of 7 days/Wk (IRF) Estimated Hrs Per Day: 1.5 hours per day Agreement: Yes Rehab Potential: Good Time/GCodes Start Time: 10:00 Stop Time: 11:30 Total Time Billed (hr/min): 90 Billed Treatment Time 1 visit - ADL 2 (25 mins) EX 3 (45 mins) FA 1 (20 mins) MARGUERITE UREÑA May 16, 2020 11:50
--- NOTE | 2020-05-16 13:24 | Physical Therapy Daily Note ---
PT Daily Note-Current Subjective Pt.up in recliner, states he has been walking in to the bathroom now to urinate and all is going well. Pt. states walking is the thing that makes him feel the best and thinks it is helping his strength the most. Pain Location: No Pain Reported Mental Status Patient Orientation: Normal For Age Attachments: Other-See Comments (aspen lumbar brace and mask out of room) Transfers SCALE: Activities may be completed with or without assistive devices. 6-Nsjywsdzbo-ccaacgv completes the activity by him/herself with no assistance from a helper. 5-Set-up or Clean-up Assistance-helper sets up or cleans up; patient completes activity. [place] assists only prior to or following the activity. 4-Supervision or Touching Assistance-helper provides verbal cues and/or touching/steadying and/or contact guard assistance as patient completes activity. Assistance may be provided throughout the activity or intermittently. 3-Partial/Moderate Assistance-helper does LESS THAN HALF the effort. [place] lifts, holds or supports trunk or limbs, but provides less than half the effort. 2-Substantial/Maximal Assistance-helper does MORE THAN HALF the effort. [place] lifts or holds trunk or limbs and provides more than half the effort. 6-Fgpluaevl-pcmswz does ALL the effort. Patient does none of the effort to complete the activity. Or, the assistance of 2 or more helpers is required for the patient to complete the activity. If activity was not attempted, code reason: 7-Patient Refused. 9-Not Applicable-not attempted and the patient did not perform the activity before the current illness, exacerbation or injury. 10-Not Attempted due to Environmental Limitations-(lack of equipment, weather restraints, etc.). 88-Not Attempted due to Medical Conditions or Safety Concerns. Sit to Stand (QC): 6 Chair/Tam-vq-Jsadl Xfer(QC): 6 bed and chair TRF all SBA to Mod I Weight Bearing Full Weight Bearing Full Weight Bearing Gait Training Does the Patient Walk?: Yes Walk 10 feet (QC): 6 Walk 50 ft with 2 Turns(QC): 6 Walk 150 ft (QC): 6 Gait Persons Needed: 1 Gait Assistive Device: FWW 450ft, 300ft SBA no LOB, moderate amt weight on FWW, flexed at trunk, cued to attempt improved alignment Exercises Seated Therapy Exercises: Ankle pumps, Sit to stand, Long arc quads, Hip flexion, Hip abd/add Seated Reps: 12 Assessment Current Status: Good Progress PT Short Term Goals Short Term Goals Time Frame: May 22, 2020 Roll Left & Right: 4 Sit to lyin Lying to sitting on side of be: 4 Sit to stand: 4 Walk 150 feet: 4 PT [facility] Goals Awake Overnight Counselor Goals PT Awake Overnight Counselor Goals Time Frame: Jun 05, 2020 Roll Left & Right (QC): 6 Sit to Lying (QC): 6 Lying-Sitting on Side/Bed(QC): 6 Sit to Stand (QC): 6 Chair/Ziu-ck-Hbacd Xfer(QC): 6 Toilet Transfer (QC): 6 Car Transfer (QC): 5 Does the Patient Walk: Yes Walk 10 feet (QC): 6 Walk 50ft with 2 Turns (QC): 6 Walk 150 ft (QC): 6 Walking 10ft on Uneven Surface: 6 1 Step (curb) (QC): 5 4 Steps (QC): 5 12 Steps (QC): 9 Picking up an Object (QC): 88 (back precautions prohibit) Does the Pt use WC or Scooter?: No Wheel 50 feet with 2 turns (QC: 9 Wheel 150 feet: 9 PT Plan Treatment/Plan Treatment Plan: Continue Plan of Care Treatment Plan: Bed Mobility, Education, Functional Activity [place], Functional Strength, Group Therapy, Gait, Safety, Therapeutic Exercise, Transfers Treatment Duration: Jun 05, 2020 Frequency: At least 5 of 7 days/Wk (IRF) Estimated Hrs Per Day: 1.5 hours per day Patient and/or Family Agrees t: Yes Safety Risks/Education Patient Education: Gait Training, Transfer Techniques, Correct Positioning, Disease Process, Safety Issues Teaching Recipient: Patient Teaching Methods: Demonstration, Discussion Response to Teaching: Verbalize Understanding, Return Demonstration, Re inforcement Needed Time/GCodes Time In: 1300 Time Out: 1330 Total Billed Treatment Time: 30 Total Billed Treatment 1,GT30m JOSE ANTONIO [employer] INSURANCE AGENT May 16, 2020 13:24
--- NOTE | 2020-05-16 14:48 | NUR ---
"RD ASSESSMENT PMHx: COPD; hypercholesterolemia; HTN; renal failure PT INTERACTION: Pt was awake and pleasant during nutrition follow-up. Pt states he has been eating okay since last assessment. Note avg PO intake 52% x4d, per chart review. Pt states he usually eats a big breakfast, and doesn't eat much during lunch or dinner. Pt states no issues with nausea, vomiting, constipation, or diarrhea since last assessment. Note last BM was 05/14, and pt currently on bowel regimen of colace BID; senna BID; and miralax BID, per chart review. ABNORMAL NUTRITION-RELATED LAB VALUES LOW: Ca 7.9; Pro 5.; alb 2.8 HIGH: cr 1.37 Est. kcal needs: 2100 kcal | 15 kcal/kg Est. Pro needs: 113 g Pro | 0.8 g Pro/kg PES STATEMENT: Inadequate oral intake (NI-2.1) related to loss of appetite as evidenced by pt interview | avg PO intake 52% x4d INTERVENTION: Continue with current diet order of Heart Healthy diet. Pt may benefit from nutrition supplementation if PO intake declines. Will continue to follow and reassess as pt needs, intake, and status change. Octaviano Robins, MS, RD, LD"
--- NOTE | 2020-05-16 15:12 | Cardiology Progress Note ---
Cardiology SOAP Progress Note Subjective: No cardiac complaints. Objective: I&O/Vital Signs 05/16/20 05/16/20 05:04 09:00 Temp 36.8 Pulse 85 Resp 18 B/P (MAP) 132/68 (89) Pulse Ox 94 O2 Delivery Room Air Room Air 05/16/20 00:00 Intake Total 1140 ml Output Total 1225 ml Balance -85 ml Constitutional: AAO x 3 Respiratory: chest is bilaterally symmetric, lungs clear to auscultation Cardiovascular: regular rate-rhythm, S1 and S2 Gastrointestional: soft, audible bowel sounds Extremities: pedal edema Neurologic/Psychiatric: no motor/sensory deficits, alert, normal mood/affect, oriented x 3 Skin: normal color A/P: Assessment/Dx: Coronary artery disease Hypertension Anemia Plan: Peripheral edema, improving. Continue on diuretics and monitor Allergic reaction to medication, skin rash. Improving slowly. Coronary artery disease, history of coronary stents in the past, mild elevation in troponin, Type II MA secondary to hypotension and anemia, conservative management and continue to monitor Hypertension, continue to monitor blood pressure Anemia, post surgery, continue to monitor, management per medical service Acute on chronic renal insuf, improving slowly. Continue to monitor Status post Lumbar surgery, continue to monitor High risk for sleep apnea, consider sleep study as an outpatient Thank you for your consultation. Please call me if you have any questions. Jaswant Childs MD, FACP, FACC, FSCAI, FHRS, CCDS Interventional Cardiology Cardiac Electrophysiology Vascular Medicine and Endovascular Interventions Pooja CHILDS MD May 16, 2020 15:12
[2020-05-16 16:02] VITALS: BP 136/63
--- NOTE | 2020-05-16 19:06 | NUR ---
bedside report received from ELLEN MARMOLEJO, assume care of pt
--- NOTE | 2020-05-16 20:15 | NUR ---
pt had large formed brown BM, states feel so much better
--- NOTE | 2020-05-16 20:50 | NUR ---
pt took Colace, refused Senokot & miralax
[2020-05-16] MEDS: diphenhydrAMINE 25 MG TAB (BENADRYL) PO PRN (20:51)
[2020-05-17 05:13] VITALS: BP 134/63
[2020-05-17] MEDS: ENOXAPARIN 40 MG/0.4 ML (LOVENOX) SYR SC SCH ×2 (06:09→17:57)
--- NOTE | 2020-05-17 06:29 | PM&R Progress Note ---
Subjective HPI/CC On Admission Date Seen by Provider: May 17, 2020 Time Seen by Provider: 12:30 Subjective/Events-last exam 05/17/20: BM x 3 after laxatives Metoprolol restarted Home meds restarted and tolerated 05/16/20: Home meds will be restarted. Feels better since no home meds though NO BM for 2 days so will take all laxatives DC Tuesday05/15/20: Pt doing very well today Discharge is planned for Tuesday Edema is much improved Bowels are moving very well 05/14/20: Pt doing pretty well Rash is gone Left hip pain continues but improved Ambulating pretty well DC is planned soon 05/13/20: Pt doing very well No significant issues Walking around well No edema Breathing well 05/12/20: Creatinine 1.38 Bowels are moving Overall doing very well Pain is controlled 05/11/20: Patient doing well Soreness remains but improved leg pain and spasms. Rash is resolving Hydrocodone placed as allergy 05/10/20: Creatinine improved and stable at 1.38 IVF DC today Rash much improved Pain controlled Participating well Patient doing well Rash improved finally. Started IVF gently due to Benadryl dehydrating him and he appeared a bit volume depleted Large stool today No pain except back and legs Slept good last night Checked meds and labs Conferred with RN Reviewed therapy notes Review of Systems General: Fatigue, Malaise Musculoskeletal: back pain rash Objective Exam Vital Signs Vital Signs Date Time Temp Pulse Resp B/P (MAP) Pulse Ox O2 Delivery O2 Flow Rate FiO2 05/18/20 05:15 36.6 86 20 133/64 (87) 97 Room Air Capillary Refill : NONELess Than 3 Seconds General Appearance: No Apparent Distress, WD/WN, Chronically ill, Obese HEENT: PERRL/EOMI, Normal ENT Inspection, Pharynx Normal Neck: Full Range of Motion, Normal Inspection, Non Tender, Supple, Carotid Bruit Respiratory: Chest Non Tender, Lungs Clear, Normal Breath Sounds, No Accessory Muscle Use, No Respiratory Distress Cardiovascular: Regular Rate, Rhythm, No Gallop, No JVD, No Murmur, Normal Peripheral Pulses Gastrointestinal: Normal Bowel Sounds, No Organomegaly, No Pulsatile Mass, Non Tender, Soft Back: Normal Inspection, No CVA Tenderness, No Vertebral Tenderness Extremity: Normal Capillary Refill, Normal Inspection, Normal Range of Motion, Non Tender, No Calf Tenderness, Pedal Edema Neurologic/Psychiatric: Alert, Oriented x3, No Motor/Sensory Deficits, Normal Mood/Affect, home care specialist II-XII Norm as Tested, Abnormal Gait, Motor Weakness (generalized weakness 4/5 lower extremities) Skin: Normal Color, Warm/Dry, Rash (macular rash torso and legs) Lymphatic: No Adenopathy Results/Procedures Lab Patient resulted labs reviewed. FIM Transfers Therapy Code Descriptions/Definitions Functional [place] Measure: 0=Not Assessed/NA 4=Minimal Assistance 1=Total Assistance 5=Supervision or Setup 2=Maximal Assistance 6=Modified [place] 3=Moderate Assistance 7=Complete IndependenceSCALE: Activities may be completed with or without assistive devices. 4-Mhbyjhjajz-trgriua completes the activity by him/herself with no assistance from a helper. 5-Set-up or Clean-up Assistance-helper sets up or cleans up; patient completes activity. [place] assists only prior to or following the activity. 4-Supervision or Touching Assistance-helper provides verbal cues and/or touching/steadying and/or contact guard assistance as patient completes activity. Assistance may be provided throughout the activity or intermittently. 3-Partial/Moderate Assistance-helper does LESS THAN HALF the effort. [place] lifts, holds or supports trunk or limbs, but provides less than half the effort. 2-Substantial/Maximal Assistance-helper does MORE THAN HALF the effort. [place] lifts or holds trunk or limbs and provides more than half the effort. 7-Lapktkabx-hvfgbc does ALL the effort. Patient does none of the effort to complete the activity. Or, the assistance of 2 or more helpers is required for the patient to complete the activity. If activity was not attempted, code reason: 7-Patient Refused. 9-Not Applicable-not attempted and the patient did not perform the activity before the current illness, exacerbation or injury. 10-Not Attempted due to Environmental Limitations-(lack of equipment, weather restraints, etc.). 88-Not Attempted due to Medical Conditions or Safety Concerns. Roll Left to Right (QC): 6 Sit to Lying (QC): 6 Sit to Stand (QC): 6 Chair/Ura-sa-Dhnaj Xfer(QC): 6 Car Transfer (QC): 4 Gait Training Does the Patient Walk?: Yes Distance: 150' x2 Walk 10 feet (QC): 6 Walk 50 ft with 2 Turns(QC): 6 Walk 150 ft (QC): 6 Walking 10ft/uneven surface-QC: 3 Gait Persons Needed: 1 Gait Assistive Device: FWW Wheelchair Training Does the Pt Use a Wheelchair?: No Wheel 50 ft with 2 turns (QC): 5 Wheel 150 ft (QC): 5 Type of Wheelchair: Manual Stair Training Stair Training: Handrails/: 2 handrails #of Steps: 4 1 Step (curb) (QC): 5 4 Steps (QC): 4 12 Steps (QC): 88 Stairs: Pattern: Step to Balance Picking up an Object (QC): 88 (back precautions limit) ADL-Treatment Eating (QC): 6 (Per pt report) Oral Hygiene (QC): 6 Bathing Location: L Arm, R Arm, L Upper Leg, R Upper Leg, L Lower Leg (including foot), R Lower Leg (including foot), Chest, Abdomen, Perineal Area Shower/Bathe Self (QC): 3 Upper Body Dressing (QC): 5 Lower Body Dressing (QC): 4 On/Off Footwear (QC): 5 Toileting Hygiene (QC): 4 Toilet Transfer (QC): 4 Assessment/Plan Assessment and Plan Assess & Plan/Chief Complaint Assessment: Severe debility from lumbar stenosis surgery Anasarca Severe anemia post op requiring transfusion HTN HLP OMERO non-compliant with CPAP ARF Plan: IRF protocol Rash management O2 monitoring Pain control 05/09/20: IVF Monitor closely Rash improved 05/10/20: HLIVF Elevated lactic acid yesterday was from dehydration no signs of infection Elevated wbc is from steroid effect and no infection noted 05/11/20: Rash resolved Check labs in am Improved 05/12/20: Continue aggressive therapy Monitor kidney function Bowels are moving well 05/13/20: Discharge plan soon Monitor creatinine 05/14/20: Discuss next step in discharge planning Continue aggressive rehab 05/15/20: Continue rehab Doing extremely well BM+ 05/16/20: Laxatives Home meds DC Tuesday05/17/20: BM regimen Pain control Monitor closely (1) OMERO (obstructive sleep apnea) (2) Allergic drug rash (3) Lumbar radiculopathy (4) Renal failure (ARF), acute on chronic (5) Transfusion of blood during current hospitalization (6) Hypotension (7) Anemia (8) ART Carter DO May 17, 2020 06:29
[2020-05-17] MEDS: LEVOTHYROXINE 50 MCG (LEVOTHROID) TAB PO SCH (06:35)
[2020-05-17 08:00] VITALS: BP 107/59
[2020-05-17] MEDS: DOCUSATE SODIUM 100 MG (COLACE) CAP PO SCH ×2 (08:24→20:30)
[2020-05-17] MEDS: polyethylene glycoL POWDER 17 GM (MIRALAX) PACK PO SCH ×2 (08:24→20:30)
[2020-05-17] MEDS: SENNA W/DOCUSATE (SENOKOT S) TABLET PO SCH ×2 (08:24→20:30)
[2020-05-17] MEDS: meTOproloL SUCCINATE 50 MG (TOPROL XL) TAB PO SCH (08:30)
--- NOTE | 2020-05-17 09:00 | NUR ---
STATES LEFT HIP PAIN "COMES AND GOES" WITH MOVEMENT. IS TACHY THIS AM AND HOME TOPROL HAS BEEN RESTARTED. STATES FEELING A LOT BETTER SINCE 2 BM'S YESTERDAY. RASH IS GONE.
[2020-05-17 10:20] VITALS: BP 133/63
--- NOTE | 2020-05-17 10:30 | Physical Therapy Daily Note ---
PT Daily Note-Current Subjective Pt in bed upon arrival; agrees to PT tx. Pain Numeric Pain Scale: 0-No Pain Location: No Pain Reported Mental Status Patient Orientation: Person, Place, Time, Situation Transfers SCALE: Activities may be completed with or without assistive devices. 7-Ioldpfyenq-ibivnme completes the activity by him/herself with no assistance from a helper. 5-Set-up or Clean-up Assistance-helper sets up or cleans up; patient completes activity. [place] assists only prior to or following the activity. 4-Supervision or Touching Assistance-helper provides verbal cues and/or touching/steadying and/or contact guard assistance as patient completes activity. Assistance may be provided throughout the activity or intermittently. 3-Partial/Moderate Assistance-helper does LESS THAN HALF the effort. [place] lifts, holds or supports trunk or limbs, but provides less than half the effort. 2-Substantial/Maximal Assistance-helper does MORE THAN HALF the effort. [place] lifts or holds trunk or limbs and provides more than half the effort. 3-Nzavbmqyg-expqiz does ALL the effort. Patient does none of the effort to complete the activity. Or, the assistance of 2 or more helpers is required for the patient to complete the activity. If activity was not attempted, code reason: 7-Patient Refused. 9-Not Applicable-not attempted and the patient did not perform the activity before the current illness, exacerbation or injury. 10-Not Attempted due to Environmental Limitations-(lack of equipment, weather restraints, etc.). 88-Not Attempted due to Medical Conditions or Safety Concerns. Weight Bearing Full Weight Bearing Full Weight Bearing Exercises Supine Ex: Ankle pumps, Quad Set, Glut sets, Heel Slides, Short Arc Quads, Straight leg raise (15 reps x2), Hip abd/add Supine Reps: 20 (x2) Treatments Supine ex completed. Call light, bedside table w/in reach and all needs met, at end of tx. Assessment Current Status: Good Progress Pt motivated and pushes self during ex's. Pt c/o of "pulling" at times in LLE when doing ex w/ RLE. PT Short Term Goals Short Term Goals Time Frame: May 22, 2020 Roll Left & Right: 4 Sit to lyin Lying to sitting on side of be: 4 Sit to stand: 4 Walk 150 feet: 4 PT Care Home Goals Octave Board Assembler Goals PT Octave Board Assembler Goals Time Frame: Jun 05, 2020 Roll Left & Right (QC): 6 Sit to Lying (QC): 6 Lying-Sitting on Side/Bed(QC): 6 Sit to Stand (QC): 6 Chair/Ymk-dt-Hgjsv Xfer(QC): 6 Toilet Transfer (QC): 6 Car Transfer (QC): 5 Does the Patient Walk: Yes Walk 10 feet (QC): 6 Walk 50ft with 2 Turns (QC): 6 Walk 150 ft (QC): 6 Walking 10ft on Uneven Surface: 6 1 Step (curb) (QC): 5 4 Steps (QC): 5 12 Steps (QC): 9 Picking up an Object (QC): 88 (back precautions prohibit) Does the Pt use WC or Scooter?: No Wheel 50 feet with 2 turns (QC: 9 Wheel 150 feet: 9 PT Plan Problem List Problem List: Activity Tolerance, Functional Strength, Safety Treatment/Plan Treatment Plan: Continue Plan of Care Treatment Plan: Bed Mobility, Education, Functional Activity [place], Functional Strength, Group Therapy, Gait, Safety, Therapeutic Exercise, Transfers Treatment Duration: Jun 05, 2020 Frequency: At least 5 of 7 days/Wk (IRF) Estimated Hrs Per Day: 1.5 hours per day Patient and/or Family Agrees t: Yes Safety Risks/Education Patient Education: Safety Issues Teaching Recipient: Patient Teaching Methods: Discussion Response to Teaching: Verbalize Understanding Time/GCodes Time In: 0840 Time Out: 0900 Total Billed Treatment Time: 20 Total Billed Treatment 1, Ex (20m) YONIS BULLARD CHOREOGRAPHY DIRECTOR May 17, 2020 10:30
[2020-05-17] MEDS: lisINopril 20 MG (PRINIVIL) TABLET PO SCH (10:34)
--- NOTE | 2020-05-17 15:35 | Cardiology Progress Note ---
Cardiology SOAP Progress Note Subjective: no cardiac complaints. Objective: I&O/Vital Signs 05/17/20 05/17/20 05:13 09:00 Temp 37.1 Pulse 87 Resp 18 B/P (MAP) 134/63 (86) Pulse Ox 97 O2 Delivery Room Air Room Air 05/17/20 00:00 Intake Total 1340 ml Output Total 600 ml Balance 740 ml Constitutional: AAO x 3 Respiratory: chest is bilaterally symmetric, lungs clear to auscultation Cardiovascular: regular rate-rhythm, S1 and S2 Gastrointestional: soft, audible bowel sounds Extremities: pedal edema Neurologic/Psychiatric: no motor/sensory deficits, alert, normal mood/affect, oriented x 3 Skin: normal color A/P: Assessment/Dx: Coronary artery disease Hypertension Anemia Plan: Peripheral edema, improving. Continue on diuretics and monitor Allergic reaction to medication, skin rash. Improving slowly. Coronary artery disease, history of coronary stents in the past, mild elevation in troponin, Type II LA secondary to hypotension and anemia, conservative management and continue to monitor Hypertension, continue to monitor blood pressure Anemia, post surgery, continue to monitor, management per medical service Acute on chronic renal insuf, improving slowly. Continue to monitor Status post Lumbar surgery, continue to monitor High risk for sleep apnea, consider sleep study as an outpatient Thank you for your consultation. Please call me if you have any questions. Jaswant Childs MD, FACP, FACC, FSCAI, FHRS, CCDS Interventional Cardiology Cardiac Electrophysiology Vascular Medicine and Endovascular Interventions Pooja CHILDS MD May 17, 2020 15:35
[2020-05-17 15:55] VITALS: BP 137/65
--- NOTE | 2020-05-17 19:07 | NUR ---
bedside report received from WILLY MARMOLEJO, assume care of pt
[2020-05-17] MEDS: diphenhydrAMINE 25 MG TAB (BENADRYL) PO PRN (20:29)
--- NOTE | 2020-05-17 20:29 | NUR ---
pt refused Colace, Senokot & miralax, states having loose stools today
[2020-05-18 05:15] VITALS: BP 133/64
[2020-05-18] MEDS: ENOXAPARIN 40 MG/0.4 ML (LOVENOX) SYR SC SCH (06:25)
[2020-05-18] MEDS: LEVOTHYROXINE 50 MCG (LEVOTHROID) TAB PO SCH (06:25)
[2020-05-18 08:00] VITALS: BP 114/58
--- NOTE | 2020-05-18 08:00 | NUR ---
ADMITS TO LEFT HIP SORENESS "OFF AND ON", BUT REFUSES NEED FOR PAIN MEDICATION. CONTINUES TO HAVE LOOSE STOOLS.
[2020-05-18] MEDS: lisINopril 20 MG (PRINIVIL) TABLET PO SCH (08:40)
[2020-05-18] MEDS: meTOproloL SUCCINATE 50 MG (TOPROL XL) TAB PO SCH (08:41)
[2020-05-18] MEDS: SENNA W/DOCUSATE (SENOKOT S) TABLET PO SCH ×2 (08:41→20:04)
[2020-05-18] MEDS: polyethylene glycoL POWDER 17 GM (MIRALAX) PACK PO SCH ×2 (08:42→20:04)
[2020-05-18] MEDS: DOCUSATE SODIUM 100 MG (COLACE) CAP PO SCH ×2 (08:42→20:04)
--- NOTE | 2020-05-18 12:08 | PM&R Progress Note ---
Subjective HPI/CC On Admission Date Seen by Provider: May 18, 2020 Time Seen by Provider: 12:15 Subjective/Events-last exam 05/18/20: Patient doing well Loose stools after laxatives from constipation for several days MI Tuesday05/17/20: BM x 3 after laxatives Metoprolol restarted Home meds restarted and tolerated 05/16/20: Home meds will be restarted. Feels better since no home meds though NO BM for 2 days so will take all laxatives MI Tuesday05/15/20: Pt doing very well today Discharge is planned for Tuesday Edema is much improved Bowels are moving very well 05/14/20: Pt doing pretty well Rash is gone Left hip pain continues but improved Ambulating pretty well DC is planned soon 05/13/20: Pt doing very well No significant issues Walking around well No edema Breathing well 05/12/20: Creatinine 1.38 Bowels are moving Overall doing very well Pain is controlled 05/11/20: Patient doing well Soreness remains but improved leg pain and spasms. Rash is resolving Hydrocodone placed as allergy 05/10/20: Creatinine improved and stable at 1.38 IVF DC today Rash much improved Pain controlled Participating well Patient doing well Rash improved finally. Started IVF gently due to Benadryl dehydrating him and he appeared a bit volume depleted Large stool today No pain except back and legs Slept good last night Checked meds and labs Conferred with RN Reviewed therapy notes Review of Systems General: Fatigue, Malaise Musculoskeletal: back pain rash Objective Exam Vital Signs Vital Signs Date Time Temp Pulse Resp B/P (MAP) Pulse Ox O2 Delivery O2 Flow Rate FiO2 05/18/20 09:00 Room Air 05/18/20 08:00 92 114/58 (76) 05/18/20 05:15 36.6 20 97 Capillary Refill : NONELess Than 3 Seconds General Appearance: No Apparent Distress, WD/WN, Chronically ill, Obese HEENT: PERRL/EOMI, Normal ENT Inspection, Pharynx Normal Neck: Full Range of Motion, Normal Inspection, Non Tender, Supple, Carotid Bruit Respiratory: Chest Non Tender, Lungs Clear, Normal Breath Sounds, No Accessory Muscle Use, No Respiratory Distress Cardiovascular: Regular Rate, Rhythm, No Gallop, No JVD, No Murmur, Normal Peripheral Pulses Gastrointestinal: Normal Bowel Sounds, No Organomegaly, No Pulsatile Mass, Non Tender, Soft Back: Normal Inspection, No CVA Tenderness, No Vertebral Tenderness Extremity: Normal Capillary Refill, Normal Inspection, Normal Range of Motion, Non Tender, No Calf Tenderness, Pedal Edema Neurologic/Psychiatric: Alert, Oriented x3, No Motor/Sensory Deficits, Normal Mood/Affect, 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 FIM Transfers Therapy Code Descriptions/Definitions Functional [place] Measure: 0=Not Assessed/NA 4=Minimal Assistance 1=Total Assistance 5=Supervision or Setup 2=Maximal Assistance 6=Modified [place] 3=Moderate Assistance 7=Complete IndependenceSCALE: Activities may be completed with or without assistive devices. 8-Aupusvzrmv-jozmdgh completes the activity by him/herself with no assistance from a helper. 5-Set-up or Clean-up Assistance-helper sets up or cleans up; patient completes activity. [place] assists only prior to or following the activity. 4-Supervision or Touching Assistance-helper provides verbal cues and/or touching/steadying and/or contact guard assistance as patient completes activity. Assistance may be provided throughout the activity or intermittently. 3-Partial/Moderate Assistance-helper does LESS THAN HALF the effort. [place] lifts, holds or supports trunk or limbs, but provides less than half the effort. 2-Substantial/Maximal Assistance-helper does MORE THAN HALF the effort. [place] lifts or holds trunk or limbs and provides more than half the effort. 4-Wlkjqdocl-sslhpw does ALL the effort. Patient does none of the effort to complete the activity. Or, the assistance of 2 or more helpers is required for the patient to complete the activity. If activity was not attempted, code reason: 7-Patient Refused. 9-Not Applicable-not attempted and the patient did not perform the activity before the current illness, exacerbation or injury. 10-Not Attempted due to Environmental Limitations-(lack of equipment, weather restraints, etc.). 88-Not Attempted due to Medical Conditions or Safety Concerns. Roll Left to Right (QC): 6 Sit to Lying (QC): 6 Sit to Stand (QC): 6 Chair/Mxh-lw-Vcwpo Xfer(QC): 6 Car Transfer (QC): 4 Gait Training Does the Patient Walk?: Yes Distance: 150' x2 Walk 10 feet (QC): 6 Walk 50 ft with 2 Turns(QC): 6 Walk 150 ft (QC): 6 Walking 10ft/uneven surface-QC: 3 Gait Persons Needed: 1 Gait Assistive Device: FWW Wheelchair Training Does the Pt Use a Wheelchair?: No Wheel 50 ft with 2 turns (QC): 5 Wheel 150 ft (QC): 5 Type of Wheelchair: Manual Stair Training Stair Training: Handrails/: 2 handrails #of Steps: 4 1 Step (curb) (QC): 5 4 Steps (QC): 4 12 Steps (QC): 88 Stairs: Pattern: Step to Balance Picking up an Object (QC): 88 (back precautions limit) ADL-Treatment Eating (QC): 6 (Per pt report) Oral Hygiene (QC): 6 Bathing Location: L Arm, R Arm, L Upper Leg, R Upper Leg, L Lower Leg (incl uding foot), R Lower Leg (including foot), Chest, Abdomen, Perineal Area Shower/Bathe Self (QC): 3 Upper Body Dressing (QC): 5 Lower Body Dressing (QC): 4 On/Off Footwear (QC): 5 Toileting Hygiene (QC): 4 Toilet Transfer (QC): 4 Assessment/Plan Assessment and Plan Assess & Plan/Chief Complaint Assessment: Severe debility from lumbar stenosis surgery Anasarca Severe anemia post op requiring transfusion HTN HLP OMERO non-compliant with CPAP ARF Plan: IRF protocol Rash management O2 monitoring Pain control 05/09/20: IVF Monitor closely Rash improved 05/10/20: HLIVF Elevated lactic acid yesterday was from dehydration no signs of infection Elevated wbc is from steroid effect and no infection noted 05/11/20: Rash resolved Check labs in am Improved 05/12/20: Continue aggressive therapy Monitor kidney function Bowels are moving well 05/13/20: Discharge plan soon Monitor creatinine 05/14/20: Discuss next step in discharge planning Continue aggressive rehab 05/15/20: Continue rehab Doing extremely well BM+ 05/16/20: Laxatives Home meds Tuesday05/17/20: BM regimen Pain control Monitor closely 05/18/20: Pain control Fall prevention (1) OMERO (obstructive sleep apnea) (2) Allergic drug rash (3) Lumbar radiculopathy (4) Renal failure (ARF), acute on chronic (5) Transfusion of blood during current hospitalization (6) Hypotension (7) Anemia (8) ART Carter DO May 18, 2020 12:07
--- NOTE | 2020-05-18 15:34 | Cardiology Progress Note ---
Cardiology SOAP Progress Note Subjective: No cardiac complaints. Objective: I&O/Vital Signs 05/18/20 05/18/20 05/18/20 05:15 08:00 09:00 Temp 36.6 Pulse 86 92 Resp 20 B/P (MAP) 133/64 (87) 114/58 (76) Pulse Ox 97 O2 Delivery Room Air Room Air 05/18/20 00:00 Intake Total 1200 ml Output Total 1075 ml Balance 125 ml Constitutional: AAO x 3 Respiratory: chest is bilaterally symmetric, lungs clear to auscultation Cardiovascular: regular rate-rhythm, S1 and S2 Gastrointestional: soft, audible bowel sounds Extremities: pedal edema Neurologic/Psychiatric: no motor/sensory deficits, alert, normal mood/affect, oriented x 3 Skin: normal color A/P: Assessment/Dx: Coronary artery disease Hypertension Anemia Plan: Peripheral edema, improving. Continue on diuretics and monitor Allergic reaction to medication, skin rash. Improving slowly. Coronary artery disease, history of coronary stents in the past, mild elevation in troponin, Type II [place] secondary to hypotension and anemia, conservative management and continue to monitor Hypertension, continue to monitor blood pressure Anemia, post surgery, continue to monitor, management per medical service Acute on chronic renal insuf, improving slowly. Continue to monitor Status post Lumbar surgery, continue to monitor High risk for sleep apnea, consider sleep study as an outpatient Thank you for your consultation. Please call me if you have any questions. Jaswant Childs MD, FACP, FACC, FSCAI, FHRS, CCDS Interventional Cardiology Cardiac Electrophysiology Vascular Medicine and Endovascular Interventions Pooja CHILDS MD May 18, 2020 15:34
[2020-05-18 17:01] VITALS: BP 110/56
--- NOTE | 2020-05-18 19:03 | NUR ---
bedside report received from WILLY MARMOLEJO, assume care of pt
[2020-05-18] MEDS: diphenhydrAMINE 25 MG TAB (BENADRYL) PO PRN (20:03)
--- NOTE | 2020-05-18 20:29 | NUR ---
pt refused Colace, Senokot & miralax, stated had loose stools again today
--- NOTE | 2020-05-18 22:23 | NUR ---
c/o back pain level 8/10 on numeric scale, Ultram 50mg given
--- NOTE | 2020-05-18 23:05 | NUR ---
rates pain 4/10 on numeric scale
[2020-05-19 05:26] VITALS: BP 148/68
--- NOTE | 2020-05-19 05:32 | PM&R Progress Note ---
Subjective HPI/CC On Admission Date Seen by Provider: May 19, 2020 Time Seen by Provider: 09:00 Subjective/Events-last exam 05/19/20: Pt having some orthostasis today but he has that at home but I noted after marianne pinon I had just started Metoprolol so will hold that Will wrap his legs with rasheed wraps to see if that helps This is becoming his norm Overall pain is improved and labs remain stable Creatinine 1.3 Using IS 05/18/20: Patient doing well Loose stools after laxatives from constipation for several days DC Tuesday05/17/20: BM x 3 after laxatives Metoprolol restarted Home meds restarted and tolerated 05/16/20: Home meds will be restarted. Feels better since no home meds though NO BM for 2 days so will take all laxatives DC Tuesday05/15/20: Pt doing very well today Discharge is planned for Tuesday Edema is much improved Bowels are moving very well 05/14/20: Pt doing pretty well Rash is gone Left hip pain continues but improved Ambulating pretty well DC is planned soon 05/13/20: Pt doing very well No significant issues Walking around well No edema Breathing well 05/12/20: Creatinine 1.38 Bowels are moving Overall doing very well Pain is controlled 05/11/20: Patient doing well Soreness remains but improved leg pain and spasms. Rash is resolving Hydrocodone placed as allergy 05/10/20: Creatinine improved and stable at 1.38 IVF DC today Rash much improved Pain controlled Participating well Patient doing well Rash improved finally. Started IVF gently due to Benadryl dehydrating him and he appeared a bit volume depleted Large stool today No pain except back and legs Slept good last night Checked meds and labs Conferred with RN Reviewed therapy notes Review of Systems General: Fatigue, Malaise Musculoskeletal: back pain rash Objective Exam Vital Signs Vital Signs Date Time Temp Pulse Resp B/P (MAP) Pulse Ox O2 Delivery O2 Flow Rate FiO2 05/19/20 21:30 Room Air 05/19/20 15:53 36.7 68 14 126/61 (82) 96 Capillary Refill : NONELess Than 3 Seconds General Appearance: No Apparent Distress, WD/WN, Chronically ill, Obese HEENT: PERRL/EOMI, Normal ENT Inspection, Pharynx Normal Neck: Full Range of Motion, Normal Inspection, Non Tender, Supple, Carotid Bruit Respiratory: Chest Non Tender, Lungs Clear, Normal Breath Sounds, No Accessory Muscle Use, No Respiratory Distress Cardiovascular: Regular Rate, Rhythm, No Gallop, No JVD, No Murmur, Normal Peripheral Pulses Gastrointestinal: Normal Bowel Sounds, No Organomegaly, No Pulsatile Mass, Non Tender, Soft Back: Normal Inspection, No CVA Tenderness, No Vertebral Tenderness Extremity: Normal Capillary Refill, Normal Inspection, Normal Range of Motion, Non Tender, No Calf Tenderness, Pedal Edema Neurologic/Psychiatric: Alert, Oriented x3, No Motor/Sensory Deficits, Normal Mood/Affect, personal fitness trainer II-XII Norm as Tested, Abnormal Gait, Motor Weakness (generalized weakness 4/5 lower extremities) Skin: Normal Color, Warm/Dry, Rash (macular rash torso and legs) Lymphatic: No Adenopathy Results/Procedures Lab Laboratory Tests 05/19/20 05:44 Patient resulted labs reviewed. FIM Transfers Therapy Code Descriptions/Definitions Functional [place] Measure: 0=Not Assessed/NA 4=Minimal Assistance 1=Total Assistance 5=Supervision or Setup 2=Maximal Assistance 6=Modified [place] 3=Moderate Assistance 7=Complete IndependenceSCALE: Activities may be completed with or without assistive devices. 7-Tofgejxuee-yvlprtk completes the activity by him/herself with no assistance from a helper. 5-Set-up or Clean-up Assistance-helper sets up or cleans up; patient completes activity. [place] assists only prior to or following the activity. 4-Supervision or Touching Assistance-helper provides verbal cues and/or touching/steadying and/or contact guard assistance as patient completes activity. Assistance may be provided throughout the activity or intermittently. 3-Partial/Moderate Assistance-helper does LESS THAN HALF the effort. [place] lifts, holds or supports trunk or limbs, but provides less than half the effort. 2-Substantial/Maximal Assistance-helper does MORE THAN HALF the effort. [place] lifts or holds trunk or limbs and provides more than half the effort. 0-Yjachhotv-ukgxdv does ALL the effort. Patient does none of the effort to complete the activity. Or, the assistance of 2 or more helpers is required for the patient to complete the activity. If activity was not attempted, code reason: 7-Patient Refused. 9-Not Applicable-not attempted and the patient did not perform the activity before the current illness, exacerbation or injury. 10-Not Attempted due to Environmental Limitations-(lack of equipment, weather restraints, etc.). 88-Not Attempted due to Medical Conditions or Safety Concerns. Roll Left to Right (QC): 6 Sit to Lying (QC): 6 Sit to Stand (QC): 6 Chair/Xcp-oc-Wsvfb Xfer(QC): 6 Car Transfer (QC): 4 Gait Training Does the Patient Walk?: Yes Distance: 150' x2 Walk 10 feet (QC): 6 Walk 50 ft with 2 Turns(QC): 6 Walk 150 ft (QC): 6 Walking 10ft/uneven surface-QC: 3 Gait Persons Needed: 1 Gait Assistive Device: FWW Wheelchair Training Does the Pt Use a Wheelchair?: No Wheel 50 ft with 2 turns (QC): 5 Wheel 150 ft (QC): 5 Type of Wheelchair: Manual Stair Training Stair Training: Handrails/: 2 handrails #of Steps: 4 1 Step (curb) (QC): 5 4 Steps (QC): 4 12 Steps (QC): 88 Stairs: Pattern: Step to Balance Picking up an Object (QC): 88 (back precautions limit) ADL-Treatment Eating (QC): 6 (Per pt report) Oral Hygiene (QC): 6 Bathing Location: L Arm, R Arm, L Upper Leg, R Upper Leg, L Lower Leg (including foot), R Lower Leg (including foot), Chest, Abdomen, Perineal Area Shower/Bathe Self (QC): 3 Upper Body Dressing (QC): 5 Lower Body Dressing (QC): 4 On/Off Footwear (QC): 5 Toileting Hygiene (QC): 4 Toilet Transfer (QC): 4 Assessment/Plan Assessment and Plan Assess & Plan/Chief Complaint Assessment: Severe debility from lumbar stenosis surgery Anasarca Severe anemia post op requiring transfusion HTN HLP OMERO non-compliant with CPAP ARF Plan: IRF protocol Rash management O2 monitoring Pain control 05/09/20: IVF Monitor closely Rash improved 05/10/20: HLIVF Elevated lactic acid yesterday was from dehydration no signs of infection Elevated wbc is from steroid effect and no infection noted 05/11/20: Rash resolved Check labs in am Improved 05/12/20: Continue aggressive therapy Monitor kidney function Bowels are moving well 05/13/20: Discharge plan soon Monitor creatinine 05/14/20: Discuss next step in discharge planning Continue aggressive rehab 05/15/20: Continue rehab Doing extremely well BM+ 05/16/20: Laxatives Home meds DC Tuesday05/17/20: BM regimen Pain control Monitor closely 05/18/20: Pain control Fall prevention 05/19/20: Hold Metoprolol in case orthostasis is being caused by the medicine DC tomorrow (1) OMERO (obstructive sleep apnea) (2) Allergic drug rash (3) Lumbar radiculopathy (4) Renal failure (ARF), acute on chronic (5) Transfusion of blood during current hospitalization (6) Hypotension (7) Anemia (8) ART Carter DO May 19, 2020 05:32
[2020-05-19] MEDS: LEVOTHYROXINE 50 MCG (LEVOTHROID) TAB PO SCH (06:24)
[2020-05-19 06:25] LABS: BASOPHILS # (AUTO) 0.1 10^3/uL (0.0-0.1); BASOPHILS % (AUTO) 1 % (0-10); EOSINOPHILS # (AUTO) 0.1 10^3/uL (0.0-0.3); EOSINOPHILS % (AUTO) 2 % (0-10); HEMATOCRIT 31 % (40-54); HEMOGLOBIN 9.7 g/dL (13.3-17.7); LYMPHOCYTES # (AUTO) 1.9 10^3/uL (1.0-4.0); LYMPHOCYTES % (AUTO) 29 % (12-44); MEAN CORPUSCULAR HEMOGLOBIN 29 pg (25-34); MEAN CORPUSCULAR HGB CONC 31 g/dL (32-36); MEAN CORPUSCULAR VOLUME 92 fL (80-99); MONOCYTES # (AUTO) 0.8 10^3/uL (0.0-1.0); MONOCYTES % (AUTO) 12 % (0-12); NEUTROPHILS # (AUTO) 3.6 10^3/uL (1.8-7.8); NEUTROPHILS % (AUTO) 54 % (42-75); PLATELET COUNT 347 10^3/uL (130-400); WHITE BLOOD COUNT 6.6 10^3/uL (4.3-11.0)
[2020-05-19 06:36] LABS: ALBUMIN 3.1 GM/DL (3.2-4.5); BILIRUBIN,TOTAL 0.6 MG/DL (0.1-1.0); CALCIUM 8.2 MG/DL (8.5-10.1); CREATININE SERUM 1.34 MG/DL (0.60-1.30); POTASSIUM 4.4 MMOL/L (3.6-5.0); TOTAL PROTEIN 5.8 GM/DL (6.4-8.2)
--- NOTE | 2020-05-19 08:16 | Cardiology Progress Note ---
Subjective Date Seen by Provider: May 19, 2020 Time Seen by Provider: 08:23 Subjective/Events-last exam Patient up in room, doing ADL's. Denies any chest pain or dyspnea. Review of Systems General: No Chills, No Night Sweats; Fatigue, Malaise; No Appetite, No Other HEENT: No Head Aches, No Visual Changes, No Eye Pain, No Ear Pain, No Dysphasia, No Sinus Congestion, No Post Nasal Drip, No Sore Throat, No Other Pulmonary: No Dyspnea, No Cough, No Pleuritic Chest Pain, No Other Cardiovascular: No: Chest Pain, Palpitations, Orthopnea, Paroxysmal Noc. Dyspnea, Edema, Lt Headedness, Other Objective-Cardiology Exam Last Set of Vital Signs Vital Signs 05/19/20 05/19/20 05/19/20 05/19/20 05:26 09:00 09:30 10:50 Temp 36.6 Pulse 84 Resp 18 B/P (MAP) 121/55 (77) Pulse Ox 93 O2 Delivery Room Air Capillary Refill : NONELess Than 3 Seconds I&O Intake and Output 05/19/20 00:00 Intake Total 2270 ml Output Total 3150 ml Balance -880 ml Intake Oral 2270 ml Output Urine Total 3150 ml # Voids 1 # Bowel Movements 2 General: Alert, Oriented X3, Cooperative HEENT: Atraumatic, PERRLA Neck: Supple, No JVD, No Thyromegaly Lungs: Clear to Auscultation, Normal Air Movement Heart: Regular Rate, Normal S1, Normal S2, No Murmurs Abdomen: Normal Bowel Sounds, Soft, No Tenderness, No Hepatosplenomegaly, No Masses Extremities: No Clubbing, No Cyanosis, No Edema, Normal Pulses, No Tenderness/Swelling Skin: No Rashes, No Breakdown, No Significant Lesion Neuro: Normal Gait, Normal Speech, Strength at 5/5 X4 Ext, Normal Tone, Sensation Intact Psych/Mental Status: Mental Status NL, Mood NL Results Lab Laboratory Tests 05/19/20 05:44 A/P-Cardiology Admission Diagnosis Coronary artery disease Hypertension Anemia Assessment/Plan Peripheral edema, improving. Continue on diuretics and monitor Coronary artery disease, history of coronary stents in the past, mild elevation in troponin, Type II [place] secondary to hypotension and anemia, conservative management and continue to monitor. Follows with Dr. Gallegos in [place] as outpatient. Hypertension, continue to monitor blood pressure Anemia, post surgery, H &H stable continue to monitor, management per medical service Acute on chronic renal insuf, continues to improve. Continue to monitor Status post Lumbar surgery, continue to monitor High risk for sleep apnea, consider sleep study as an outpatient Patient was seen and evaluated with Marielle, examination performed, management plan was discussed, agree with the current scribed note, I made few changes to the note using Italic font Has been feeling well, will follow with Dr. Gallegos as an outpatient. Clinical Quality Measures DVT/VTE Risk/Contraindication: Risk Factor Score Per Nursin RFS Level Per Nursing on Admit: 4+=Very High MARIELLE COLE May 19, 2020 8:15 am BEN TRONCOSO MD May 19, 2020 11:38 am
[2020-05-19] MEDS: meTOproloL SUCCINATE 50 MG (TOPROL XL) TAB PO SCH ×2 (08:59→09:00)
[2020-05-19] MEDS: ENOXAPARIN 40 MG/0.4 ML (LOVENOX) SYR SC SCH (08:59)
[2020-05-19] MEDS: lisINopril 20 MG (PRINIVIL) TABLET PO SCH ×2 (08:59→09:00)
--- NOTE | 2020-05-19 09:00 | Occupational Ther Daily Note ---
OT Current Status-Daily Note Subjective Pt alert, sitting in recliner when OT entered. Pt agreed to therapy. No c/o pain reported. Mental Status/Objective Patient Orientation: Person, Place, Time, Situation ADL-Treatment Pt agreed to taking shower. After handing pt back brace, pt able to don/doff independently. Pt sit-stand from raised recliner to FWW, independently. Pt stated he needed to use the restroom before taking shower. Pt ambulated to bathroom using FWW, independently. Pt transferred to toilet, independently. Pt was educated on the use of toilet aid tongs due to not being able to complete toilet hygiene adequately. Pt verbalized understanding and completed toilet hygiene while standing using toilet aid tongs. Pt then ambulated to shower bench. Doffed upper/lower body dressing independently. Doffed socks using dressing stick. Pt required shower bench, hand held shower head, long handled sponge, grabbars to complete shower. Pt was able to cleanse upper arms, upper/lower legs, chest, abdomen, elyssa, and buttocks (while sitting). Pt transferred to w/c from shower bench. Pt donned shirt independently. Pt required dressing stick to thread B feet into lower body dressing. While standing pt was able to hike lower body dressing over hips. Donned socks independently using sock aid. Pt then wheeled to sink and completed oral hygiene independently while sitting. Pt then ambulated to gym using FWW, independently. Therapy Code Descriptions/Definitions Functional [place] Measure: 0=Not Assessed/NA 4=Minimal Assistance 1=Total Assistance 5=Supervision or Setup 2=Maximal Assistance 6=Modified [place] 3=Moderate Assistance 7=Complete IndependenceSCALE: Activities may be completed with or without assistive devices. 8-Dwkjfdehir-lfvaeyy completes the activity by him/herself with no assistance from a helper. 5-Set-up or Clean-up Assistance-helper sets up or cleans up; patient completes activity. [place] assists only prior to or following the activity. 4-Supervision or Touching Assistance-helper provides verbal cues and/or touching/steadying and/or contact guard assistance as patient completes activity. Assistance may be provided throughout the activity or intermittently. 3-Partial/Moderate Assistance-helper does LESS THAN HALF the effort. [place] lifts, holds or supports trunk or limbs, but provides less than half the effort. 2-Substantial/Maximal Assistance-helper does MORE THAN HALF the effort. [place] lifts or holds trunk or limbs and provides more than half the effort. 1-Tqlmdjeht-hnokmo does ALL the effort. Patient does none of the effort to complete the activity. Or, the assistance of 2 or more helpers is required for the patient to complete the activity. If activity was not attempted, code reason: 7-Patient Refused. 9-Not Applicable-not attempted and the patient did not perform the activity before the current illness, exacerbation or injury. 10-Not Attempted due to Environmental Limitations-(lack of equipment, weather restraints, etc.). 88-Not Attempted due to Medical Conditions or Safety Concerns. Bathing Location: L Arm, R Arm, L Upper Leg, R Upper Leg, L Lower Leg (including foot), R Lower Leg (including foot), Chest, Abdomen, Buttocks, Perineal Area Shower/Bathe Self (QC): 6 Upper Body Dressing (QC): 6 Lower Body Dressing (QC): 6 On/Off Footwear: 6 Toileting Hygiene (QC): 6 Toilet Transfer (QC): 6 Other Treatment Once in gym, pt completed pinch/payroll and benefits assistant strengthening task while seated using t heraputty for ADL task. Pt had to pinch/grasp beads out of medium resistive theraputty then placed beads back into putty. Pt was then educated on hand exercise program using theraputty. Pt verbalized understanding and was able to return demonstration. Pt required skilled instruction and handout for exercises. Pt then ambulated back to room sat in w/c. Call light/phone in reach. All needs met. Education OT Patient Education: Exercise program Teaching Recipient: Patient Teaching Methods: Demonstration, Handout, Discussion Response to Teaching: Verbalize Understanding, Return Demonstration OT Short Term Goals Short Term Goals Time Frame: May 15, 2020 Eatin Oral hygiene: 5 Toileting hygiene: 3 Shower/bathe self: 3 Upper body dressin Lower body dressin Putting on/taking off footwear: 3 OT Research Intern Goals Shelter Goals Time Frame: May 22, 2020 Eating (QC): 6 (met) Oral Hygiene (QC): 6 (met) Toileting Hygiene (QC): 6 (met) Shower/Bathe Self (QC): 6 (Using AE, met) Upper Body Dressing (QC): 6 (met) Lower Body Dressing (QC): 6 (Using AE, met) On/Off Footwear (QC): 6 (Using AE, met) Additional Goals: 1-Demonstrate ADL Tasks, 2-Verbalize Understanding, 3- ImproveStrength/[place] 1=Demonstrate adherence to instructed precautions during ADL tasks. 2=Patient will verbalize/demonstrate understanding of assistive devices/modifications for ADL. 3=Patient will improve strength/tolerance for activity to enable patient to perform ADL's. OT Education/Plan Discharge Recommendations Plan/Recommendations: Discharge/Goals Met Treatment Plan/Plan of Care Patient would benefit from OT for education, treatment and training to promote independence in ADL's, mobility, safety and/or upper extremity function for ADL's. Plan of Care: ADL Retraining, Functional Mobility, UE Funct Exercise/Act Treatment Duration: May 22, 2020 Frequency: At least 5 of 7 days/Wk (IRF) Estimated Hrs Per Day: 1.5 hours per day Agreement: Yes Rehab Potential: Good Time/GCodes Start Time: 07:30 Stop Time: 09:00 Total Time Billed (hr/min): 90 Billed Treatment Time 1 visit- ADL 4 (60 mins) EX 2 (30 mins) MARGUERITE UREÑA May 19, 2020 09:00
[2020-05-19 09:30] VITALS: BP 101/56
[2020-05-19] MEDS: SENNA W/DOCUSATE (SENOKOT S) TABLET PO SCH ×2 (09:41→20:24)
[2020-05-19] MEDS: polyethylene glycoL POWDER 17 GM (MIRALAX) PACK PO SCH ×2 (09:41→20:24)
[2020-05-19] MEDS: DOCUSATE SODIUM 100 MG (COLACE) CAP PO SCH ×2 (09:41→20:24)
--- NOTE | 2020-05-19 09:55 | Physical Therapy Daily Note ---
PT Daily Note-Current Subjective Pt presents sitting upright in recliner with nurses present in room; pt is feeling dizzy. Pt agrees to PT. Pt reports no pain, just dizzy and lightheaded. Appearance At conclusion of PT treatment patient is laying supine in bed where he has access to tray, call button, and all needs have been met. Mental Status Patient Orientation: Person, Place, Time, Eyes Open, Situation back brace Transfers SCALE: Activities may be completed with or without assistive devices. 1-Blbpzfvlot-eoqafgu completes the activity by him/herself with no assistance from a helper. 5-Set-up or Clean-up Assistance-helper sets up or cleans up; patient completes activity. [place] assists only prior to or following the activity. 4-Supervision or Touching Assistance-helper provides verbal cues and/or touching/steadying and/or contact guard assistance as patient completes activity. Assistance may be provided throughout the activity or intermittently. 3-Partial/Moderate Assistance-helper does LESS THAN HALF the effort. [place] lifts, holds or supports trunk or limbs, but provides less than half the effort. 2-Substantial/Maximal Assistance-helper does MORE THAN HALF the effort. [place] lifts or holds trunk or limbs and provides more than half the effort. 5-Rhjqpkqfn-ykoipx does ALL the effort. Patient does none of the effort to complete the activity. Or, the assistance of 2 or more helpers is required for the patient to complete the activity. If activity was not attempted, code reason: 7-Patient Refused. 9-Not Applicable-not attempted and the patient did not perform the activity before the current illness, exacerbation or injury. 10-Not Attempted due to Environmental Limitations-(lack of equipment, weather restraints, etc.). 88-Not Attempted due to Medical Conditions or Safety Concerns. Sit to Lying (QC): 4 Lying to Sitting/Side of Bed(Q: 4 Sit to Stand (QC): 4 Chair/Fgc-aw-Lwpta Xfer(QC): 4 Weight Bearing Full Weight Bearing Full Weight Bearing Exercises Supine Ex: Ankle pumps, Heel Slides, Hip abd/add (BKFO) Supine Reps: 40 Supine exercises B 2x20, exercises performed very slowly Treatments LE strengthening in supine. Assessment Current Status: Fair Progress Patient is feeling dizzy and light headed; nurses are aware of this. Pt able to transfer from to bed where legs are elevated to increase blood pressure. When patient has decreased dizziness LE exercises are performed in supine. Pt is then able to sit up at EOB where he experiences lightheadedness again; blood pressure is checked twice in this position before laying back to down to continue second set of LE exercises in supine. Seated BP 88/64 and then 101/56, after sitting again post supine 87/50 and then 105/51. Nursing was in room pre tx, and aware of BP issued, nurse wrapped his legs in rasheed wraps to try to increase BP. PT Short Term Goals Short Term Goals Time Frame: May 22, 2020 Roll Left & Right: 4 Sit to lyin Lying to sitting on side of be: 4 Sit to stand: 4 Walk 150 feet: 4 PT Accountant Controller Goals Shelter Goals PT Accountant Controller Goals Time Frame: Jun 05, 2020 Roll Left & Right (QC): 6 Sit to Lying (QC): 6 Lying-Sitting on Side/Bed(QC): 6 Sit to Stand (QC): 6 Chair/Cde-at-Ykzwo Xfer(QC): 6 Toilet Transfer (QC): 6 Car Transfer (QC): 5 Does the Patient Walk: Yes Walk 10 feet (QC): 6 Walk 50ft with 2 Turns (QC): 6 Walk 150 ft (QC): 6 Walking 10ft on Uneven Surface: 6 1 Step (curb) (QC): 5 4 Steps (QC): 5 12 Steps (QC): 9 Picking up an Object (QC): 88 (back precautions prohibit) Does the Pt use WC or Scooter?: No Wheel 50 feet with 2 turns (QC: 9 Wheel 150 feet: 9 PT Plan Problem List Problem List: Activity Tolerance, Functional Strength, Safety, Balance, Gait, Transfer, Bed Mobility, ROM Treatment/Plan Treatment Plan: Continue Plan of Care Treatment Plan: Bed Mobility, Education, Functional Activity [place], Functional Strength, Group Therapy, Gait, Safety, Therapeutic Exercise, Transfers Treatment Duration: Jun 05, 2020 Frequency: At least 5 of 7 days/Wk (IRF) Estimated Hrs Per Day: 1.5 hours per day Patient and/or Family Agrees t: Yes Safety Risks/Education Patient Education: Transfer Techniques, Correct Positioning, Safety Issues Teaching Recipient: Patient Teaching Methods: Demonstration, Discussion Response to Teaching: Reinforcement Needed Time/GCodes Time In: 0900 Time Out: 1000 Total Billed Treatment Time: 60 Total Billed Treatment 1 visit FA 25' EX 35' MAEVE DOWNS PT May 19, 2020 09:55
[2020-05-19 10:50] VITALS: BP 121/55
--- NOTE | 2020-05-19 13:31 | Physical Therapy Daily Note ---
PT Daily Note-Current Subjective Pt presents sitting upright in recliner. Pt agrees to PT. Pt reports no pain. Patient reports no dizziness, feels much better. Appearance At conclusion of PT tx patient is left supine in bed with access to tray, call button, and all needs being met. Mental Status Patient Orientation: Person, Place, Time, Eyes Open, Situation back brace Transfers SCALE: Activities may be completed with or without assistive devices. 6-Nlyjhglyui-tvqjrfn completes the activity by him/herself with no assistance from a helper. 5-Set-up or Clean-up Assistance-helper sets up or cleans up; patient completes activity. [place] assists only prior to or following the activity. 4-Supervision or Touching Assistance-helper provides verbal cues and/or touch ing/steadying and/or contact guard assistance as patient completes activity. Assistance may be provided throughout the activity or intermittently. 3-Partial/Moderate Assistance-helper does LESS THAN HALF the effort. [place] lifts, holds or supports trunk or limbs, but provides less than half the effort. 2-Substantial/Maximal Assistance-helper does MORE THAN HALF the effort. [place] lifts or holds trunk or limbs and provides more than half the effort. 8-Gqsxkcnzz-snuwvs does ALL the effort. Patient does none of the effort to complete the activity. Or, the assistance of 2 or more helpers is required for the patient to complete the activity. If activity was not attempted, code reason: 7-Patient Refused. 9-Not Applicable-not attempted and the patient did not perform the activity before the current illness, exacerbation or injury. 10-Not Attempted due to Environmental Limitations-(lack of equipment, weather restraints, etc.). 88-Not Attempted due to Medical Conditions or Safety Concerns. Sit to Stand (QC): 4 Chair/Swy-re-Dehmf Xfer(QC): 4 Toilet Transfer (QC): 4 Car Transfer (QC): 4 Pt able to complete transfers with supervision. Weight Bearing Full Weight Bearing Full Weight Bearing Gait Training Does the Patient Walk?: Yes Distance: 150' x2 Walk 10 feet (QC): 4 Walk 50 ft with 2 Turns(QC): 4 Walk 150 ft (QC): 4 Walking 10ft/uneven surface-QC: 4 Gait Persons Needed: 1 Gait Assistive Device: FWW PT supervises during ambulation on even and uneven surfaces. Wheelchair Training Wheel 50 ft with 2 turns (QC): 9 Wheel 150 ft (QC): 9 Stair Training Stair Training: Handrails/: 2 handrails #of Steps: 4 1 Step (curb) (QC): 4 4 Steps (QC): 4 12 Steps (QC): 88 Stairs: Pattern: Reciprocal Balance Picking up an Object (QC): 4 Special Test Comments Pt picked up pen from floor from standing using walker and route jumper. Exercises NuStep Minutes: 11 NuStep Workload: 4 Treatments Functional Activities and LE strengthening Assessment Current Status: Fair Progress Pt has improved bed mobility and gait training. Pt is able to get around without assistance. PT Short Term Goals Short Term Goals Time Frame: May 22, 2020 Roll Left & Right: 4 Sit to lyin Lying to sitting on side of be: 4 Sit to stand: 4 Walk 150 feet: 4 PT Pain Management Specialist Goals Mcc Goals PT Pain Management Specialist Goals Time Frame: Jun 05, 2020 Roll Left & Right (QC): 6 Sit to Lying (QC): 6 Lying-Sitting on Side/Bed(QC): 6 Sit to Stand (QC): 6 Chair/Rny-fu-Antei Xfer(QC): 6 Toilet Transfer (QC): 6 Car Transfer (QC): 5 Does the Patient Walk: Yes Walk 10 feet (QC): 6 Walk 50ft with 2 Turns (QC): 6 Walk 150 ft (QC): 6 Walking 10ft on Uneven Surface: 6 1 Step (curb) (QC): 5 4 Steps (QC): 5 12 Steps (QC): 9 Picking up an Object (QC): 88 (back precautions prohibit) Does the Pt use WC or Scooter?: No Wheel 50 feet with 2 turns (QC: 9 Wheel 150 feet: 9 PT Plan Problem List Problem List: Activity Tolerance, Functional Strength, Safety, Balance, Gait, Transfer, Bed Mobility, ROM Treatment/Plan Treatment Plan: Continue Plan of Care Treatment Plan: Bed Mobility, Education, Functional Activity [place], Functional Strength, Group Therapy, Gait, Safety, Therapeutic Exercise, Transfers Treatment Duration: Jun 05, 2020 Frequency: At least 5 of 7 days/Wk (IRF) Estimated Hrs Per Day: 1.5 hours per day Patient and/or Family Agrees t: Yes Safety Risks/Education Patient Education: Gait Training, Transfer Techniques, Steps, Reviewed Precautions, Correct Positioning, Reviewed Don/Doff Brace, Safety Issues Teaching Recipient: Patient Teaching Methods: Demonstration, Discussion Response to Teaching: Reinforcement Needed Time/GCodes Time In: 1300 Time Out: 1330 Total Billed Treatment 1 visit 19' FA 11' EX MAEVE DOWNS PT May 19, 2020 13:31
[2020-05-19 15:53] VITALS: BP 126/61
[2020-05-19] MEDS ORDERED: SENN-20 PO (20:41)
[2020-05-19] MEDS ORDERED: LISI-552 PO (20:41)
[2020-05-19] MEDS ORDERED: TRM50T PO (20:41)
--- NOTE | 2020-05-19 20:43 | D/C HH Face to Face Order ---
D/C Face to Face Orders Reconcile Patient Problems Problems Reviewed?: Yes Instructions for Patient [facility] Patient Instructions/FollowUp: Dr Davila in 1 week Physician to follow Patient: Giovanni Discharge Diet for Home: No Restrictions Patient Problems: Lumbar spine surgery Orthostasis CRI Goals for Patient: Regain independence Patient Data-Allergies,Ht & Wt Patient Allergies: Coded Allergies: hydrocodone (Unverified Allergy, Unknown, 05/08/20) PATIENT WITH HIVES, PRESUMPTIVE HYDROCODONE Home Health Need/Face to Face Date of Face to Face: May 19, 2020 Clinical Findings: Generalized weakness and fatigue, Instability, Muscle weakness, Pain with ambulation, Unsteady gait I have seen Pt [id number]-[id number]: Yes Discharged To: Home Diagnosis/Conditions: Lumbar spine surgery Orthostasis CRI Patient is Homebound due to: Jamel fall risk due to instabilty, Muscle weakness, Pain w/ambulation Homebound Status Due to the above stated illness, injury or surgical procedure (medical con dition or diagnosis) and associated clinical findings, the patient is homebound because of his/her inability to leave home except with aid of a supportive device and/or person AND leaving the home requires a considerable and taxing effort or is medically contraindicated. Pt req the following assistanc: Walker Home Health Nursing Orders Home Health Services Order: Nursing Services, Physical Therapy-Evaluate & Treat Certify Stmt I certify that this patient is under my care and that I, a nurse practitioner or a physician; a personal care assistant working with me, had a face to face encounter that - meets the physician face to face encounter requirements with this patient as dated. ART SERRATO DO May 19, 2020 20:43
[2020-05-20 05:11] VITALS: BP 120/59
--- NOTE | 2020-05-20 05:49 | Discharge Summary ---
Diagnosis/Chief Complaint Date of Admission May 08, 2020 at 10:30 Date of Discharge Discharge Date: May 20, 2020 Discharge Diagnosis Assessment: Severe debility from lumbar stenosis surgery Anasarca Severe anemia post op requiring transfusion HTN HLP OMERO non-compliant with CPAP ARF Plan: IRF protocol Rash management O2 monitoring Pain control 05/09/20: IVF Monitor closely Rash improved 05/10/20: HLIVF Elevated lactic acid yesterday was from dehydration no signs of infection Elevated wbc is from steroid effect and no infection noted 05/11/20: Rash resolved Check labs in am Improved 05/12/20: Continue aggressive therapy Monitor kidney function Bowels are moving well 05/13/20: Discharge plan soon Monitor creatinine 05/14/20: Discuss next step in discharge planning Continue aggressive rehab 05/15/20: Continue rehab Doing extremely well BM+ 05/16/20: Laxatives Home meds DC Tuesday05/17/20: BM regimen Pain control Monitor closely 05/18/20: Pain control Fall prevention 05/19/20: Hold Metoprolol in case orthostasis is being caused by the medicine DC tomorrow (1) OMERO (obstructive sleep apnea) (2) Allergic drug rash (3) Lumbar radiculopathy (4) Renal failure (ARF), acute on chronic (5) Transfusion of blood during current hospitalization (6) Hypotension (7) Anemia (8) Anasarca Discharge Summary Discharge Physical Examination Allergies: Coded Allergies: hydrocodone (Unverified Allergy, Unknown, 05/08/20) PATIENT WITH HIVES, PRESUMPTIVE HYDROCODONE Vitals & I&Os Vital Signs Date Time Temp Pulse Resp B/P (MAP) Pulse Ox O2 Delivery O2 Flow Rate FiO2 05/20/20 11:00 36.4 87 18 120/59 96 Room Air General Appearance: Alert, Oriented X3, Cooperative Respiratory: Clear to Auscultation Cardiovascular: Regular Rate Neuro: Normal Gait, Strength at 5/5 X4 Ext Psych/Mental Status: Mental Status NL Hospital Course Was the Problem List Reviewed?: Yes Hospital course: Pt had a lengthy hospital course for 12 days in inpatient rehab after transferred from [facility] after insurance approved due to significant disability following lumbar spine surgery complicated with acute renal failure at [place], along with hypotension and volume overload. He was given a unit of blood which resolved the hypotension. Pt had significant improvement in his renal function. Back to his baseline of 1.3 and his pain was well controlled on Ultram. All home medications were held for quite some time, restarted on Metoprolol and it appeared he had some more orthostasis, so I stopped that and he will talk to his PCP Dr. Davila in addition to Dr. Gallegos cardiology to evaluate him fully. He will need a follow-up with nephrology as scheduled. Overall he did well, had no complaints at discharge and was stable and received an order for home health. Labs (last 24 hrs) Laboratory Tests 05/09/20 06:14: White Blood Count 19.7H, Red Blood Count 3.25L, Hemoglobin 9.4L, Hematocrit 29L, Mean Corpuscular Volume 90, Mean Corpuscular Hemoglobin 29, Mean Corpuscular Hemoglobin Concent 32, Red Cell Distribution Width 14.5, Platelet Count 378, Mean Platelet Volume 9.5, Neutrophils (%) (Auto) 85H, Lymphocytes (%) (Auto) 7L, Monocytes (%) (Auto) 6, Eosinophils (%) (Auto) 2, Basophils (%) (Auto) 0, Neutrophils # (Auto) 16.6H, Lymphocytes # (Auto) 1.4, Monocytes # (Auto) 1.2H, Eosinophils # (Auto) 0.4H, Basophils # (Auto) 0.0, Sodium Level 134L, Potassium Level 5.0, Chloride Level 104, Carbon Dioxide Level 22, Anion Gap 8, Blood Urea Nitrogen 27H, Creatinine 1.32H, Estimat Glomerular Filtration Rate 52, BUN/Creatinine Ratio 20, Glucose Level 95, Calcium Level 8.1L, Corrected Calcium 9.1, Total Bilirubin 0.4, Aspartate Amino Transf (AST/SGOT) 37H, Alanine Aminotransferase (ALT/SGPT) 19, Alkaline Phosphatase 72, Total Protein 5.1L, Albumin 2.8L, Procalcitonin 0.10H 05/09/20 09:45: Urine Color YELLOW, Urine Clarity CLEAR, Urine pH 6.0, Urine Specific [place] <=1.005, Urine Protein NEGATIVE, Urine Glucose (UA) NEGATIVE, Urine Ketones NEGATIVE, Urine Nitrite NEGATIVE, Urine Bilirubin NEGATIVE, Urine Urobilinogen 0.2, Urine Leukocyte Esterase NEGATIVE, Urine RBC (Auto) NEGATIVE, Urine RBC 2- 5H, Urine WBC 2-5, Urine Squamous Epithelial Cells 2-5, Urine Crystals NONE, Urine Bacteria TRACE, Urine Casts PRESENT, Urine Hyaline Casts 2-5H, Urine Mucus NEGATIVE, Urine Other LG SPERMH, Urine Culture Indicated NO 05/09/20 11:10: Lactic Acid Level 3.15*H 05/09/20 13:19: Lactic Acid Level 1.88 05/10/20 06:54: White Blood Count 14.1H, Red Blood Count 3.61L, Hemoglobin 10.4L, Hematocrit 33L , Mean Corpuscular Volume 92, Mean Corpuscular Hemoglobin 29, Mean Corpuscular Hemoglobin Concent 31L, Red Cell Distribution Width 15.1H, Platelet Count 471H, Mean Platelet Volume 9.5, Neutrophils (%) (Auto) 76H, Lymphocytes (%) (Auto) 12, Monocytes (%) (Auto) 6, Eosinophils (%) (Auto) 6, Basophils (%) (Auto) 0, Neutrophils # (Auto) 10.6H, Lymphocytes # (Auto) 1.7, Monocytes # (Auto) 0.8, Eosinophils # (Auto) 0.9H, Basophils # (Auto) 0.0, Sodium Level 136, Potassium Level 4.7, Chloride Level 105, Carbon Dioxide Level 22, Anion Gap 9, Blood Urea Nitrogen 25H, Creatinine 1.38H, Estimat Glomerular Filtration Rate 50, BUN/Creatinine Ratio 18, Glucose Level 85, Lactic Acid Level 1.07, Calcium Level 8.0L, Corrected Calcium 8.8, Total Bilirubin 0.5, Aspartate Amino Transf (AST/SGOT) 24, Alanine Aminotransferase (ALT/SGPT) 22, Alkaline Phosphatase 80, Total Protein 5.4L, Albumin 3.0L 05/12/20 05:27: White Blood Count 11.0, Red Blood Count 3.31L, Hemoglobin 9.5L, Hematocrit 30L, Mean Corpuscular Volume 92, Mean Corpuscular Hemoglobin 29, Mean Corpuscular Hemoglobin Concent 31L, Red Cell Distribution Width 15.0H, Platelet Count 439H, Mean Platelet Volume 9.1, Neutrophils (%) (Auto) 73, Lymphocytes (%) (Auto) 14, Monocytes (%) (Auto) 8, Eosinophils (%) (Auto) 4, Basophils (%) (Auto) 1, Neutrophils # (Auto) 8.1H, Lymphocytes # (Auto) 1.5, Monocytes # (Auto) 0.9, Eosinophils # (Auto) 0.5H, Basophils # (Auto) 0.1, Sodium Level 136, Potassium Level 4.7, Chloride Level 104, Carbon Dioxide Level 25, Anion Gap 7, Blood Urea Nitrogen 18, Creatinine 1.37H, Estimat Glomerular Filtration Rate 50, BUN/Creatinine Ratio 13, Glucose Level 95, Calcium Level 7.9L, Corrected Calcium 8.9, Total Bilirubin 0.4, Aspartate Amino Transf (AST/SGOT) 26, Alanine Aminotransferase (ALT/SGPT) 21, Alkaline Phosphatase 85, Total Protein 5.1L, Albumin 2.8L 05/19/20 05:44: White Blood Count 6.6, Red Blood Count 3.40L, Hemoglobin 9.7L, Hematocrit 31L, Mean Corpuscular Volume 92, Mean Corpuscular Hemoglobin 29, Mean Corpuscular Hem oglobin Concent 31L, Red Cell Distribution Width 14.7H, Platelet Count 347, Mean Platelet Volume 10.0, Neutrophils (%) (Auto) 54, Lymphocytes (%) (Auto) 29, Monocytes (%) (Auto) 12, Eosinophils (%) (Auto) 2, Basophils (%) (Auto) 1, Neutrophils # (Auto) 3.6, Lymphocytes # (Auto) 1.9, Monocytes # (Auto) 0.8, Eosinophils # (Auto) 0.1, Basophils # (Auto) 0.1, Sodium Level 135, Potassium Level 4.4, Chloride Level 104, Carbon Dioxide Level 24, Anion Gap 7, Blood Urea Nitrogen 15, Creatinine 1.34H, Estimat Glomerular Filtration Rate 52, BUN/Creatinine Ratio 11, Glucose Level 99, Calcium Level 8.2L, Corrected Calcium 8.9, Total Bilirubin 0.6, Aspartate Amino Transf (AST/SGOT) 22, Alanine Aminot ransferase (ALT/SGPT) 22, Alkaline Phosphatase 143H, Total Protein 5.8L, Albumin 3.1L, Immature Granulocyte % (Auto) 2, Immature Granulocyte # (Auto) 0.1 Pending Labs Laboratory Tests 05/09/20 06:14: White Blood Count 19.7, Red Blood Count 3.25, Hemoglobin 9.4, Hematocrit 29, M rajat Corpuscular Volume 90, Mean Corpuscular Hemoglobin 29, Mean Corpuscular Hemoglobin Concent 32, Red Cell Distribution Width 14.5, Platelet Count 378, Mean Platelet Volume 9.5, Neutrophils (%) (Auto) 85, Lymphocytes (%) (Auto) 7, Monocytes (%) (Auto) 6, Eosinophils (%) (Auto) 2, Basophils (%) (Auto) 0, Neutrophils # (Auto) 16.6, Lymphocytes # (Auto) 1.4, Monocytes # (Auto) 1.2, E osinophils # (Auto) 0.4, Basophils # (Auto) 0.0, Sodium Level 134, Potassium Level 5.0, Chloride Level 104, Carbon Dioxide Level 22, Anion Gap 8, Blood Urea Nitrogen 27, Creatinine 1.32, Estimat Glomerular Filtration Rate 52, BUN/Creatinine Ratio 20, Glucose Level 95, Calcium Level 8.1, Corrected Calcium 9.1, Total Bilirubin 0.4, Aspartate Amino Transf (AST/SGOT) 37, Alanine Aminot ransferase (ALT/SGPT) 19, Alkaline Phosphatase 72, Total Protein 5.1, Albumin 2.8, Procalcitonin 0.10 05/09/20 09:45: Urine Color YELLOW, Urine Clarity CLEAR, Urine pH 6.0, Urine Specific [place] <=1.005, Urine Protein NEGATIVE, Urine Glucose (UA) NEGATIVE, Urine Ketones NEGATIVE, Urine Nitrite NEGATIVE, Urine Bilirubin NEGATIVE, Urine Urobilinogen 0.2, Urine Leukocyte Esterase NEGATIVE, Urine RBC (Auto) NEGATIVE, Urine RBC 2- 5, Urine WBC 2-5, Urine Squamous Epithelial Cells 2-5, Urine Crystals NONE, Urine Bacteria TRACE, Urine Casts PRESENT, Urine Hyaline Casts 2-5, Urine Mucus NEGATIVE, Urine Other LG SPERM, Urine Culture Indicated NO 05/09/20 11:10: Lactic Acid Level 3.15 05/09/20 13:19: Lactic Acid Level 1.88 05/10/20 06:54: White Blood Count 14.1, Red Blood Count 3.61, Hemoglobin 10.4, Hematocrit 33, Mean Corpuscular Volume 92, Mean Corpuscular Hemoglobin 29, Mean Corpuscular Hemoglobin Concent 31, Red Cell Distribution Width 15.1, Platelet Count 471, Mean Platelet Volume 9.5, Neutrophils (%) (Auto) 76, Lymphocytes (%) (Auto) 12, Monocytes (%) (Auto) 6, Eosinophils (%) (Auto) 6, Basophils (%) (Auto) 0, Neutrophils # (Auto) 10.6, Lymphocytes # (Auto) 1.7, Monocytes # (Auto) 0.8, Eosinophils # (Auto) 0.9, Basophils # (Auto) 0.0, Sodium Level 136, Potassium Level 4.7, Chloride Level 105, Carbon Dioxide Level 22, Anion Gap 9, Blood Urea Nitrogen 25, Creatinine 1.38, Estimat Glomerular Filtration Rate 50, BUN/Creatinine Ratio 18, Glucose Level 85, Lactic Acid Level 1.07, Calcium Level 8.0, Corrected Calcium 8.8, Total Bilirubin 0.5, Aspartate Amino Transf (AST/SGOT) 24, Alanine Aminotransferase (ALT/SGPT) 22, Alkaline Phosphatase 80, Total Protein 5.4, Albumin 3.0 05/12/20 05:27: White Blood Count 11.0, Red Blood Count 3.31, Hemoglobin 9.5, Hematocrit 30, Mean Corpuscular Volume 92, Mean Corpuscular Hemoglobin 29, Mean Corpuscular Hemoglobin Concent 31, Red Cell Distribution Width 15.0, Platelet Count 439, Mean Platelet Volume 9.1, Neutrophils (%) (Auto) 73, Lymphocytes (%) (Auto) 14, Monocytes (%) (Auto) 8, Eosinophils (%) (Auto) 4, Basophils (%) (Auto) 1, Neutrophils # (Auto) 8.1, Lymphocytes # (Auto) 1.5, Monocytes # (Auto) 0.9, Eosinophils # (Auto) 0.5, Basophils # (Auto) 0.1, Sodium Level 136, Potassium Level 4.7, Chloride Level 104, Carbon Dioxide Level 25, Anion Gap 7, Blood Urea Nitrogen 18, Creatinine 1.37, Estimat Glomerular Filtration Rate 50, BUN/Creatinine Ratio 13, Glucose Level 95, Calcium Level 7.9, Corrected Calcium 8.9, Total Bilirubin 0.4, Aspartate Amino Transf (AST/SGOT) 26, Alanine Aminotransferase (ALT/SGPT) 21, Alkaline Phosphatase 85, Total Protein 5.1, Albumin 2.8 05/19/20 05:44: White Blood Count 6.6, Red Blood Count 3.40, Hemoglobin 9.7, Hematocrit 31, Mean Corpuscular Volume 92, Mean Corpuscular Hemoglobin 29, Mean Corpuscular Hemoglobin Concent 31, Red Cell Distribution Width 14.7, Platelet Count 347, Mean Platelet Volume 10.0, Neutrophils (%) (Auto) 54, Lymphocytes (%) (Auto) 29, Monocytes (%) (Auto) 12, Eosinophils (%) (Auto) 2, Basophils (%) (Auto) 1, Neutrophils # (Auto) 3.6, Lymphocytes # (Auto) 1.9, Monocytes # (Auto) 0.8, Eosinophils # (Auto) 0.1, Basophils # (Auto) 0.1, Sodium Level 135, Potassium Level 4.4, Chloride Level 104, Carbon Dioxide Level 24, Anion Gap 7, Blood Urea Nitrogen 15, Creatinine 1.34, Estimat Glomerular Filtration Rate 52, BUN/Creatinine Ratio 11, Glucose Level 99, Calcium Level 8.2, Corrected Calcium 8.9, Total Bilirubin 0.6, Aspartate Amino Transf (AST/SGOT) 22, Alanine Aminotransferase (ALT/SGPT) 22, Alkaline Phosphatase 143, Total Protein 5.8, Albumin 3.1, Immature Granulocyte % (Auto) 2, Immature Granulocyte # (Auto) 0.1 Discharge Home Medications: Active Scripts Active Senna-Time S Tablet (Sennosides/Docusate Sodium) 1 Each Tablet 2 Ea PO BID Tramadol HCl 50 Mg Tablet 50 Mg PO TID PRN Lisinopril 20 Mg Tablet 20 Mg PO DAILY Reported Aspirin 325 Mg Tablet 325 Mg PO DAILY Fish Oil 1,200 mg Fish Oil (Fish Oil/Dha/Epa) 1 Each Capsule 1 Each PO DAILY Nitroglycerin 0.4 Mg Tab.subl 0.4 Mg SL UD PRN Atorvastatin Calcium 80 Mg Tablet 80 Mg PO HS Levothyroxine Sodium 50 Mcg Tablet 50 Mcg PO DAILY Instructions to patient/family Please see electronic discharge instructions given to patient. Diagnosis/Problems Diagnosis/Problems (1) OMERO (obstructive sleep apnea) (2) Allergic drug rash (3) Lumbar radiculopathy (4) Renal failure (ARF), acute on chronic (5) Transfusion of blood during current hospitalization (6) Hypotension (7) Anemia (8) Anasarca Clinical Quality Measures DVT/VTE Risk/Contraindication: Risk Factor Score Per Nursin RFS Level Per Nursing on Admit: 4+=Very High ART SERRATO DO May 20, 2020 05:49
[2020-05-20] MEDS: LEVOTHYROXINE 50 MCG (LEVOTHROID) TAB PO SCH (06:04)
--- NOTE | 2020-05-20 08:20 | Therapy Team Discharge Summary ---
Therapy Discharge Summary Discharge Recommendations Date of Discharge Physical Therapy Patient came to rehab with tarasa; post lumbar surgery. Upon evaluation patient performed bed mobility and supine <-> sit with max assist, sit <-> stand and transfers with min assist, car transfer min assist, ambulated 150' with a rolling walker with min assist (including 50' with at least 2 turns of 90 degrees and 10' over an uneven surface), and could go up and down 1 step using a rolling walker with min assist. Patient has been performing bed mobility and transfer training, balance and endurance training, functional strengthening, stair training, gait training, and education. Patient has made good progress but has not met any of his assisted goals. Now, patient performs bed mobility and transfers with SBA, car transfer SBA, ambulates 150' with a rolling walker with SBA (including 50' with at least 2 turns of 90 degrees and 10' over an uneven surface), can go up and down 4 steps using 2 handrails with SBA, and can flower buncher or picker an object from the floor with SBA using a automobile body repairer. Patient is discharging from this facility today and will be discharged from PT at this time. Occupational Therapy Decreased Activ Tolerance, Decreased UE Strength, Impaired Funct Balance, Impaired I ADL's, Impaired Self-Care Skills PT Last Code Striper Goals Last Code Striper Goals PT [facility] Goals Time Frame: Jun 05, 2020 Roll Left to Right (QC): 6 Sit to Lying (QC): 6 Lying-Sitting on Side/Bed(QC): 6 Sit to Stand (QC): 6 Chair/Iub-ko-Dgcnj Xfer(QC): 6 Car Transfer (QC): 5 Does the Patient Walk: Yes Walk 10 feet (QC): 6 Walk 10ft-Uneven Surface(QC): 6 Walk 50ft with 2 Turns (QC): 6 Walk 150 ft (QC): 6 Does the Pt use WC or Scooter?: No Wheel 50 feet with 2 turns (QC: 9 1 Step (curb) (QC): 5 4 Steps (QC): 5 12 Steps (QC): 9 Picking up an Object (QC): 88 (back precautions prohibit) OT Last Code Striper Goals [facility] Goals Time Frame: May 22, 2020 Eating (QC): 6 (met) Oral Hygiene (QC): 6 (met) Shower/Bathe Self (QC): 6 (Using AE, met) Upper Body Dressing (QC): 6 (met) Lower Body Dressing (QC): 6 (Using AE, met) On/Off Footwear (QC): 6 (Using AE, met) Toileting Hygiene (QC): 6 (met) Toilet/Commode Transfer (QC): 6 Additional Goals: 1-Demonstrate ADL Tasks, 2-Verbalize Understanding, 3- ImproveStrength/[place] 1=Demonstrate adherence to instructed precautions during ADL tasks. 2=Patient will verbalize/demonstrate understanding of assistive devices/modifications for ADL. 3=Patient will improve strength/tolerance for activity to enable patient to perform ADL's. MAEVE DOWNS PT May 20, 2020 08:20
[2020-05-20] MEDS: lisINopril 20 MG (PRINIVIL) TABLET PO SCH (08:47)
[2020-05-20] MEDS: ENOXAPARIN 40 MG/0.4 ML (LOVENOX) SYR SC SCH (08:47)
--- NOTE | 2020-05-20 08:50 | Cardiology Progress Note ---
Subjective Date Seen by Provider: May 20, 2020 Time Seen by Provider: 08:00 Subjective/Events-last exam Patient is sitting up in chair, no new complaints today. Denies any chest pain. Review of Systems General: No Chills, No Night Sweats, No Fatigue, No Malaise, No Appetite, No Other HEENT: No Head Aches, No Visual Changes, No Eye Pain, No Ear Pain, No Dysphasia, No Sinus Congestion, No Post Nasal Drip, No Sore Throat, No Other Pulmonary: No Dyspnea, No Cough, No Pleuritic Chest Pain, No Other Cardiovascular: No: Chest Pain, Palpitations, Orthopnea, Paroxysmal Noc. Dyspnea, Edema, Lt Headedness, Other Objective-Cardiology Exam Last Set of Vital Signs Vital Signs 05/20/20 05:11 Temp 36.4 Pulse 87 Resp 18 B/P (MAP) 120/59 (79) Pulse Ox 96 O2 Delivery Room Air Capillary Refill : NONELess Than 3 Seconds I&O Intake and Output 05/20/20 00:00 Intake Total 2500 ml Output Total 1450 ml Balance 1050 ml Intake Oral 2500 ml Output Urine Total 1450 ml # Voids 6 # Bowel Movements 1 General: Alert, Oriented X3, Cooperative HEENT: Atraumatic, PERRLA Neck: Supple, No JVD, No Thyromegaly Lungs: Clear to Auscultation, Normal Air Movement Heart: Regular Rate, Normal S1, Normal S2, No Murmurs Abdomen: Normal Bowel Sounds, Soft, No Tenderness, No Hepatosplenomegaly, No Masses Extremities: No Clubbing, No Cyanosis, No Edema, Normal Pulses, No Tenderness/Swelling Skin: No Rashes, No Breakdown, No Significant Lesion Neuro: Normal Gait, Normal Speech, Strength at 5/5 X4 Ext, Normal Tone, Sensation Intact Psych/Mental Status: Mental Status NL, Mood NL A/P-Cardiology Admission Diagnosis Coronary artery disease Hypertension Anemia Assessment/Plan Peripheral edema, improving. 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 Follows with Dr. Gallegos in [place] as outpatient. Hypertension, continue to monitor blood pressure Anemia, post surgery, H &H stable continue to monitor, management per medical service Acute on chronic renal insuf, continues to improve. Continue to monitor Status post Lumbar surgery, continue to monitor High risk for sleep apnea, consider sleep study as an outpatient Patient was seen and evaluated with Marielle, examination performed, management plan was discussed, agree with the current scribed note, I made few changes to the note using Italic font Possible discharge today, has been doing well, continue on current medication. No changes are recommended Clinical Quality Measures DVT/VTE Risk/Contraindication: Risk Factor Score Per Nursin RFS Level Per Nursing on Admit: 4+=Very High MARIELLE COLE May 20, 2020 8:50 am BEN TRONCOSO MD May 20, 2020 9:34 am
[2020-05-20] MEDS: DOCUSATE SODIUM 100 MG (COLACE) CAP PO SCH (09:00)
[2020-05-20] MEDS: SENNA W/DOCUSATE (SENOKOT S) TABLET PO SCH (09:00)
[2020-05-20] MEDS: polyethylene glycoL POWDER 17 GM (MIRALAX) PACK PO SCH (09:00)
--- NOTE | 2020-05-20 10:22 | Therapy Team Discharge Summary ---
Therapy Discharge Summary Discharge Recommendations Date of Discharge 05-20-20 Therapy D/C Recommendations: Home w/ Family Support Occupational Therapy Pt. has been seen by occupational therapy to increase overall strength and independence with daily tasks. Pt. has met all goals, and is able to bathe/dress self independently with AE. Pt. has made substantial progress, and plans to return home with support of son. Hip kit recommended. Home health OT recommended if pt. feels need for home evaluation or safety goals. Decreased Activ Tolerance PT Enrollment Specialist Goals Enrollment Specialist Goals PT Senior Living Goals Time Frame: Jun 05, 2020 Roll Left to Right (QC): 6 Sit to Lying (QC): 6 Lying-Sitting on Side/Bed(QC): 6 Sit to Stand (QC): 6 Chair/Ecr-bw-Velgk Xfer(QC): 6 Car Transfer (QC): 5 Does the Patient Walk: Yes Walk 10 feet (QC): 6 Walk 10ft-Uneven Surface(QC): 6 Walk 50ft with 2 Turns (QC): 6 Walk 150 ft (QC): 6 Does the Pt use WC or Scooter?: No Wheel 50 feet with 2 turns (QC: 9 1 Step (curb) (QC): 5 4 Steps (QC): 5 12 Steps (QC): 9 Picking up an Object (QC): 88 (back precautions prohibit) OT Senior Living Goals Enrollment Specialist Goals Time Frame: May 22, 2020 Eating (QC): 6 (met) Oral Hygiene (QC): 6 (met) Shower/Bathe Self (QC): 6 (Using AE, met) Upper Body Dressing (QC): 6 (met) Lower Body Dressing (QC): 6 (Using AE, met) On/Off Footwear (QC): 6 (Using AE, met) Toileting Hygiene (QC): 6 (met) Toilet/Commode Transfer (QC): 6 Additional Goals: 1-Demonstrate ADL Tasks, 2-Verbalize Understanding, 3- ImproveStrength/[place] 1=Demonstrate adherence to instructed precautions during ADL tasks. 2=Patient will verbalize/demonstrate understanding of assistive devices/modifications for ADL. 3=Patient will improve strength/tolerance for activity to enable patient to perform ADL's. ISHA AGUILAR OT May 20, 2020 10:22
[2020-05-20 11:00] VITALS: BP 120/59
--- NOTE | 2020-05-20 12:55 | NUR ---
CM/SS DISCHARGE Patient discharged back to his home with his son Isauro today. HHC: Finalized with [facility] for RN and PT. DME: FWW was ordered and delivered from [facility]; however, patient refused the walker stating it was the same size as his 's at home. Patient wanted a "big man" walker, checked into bariatric size which is outside of criteria for his height/weight and he would have to sign a waiver to pay the $300 if Medicare did not cover. Patient was not in agreement to the waiver and stated he would just continue to use the hand me down at home. IMM2 presented, discussed, signed, charted. Patient has f/u with surgeon in [place] today at 1615, he and his son intended to eat out and enjoy outside time prior to the appointment. Unit RN was updated and assisted with coordination of dismissal.
== END 2020-05-20 11:35 | disposition home health service (06) | DRG 559 ==
PROVIDERS: ADMIT Internal Medicine; ATTEND Internal Medicine
DX: Z47.89 Encounter for other orthopedic aftercare (principal); I21.A1 Myocardial infarction type 2; N17.9 Acute kidney failure, unspecified; R60.1 Generalized edema; M54.9 Dorsalgia, unspecified; L27.0 Generalized skin eruption due to drugs and medicaments taken internally; J44.9 Chronic obstructive pulmonary disease, unspecified; G47.33 Obstructive sleep apnea (adult) (pediatric); E78.00 Pure hypercholesterolemia, unspecified; E78.5 Hyperlipidemia, unspecified; I12.9 Hypertensive chronic kidney disease with stage 1 through stage 4 chronic kidney disease, or unspecified chronic kidney disease; N18.9 Chronic kidney disease, unspecified; I95.9 Hypotension, unspecified; D64.9 Anemia, unspecified; I25.10 Atherosclerotic heart disease of native coronary artery without angina pectoris; G62.9 Polyneuropathy, unspecified; Z95.5 Presence of coronary angioplasty implant and graft; Z87.891 Personal history of nicotine dependence; Z91.19 Patient's noncompliance with other medical treatment and regimen
CPT/HCPCS: 36415; 72131; 80053; 81000; 83605; 84145; 85025; 85027; 94760